=== PATIENT | male | born 1930 | race Caucasian/White ===

== ENCOUNTER 2016-12-04 09:26 | Outpatient (CLI) | payer MEDICARE, MEDICAID | END 2016-12-04 09:27 | disposition home or self-care (01) | DX: R11.10 Vomiting, unspecified (principal); R10.13 Epigastric pain; E11.9 Type 2 diabetes mellitus without complications; Z79.899 Other long term (current) drug therapy ==

== ENCOUNTER 2016-12-06 | Outpatient (CLI) | payer MEDICARE, MEDICAID | END 2016-12-06 21:07 | disposition critical access hospital (66) | CPT/HCPCS: A0425; A0427 ==

== ENCOUNTER 2016-12-06 21:12 | Inpatient (IN) | payer MEDICARE, MEDICAID ==
[2016-12-06] MEDS ORDERED: SODIUM CHLORIDE 0.9% 500 ML IV ONE (21:24)
[2016-12-07] MEDS ORDERED: IOPAMIDOL-300 100 ML VIAL IVP ONE (00:24)
[2016-12-07] MEDS ORDERED: HYDROcod/ACETAM 5/325 MG TABLET PO PRN (04:09)
[2016-12-07] MEDS ORDERED: HYDROcod/ACETAM 10 MG/325 MG TABLET PO PRN (04:09)
[2016-12-07] MEDS ORDERED: SODIUM CHLORIDE FLUSH 0.9% 10 ML SYRINGE IVP PRN (04:09)
[2016-12-07] MEDS ORDERED: ONDANSETRON 4 MG/2 ML VIAL IVP PRN (04:09)
[2016-12-07] MEDS ORDERED: ACETAMINOPHEN 325 MG TABLET PO PRN (04:09)
[2016-12-07] MEDS ORDERED: IPRATROPIUM/ALBUTEROL 3 ML NEB INH PRN (04:09)
[2016-12-07] MEDS: SODIUM CHLORIDE 0.9% 1,000 ML IV SCH ×3 (04:42→23:50)
[2016-12-07] MEDS: SODIUM CHLORIDE FLUSH 0.9% 10 ML SYRINGE IVP SCH ×3 (04:42→21:17)
[2016-12-07] MEDS: PANTOPRAZOLE 40 MG TABLET PO SCH (06:10)
[2016-12-07] MEDS: INSULIN ASPART 300 UNIT/3 ML PEN SUBQ SCH ×4 (07:56→21:16)
[2016-12-07] MEDS ORDERED: SERTRALINE 50 MG TABLET PO SCH (09:00)
[2016-12-07] MEDS: SACCHAROMYCES BOULARDII 250 MG CAPSULE PO SCH ×2 (09:18→17:00)
[2016-12-07] MEDS: ENOXAPARIN 40 MG/0.4 ML SYRINGE SUBQ SCH (09:19)
[2016-12-07] MEDS: LISINOPRIL 5 MG TABLET PO SCH (09:19)
[2016-12-07] MEDS: POLYETHYLENE GLYCOL 3350 17 GM PACKET PO SCH (09:19)
[2016-12-07] MEDS: NICOTINE 14 MG PATCH TOP SCH (09:20)
[2016-12-07] MEDS ORDERED: MIN OIL/DIMETHICON/COCONUT OIL 92 GM TUBE TOP PRN (20:06)
[2016-12-07] MEDS: ATORVASTATIN 40 MG TABLET PO SCH (21:17)
[2016-12-08] MEDS: SODIUM CHLORIDE FLUSH 0.9% 10 ML SYRINGE IVP SCH ×3 (04:26→21:30)
[2016-12-08] MEDS: PANTOPRAZOLE 40 MG TABLET PO SCH (06:05)
[2016-12-08] MEDS: NICOTINE 14 MG PATCH TOP SCH (08:13)
[2016-12-08] MEDS: SACCHAROMYCES BOULARDII 250 MG CAPSULE PO SCH ×2 (08:15→17:59)
[2016-12-08] MEDS: POLYETHYLENE GLYCOL 3350 17 GM PACKET PO SCH (08:15)
[2016-12-08] MEDS: LISINOPRIL 5 MG TABLET PO SCH (08:15)
[2016-12-08] MEDS: SERTRALINE 50 MG TABLET PO SCH (08:15)
[2016-12-08] MEDS: ENOXAPARIN 40 MG/0.4 ML SYRINGE SUBQ SCH (08:16)
[2016-12-08] MEDS: INSULIN ASPART 300 UNIT/3 ML PEN SUBQ SCH ×4 (08:16→21:27)
[2016-12-08] MEDS: SODIUM CHLORIDE 0.9% 1,000 ML IV SCH ×2 (11:32→21:34)
[2016-12-08] MEDS: ATORVASTATIN 40 MG TABLET PO SCH (21:27)
[2016-12-09] MEDS: SODIUM CHLORIDE FLUSH 0.9% 10 ML SYRINGE IVP SCH ×2 (06:34→07:48)
[2016-12-09] MEDS: PANTOPRAZOLE 40 MG TABLET PO SCH (06:56)
[2016-12-09] MEDS: LISINOPRIL 5 MG TABLET PO SCH (07:46)
[2016-12-09] MEDS: SACCHAROMYCES BOULARDII 250 MG CAPSULE PO SCH (07:46)
[2016-12-09] MEDS: SERTRALINE 50 MG TABLET PO SCH (07:47)
[2016-12-09] MEDS: NICOTINE 14 MG PATCH TOP SCH (07:47)
[2016-12-09] MEDS: ENOXAPARIN 40 MG/0.4 ML SYRINGE SUBQ SCH (07:47)
[2016-12-09] MEDS: POLYETHYLENE GLYCOL 3350 17 GM PACKET PO SCH (07:47)
[2016-12-09] MEDS: SODIUM CHLORIDE 0.9% 1,000 ML IV SCH (07:47)
[2016-12-09] MEDS: INSULIN ASPART 300 UNIT/3 ML PEN SUBQ SCH (07:56)
== END 2016-12-09 11:45 | disposition home or self-care (01) | DRG 190 ==
DX: J44.0 Chronic obstructive pulmonary disease with (acute) lower respiratory infection (principal); J18.9 Pneumonia, unspecified organism; J44.1 Chronic obstructive pulmonary disease with (acute) exacerbation; E11.9 Type 2 diabetes mellitus without complications; I10 Essential (primary) hypertension; F17.200 Nicotine dependence, unspecified, uncomplicated; E78.5 Hyperlipidemia, unspecified; G47.33 Obstructive sleep apnea (adult) (pediatric); I71.4 Abdominal aortic aneurysm, without rupture; N28.9 Disorder of kidney and ureter, unspecified; R09.02 Hypoxemia; I72.3 Aneurysm of iliac artery; I25.10 Atherosclerotic heart disease of native coronary artery without angina pectoris; F03.90 Unspecified dementia, unspecified severity, without behavioral disturbance, psychotic disturbance, mood disturbance, and anxiety; F17.210 Nicotine dependence, cigarettes, uncomplicated; F32.9 Major depressive disorder, single episode, unspecified; Z66 Do not resuscitate; Z95.5 Presence of coronary angioplasty implant and graft; Z85.048 Personal history of other malignant neoplasm of rectum, rectosigmoid junction, and anus; Z79.84 Long term (current) use of oral hypoglycemic drugs; R10.9 Unspecified abdominal pain; R11.2 Nausea with vomiting, unspecified

== ENCOUNTER 2016-12-30 10:49 | Emergency (ER) | payer MEDICARE, MEDICAID ==
[2016-12-30] MEDS ORDERED: SODIUM CHLORIDE 0.9% 1,000 ML IV ONE ×2 (12:02→16:08)
[2016-12-30] MEDS ORDERED: HYDROmorphone 1 MG/ML SYRINGE IVP STA (12:02)
[2016-12-30] MEDS ORDERED: ONDANSETRON 4 MG/2 ML VIAL IVP STA (12:02)
[2016-12-30] MEDS ORDERED: HYDROmorphone 1 MG/ML SYRINGE ONE (12:06)
[2016-12-30] MEDS ORDERED: ONDANSETRON 4 MG/2 ML VIAL ONE (12:07)
[2016-12-30] MEDS ORDERED: IOPAMIDOL-300 100 ML VIAL IVP ONE ×2 (14:12)
[2016-12-30] MEDS ORDERED: MAGNESIUM CITRATE 296 ML BOTTLE PO STA (14:15)
[2016-12-30] MEDS ORDERED: MAGNESIUM CITRATE 296 ML BOTTLE ONE (14:48)
[2016-12-30] MEDS ORDERED: BISACODYL 5 MG TABLET PO STA (16:08)
[2016-12-30] MEDS ORDERED: BISACODYL 5 MG TABLET PO ONE (16:15)
== END 2016-12-30 17:50 | disposition home or self-care (01) ==
DX: K56.41 Fecal impaction (principal); R10.84 Generalized abdominal pain; D41.02 Neoplasm of uncertain behavior of left kidney; I71.4 Abdominal aortic aneurysm, without rupture; I72.3 Aneurysm of iliac artery; J43.2 Centrilobular emphysema; F17.200 Nicotine dependence, unspecified, uncomplicated; I49.1 Atrial premature depolarization; I25.10 Atherosclerotic heart disease of native coronary artery without angina pectoris; Z95.5 Presence of coronary angioplasty implant and graft; E11.9 Type 2 diabetes mellitus without complications; Z79.84 Long term (current) use of oral hypoglycemic drugs; F03.90 Unspecified dementia, unspecified severity, without behavioral disturbance, psychotic disturbance, mood disturbance, and anxiety; Z85.038 Personal history of other malignant neoplasm of large intestine
CPT/HCPCS: 36415; 74177; 80053; 83605; 83690; 84484; 85025; 93005; 93010; 96361; 96374; 96375; 99284; 99285; A9270; J1170; Q9967

== ENCOUNTER 2017-01-10 09:00 | Outpatient (CLI) | payer MEDICARE, MEDICAID ==
[2017-01-10] MEDS ORDERED: BARIUM SULFATE 135 ML BOTTLE PO ONE (09:53)
[2017-01-10] MEDS ORDERED: BARIUM SULFATE 176 GM BOTTLE PO ONE (09:53)
== END 2017-01-10 09:01 | disposition home or self-care (01) ==
DX: K44.9 Diaphragmatic hernia without obstruction or gangrene (principal); K21.9 Gastro-esophageal reflux disease without esophagitis
CPT/HCPCS: 74246; A9270

== ENCOUNTER 2017-07-03 12:31 | Outpatient (CLI) | payer MEDICARE, MEDICAID ==
[2017-07-03 18:16] LABS: ALBUMIN/GLOBULIN RATIO 0.9 (1.0-2.2); BASOPHILS # (AUTO) 0.1 10^3/uL (0.0-0.1); BASOPHILS % (AUTO) 1.3 %; BILIRUBIN,TOTAL 0.2 mg/dL (0.2-1.0); BUN - BLOOD UREA NITROGEN 48 mg/dL (6-20); CALCIUM 9.1 mg/dL (8.5-10.3); CARBON DIOXIDE - CO2 24 mmol/L (21-32); CHLORIDE 102 mmol/L (101-111); CHOL/HDL RATIO 3.9 (<5.0); CHOLESTEROL 178 mg/dL; CREATININE 1.7 mg/dL (0.6-1.2); EOSINOPHILS # (AUTO) 0.1 10^3/uL (0.0-0.7); EOSINOPHILS % (AUTO) 1.2 %; GFR - MDRD 38 (>89); GLUCOSE 97 mg/dL (70-100); HCT - HEMATOCRIT 35.2 % (42.0-52.0); HDL CHOLESTEROL 46 mg/dL; HGB - HEMOGLOBIN 11.7 g/dL (14.0-18.0); LDL/HDL RATIO 2.2 (<3.6); LYMPHOCYTES # (AUTO) 1.5 10^3/uL (1.5-3.5); LYMPHOCYTES % (AUTO) 17.3 %; MEAN CORPUSCULAR HEMOGLOBIN 27.8 pg (27.0-31.0); MEAN CORPUSCULAR HGB CONC 33.2 g/dL (32.0-36.0); MEAN CORPUSCULAR VOLUME 83.7 fL (80.0-94.0); MONOCYTES # (AUTO) 0.7 10^3/uL (0.0-1.0); MONOCYTES % (AUTO) 7.9 %; NEUTROPHILS # (AUTO) 6.4 10^3/uL (1.5-6.6); NEUTROPHILS % (AUTO) 72.3 %; POTASSIUM 4.9 mmol/L (3.5-5.0); RED BLOOD COUNT 4.21 10^6/uL (4.70-6.10); RED CELL DISTRIBUTION WIDTH 15.7 % (12.0-15.0); SODIUM 136 mmol/L (135-145); TOTAL PROTEIN 7.7 g/dL (6.7-8.2); TRIGLYCERIDES 163 mg/dL; UNCORRECTED WHITE BLOOD COUNT 8.8 x10^3/uL; VLDL CHOLESTEROL 33 mg/dL; WHITE BLOOD COUNT 8.8 x10^3/uL (4.8-10.8)
[2017-07-03 19:17] LABS: HEMOGLOBIN A1C 0.55 g/dL
== END 2017-07-03 12:32 | disposition home or self-care (01) ==
LOC: LAB.R 12:31
PROVIDERS: ATTEND Internal Medicine
DX: J44.9 Chronic obstructive pulmonary disease, unspecified (principal); E78.2 Mixed hyperlipidemia; K21.9 Gastro-esophageal reflux disease without esophagitis; E11.9 Type 2 diabetes mellitus without complications; I10 Essential (primary) hypertension
CPT/HCPCS: 80053; 80061; 83036; 85025

== ENCOUNTER 2017-07-19 11:37 | Outpatient (CLI) | payer MEDICARE, MEDICAID ==
[2017-07-19 12:12] LABS: BASOPHILS # (AUTO) 0.1 10^3/uL (0.0-0.1); BASOPHILS % (AUTO) 0.8 %; EOSINOPHILS # (AUTO) 0.1 10^3/uL (0.0-0.7); EOSINOPHILS % (AUTO) 1.4 %; HCT - HEMATOCRIT 34.2 % (42.0-52.0); HGB - HEMOGLOBIN 11.3 g/dL (14.0-18.0); LYMPHOCYTES # (AUTO) 1.3 10^3/uL (1.5-3.5); LYMPHOCYTES % (AUTO) 15.3 %; MEAN CORPUSCULAR HEMOGLOBIN 27.8 pg (27.0-31.0); MEAN CORPUSCULAR HGB CONC 33.1 g/dL (32.0-36.0); MEAN CORPUSCULAR VOLUME 83.9 fL (80.0-94.0); MEAN PLATELET VOLUME 7.8 fL (7.4-11.4); MONOCYTES # (AUTO) 0.6 10^3/uL (0.0-1.0); MONOCYTES % (AUTO) 7.4 %; NEUTROPHILS # (AUTO) 6.4 10^3/uL (1.5-6.6); NEUTROPHILS % (AUTO) 75.1 %; NUCLEATED RED BLOOD CELLS AUTO 0.1 /100WBC; RED BLOOD COUNT 4.07 10^6/uL (4.70-6.10); RED CELL DISTRIBUTION WIDTH 16.8 % (12.0-15.0); UNCORRECTED WHITE BLOOD COUNT 8.5 x10^3/uL; WHITE BLOOD COUNT 8.5 x10^3/uL (4.8-10.8)
[2017-07-19 12:24] LABS: ALBUMIN/GLOBULIN RATIO 0.9 (1.0-2.2); BILIRUBIN,TOTAL 0.4 mg/dL (0.2-1.0); CALCIUM 8.5 mg/dL (8.5-10.3); CREATININE 1.3 mg/dL (0.6-1.2); POTASSIUM 4.4 mmol/L (3.5-5.0)
== END 2017-07-19 11:38 | disposition home or self-care (01) ==
LOC: LAB.R 11:37
PROVIDERS: ATTEND Physician Assistant Medical
DX: M79.604 Pain in right leg (principal); E11.9 Type 2 diabetes mellitus without complications; Z79.899 Other long term (current) drug therapy
CPT/HCPCS: 80053; 85025; 85379

== ENCOUNTER 2017-07-19 13:33 | Outpatient (CLI) | payer MEDICARE, MEDICAID ==
--- NOTE | 2017-07-19 17:22 | XRAY Report ---
TWO VIEW RIGHT LOWER LE07/19/2017 CLINICAL INDICATION: Pain. Frontal and lateral views of the right lower leg demonstrate no evidence of acute fracture. Degenera tive changes are present, with plantar and posterior calcaneal spurring. No foreign body is seen in the soft tissues. IMPRESSION: NO EVIDENCE OF FRACTURE. JOB #: [id number] EXT JOB #:[id number]
--- NOTE | 2017-07-19 17:26 | Ultrasound Report ---
ULTRASOUND RIGHT LEG VENOUS DUPLEX: 07/19/2017 CLINICAL INDICATION: Leg pain, elevated D-dimer. TECHNIQUE: Real-time sonographic vascular imaging was performed by the building stonecutter through the right lower extremity utilizing both color flow and Doppler spectral analysis. Multiple outside medical sales representative s tatic images were saved for review. FINDINGS: A right lower extremity venous sonogram is performed revealing the common femoral, superfi cial femoral, profunda femoris, and popliteal veins to be adequately visualized without intraluminal defects. There is normal venous compression, augmentation, phasicity, and spontaneity of venous flow . In the calf, the visualized more cephalad portions of posterior tibial and peroneal veins are layla sly compressible, without filling defects. IMPRESSION: NO EVIDENCE OF DEEP VENOUS THROMBOSIS. JOB #: [id number] EXT JOB #:[id number]
== END 2017-07-19 13:34 | disposition home or self-care (01) ==
LOC: DI 13:33
PROVIDERS: ATTEND Physician Assistant Medical
DX: M79.661 Pain in right lower leg (principal); R79.89 Other specified abnormal findings of blood chemistry; E11.9 Type 2 diabetes mellitus without complications; Z79.899 Other long term (current) drug therapy
CPT/HCPCS: 80053; 85025; 85379

== ENCOUNTER 2017-09-25 18:13 | Emergency (ER) | payer MEDICARE, MEDICAID ==
[2017-09-25 18:35] LABS: BASOPHILS % (AUTO) 0.3 %; EOSINOPHILS # (AUTO) 0.1 10^3/uL (0.0-0.7); EOSINOPHILS % (AUTO) 0.5 %; HCT - HEMATOCRIT 35.9 % (42.0-52.0); HGB - HEMOGLOBIN 11.6 g/dL (14.0-18.0); LYMPHOCYTES # (AUTO) 1.1 10^3/uL (1.5-3.5); MEAN CORPUSCULAR HEMOGLOBIN 27.1 pg (27.0-31.0); MEAN CORPUSCULAR HGB CONC 32.3 g/dL (32.0-36.0); MEAN PLATELET VOLUME 7.2 fL (7.4-11.4); MONOCYTES % (AUTO) 6.5 %; NEUTROPHILS # (AUTO) 13.1 10^3/uL (1.5-6.6); NEUTROPHILS % (AUTO) 85.7 %; RED BLOOD COUNT 4.28 10^6/uL (4.70-6.10); RED CELL DISTRIBUTION WIDTH 14.4 % (12.0-15.0); UNCORRECTED WHITE BLOOD COUNT 15.2 x10^3/uL; WHITE BLOOD COUNT 15.2 x10^3/uL (4.8-10.8)
[2017-09-25] MEDS ORDERED: SODIUM CHLORIDE 0.9% 1,000 ML IV ONE ×2 (18:38)
--- NOTE | 2017-09-25 18:41 | ED Physician Documentation ---
History of Present Illness - Stated complaint Stated Complaint: WEAKNESS/CONFUSION - Chief complaint Chief Complaint: Neuro - History obtained from History obtained from: Patient, Family - History of Present Illness Timing: Yesterday Pain level max: 0 Pain level now: 0 Improved by: rest Worsened by: movement - Additonal information Additional information: Patient is an 87-year-old gentleman who presents to the emergency department with generalized weakness since yesterday. Increasing today. Family states this is similar to the last time he had a urinary tract infection. No fevers at home. Has had a cough, this is been ongoing for several weeks. Recently stopped his lisinopril. Has been placed on Zyrtec recently. Review of Systems Ten Systems: 10 systems reviewed and negative Constitutional: denies: Fever, Chills Nose: denies: Rhinorrhea / runny nose, Congestion Respiratory: reports: Cough (dry) Skin: denies: Rash Musculoskeletal: denies: Neck pain, Back pain Neurologic: reports: Generalized weakness. denies: Focal weakness, Numbness, Altered mental status, Headache PD PAST MEDICAL HISTORY - Past Medical History Cardiovascular: Coronary artery disease Respiratory: COPD Neuro: Dementia Endocrine/Autoimmune: Type 2 diabetes HEENT: None - Past Surgical History Past Surgical History: Yes General: Bowel surgery Ortho: Other Cardiovascular: Coronary stent - Present Medications Home Medications: Ambulatory Orders Medication Instructions Recorded Confirmed Potassium Chloride [K-Tab ER] 10 meq PO DAILY 08/15/13 09/25/17 Atorvastatin [Lipitor] 40 mg DAILY 05/13/15 09/25/17 Furosemide 20 mg DAILY 05/13/15 09/25/17 Sertraline [Zoloft] 50 mg PO DAILY 12/07/16 09/25/17 Cephalexin [Keflex] 500 mg PO Q6H #28 capsule 09/25/17 Cetirizine [ZyrTEC] 10 mg PO DAILY 09/25/17 09/25/17 - Allergies Allergies/Adverse Reactions: Allergies Allergy/AdvReac Type Severity Reaction Status Date / Time No Known Drug Allergies Allergy Verified 08/15/13 13:42 - Social History Does the pt smoke?: Yes Smoking Status: Current every day smoker Does the pt drink ETOH?: No Does the pt have substance abuse?: No - Immunizations Immunizations are current?: No Immunizations: TDAP >10years/unknown - POLST Patient has POLST: No PD ED PE NORMAL - Vitals Vital signs reviewed: Yes - General General: No acute distress, Well developed/nourished, Other (alert, oriented to person and place) - HEENT HEENT: PERRL, Ears normal, Pharynx benign, Other (dry lips) - Neck Neck: Supple, no meningeal sign, No adenopathy - Cardiac Cardiac: RRR - Respiratory Respiratory: No respiratory distress, Other (mild rhonchi B) - Abdomen Abdomen: Soft, Non tender, Non distended - Back Back: No CVA TTP, No spinal TTP - Derm Derm: Warm and dry, No rash - Neuro Neuro: Other (alert) - Psych Psych: Normal mood, Normal affect Results - Vitals Vitals: Vital Signs - 24 hr 09/25/17 09/25/17 09/25/17 18:21 18:51 19:34 Temperature 36.3 C L Heart Rate 88 77 Respiratory 20 18 Rate Blood Pressure 150/63 H 150/63 H O2 Saturation 95 88 L 95 09/25/17 09/25/17 20:00 21:07 Temperature 36.7 C Heart Rate 79 67 Respiratory 24 24 Rate Blood Pressure 130/67 130/78 O2 Saturation 93 93 Oxygen O2 Source Room air - EKG (time done) 1823 Rate: Rate (enter#) (88) Rhythm: NSR, Other (PVC) [place]: Normal Intervals: Prolonged [place] QRS: Normal Ischemia: Normal ST segments - Labs Labs: Laboratory Tests 09/25/17 09/25/17 09/25/17 18:30 18:30 18:30 WBC 15.2 H RBC 4.28 L Hgb 11.6 L Hct 35.9 L MCV 84.0 MCH 27.1 MCHC 32.3 RDW 14.4 Plt Count 296 MPV 7.2 L Neut # 13.1 H Lymph # 1.1 L [place] # 1.0 Eos # 0.1 Baso # 0.0 Absolute Nucleated RBC 0.01 Nucleated RBC % 0.0 Sodium 134 L Potassium 4.2 Chloride 99 L Carbon Dioxide 24 Anion Gap 11.0 BUN 46 H Creatinine 1.2 Estimated GFR (MDRD) 57 L Glucose 250 H POC Whole Bld Glucose 290 H Calcium 8.7 Total Bilirubin 0.6 AST 15 ALT 14 Alkaline Phosphatase 120 Total Protein 7.6 Albumin 3.6 Globulin 4.0 Albumin/Globulin Ratio 0.9 L Lipase 53 H Urine Color Urine Clarity Urine pH Ur Specific [place] Urine Protein Urine Glucose (UA) Urine Ketones Urine Occult Blood Urine Nitrite Urine Bilirubin Urine Urobilinogen Ur Leukocyte Esterase Urine RBC Urine WBC Urine WBC Clumps Ur Squamous Epith Cells Urine Bacteria Urine Mucus Ur Microscopic Review Urine Culture Comments 09/25/17 09/25/17 19:20 20:06 WBC RBC Hgb Hct MCV MCH MCHC RDW Plt Count MPV Neut # Lymph # [place] # Eos # Baso # Absolute Nucleated RBC Nucleated RBC % Sodium Potassium Chloride Carbon Dioxide Anion Gap BUN Creatinine Estimated GFR (MDRD) Glucose POC Whole Bld Glucose 188 H Calcium Total Bilirubin AST ALT Alkaline Phosphatase Total Protein Albumin Globulin Albumin/Globulin Ratio Lipase Urine Color YELLOW Urine Clarity HAZY Urine pH 6.0 Ur Specific [place] 1.015 Urine Protein NEGATIVE Urine Glucose (UA) NEGATIVE Urine Ketones NEGATIVE Urine Occult Blood LARGE H Urine Nitrite NEGATIVE Urine Bilirubin NEGATIVE Urine Urobilinogen 0.2 (NORMAL) Ur Leukocyte Esterase MODERATE H Urine RBC TNTC H Urine WBC >25 H Urine WBC Clumps PRESENT Ur Squamous Epith Cells RARE Squamous Urine Bacteria Moderate H Urine Mucus Few Strands Ur Microscopic Review INDICATED Urine Culture Comments INDICATED - Rads (name of study) cxr Radiology: Prelim report reviewed, EMP read contemporaneously, See rad report ( Mild cardiomegaly with thoracic aortic tortuosity. 2. There are dense bilateral pleural calcifications. 3. No acute intrathoracic plain film abnormality. ) PD MEDICAL DECISION MAKING - ED course Complexity details: reviewed results, re-evaluated patient, considered differential, d/w patient, d/w family ED course: Patient is an 87-year-old male who presents to the emergency department with generalized weakness for the past several days. Found to have a UTI. Given Rocephin. Also given IV fluids. No evidence of pneumonia. No sepsis. Family would like to take him home at this time. He is ambulating in the emergency department with a walker without any apparent difficulty. Patient and family counseled regarding signs and symptoms for which I believe and urgent re- evaluation would be necessary. Patient with good understanding of and agreement to plan and is comfortable going home at this time This document was made in part using voice recognition software. While efforts are made to proofread this document, sound alike and grammatical errors may occur. Departure - Departure Disposition: 01 Home, Self Care Clinical Impression: Dehydration UTI (urinary tract infection) Qualifiers: Urinary tract infection type: acute cystitis Hematuria presence: without hematuria Qualified Code(s): N30.00 - Acute cystitis without hematuria Condition: Good Instructions: ED Dehydration, ED UTI Cystitis Male Follow-Up: Magdy Hester MD [Primary Care Provider] - Within 1 week Prescriptions: Cephalexin [Keflex] 500 mg PO Q6H #28 capsule Comments: Return if you worsen. Take all antibiotics until gone. Discharge Date/Time: 09/25/17 20:55
[2017-09-25 18:47] LABS: ALBUMIN/GLOBULIN RATIO 0.9 (1.0-2.2); BILIRUBIN,TOTAL 0.6 mg/dL (0.2-1.0); CALCIUM 8.7 mg/dL (8.5-10.3); CREATININE 1.2 mg/dL (0.6-1.2); POTASSIUM 4.2 mmol/L (3.5-5.0); TOTAL PROTEIN 7.6 g/dL (6.7-8.2)
--- NOTE | 2017-09-25 19:26 | XRAY Preliminary Report ---
Exam: XR CHEST 1 VIEW IMPRESSION: 1. Mild cardiomegaly with thoracic aortic tortuosity. 2. There are dense bilateral pleural calcifications. 3. No acute intrathoracic plain film abnormality. [facility] SITE ID: [id number]
--- NOTE | 2017-09-25 19:28 | XRAY Report ---
EXAM: CHEST RADIOGRAPHY EXAM DATE: 09/25/2017 06:58 PM. CLINICAL HISTORY: Cough. COMPARISON: 12/06/2016. TECHNIQUE: 1 view. FINDINGS: Lungs/Pleura: There are dense bilateral pleural calcifications. Lungs are well expanded. No clear rocael dence of acute infiltrate. No large effusion. No pneumothorax. Mediastinum: There is mild cardiomegaly. There is thoracic aortic tortuosity and calcification. Other: None. IMPRESSION: 1. Mild cardiomegaly with thoracic aortic tortuosity. 2. There are dense bilateral pleural calcifications. 3. No acute intrathoracic plain film abnormality. [facility] Referring Provider Line: [phone] SITE ID: [id number]
[2017-09-25 19:43] LABS: BILIRUBIN,URINE NEGATIVE (NEGATIVE)
[2017-09-25 19:46] LABS: UA w/ MICROSCOPIC CHARGE YES
[2017-09-25] MEDS ORDERED: cefTRIAXone 1 GM VIAL IVP STA (19:50)
[2017-09-25 19:54] LABS: UR CULTURE IF IND INDICATED; WBC,URINE >25 /HPF (0-3)
[2017-09-25] MEDS ORDERED: cefTRIAXone 1 GM VIAL ONE (19:58)
[2017-09-25] MEDS ORDERED: WATER FOR INJECTION,STERILE 10 ML ONE (19:58)
[2017-09-25] MEDS ORDERED: INSULIN REGULAR HUMAN 100 UNIT/1 ML 10 ML MDV IVP STA (20:01)
[2017-09-25 21:12] VITALS: BP 130/78
== END 2017-09-25 20:55 | disposition home or self-care (01) ==
LOC: ED 18:13
DX: N30.00 Acute cystitis without hematuria (principal); E86.0 Dehydration; F03.90 Unspecified dementia, unspecified severity, without behavioral disturbance, psychotic disturbance, mood disturbance, and anxiety; E11.9 Type 2 diabetes mellitus without complications; I25.10 Atherosclerotic heart disease of native coronary artery without angina pectoris; F17.200 Nicotine dependence, unspecified, uncomplicated
CPT/HCPCS: 36415; 51701; 71010; 80053; 81001; 81003; 83690; 85025; 87086; 93005; 96361; 96374; 99283; 99284

== ENCOUNTER 2017-12-18 09:55 | Outpatient (CLI) | payer MEDICARE, MEDICAID ==
[2017-12-18 13:18] LABS: BASOPHILS # (AUTO) 0.1 10^3/uL (0.0-0.1); BASOPHILS % (AUTO) 0.9 %; EOSINOPHILS # (AUTO) 0.2 10^3/uL (0.0-0.7); EOSINOPHILS % (AUTO) 2.6 %; LYMPHOCYTES # (AUTO) 1.7 10^3/uL (1.5-3.5); LYMPHOCYTES % (AUTO) 24.3 %; MEAN CORPUSCULAR HEMOGLOBIN 25.3 pg (27.0-31.0); MEAN CORPUSCULAR HGB CONC 32.8 g/dL (32.0-36.0); MEAN CORPUSCULAR VOLUME 77.2 fL (80.0-94.0); MONOCYTES # (AUTO) 0.8 10^3/uL (0.0-1.0); MONOCYTES % (AUTO) 10.7 %; NEUTROPHILS # (AUTO) 4.4 10^3/uL (1.5-6.6); NEUTROPHILS % (AUTO) 61.5 %; PLT - PLATELET COUNT 253 10^3/uL (130-450); RED BLOOD COUNT 4.33 10^6/uL (4.70-6.10); RED CELL DISTRIBUTION WIDTH 15.4 % (12.0-15.0); WHITE BLOOD COUNT 7.2 x10^3/uL (4.8-10.8)
[2017-12-18 13:26] LABS: ALBUMIN 3.5 g/dL (3.2-5.5); ALBUMIN/GLOBULIN RATIO 1.1 (1.0-2.2); BILIRUBIN,TOTAL 0.5 mg/dL (0.2-1.0); CALCIUM 8.6 mg/dL (8.5-10.3); CREATININE 1.2 mg/dL (0.6-1.2); TOTAL PROTEIN 6.8 g/dL (6.7-8.2)
[2017-12-18 13:47] LABS: HB2 TOTAL 11.5 g/dL; HEMOGLOBIN A1C 0.67 g/dL; HEMOGLOBIN A1C % 7.5 % (4.6-6.2)
== END 2017-12-18 09:56 | disposition home or self-care (01) ==
LOC: LAB.R 09:55
PROVIDERS: ATTEND Physician Assistant Medical
DX: D64.9 Anemia, unspecified (principal); E11.9 Type 2 diabetes mellitus without complications; I10 Essential (primary) hypertension; Z79.899 Other long term (current) drug therapy
CPT/HCPCS: 80053; 82728; 83036; 85025

== ENCOUNTER 2018-01-10 14:42 | Outpatient (CLI) | payer MEDICARE, MEDICAID ==
--- NOTE | 2018-01-10 17:39 | XRAY Report ---
TWO VIEW CHEST: 01/10/2018 CLINICAL INDICATION: Wheezing, COPD. COMPARISON: 09/25/2017, 12/06/2016. FINDINGS: Frontal and lateral views of the chest demonstrate a normal cardiac silhouette. The lungs are hyperinflated, with emphysematous changes. Calcified plaquing is stable. No new infiltrate, effusion, or pneumothorax is present. IMPRESSION: STABLE BILATERAL CALCIFIED PLEURAL PLAQUING AND EMPHYSEMA. NO EVIDENCE OF ACUTE CARDIOPULMONARY DISEASE. TD: 01/10/2018 17:38
== END 2018-01-10 14:43 | disposition home or self-care (01) ==
LOC: DI 14:42
PROVIDERS: ATTEND Physician Assistant Medical
DX: J92.9 Pleural plaque without asbestos (principal); J43.9 Emphysema, unspecified
CPT/HCPCS: 71046

== ENCOUNTER 2018-03-01 09:35 | Outpatient (CLI) | payer MEDICARE, MEDICAID ==
[2018-03-01 13:33] LABS: BASOPHILS # (AUTO) 0.1 10^3/uL (0.0-0.1); EOSINOPHILS # (AUTO) 0.2 10^3/uL (0.0-0.7); EOSINOPHILS % (AUTO) 3.2 %; HGB - HEMOGLOBIN 11.8 g/dL (14.0-18.0); LYMPHOCYTES # (AUTO) 1.8 10^3/uL (1.5-3.5); LYMPHOCYTES % (AUTO) 25.6 %; MEAN CORPUSCULAR HEMOGLOBIN 27.3 pg (27.0-31.0); MEAN CORPUSCULAR HGB CONC 33.2 g/dL (32.0-36.0); MEAN CORPUSCULAR VOLUME 82.2 fL (80.0-94.0); MEAN RETIC VALUE 104.2; MONOCYTES # (AUTO) 0.7 10^3/uL (0.0-1.0); MONOCYTES % (AUTO) 9.2 %; NEUTROPHILS # (AUTO) 4.4 10^3/uL (1.5-6.6); PLT - PLATELET COUNT 229 10^3/uL (130-450); RED BLOOD COUNT 4.33 10^6/uL (4.70-6.10); RED CELL DISTRIBUTION WIDTH 19.5 % (12.0-15.0); WHITE BLOOD COUNT 7.2 x10^3/uL (4.8-10.8)
[2018-03-01 13:38] LABS: % IRON SATURATION 21 % (20-50); IRON 69 ug/dL (45-182); TOTAL IRON BINDING CAPACITY 335 ug/dL (250-450); TRANSFERRIN 239 mg/dL (180-329)
== END 2018-03-01 09:36 | disposition home or self-care (01) ==
LOC: LAB.R 09:35
PROVIDERS: ATTEND Physician Assistant Medical
DX: D64.9 Anemia, unspecified (principal)
CPT/HCPCS: 82728; 83540; 84466; 85025; 85044

== ENCOUNTER 2018-03-11 20:05 | Outpatient (CLI) | payer MEDICARE, MEDICAID ==
--- NOTE | 2018-03-12 07:42 | Ultrasound Report ---
EXAM: RIGHT LOWER EXTREMITY VENOUS ULTRASOUND EXAM DATE: 03/11/2018 09:23 PM. CLINICAL HISTORY: RT LEG PAIN, EDEMA. COMPARISON: 07/19/2017. TECHNIQUE: Real-time sonographic vascular imaging was performed by the anaesthesiologist through the lower extremity utilizing both color-flow and Doppler spectral analysis. Multiple marketing sales representative static nicole ges were saved for review. FINDINGS: Common Femoral Vein (CFV): Unable to tolerate compression, otherwise appeared unremarkable. CFV-GSV Junction: Normal. Profunda Femoral Vein (PFV): Normal. Femoral Vein (FV) Prox: Normal. Femoral Vein (FV) Mid: Normal. Femoral Vein (FV) Dist: Limited assessment, although appears to be unremarkable. Popliteal Vein: Limited assessment, although appears to be unremarkable. Posterior Tibial Veins: Limited assessment, although appears to be unremarkable. Peroneal Veins: Not well visualized. Other: Subcutaneous soft tissue edema noted, particularly near the ankle. IMPRESSION: Limitation in assessment, as some veins not well visualized. Additionally, patient unable to tolerate compression particularly in the region of the groin. Otherwise, no sonographic evidence of DVT in the right lower extremity. [facility] Referring Provider Line: [phone] SITE ID: [id number]
--- NOTE | 2018-03-12 07:51 | Ultrasound Preliminary Report ---
Exam: US DUPLEX LWR EXT ARTERIAL RT IMPRESSION: 1. Anterior tibial artery and peroneal artery are not definitively visualized. 2. Atherosclerotic plaque with some calcification noted throughout the right leg, with arterial wavef orm and velocities as described above. If there is persistent clinical concern, consider further evaluation and anatomic delineation with co ntrast-enhanced CTA or MRA with runoffs through the lower extremities. [facility] SITE ID: [id number]
--- NOTE | 2018-03-12 08:06 | Ultrasound Report ---
EXAM: RIGHT LOWER EXTREMITY ARTERIAL DOPPLER ULTRASOUND EXAM DATE: 03/11/2018 08:52 PM. CLINICAL HISTORY: Leg pain, right, leg edema, right. COMPARISON: None. TECHNIQUE: Real-time sonographic vascular imaging was performed by the general assignment reporter, utilizing color-f low, Doppler flow, and spectral analysis. Multiple procurement representative static images were saved for review . FINDINGS: Atherosclerotic plaque with some calcification noted throughout the right leg. Anterior tib ial artery not visualized. Peroneal artery is not visualized. Subcutaneous soft tissue edema is noted , most notably at the distal calf/ankle. Left Leg: REEL CART OPERATOR: PSV 103 cm/sec. Biphasic Waveform. PSFA: PSV 44 cm/sec. Biphasic Waveform. MSFA: PSV 94 cm/sec. Biphasic Waveform. DSFA: PSV 105 cm/sec. Biphasic Waveform. PFA: PSV 92 cm/sec. Biphasic Waveform. POP: PSV 31 cm/sec. Biphasic Waveform. CHANCE: Not visualized. ELECTRICAL SIGN WIRER HELPER: PSV 19 cm/sec. Monophasic Waveform. PER: Not well visualized. DPA: PSV 18 cm/sec. Monophasic Waveform. IMPRESSION: 1. Anterior tibial artery and peroneal artery are not definitively visualized. 2. Atherosclerotic plaque with some calcification noted throughout the right leg, with arterial wavef orm and velocities as described above. If there is persistent clinical concern, consider further evaluation and anatomic delineation with co ntrast-enhanced CTA or MRA with runoffs through the lower extremities. [facility] Referring Provider Line: [phone] SITE ID: [id number]
== END 2018-03-11 20:06 | disposition home or self-care (01) ==
LOC: DI 20:05
PROVIDERS: ATTEND Physician Assistant Medical
DX: M79.604 Pain in right leg (principal); R60.0 Localized edema; I70.201 Unspecified atherosclerosis of native arteries of extremities, right leg

== ENCOUNTER 2018-03-24 14:21 | Emergency (ER) | payer MEDICARE, MEDICAID ==
[2018-03-24 14:36] VITALS: BP 184/82
[2018-03-24] MEDS ORDERED: IPRATROPIUM/ALBUTEROL 3 ML NEB INH STA (14:42)
--- NOTE | 2018-03-24 14:45 | ED Physician Documentation ---
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 No fever. No respiratory distress. No hypoxia. Has been using his nebulizers at home. Review of Systems Constitutional: denies: Fever, Chills Nose: reports: Rhinorrhea / runny nose, Congestion Throat: denies: Sore throat Cardiac: denies: Chest pain / pressure Respiratory: reports: Cough. denies: Dyspnea, Wheezing GI: denies: Abdominal Pain, Nausea, Vomiting, Diarrhea Skin: denies: Rash Musculoskeletal: denies: Neck pain, Back pain Neurologic: denies: Focal weakness, Numbness, Headache PD PAST MEDICAL HISTORY - Past Medical History Past Medical History: Yes Cardiovascular: Coronary artery disease Respiratory: COPD Neuro: Dementia Endocrine/Autoimmune: Type 2 diabetes HEENT: None - Past Surgical History Past Surgical History: Yes General: Bowel surgery Ortho: Other Cardiovascular: Coronary stent - Present Medications Home Medications: Ambulatory Orders Medication Instructions Recorded Confirmed Potassium Chloride [K-Tab ER] 10 meq PO DAILY 08/15/13 09/25/17 Atorvastatin [Lipitor] 40 mg DAILY 05/13/15 09/25/17 Furosemide 20 mg DAILY 05/13/15 09/25/17 Sertraline [Zoloft] 50 mg PO DAILY 12/07/16 09/25/17 Cephalexin [Keflex] 500 mg PO Q6H #28 capsule 09/25/17 Cetirizine [ZyrTEC] 10 mg PO DAILY 09/25/17 09/25/17 Doxycycline Monohydrate 100 mg PO BID #20 tablet 03/24/18 - Allergies Allergies/Adverse Reactions: Allergies Allergy/AdvReac Type Severity Reaction Status Date / Time No Known Drug Allergies Allergy Verified 08/15/13 13:42 - Social History Does the pt smoke?: Yes Smoking Status: Current every day smoker Does the pt drink ETOH?: No Does the pt have substance abuse?: No - Immunizations Immunizations are current?: No Immunizations: TDAP >10years/unknown - POLST Patient has POLST: No PD ED PE NORMAL - Vitals Vital signs reviewed: Yes - General General: Alert and oriented X 3, No acute distress - HEENT HEENT: Moist mucous membranes - Neck Neck: Supple, no meningeal sign - Cardiac Cardiac: RRR, Strong equal pulses - Respiratory Respiratory: No respiratory distress, Other (rhonchi, wheezing B) - Abdomen Abdomen: Soft, Non tender, Non distended - Derm Derm: Warm and dry - Extremities Extremities: No edema, No calf tenderness / cord - Neuro Neuro: Alert and oriented X 3 - Psych Psych: Normal mood, Normal affect Results - Vitals Vitals: Vital Signs - 24 hr 03/24/18 03/24/18 14:29 15:30 Temperature 35.9 C L Heart Rate 67 65 Respiratory 20 20 Rate Blood Pressure 184/82 H O2 Saturation 94 Oxygen O2 Source Room air - EKG (time done) 1430 Rate: Rate (enter#) (69) Rhythm: NSR [place]: Normal Intervals: Prolonged [place], RBBB Ischemia: Q waves (II, III, aVF) - Labs Labs: Laboratory Tests 03/24/18 03/24/18 03/24/18 14:50 14:50 14:50 WBC 12.9 H RBC 4.17 L Hgb 11.3 L Hct 34.8 L MCV 83.5 MCH 27.1 MCHC 32.5 RDW 17.6 H Plt Count 272 MPV 7.1 L Neut # 9.5 H Lymph # 2.0 Door # 1.1 H Eos # 0.2 Baso # 0.0 Absolute Nucleated RBC 0.00 Nucleated RBC % 0.0 Manual Slide Review Indicated WBC Morphology NORMAL APPEARANCE Platelet Estimate NORMAL (130-450,000) Platelet Morphology 1+ GIANT PLATELETS RBC Morph Micro Appear 1+ MICROCYTOSIS Sodium 137 Potassium 3.8 Chloride 103 Carbon Dioxide 23 Anion Gap 11.0 BUN 59 H Creatinine 2.0 H Estimated GFR (MDRD) 32 L Glucose 116 H Calcium 8.7 Total Bilirubin 0.3 AST 16 ALT 12 Alkaline Phosphatase 93 Troponin I < 0.04 Total Protein 7.7 Albumin 3.9 Globulin 3.8 Albumin/Globulin Ratio 1.0 Lipase 36 Urine Color Urine Clarity Urine pH Ur Specific [place] Urine Protein Urine Glucose (UA) Urine Ketones Urine Occult Blood Urine Nitrite Urine Bilirubin Urine Urobilinogen Ur Leukocyte Esterase Ur Microscopic Review Urine Culture Comments 03/24/18 17:30 WBC RBC Hgb Hct MCV MCH MCHC RDW Plt Count MPV Neut # Lymph # Door # Eos # Baso # Absolute Nucleated RBC Nucleated RBC % Manual Slide Review WBC Morphology Platelet Estimate Platelet Morphology RBC Morph Micro Appear Sodium Potassium Chloride Carbon Dioxide Anion Gap BUN Creatinine Estimated GFR (MDRD) Glucose Calcium Total Bilirubin AST ALT Alkaline Phosphatase Troponin I Total Protein Albumin Globulin Albumin/Globulin Ratio Lipase Urine Color YELLOW Urine Clarity CLEAR Urine pH 5.5 Ur Specific [place] 1.010 Urine Protein NEGATIVE Urine Glucose (UA) NEGATIVE Urine Ketones NEGATIVE Urine Occult Blood NEGATIVE Urine Nitrite NEGATIVE Urine Bilirubin NEGATIVE Urine Urobilinogen 0.2 (NORMAL) Ur Leukocyte Esterase NEGATIVE Ur Microscopic Review NOT INDICATED Urine Culture Comments NOT INDICATED - Rads (name of study) cxr Radiology: Prelim report reviewed, EMP read contemporaneously, See rad report ( Similar appearance of bilateral calcified pleural plaques and hyperinflation. No definite new focal pulmonary opacity or other acute change. ) PD MEDICAL DECISION MAKING - ED course Complexity details: reviewed results, re-evaluated patient, considered differential, d/w patient, d/w family ED course: Patient is an 87-year-old male who presents to the emergency department what appears to be a COPD flare. Feels better after nebulizer treatment. Will place on antibiotics as he does have an elevated white blood cell count as well. Difficult to determine if he has pneumonia given the poor baseline chest x -ray. No evidence of sepsis. No hypoxia or respiratory distress. Patient counseled regarding signs and symptoms for which I believe and urgent re- evaluation would be necessary. Patient with good understanding of and agreement to plan and is comfortable going home at this time This document was made in part using voice recognition software. While efforts are made to proofread this document, sound alike and grammatical errors may occur. Departure - Departure Disposition: 01 Home, Self Care Clinical Impression: Bronchitis Condition: Good Instructions: ED Upper Resp Infec Abx Tx Follow-Up: Magdy Hester MD [Primary Care Provider] - Within 1 week Prescriptions: Doxycycline Monohydrate 100 mg PO BID #20 tablet Comments: Take all antibiotics until gone. Return if he worsens. Discharge Date/Time: 03/24/18 18:21
[2018-03-24 15:01] LABS: BASOPHILS % (AUTO) 0.4 %; EOSINOPHILS # (AUTO) 0.2 10^3/uL (0.0-0.7); EOSINOPHILS % (AUTO) 1.4 %; HGB - HEMOGLOBIN 11.3 g/dL (14.0-18.0); LYMPHOCYTES % (AUTO) 15.7 %; MEAN CORPUSCULAR HEMOGLOBIN 27.1 pg (27.0-31.0); MEAN CORPUSCULAR HGB CONC 32.5 g/dL (32.0-36.0); MEAN CORPUSCULAR VOLUME 83.5 fL (80.0-94.0); MEAN PLATELET VOLUME 7.1 fL (7.4-11.4); MONOCYTES # (AUTO) 1.1 10^3/uL (0.0-1.0); MONOCYTES % (AUTO) 8.7 %; NEUTROPHILS # (AUTO) 9.5 10^3/uL (1.5-6.6); NEUTROPHILS % (AUTO) 73.8 %; PLT - PLATELET COUNT 272 10^3/uL (130-450); RED BLOOD COUNT 4.17 10^6/uL (4.70-6.10); RED CELL DISTRIBUTION WIDTH 17.6 % (12.0-15.0); WHITE BLOOD COUNT 12.9 x10^3/uL (4.8-10.8)
[2018-03-24 15:12] LABS: ALBUMIN 3.9 g/dL (3.2-5.5); BILIRUBIN,TOTAL 0.3 mg/dL (0.2-1.0); CALCIUM 8.7 mg/dL (8.5-10.3); TOTAL PROTEIN 7.7 g/dL (6.7-8.2)
--- NOTE | 2018-03-24 15:16 | XRAY Preliminary Report ---
Exam: XR CHEST 1 VIEW X-RAY IMPRESSION: Similar appearance of bilateral calcified pleural plaques and hyperinflation. No definite new focal p ulmonary opacity or other acute change. [facility] SITE ID: [id number]
--- NOTE | 2018-03-24 15:16 | XRAY Report ---
EXAM: CHEST RADIOGRAPHY EXAM DATE: 03/24/2018 03:02 PM. CLINICAL HISTORY: Dyspnea. COMPARISON: 01/10/2018. TECHNIQUE: 1 view. FINDINGS: Lungs/Pleura: Lungs appear hyperinflated, similar to the prior exam. There are extensive bilateral ca lcified pleural plaques. No definite new focal pulmonary consolidation. No pleural effusion or pneumo thorax. Mediastinum: The patient is mildly rotated. Cardiac silhouette size appears within normal limits. The re is mild atherosclerotic calcification of the tortuous thoracic aorta. Other: No acute osseous abnormality. IMPRESSION: Similar appearance of bilateral calcified pleural plaques and hyperinflation. No definite new focal p ulmonary opacity or other acute change. [facility] Referring Provider Line: [phone] SITE ID: [id number]
[2018-03-24 16:55] LABS: PLATELET ESTIMATE, MANUAL NORMAL (130-450,000) (NORMAL); PLATELET MORPHOLOGY 1+ GIANT PLATELETS (NORMAL)
[2018-03-24 17:38] LABS: BILIRUBIN,URINE NEGATIVE (NEGATIVE); GLUCOSE, URINE (UA) NEGATIVE (NEGATIVE); KETONES,URINE (UA) NEGATIVE (NEGATIVE); LEUKOCYTE ESTERASE, URINE NEGATIVE (NEGATIVE); NITRITE,URINE NEGATIVE (NEGATIVE); OCCULT BLOOD,URINE NEGATIVE (NEGATIVE); PH,URINE 5.5 PH (5.0-7.5); PROTEIN,URINE NEGATIVE (NEGATIVE); UROBILINOGEN,URINE 0.2 (NORMAL) E.U./dL (NORMAL)
[2018-03-24 17:39] LABS: CLARITY,URINE CLEAR (CLEAR)
== END 2018-03-24 18:21 | disposition home or self-care (01) ==
LOC: ED 14:21
DX: J44.9 Chronic obstructive pulmonary disease, unspecified (principal); J60 Coalworker's pneumoconiosis; F03.90 Unspecified dementia, unspecified severity, without behavioral disturbance, psychotic disturbance, mood disturbance, and anxiety; I25.10 Atherosclerotic heart disease of native coronary artery without angina pectoris; E11.9 Type 2 diabetes mellitus without complications; I45.10 Unspecified right bundle-branch block; F17.200 Nicotine dependence, unspecified, uncomplicated; Z95.5 Presence of coronary angioplasty implant and graft
CPT/HCPCS: 36415; 71045; 80053; 81001; 81003; 83690; 84484; 85025; 87086; 93005; 94640; 99283; 99284

== ENCOUNTER 2018-04-09 14:01 | Inpatient (IN) | payer MEDICARE, MEDICAID ==
[2018-04-09] MEDS ORDERED: SODIUM CHLORIDE 0.9% 1,000 ML IV ONE ×2 (16:03→21:20)
[2018-04-09] MEDS ORDERED: ACETAMINOPHEN 1,000 MG/100 ML 100 ML IV STA (16:03)
--- NOTE | 2018-04-09 16:08 | ED Physician Documentation ---
History of Present Illness - Stated complaint Stated Complaint: ABD PX - Chief complaint Chief Complaint: Abd Pain - Additonal information Additional information: hx from pt and family known aortic aneurysm and a renal tumor (his family has not told him apparently) to ER with anna kidney pain and LLQ pain onset this AM no fever + NV pinkish liquid dec urine no dysuria no pain Review of Systems Constitutional: denies: Fever, Chills Cardiac: denies: Chest pain / pressure Respiratory: denies: Dyspnea GI: reports: Abdominal Pain (LLQ), Vomiting. denies: Diarrhea : reports: Other (decreased). denies: Dysuria, Testicular pain Musculoskeletal: reports: Back pain (flanks) Neurologic: denies: Focal weakness, Numbness (none new - feet always numb) Immunocompromised: denies: Immunocompromised PD PAST MEDICAL HISTORY - Past Medical History Past Medical History: Yes Cardiovascular: Coronary artery disease Respiratory: COPD Endocrine/Autoimmune: Type 2 diabetes HEENT: None - Past Surgical History Past Surgical History: Yes General: Bowel surgery Ortho: Other Cardiovascular: Coronary stent - Present Medications Home Medications: Ambulatory Orders Medication Instructions Recorded Confirmed Potassium Chloride [K-Tab ER] 10 meq PO DAILY 08/15/13 09/25/17 Atorvastatin [Lipitor] 40 mg DAILY 05/13/15 09/25/17 Furosemide 20 mg DAILY 05/13/15 09/25/17 Sertraline [Zoloft] 50 mg PO DAILY 12/07/16 09/25/17 Levofloxacin [Levaquin] 500 mg PO DAILY #9 tablet 04/09/18 metFORMIN [Glucophage] 500 mg PO BIDWM 04/09/18 04/09/18 - Allergies Allergies/Adverse Reactions: Allergies Allergy/AdvReac Type Severity Reaction Status Date / Time No Known Drug Allergies Allergy Verified 04/09/18 14:13 - Social History Does the pt smoke?: Yes Smoking Status: Current every day smoker Does the pt drink ETOH?: No Does the pt have substance abuse?: No - Immunizations Immunizations are current?: No Immunizations: TDAP >10years/unknown - POLST Patient has POLST: No PD ED PE NORMAL - Vitals Vital signs reviewed: Yes - Cardiac Cardiac: RRR - Respiratory Respiratory: No respiratory distress - Abdomen Abdomen: Soft, Other (mod TTP lower abd s focal peritoneal signs) - Back Back: Other (anna CVA TTP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 Results - Vitals Vitals: Vital Signs - 24 hr 04/09/18 04/09/18 04/09/18 14:11 18:17 19:20 Temperature 36.7 C 37.2 C 37.2 C Heart Rate 80 74 73 Respiratory 20 19 17 Rate Blood Pressure 127/64 164/81 H 131/116 H O2 Saturation 98 97 97 04/09/18 20:02 Temperature Heart Rate 70 Respiratory 18 Rate Blood Pressure 111/69 O2 Saturation 98 Oxygen O2 Source Room air - Labs Labs: Laboratory Tests 04/09/18 04/09/18 04/09/18 16:18 16:35 19:40 WBC 18.6 H RBC 4.24 L Hgb 11.6 L Hct 35.9 L MCV 84.7 MCH 27.4 MCHC 32.3 RDW 15.7 H Plt Count 298 MPV 7.9 Neut # Not Reportable Lymph # Not Reportable [place] # Not Reportable Eos # Not Reportable Baso # Not Reportable Absolute Nucleated RBC Not Reportable Total Counted 100 Band Neuts % (Manual) 4 Abnorm Lymph % (Manual) 0 Nucleated RBC % Not Reportable Neutrophils # (Manual) 16.0 H Lymphocytes # (Manual) 1.5 Monocytes # (Manual) 1.1 H Eosinophils # (Manual) 0.0 Basophils # (Manual) 0.0 Differential Comment MANUAL DIFFERENTIAL Manual Slide Review Indicated WBC Morphology NORMAL APPEARANCE Platelet Estimate NORMAL (130-450,000) Platelet Morphology RARE GIANT PLATELETS RBC Morph Micro Appear NORMAL APPEARANCE Sodium 133 L Potassium 3.9 Chloride 98 L Carbon Dioxide 21 Anion Gap 14.0 H BUN 67 H Creatinine 2.1 H Estimated GFR (MDRD) 30 L Glucose 184 H Calcium 8.6 Total Bilirubin 0.8 AST 24 ALT 13 Alkaline Phosphatase 94 Total Protein 7.5 Albumin 3.5 Globulin 4.0 Albumin/Globulin Ratio 0.9 L Lipase 24 Urine Color YELLOW Urine Clarity CLOUDY Urine pH 5.5 Ur Specific [place] 1.015 Urine Protein 100 H Urine Glucose (UA) NEGATIVE Urine Ketones NEGATIVE Urine Occult Blood LARGE H Urine Nitrite POSITIVE H Urine Bilirubin NEGATIVE Urine Urobilinogen 0.2 (NORMAL) Ur Leukocyte Esterase LARGE H Urine RBC 0-5 Urine WBC >25 H Urine WBC Clumps PRESENT Ur Squamous Epith Cells NONE SEEN Urine Bacteria Moderate H Ur Microscopic Review INDICATED Urine Culture Comments INDICATED - Rads (name of study) CT chestabd pelvis non con 2/2 GFR and access Radiology: See rad report (1 cm RLLL nodule rec CT PET and or biopsy, no pneumo , no pna, no effusion, cardiomegaly, CAD, no thoracic aneurysm or mediastinal hemorrhage, infra renal AAA stable without retroperitoneal hematona, R iliac artery aneurysm unchanged, gallstones s acute belkys, new anna hydro with thickened bladder wall, enlarged prostate) PD MEDICAL DECISION MAKING - ED course ED course: CT shows no aneurysm rupture or dissection within limits of being non con 2.2 renal fxn and inadequate angio compatible access does show anna sig hydro and bladder wall thickening pt incontinent of urine but still with 300-400 ml residual so placed stephens txed with levaquin to cover prostate considered admit but not tachy or hypotensive, renal insuff has been present for several weeks at least, has very good outpt fup with PMD Dr Hester, and family fears he will get upset and disoriented if out of his home environment so will dc with stephens levaquin and close PMD fup Departure - Departure Disposition: 01 Home, Self Care Clinical Impression: Pyelonephritis, Urinary retention, Renal insufficiency Condition: Good Instructions: ED UTI Pyelonephritis Male, ED Catheter Care Stephens, ED Retention Urinary Male Follow-Up: Magdy Hester MD [Primary Care Provider] - Prescriptions: Levofloxacin [Levaquin] 500 mg PO DAILY #9 tablet Comments: Your prostate is enlarged which makes it hard for your bladder to empty completely Perhaps because the bladder cannot empty completely, you have developed a urine infection And due to either the infection and/or the retention your kidneys are swollen which is likely the cause of your back pain And that has caused your kidney function to decline. So we have placed a catheter into your bladder to help drain the urine and decompress the kidneys And started you on antibiotics which are strong enough to treat the prostate as well - this class of antibiotics is very strong but can rarely have serious side effects such as nerve or tendon damage so if you develop any extremity or joint pains please stop the medication and call your PMD You will not need another dose of antibiotic until tomorrow night May take tylenol for pain but not NSAIDs such as motrin Drink plenty of fluids now that your kidneys can drain again Please follow up with Dr Hester tomorrow for a recheck Dr Hester will let you know when the catheter can be removed - probably about a week Return to the ER if worse in any way We also discussed the other abnormalities seen on the CT (the aneurysms which you already knew about, nodules in your lung and thyroid, thickened bladder wall , gallstones) - please talk to Dr Hester about these findings as well
[2018-04-09] MEDS ORDERED: IOPAMIDOL-300 100 ML VIAL ONE (16:27)
[2018-04-09 16:39] LABS: ALBUMIN 3.5 g/dL (3.2-5.5); ALBUMIN/GLOBULIN RATIO 0.9 (1.0-2.2); BILIRUBIN,TOTAL 0.8 mg/dL (0.2-1.0); CALCIUM 8.6 mg/dL (8.5-10.3); CREATININE 2.1 mg/dL (0.6-1.2); TOTAL PROTEIN 7.5 g/dL (6.7-8.2)
[2018-04-09 16:42] LABS: BASOPHILS % (AUTO) 0.5 %; EOSINOPHILS % (AUTO) 0.2 %; HGB - HEMOGLOBIN 11.6 g/dL (14.0-18.0); LYMPHOCYTES % (AUTO) 4.2 %; MEAN CORPUSCULAR HEMOGLOBIN 27.4 pg (27.0-31.0); MEAN CORPUSCULAR HGB CONC 32.3 g/dL (32.0-36.0); MEAN CORPUSCULAR VOLUME 84.7 fL (80.0-94.0); MEAN PLATELET VOLUME 7.9 fL (7.4-11.4); MONOCYTES % (AUTO) 10.2 %; NEUTROPHILS % (AUTO) 84.9 %; PLT - PLATELET COUNT 298 10^3/uL (130-450); RED BLOOD COUNT 4.24 10^6/uL (4.70-6.10); RED CELL DISTRIBUTION WIDTH 15.7 % (12.0-15.0); WHITE BLOOD COUNT 18.6 x10^3/uL (4.8-10.8)
[2018-04-09 16:45] LABS: ABNORMAL LYMPHS % (MANUAL) 0 %
[2018-04-09 16:57] LABS: BAND NEUTROPHILS % (MANUAL) 4 %; DIFFERENTIAL COMMENT MANUAL DIFFERENTIAL; LYMPHOCYTES # (MANUAL) 1.5 10^3/uL (1.5-3.5); LYMPHOCYTES % (MANUAL) 8 %; MONOCYTES # (MANUAL) 1.1 10^3/uL (0.0-1.0); NEUTROPHILS % (MANUAL) 82 %; PLATELET ESTIMATE, MANUAL NORMAL (130-450,000) (NORMAL); PLATELET MORPHOLOGY RARE GIANT PLATELETS (NORMAL); RBC MORPHOLOGY (MULTIPLE) NORMAL APPEARANCE (NORMAL)
--- NOTE | 2018-04-09 18:17 | CT Preliminary Report ---
Exam: CT CHEST W/O IMPRESSION: 1. 1.0 cm subpleural right lower lobe nodule. This remains indeterminate. Consider CT, PET/CT, or ti ssue sampling at 3 months. Given age, recommend CT follow-up. 2. No pneumothorax or effusion. Extensive pleural calcifications throughout both hemithoraces. 3. Mild cardiac enlargement. Extensive coronary artery calcifications. 4. Coronary artery disease. No thoracic aortic aneurysm or mediastinal hematoma. 5. See separate CT abdomen and pelvis report. [facility] SITE ID: [id number]
--- NOTE | 2018-04-09 18:25 | CT Preliminary Report ---
Exam: CT ABDOMEN/PELVIS W/O IMPRESSION: 1. Fusiform infrarenal abdominal aortic aneurysm with stable size. No new retroperitoneal hematoma. 2. 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 3. No inflammation or acute abdominal or pelvic abnormality. 4. Gallstones. No inflammation. 5. New mild bilateral hydroureteronephrosis to the level of the bladder. New circumferential bladder wall thickening. Correlate for history of cystitis. No mass or stones. 6. Enlarged prostate gland. 7. Extensive pleural calcifications and plaques. See chest CT. [facility] SITE ID: [id number]
--- NOTE | 2018-04-09 18:29 | CT Report ---
EXAM: CT CHEST EXAM DATE: 04/09/2018 05:49 PM. CLINICAL HISTORY: Abdominal and back pain. Unable to obtain access. Patient has a known aneurysm. COMPARISONS: None. TECHNIQUE: Routine helical CT imaging was performed through the chest. IV contrast: None. Reconstruct ions: Coronal and sagittal. In accordance with CT protocol optimization, one or more of the following dose reduction techniques w ere utilized for this exam: automated exposure control, adjustment of mA and/or KV based on patient s ize, or use of iterative reconstructive technique. FINDINGS: Lungs/Pleura: Mild central bronchial wall thickening is noted. Extensive calcified pleural plaques ar e present in both hemithoraces. These findings are associated with pleural thickening. No pneumothora x or effusion. Paraseptal and centrilobular emphysema is noted in both lungs. 1 cm subpleural right l ower lobe nodule, image 35. Mediastinum: Mild cardiac enlargement with extensive coronary artery calcifications. No bulky adenopa thy is present. No pericardial effusion. No mediastinal hematoma. The thoracic aorta demonstrates moderate calcified disease. No aneurysm. Bones: No osteoblastic or osteolytic lesions are noted. Visualized Abdomen: See CT abdomen and pelvis report. Other: 2.2 cm right thyroid nodule, image 9. No supraclavicular or axillary adenopathy. IMPRESSION: 1. 1.0 cm subpleural right lower lobe nodule. This remains indeterminate. Consider CT, PET CT, or ti ssue sampling at 3 months. Given age, recommend CT follow-up. 2. No pneumothorax or effusion. Extensive pleural calcifications throughout both hemithoraces. 3. Mild cardiac enlargement. Extensive coronary artery calcifications. 4. Coronary artery disease. No thoracic aortic aneurysm or mediastinal hematoma. 5. See separate CT abdomen and pelvis report. [facility] Referring Provider Line: [phone] SITE ID: [id number]
--- NOTE | 2018-04-09 18:31 | CT Report ---
EXAM: CT ABDOMEN AND PELVIS EXAM DATE: 04/09/2018 05:49 PM. CLINICAL HISTORY: Abdomen and back pain. COMPARISONS: 12/30/2016. TECHNIQUE: Routine helical CT imaging was performed through the abdomen and pelvis. IV contrast: CE. Enteric contrast: None. Reconstructions: Coronal and sagittal. In accordance with CT protocol optimization, one or more of the following dose reduction techniques w ere utilized for this exam: automated exposure control, adjustment of mA and/or KV based on patient s ize, or use of iterative reconstructive technique. FINDINGS: Lung Bases: Extensive pleural-based plaques present at the bases. Mild cardiac enlargement with coron leny artery disease. No pleural or pericardial effusion. Centrilobular and paraseptal emphysema noted at the bases. Liver: Normal. No masses. Gallbladder/Bile Ducts: Gallstones. No gallbladder fossa inflammation or common bile duct dilation. Spleen: Normal. Pancreas: Normal. Adrenal Glands: Normal. Kidneys: New bilateral mild to moderate hydroureter and hydronephrosis without obstructing stone. The dilation extends to the bladder. No mass or stones. 1.3 cm stable hyperdense left upper renal cyst. Peritoneal Cavity/Bowel: Normal. No free fluid, free air or adenopathy. No masses or acute inflammato ry process. Appendix not seen. No right lower quadrant inflammation. Moderate amount of stool is pre sent in the redundant ectatic colon. Postoperative changes are present in the distal transverse colon . No active inflammation. Normal small bowel and stomach. Pelvic Organs: Moderate prostate enlargement with coarse calcifications. Mild seminal vesicle enlarge ment. There is circumferential bladder wall thickening with mild adjacent stranding. 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 No bladder stones or masses noted on this noncontrast study. Vasculature: Extensive atheromatous calcified plaques are present throughout the abdominal aorta. The re is a fusiform infrarenal abdominal aortic aneurysm measuring at least 4.7 x 4.5 cm on image 3, 40. No new retroperitoneal hematoma. Previously measuring approximately 4.8 x 4.4 cm. Normal IVC on t his noncontrast study. 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 Dilated left commo n iliac artery measuring 1.7 cm. Bones: Osteopenic patient. No osteoblastic or osteolytic lesions are noted. Postoperative changes are noted in the left femoral neck. Moderate bilateral hip arthritis. 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 Multiple pins are present in the left fem oral neck. Other: None. IMPRESSION: 1. Fusiform infrarenal abdominal aortic aneurysm with stable size. No new retroperitoneal hematoma. 2. 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 3. No inflammation or acute abdominal or pelvic abnormality. 4. Gallstones. No inflammation. 5. New mild bilateral hydroureteronephrosis to the level of the bladder. New circumferential bladder wall thickening. Correlate for history of cystitis. No mass or ureteral stones. 6. Enlarged prostate gland. 7. Extensive pleural calcifications and plaques. See chest CT. [facility] Referring Provider Line: [phone] SITE ID: [id number]
[2018-04-09 19:48] LABS: BILIRUBIN,URINE NEGATIVE (NEGATIVE); GLUCOSE, URINE (UA) NEGATIVE (NEGATIVE); KETONES,URINE (UA) NEGATIVE (NEGATIVE); LEUKOCYTE ESTERASE, URINE LARGE (NEGATIVE); NITRITE,URINE POSITIVE (NEGATIVE); OCCULT BLOOD,URINE LARGE (NEGATIVE); PH,URINE 5.5 PH (5.0-7.5); PROTEIN,URINE 100 mg/dL (NEGATIVE); UROBILINOGEN,URINE 0.2 (NORMAL) E.U./dL (NORMAL)
[2018-04-09 19:52] LABS: CLARITY,URINE CLOUDY (CLEAR)
[2018-04-09 20:06] LABS: BACTERIA,URINE Moderate /HPF (None Seen); RBC,URINE 0-5 /HPF (0-5); SQUAMOUS EPITHELIAL CELL,UR NONE SEEN (<= Few); WBC CLUMPS,URINE PRESENT
[2018-04-09] MEDS: LIDOCAINE 2% URO-JET 5 ML SYRINGE UR STA ×2 (20:06→20:35)
[2018-04-09] MEDS ORDERED: cefTRIAXone 1 GM in SODIUM CHLORIDE 0.9% MINIBAG 100 ML IV STA (20:14)
[2018-04-09] MEDS ORDERED: levoFLOXacin 250 MG TABLET PO STA (20:22)
[2018-04-09] MEDS ORDERED: PROMETHAZINE INJ 25 MG in SODIUM CHLORIDE 0.9% 50 ML IV STA (21:20)
[2018-04-09] MEDS ORDERED: ONDANSETRON 4 MG/2 ML VIAL IVP PRN (21:31)
[2018-04-09] MEDS ORDERED: SODIUM CHLORIDE FLUSH 0.9% 10 ML SYRINGE IVP PRN (21:31)
[2018-04-09] MEDS ORDERED: MORPHINE 2 MG/ML SYRINGE IVP PRN (21:31)
[2018-04-09] MEDS ORDERED: ACETAMINOPHEN 325 MG TABLET PO PRN (21:31)
[2018-04-09] MEDS ORDERED: PROCHLORPERAZINE 10 MG/2 ML VIAL IVP PRN (21:31)
[2018-04-09] MEDS ORDERED: oxyCODONE 5 MG TABLET PO PRN ×2 (21:31)
[2018-04-09] MEDS ORDERED: PROMETHAZINE 25 MG/1 ML VIAL IM PRN (21:31)
[2018-04-09] MEDS ORDERED: levoFLOXacin 500 MG/100 ML 500 MG/100 ML BAG IV SCH (22:00)
--- NOTE | 2018-04-09 22:39 | HISTORY & PHYSICAL EXAMINATION ---
Chief Complaint - Chief Complaint Chief Complaint: Abdominal pain History of Present Illness - Admitted From Admitted From:: Emergency department - History Obtained From Records Reviewed: Yes History obtained from: Patient and patient's 2 daughters Exam Limitations: Patient has poor memory secondary to dementia - History of Present Illness HPI Comment/Other: Patient is an 87-year-old gentleman with a past medical history significant for coronary artery disease status post stent, history of rectal cancer status post resection, obstructive sleep apnea on CPAP, hypertension, diabetes, hyperlipidemia, depression, history of abdominal aortic aneurysm and tobacco abuse with COPD who presented to the emergency department with a chief complaint of abdominal pain. According to the patient and his daughters the pain started this morning. The patient's daughter states that the patient does not usually complain so they did become concerned when he started having this complaint of abdominal pain. The patient described the abdominal pain as being in the lower mid abdomen suprapubic area. He also expressed that he was having bilateral flank pain. This continued to worsen throughout the day and patient became nauseated early this afternoon so his daughters brought him into the emergency department. At home the patient did not have any fevers or chills. The patient did not have any diarrhea. Once the patient arrived in the waiting room of the emergency department he did have 3 episodes of emesis. Later while he was in the emergency department he had another episode of emesis and also had chills and rigors. The patient has not had any recent sick contacts or eaten any unusual foods. According to the patient's daughter as the patient has had a good appetite and has not had any bloody or loose stools. The patient denied any urinary urgency, urinary frequency or any dysuria. The patient's daughters do state that they have noticed that the patient has had increasing fatigue recently and has had generalized weakness. They state that today he was so weak that he was falling back in bed when they were trying to get him up to bring him to the hospital. Patient denies any headaches, blurred vision, runny nose difficulty swallowing, neck pain, chest pain, shortness of air, orthopnea, PND, wheezing, increased lower extremity swelling, palpitations, joint pain, joint swelling, muscle aches , back pain, neck stiffness, recent unintentional weight loss, changes in his appetite, skin rashes or any focal neurologic deficits. On presentation to the emergency department the patient was afebrile and vital signs were all within normal limits. The emergency room physician was concerned about possible ruptured aortic aneurysm given his history of aortic aneurysm and ordered a CT of the patient's abdomen/pelvis and chest. The CT of his abdomen showed a stable abdominal aortic aneurysm but did show new mild bilateral hydroureteronephrosis to the level of the bladder with new circumferential bladder wall thickening. The patient's CT chest did show a 1 cm subpleural right lower lobe nodule but was otherwise negative. The patient' s lab work revealed a leukocytosis of 18.6, hyponatremia 133 and elevated creatinine of 2.1 with a BUN of 67. The patient's baseline creatinine is around 1.2 from just 2 months ago. The patient's lactic acid was normal. While in the emergency department the patient began having rigors and had a temperature of 37.9. The patient's urine revealed large occult blood, nitrate positive, leukocyte esterase positive with greater than 25 WBCs and bacteria. The patient did have bilateral flank tenderness on examination and was admitted to the medical [facility]ague for bilateral pyelonephritis with acute kidney injury and dehydration. History - Past Medical History Cardiovascular: reports: Hypertension, High cholesterol, Coronary artery disease Respiratory: reports: COPD, Sleep apnea, CPAP use Neuro: reports: Alzhiemer's, Dementia Endocrine/Autoimmune: reports: Type 2 diabetes GI: reports: Hiatal hernia : reports: Benign prostate hypertrophy HEENT: reports: None Psych: reports: Depression Musculoskeletal: reports: None Derm: reports: None MRSA Hx?: No - Past Surgical History General: reports: Bowel surgery Ortho: reports: Other Cardiovascular: reports: Coronary stent - Family & Social History Family History: Mother: , Father: , Sister: , Brother: Family History Comment/Other: No family history of diabetes, cancer, heart disease. He stated that all his family members are healthy and of natural causes. Living arrangement: At home Living Situation: With family Social History Notes: The patient is originally from [place] but has been living in the [place] for most of his life. The patient was to his for over 60 years she just a couple of months ago. He lives with 1 of his daughters in [place], [place]. He is other daughter lives just 10 minutes away. He uses a walker to get around at home. He has 3 children in total 1 of whom is a physician. He was formerly in the [employer]. The patient has been smoking since his mid to late 20s and smoked half a pack to a pack a day for most of his life. He recently cut back to just 5-6 cigarettes a day. He denies any alcohol use or any illicit drug use. - POLST Patient has POLST: No POLST Status: DNR Meds/Allgy - Home Medications Home Medications: Ambulatory Orders Medication Instructions Recorded Confirmed Potassium Chloride [K-Tab ER] 10 meq PO DAILY 08/15/13 09/25/17 Atorvastatin [Lipitor] 40 mg DAILY 05/13/15 09/25/17 Furosemide 20 mg DAILY 05/13/15 09/25/17 Sertraline [Zoloft] 50 mg PO DAILY 12/07/16 09/25/17 Levofloxacin [Levaquin] 500 mg PO DAILY #9 tablet 04/09/18 metFORMIN [Glucophage] 500 mg PO BIDWM 04/09/18 04/09/18 - Allergies Allergies/Adverse Reactions: Allergies Allergy/AdvReac Type Severity Reaction Status Date / Time No Known Drug Allergies Allergy Verified 04/09/18 14:13 Review of Systems - Other Findings Other Findings: A comprehensive review of systems was performed the pertinent positives and negatives are stated above in the HPI and the remainder of the review of systems is negative. Exam - Vital Signs Reviewed Vital Signs: Yes Vital Signs: Vital Signs x48h Temp Pulse Resp BP Pulse Ox 04/09/18 22:14 37.9 C H 85 18 146/61 H 99 - Physical Exam General Appearance: positive: Alert, Mild distress (Patient shaky and having rigors. He appears to be weak when moving in bed), Other (Looks younger than his stated age) Eyes Bilateral: positive: Normal inspection, PERRL, EOMI, No lid inflammation, Conjunctivae nml, No scleral icterus ENT: positive: ENT inspection nml, Pharynx nml, Dry mucous membranes. negative : Purulent nasal drainage, Pharyngeal erythema, Oral lesions Neck: positive: Nml inspection, Thyroid nml, No JVD, Trachea midline. negative : Thyromegaly, Lymphadenopathy (R), Lymphadenopathy (L), Stiff neck, Carotid bruit, Tracheal deviation Respiratory: positive: Chest non-tender, No respiratory distress, Breath sounds nml. negative: Wheezes, Rales, Rhonchi Cardiovascular: positive: Regular rate & rhythm, No murmur, No gallop Peripheral Pulses: positive: 2+ Abdomen: positive: Tenderness (Mostly in the suprapubic area, no guarding no rebound no peritoneal signs.). negative: Guarding, Rebound, Hepatomegaly, Splenomegaly Back: positive: CVA tenderness (R), CVA tenderness (L) Skin: positive: Color nml, No rash, Dry. negative: Cyanosis, Diaphoresis, Pallor, Skin rash, Decubitus Extremities: positive: Non-tender, Full ROM, Nml appearance, No pedal edema Neurologic/Psychiatric: positive: CN's nml (2-12), Motor nml, Sensation nml, Mood/affect nml, Disoriented to time Conclusion/Plan - Problem List (1) Pyelonephritis Conclusion/Plan: Patient presents with bilateral flank pain, suprapubic pain and vomiting. Patient was found to have a leukocytosis of 18,000 with low-grade fever in the emergency department. The patient appeared to be dehydrated and CT of the abdomen revealed hydroureteronephrosis along with thickened bladder. Patient's urine analysis was grossly positive for urinary tract infection. Once patient had Joshua catheter placed there was puslike material in the catheter. Patient also had generalized weakness and fatigue. Patient was unable to keep down oral antibiotic in the emergency department due to vomiting. Plan: IV Levaquin IV fluids Joshua catheter Urine and blood cultures De-escalate antibiotics once cultures return The patient has a complicated urinary tract infection and should be treated for at least 2 weeks (2) LESLEE (acute kidney injury) Conclusion/Plan: Patient has acute kidney injury with a creatinine of 2.1 which is elevated from his baseline of 1.3 from just 2 months ago. The patient's acute kidney injury appears likely secondary to obstructive nephropathy as the patient has hydroureteronephrosis but there is no obvious obstruction on the CT scan. The patient also has a pyelonephritis with dehydration. It is possible that the patient may also have prerenal azotemia especially in the setting of an elevated BUN. Plan: Patient had a Joshua catheter placed in the emergency department Patient will get IV fluids We will monitor patient's creatinine We will avoid nephrotoxic agents If patient's creatinine is not improving we will get a renal ultrasound We will consider nephrology consult if the patient is not improving. (3) Hydroureteronephrosis Conclusion/Plan: The patient appears to have hydroureteronephrosis in the setting of pyelonephritis without an obvious obstruction. The patient's hydronephrosis may be secondary to some mild obstruction from his BPH or patient could have had a renal stone which has now resolved. Plan: Patient will be managed with a Joshua catheter and treatment of his urinary tract infection Patient will be given IV fluids We will monitor the patient's renal function if renal function does not improve we will get a renal ultrasound and consider talking to nephrology from an outside facility (4) Diabetes Conclusion/Plan: Patient has history of diabetes and presents with hyperglycemia with glucose of 184. Likely patient has hyperglycemia secondary to having a urinary tract infection ongoing. Patient is not on any insulin Plan: Patient will be placed on sliding scale insulin Patient will be placed on diabetic diet We will monitor patient's blood glucose before meals at bedtime We will check the patient's hemoglobin A1c We will hold metformin Qualifiers: Diabetes mellitus type: type 2 Diabetes mellitus terminal clerk insulin use: without long-term use Diabetes mellitus complication status: with hyperglycemia Qualified Code(s): E11.65 - Type 2 diabetes mellitus with hyperglycemia (5) Hyponatremia Conclusion/Plan: Patient has a sodium of 133 on presentation. Patient appears to be hypovolemic and has hypovolemic hyponatremia. Patient will be given IV fluids and will continue to monitor his sodium. (6) Lung nodule Conclusion/Plan: The patient was found to have a 1 cm subpleural right lower lobe nodule on CT of his chest. This remains indeterminate. The recommendation from radiology is to consider a PET/CT or tissue sampling in 3 months. A follow-up CT scan is recommended. Patient will need to follow-up with his primary care physician for further workup. Given the patient's advanced age and unlikelihood that the patient would receive treatment at this time depending on what patient and his family want to do a CT repeat may not be necessary. (7) Tobacco abuse Conclusion/Plan: The patient continues to smoke 5-6 cigarettes a day. He was advised to quit smoking especially given that he has COPD. Patient will be given a nicotine patch while he is hospitalized (8) Hyperlipidemia Conclusion/Plan: Patient has history of hyperlipidemia and is on a statin at home. Patient will be continued on his home dose of statin Stable Qualifiers: Hyperlipidemia type: unspecified Qualified Code(s): E78.5 - Hyperlipidemia , unspecified (9) COPD (chronic obstructive pulmonary disease) Conclusion/Plan: Patient has history of COPD and uses an albuterol inhaler at home as needed. Patient appears to be stable as far as his COPD goes and is not on any oxygen Patient will be placed on albuterol nebulizer as needed while he is hospitalized. Qualifiers: COPD type: COPD with acute exacerbation Qualified Code(s): J44.1 - Chronic obstructive pulmonary disease with (acute) exacerbation - Lab Results Lab results reviewed: Yes Fish Bones: 04/09/18 16:35 04/09/18 16:18 Other Lab Results: Laboratory Results WBC 18.6 x10^3/uL (4.8-10.8) H 04/09/18 16:35 RBC 4.24 10^6/uL (4.70-6.10) L 04/09/18 16:35 Hgb 11.6 g/dL (14.0-18.0) L 04/09/18 16:35 Hct 35.9 % (42.0-52.0) L 04/09/18 16:35 MCV 84.7 fL (80.0-94.0) 04/09/18 16:35 MCH 27.4 pg (27.0-31.0) 04/09/18 16:35 MCHC 32.3 g/dL (32.0-36.0) 04/09/18 16:35 RDW 15.7 % (12.0-15.0) H 04/09/18 16:35 Plt Count 298 10^3/uL (130-450) 04/09/18 16:35 MPV 7.9 fL (7.4-11.4) 04/09/18 16:35 Neut # Not Reportable 04/09/18 16:35 Lymph # Not Reportable 04/09/18 16:35 [place] # Not Reportable 04/09/18 16:35 Eos # Not Reportable 04/09/18 16:35 Baso # Not Reportable 04/09/18 16:35 Absolute Nucleated RBC Not Reportable 04/09/18 16:35 Total Counted 100 04/09/18 16:35 Band Neuts % (Manual) 4 % (0-10) 04/09/18 16:35 Abnorm Lymph % (Manual) 0 % 04/09/18 16:35 Nucleated RBC % Not Reportable 04/09/18 16:35 Neutrophils # (Manual) 16.0 10^3/uL (1.5-6.6) H 04/09/18 16:35 Lymphocytes # (Manual) 1.5 10^3/uL (1.5-3.5) 04/09/18 16:35 Monocytes # (Manual) 1.1 10^3/uL (0.0-1.0) H 04/09/18 16:35 Eosinophils # (Manual) 0.0 10^3/uL (0-0.7) 04/09/18 16:35 Basophils # (Manual) 0.0 10^3/uL (0-0.1) 04/09/18 16:35 Differential Comment MANUAL DIFFERENTIAL 04/09/18 16:35 Manual Slide Review Indicated 04/09/18 16:35 WBC Morphology NORMAL APPEARANCE (NORMAL) 04/09/18 16:35 Platelet Estimate NORMAL (130-450,000) (NORMAL) 04/09/18 16:35 Platelet Morphology RARE GIANT PLATELETS (NORMAL) 04/09/18 16:35 RBC Morph Micro Appear NORMAL APPEARANCE (NORMAL) 04/09/18 16:35 Sodium 133 mmol/L (135-145) L 04/09/18 16:18 Potassium 3.9 mmol/L (3.5-5.0) 04/09/18 16:18 Chloride 98 mmol/L (101-111) L 04/09/18 16:18 Carbon Dioxide 21 mmol/L (21-32) 04/09/18 16:18 Anion Gap 14.0 (6-13) H 04/09/18 16:18 BUN 67 mg/dL (6-20) H 04/09/18 16:18 Creatinine 2.1 mg/dL (0.6-1.2) H 04/09/18 16:18 Estimated GFR (MDRD) 30 (>89) L 04/09/18 16:18 Glucose 184 mg/dL (70-100) H 04/09/18 16:18 Lactic Acid 1.3 mmol/L (0.5-2.2) 04/09/18 21:49 Calcium 8.6 mg/dL (8.5-10.3) 04/09/18 16:18 Total Bilirubin 0.8 mg/dL (0.2-1.0) 04/09/18 16:18 AST 24 IU/L (10-42) 04/09/18 16:18 ALT 13 IU/L (10-60) 04/09/18 16:18 Alkaline Phosphatase 94 IU/L (42-121) 04/09/18 16:18 Total Protein 7.5 g/dL (6.7-8.2) 04/09/18 16:18 Albumin 3.5 g/dL (3.2-5.5) 04/09/18 16:18 Globulin 4.0 g/dL (2.1-4.2) 04/09/18 16:18 Albumin/Globulin Ratio 0.9 (1.0-2.2) L 04/09/18 16:18 Lipase 24 U/L (22-51) 04/09/18 16:18 Urine Color YELLOW 04/09/18 19:40 Urine Clarity CLOUDY (CLEAR) 04/09/18 19:40 Urine pH 5.5 PH (5.0-7.5) 04/09/18 19:40 Ur Specific [place] 1.015 (1.002-1.030) 04/09/18 19:40 Urine Protein 100 mg/dL (NEGATIVE) H 04/09/18 19:40 Urine Glucose (UA) NEGATIVE mg/dL (NEGATIVE) 04/09/18 19:40 Urine Ketones NEGATIVE mg/dL (NEGATIVE) 04/09/18 19:40 Urine Occult Blood LARGE (NEGATIVE) H 04/09/18 19:40 Urine Nitrite POSITIVE (NEGATIVE) H 04/09/18 19:40 Urine Bilirubin NEGATIVE (NEGATIVE) 04/09/18 19:40 Urine Urobilinogen 0.2 (NORMAL) E.U./dL (NORMAL) 04/09/18 19:40 Ur Leukocyte Esterase LARGE (NEGATIVE) H 04/09/18 19:40 Urine RBC 0-5 /HPF (0-5) 04/09/18 19:40 Urine WBC >25 /HPF (0-3) H 04/09/18 19:40 Urine WBC Clumps PRESENT 04/09/18 19:40 Ur Squamous Epith Cells NONE SEEN (<= Few) 04/09/18 19:40 Urine Bacteria Moderate /HPF (None Seen) H 04/09/18 19:40 Ur Microscopic Review INDICATED 05/15/18 19:40 Urine Culture Comments INDICATED 04/09/18 19:40 - Diagnostic Imaging Results Diagnostic Imaging Results: positive: Final report reviewed Diagnostic Imaging Results Comments: EXAM: [id number] CT/ABPEWO ([id number]) EXAM: CT ABDOMEN AND PELVIS EXAM DATE: 04/09/2018 05:49 PM. CLINICAL HISTORY: Abdomen and back pain. COMPARISONS: 12/30/2016. TECHNIQUE: Routine helical CT imaging was performed through the abdomen and pelvis. IV contrast: CE. Enteric contrast: None. Reconstructions: Coronal and sagittal. In accordance with CT protocol optimization, one or more of the following dose reduction techniques were utilized for this exam: automated exposure control, adjustment of mA and/or KV based on patient size, or use of iterative reconstructive technique. FINDINGS: Lung Bases: Extensive pleural-based plaques present at the bases. Mild cardiac enlargement with coronary artery disease. No pleural or pericardial effusion. Centrilobular and paraseptal emphysema noted at the bases. Liver: Normal. No masses. Gallbladder/Bile Ducts: Gallstones. No gallbladder fossa inflammation or common bile duct dilation. Spleen: Normal. Pancreas: Normal. Adrenal Glands: Normal. Kidneys: New bilateral mild to moderate hydroureter and hydronephrosis without obstructing stone. The dilation extends to the bladder. No mass or stones. 1.3 cm stable hyperdense left upper renal cyst. Peritoneal Cavity/Bowel: Normal. No free fluid, free air or adenopathy. No masses or acute inflammatory process. Appendix not seen. No right lower quadrant inflammation. Moderate amount of stool is present in the redundant ectatic colon. Postoperative changes are present in the distal transverse colon. No active inflammation. Normal small bowel and stomach. Pelvic Organs: Moderate prostate enlargement with coarse calcifications. Mild seminal vesicle enlargement. There is circumferential bladder wall thickening with mild adjacent stranding. 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 No bladder stones or masses noted on this noncontrast study. Vasculature: Extensive atheromatous calcified plaques are present throughout the abdominal aorta. There is a fusiform infrarenal abdominal aortic aneurysm measuring at least 4.7 x 4.5 cm on image 3 , 40. No new retroperitoneal hematoma. Previously measuring approximately 4.8 x 4.4 cm. Normal IVC on this noncontrast study. 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 Dilated left common iliac artery measuring 1.7 cm. Bones: Osteopenic patient. No osteoblastic or osteolytic lesions are noted. Postoperative changes are noted in the left femoral neck. Moderate bilateral hip arthritis. Rotatory dextroscoliosis of the lumbar spine with multilevel degenerative disk disease noted. Multiple pins are present in the left femoral neck. Other: None. IMPRESSION: 1. Fusiform infrarenal abdominal aortic aneurysm with stable size. No new retroperitoneal hematoma. 2. 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 3. No inflammation or acute abdominal or pelvic abnormality. 4. Gallstones. No inflammation. 5. New mild bilateral hydroureteronephrosis to the level of the bladder. New circumferential bladder wall thickening. Correlate for history of cystitis. No mass or ureteral stones. 6. Enlarged prostate gland. 7. Extensive pleural calcifications and plaques. See chest CT. EXAM: [id number] CT/TO ([id number]) EXAM: CT CHEST EXAM DATE: 04/09/2018 05:49 PM. CLINICAL HISTORY: Abdominal and back pain. Unable to obtain access. Patient has a known aneurysm. COMPARISONS: None. TECHNIQUE: Routine helical CT imaging was performed through the chest. IV contrast: None. Reconstructions: Coronal and sagittal. In accordance with CT protocol optimization, one or more of the following dose reduction techniques were utilized for this exam: automated exposure control, adjustment of mA and/or KV based on patient size, or use of iterative reconstructive technique. FINDINGS: Lungs/Pleura: Mild central bronchial wall thickening is noted. Extensive calcified pleural plaques are present in both hemithoraces. These findings are associated with pleural thickening. No pneumothorax or effusion. Paraseptal and centrilobular emphysema is noted in both lungs. 1 cm subpleural right lower lobe nodule, image 35. Mediastinum: Mild cardiac enlargement with extensive coronary artery calcifications. No bulky adenopathy is present. No pericardial effusion. No mediastinal hematoma. The thoracic aorta demonstrates moderate calcified disease. No aneurysm. Bones: No osteoblastic or osteolytic lesions are noted. Visualized Abdomen: See CT abdomen and pelvis report. Other: 2.2 cm right thyroid nodule, image 9. No supraclavicular or axillary adenopathy. IMPRESSION: 1. 1.0 cm subpleural right lower lobe nodule. This remains indeterminate. Consider CT, PET CT, or tissue sampling at 3 months. Given age, recommend CT follow-up. 2. No pneumothorax or effusion. Extensive pleural calcifications throughout both hemithoraces. 3. Mild cardiac enlargement. Extensive coronary artery calcifications. 4. Coronary artery disease. No thoracic aortic aneurysm or mediastinal hematoma. 5. See separate CT abdomen and pelvis report. Core Measures - Anticipated LOS I expect patient to be DC'd or transferred within 96 hours.: Yes - DVT/VTE - Prophylaxis VTE/DVT Prophylaxis med ordered at admit?: Yes
[2018-04-09] MEDS ORDERED: ALBUTEROL NEB 2.5 MG/3 ML INH PRN (22:40)
[2018-04-09] MEDS ORDERED: SODIUM CHLORIDE FLUSH 0.9% 10 ML SYRINGE ONE (22:59)
[2018-04-09] MEDS: SODIUM CHLORIDE 0.9% 1,000 ML IV SCH (23:02)
[2018-04-10] MEDS: ATORVASTATIN 40 MG TABLET PO SCH ×2 (00:26→20:25)
[2018-04-10] MEDS: NICOTINE 14 MG PATCH TOP SCH ×2 (00:26→10:44)
[2018-04-10] MEDS: PHENAZOPYRIDINE 100 MG TABLET PO SCH ×4 (00:27→21:31)
[2018-04-10] MEDS: ZOLPIDEM 5 MG TABLET PO PRN (00:27)
[2018-04-10] MEDS: SODIUM CHLORIDE FLUSH 0.9% 10 ML SYRINGE IVP SCH ×3 (01:55→17:03)
[2018-04-10 05:51] LABS: BASOPHILS % (AUTO) 0.3 %; EOSINOPHILS % (AUTO) 0.4 %; HGB - HEMOGLOBIN 10.5 g/dL (14.0-18.0); LYMPHOCYTES # (AUTO) 1.4 10^3/uL (1.5-3.5); LYMPHOCYTES % (AUTO) 10.7 %; MEAN CORPUSCULAR HEMOGLOBIN 27.5 pg (27.0-31.0); MEAN CORPUSCULAR HGB CONC 32.6 g/dL (32.0-36.0); MEAN CORPUSCULAR VOLUME 84.5 fL (80.0-94.0); MEAN PLATELET VOLUME 7.6 fL (7.4-11.4); MONOCYTES # (AUTO) 1.6 10^3/uL (0.0-1.0); MONOCYTES % (AUTO) 12.5 %; NEUTROPHILS % (AUTO) 76.1 %; PLT - PLATELET COUNT 250 10^3/uL (130-450); RED BLOOD COUNT 3.82 10^6/uL (4.70-6.10); RED CELL DISTRIBUTION WIDTH 14.9 % (12.0-15.0); WHITE BLOOD COUNT 13.1 x10^3/uL (4.8-10.8)
[2018-04-10 06:05] LABS: ALBUMIN 2.6 g/dL (3.2-5.5); ALBUMIN/GLOBULIN RATIO 0.8 (1.0-2.2); CALCIUM 8.1 mg/dL (8.5-10.3); CREATININE 2.1 mg/dL (0.6-1.2); TOTAL PROTEIN 5.8 g/dL (6.7-8.2)
[2018-04-10 06:20] LABS: HB2 TOTAL 11.5 g/dL; HEMOGLOBIN A1C 0.56 g/dL; HEMOGLOBIN A1C % 6.6 % (4.6-6.2)
[2018-04-10] MEDS: INSULIN ASPART 300 UNIT/3 ML PEN SUBQ SCH ×4 (08:41→20:32)
[2018-04-10] MEDS ORDERED: NON FORMULARY MED (Atorvastatin [Lipitor] 40 MG) PO SCH (09:00)
[2018-04-10] MEDS: SODIUM CHLORIDE 0.9% 1,000 ML IV SCH ×2 (10:22→20:24)
[2018-04-10] MEDS: SACCHAROMYCES BOULARDII 250 MG CAPSULE PO SCH ×2 (10:43→18:32)
[2018-04-10] MEDS: ENOXAPARIN 30 MG/0.3 ML SYRINGE SUBQ SCH (10:43)
[2018-04-10] MEDS: POLYETHYLENE GLYCOL 3350 17 GM PACKET PO SCH (10:43)
[2018-04-10] MEDS: SERTRALINE 50 MG TABLET PO SCH (10:45)
[2018-04-10] MEDS: FAMOTIDINE 20 MG TABLET PO SCH (10:45)
--- NOTE | 2018-04-10 11:06 | PROVIDER PROGRESS NOTE ---
Subjective - Prog Note Date Prog Note Date: 04/10/18 Prog Note Time: 11:01 - Subjective Pt reports feeling: Improved Subjective: He feels like a "million dollars" and both his daughters remark that he is a different man today. Apparently the encephalopathy from his infection was making him very confused and noncompliant. Off balance and risk of more falls. This am he is alert. Orientation much better. Ate his breakfast even though he feels he could do "better" at home. The suprapubic pain and flank pain have resolved. He wants a shave. Daughter reports increasing urgency and frequency for a few weeks. He has a history of "prostate cancer". Current Medications - Current Medications Current Medications: Active Medications Acetaminophen (Tylenol) 650 mg PO Q4HR PRN PRN Reason: Pain 1 to 4 Albuterol () 2.5 mg INH RTQ4H PRN PRN Reason: Wheezing Atorvastatin Calcium (Lipitor) 40 mg PO QPM [facility] Last Admin: 04/10/18 00:26 Dose: 40 mg Enoxaparin Sodium (Lovenox) 30 mg SUBQ DAILY [facility] Last Admin: 04/10/18 10:43 Dose: 30 mg Famotidine (Pepcid) 20 mg PO DAILY [facility] Last Admin: 04/10/18 10:45 Dose: 20 mg Sodium Chloride (Normal Saline 0.9%) 1,000 mls @ 100 mls/hr IV .Q10H [facility] Last Admin: 04/10/18 10:22 Dose: 100 mls/hr Levofloxacin (Levaquin 250 Mg/50 Ml) 250 mg in 50 mls @ 50 mls/hr IV DAILY@ 2100 [facility] Insulin Aspart (Novolog) 1 - 5 unit SUBQ 0800,1200,1700,2100 [facility] PRN Reason: Protocol Last Admin: 04/10/18 08:41 Dose: Not Given Morphine Sulfate (Morphine) 2 mg IVP Q2H PRN PRN Reason: Pain 8 to 10 Nicotine (Nicoderm) 1 patch TOP DAILY [facility] Last Admin: 04/10/18 10:44 Dose: 1 patch Ondansetron HCl (Zofran Inj) 4 mg IVP Q6HR PRN PRN Reason: Nausea / Vomiting Oxycodone HCl (Roxicodone) 5 mg PO Q4HR PRN PRN Reason: Pain 5 to 7 Oxycodone HCl (Roxicodone) 10 mg PO Q4HR PRN PRN Reason: Pain 8 to 10 Phenazopyridine HCl (Pyridium) 200 mg PO TID [facility] Stop: 04/11/18 14:01 Last Admin: 04/10/18 06:45 Dose: 200 mg Polyethylene Glycol (Miralax) 17 gm PO DAILY [facility] Last Admin: 04/10/18 10:43 Dose: 17 gm Prochlorperazine Edisylate (Compazine Inj) 10 mg IVP Q6HR PRN PRN Reason: Nausea / Vomiting Promethazine HCl (Phenergan Inj) 25 mg IM Q6HR PRN PRN Reason: Nausea / Vomiting Saccharomyces Boulardii (Florastor) 250 mg PO BIDWM [facility] Last Admin: 04/10/18 10:43 Dose: 250 mg Sertraline HCl (Zoloft) 50 mg PO DAILY [facility] Last Admin: 04/10/18 10:45 Dose: 50 mg Sodium Chloride (Normal Saline Flush 0.9%) 10 ml IVP PRN PRN PRN Reason: NEEDED PER PROVIDER ORDERS Sodium Chloride (Normal Saline Flush 0.9%) 10 ml IVP 0100,0900,1700 [facility] Last Admin: 04/10/18 08:42 Dose: Not Given Zolpidem Tartrate (Ambien) 5 mg PO QPM PRN PRN Reason: Insomnia Last Admin: 04/10/18 00:27 Dose: 5 mg Potassium Chloride [K-Tab ER] 10 meq PO DAILY 08/15/13 Atorvastatin [Lipitor] 40 mg DAILY 05/13/15 Furosemide 20 mg DAILY 05/13/15 Sertraline [Zoloft] 50 mg PO DAILY 12/07/16 metFORMIN [Glucophage] 500 mg PO BIDWM 04/09/18 Objective - Vital Signs/Intake & Output Reviewed Vital Signs: Yes Vital Signs: Vital Signs x48h Temp Pulse Resp BP Pulse Ox 04/10/18 08:00 36.8 C 49 L 16 163/64 H 99 04/10/18 06:45 37.0 C Intake & Output: Intake & Output 04/07/18 04/08/18 04/09/18 04/10/18 23:59 23:59 23:59 23:59 Intake Total 2340 Output Total 275 650 Balance -275 1690 - Objective General Appearance: positive: No acute distress, Alert, Other (sitting up in bed , smiling, winks at me several times when he jokes around. Very very very pleasant elderly gentleman.) Eyes Bilateral: positive: PERRL ENT: positive: Other (mild dryness of oral mucosa. unshaven) Neck: positive: No JVD. negative: Stiff neck, Carotid bruit Respiratory: positive: Chest non-tender. negative: Wheezes, Rales, Rhonchi Cardiovascular: positive: Regular rate & rhythm, Systolic murmur. negative: Gallop/S4, Friction rub Abdomen: positive: Non-tender, No organomegaly, Nml bowel sounds, No distention Skin: positive: Warm, Dry Extremities: positive: Non-tender, Full ROM, No pedal edema Neurologic/Psychiatric: positive: Oriented x3 (except for exact date. Knows it' s March 2018,), CN's nml (2-12) (except mildly deaf), Disoriented to time - Lab Results Fish Bones: 04/10/18 05:40 04/10/18 05:40 Other Labs: Lab Results x24hrs 04/10/18 04/10/18 04/10/18 Range/Units 07:57 05:40 05:40 WBC (4.8-10.8) x10^3/uL RBC (4.70-6.10) 10^6/uL Hgb (14.0-18.0) g/dL Hct (42.0-52.0) % MCV (80.0-94.0) fL MCH (27.0-31.0) pg MCHC (32.0-36.0) g/dL RDW (12.0-15.0) % Plt Count (130-450) 10^3/uL MPV (7.4-11.4) fL Neut # (1.5-6.6) 10^3/uL Lymph # (1.5-3.5) 10^3/uL Crawford # (0.0-1.0) 10^3/uL Eos # (0.0-0.7) 10^3/uL Baso # (0.0-0.1) 10^3/uL Absolute Nucleated RBC x10^3/uL Nucleated RBC % /100WBC Sodium (135-145) mmol/L Potassium (3.5-5.0) mmol/L Chloride (101-111) mmol/L Carbon Dioxide (21-32) mmol/L Anion Gap (6-13) BUN (6-20) mg/dL Creatinine (0.6-1.2) mg/dL Estimated GFR (MDRD) (>89) Glucose (70-100) mg/dL POC Whole Bld Glucose 121 H (70 - 100) mg/dL Glycated Hemoglobin 6.6 H (4.6-6.2) % Estim Average Glucose 143 H (70-100) Lactic Acid 0.7 (0.5-2.2) mmol/L Calcium (8.5-10.3) mg/dL Total Bilirubin (0.2-1.0) mg/dL AST (10-42) IU/L ALT (10-60) IU/L Alkaline Phosphatase (42-121) IU/L Total Protein (6.7-8.2) g/dL Albumin (3.2-5.5) g/dL Globulin (2.1-4.2) g/dL Albumin/Globulin Ratio (1.0-2.2) 04/10/18 04/10/18 04/09/18 Range/Units 05:40 05:40 21:49 WBC 13.1 H (4.8-10.8) x10^3/uL RBC 3.82 L (4.70-6.10) 10^6/uL Hgb 10.5 L (14.0-18.0) g/dL Hct 32.3 L (42.0-52.0) % MCV 84.5 (80.0-94.0) fL MCH 27.5 (27.0-31.0) pg MCHC 32.6 (32.0-36.0) g/dL RDW 14.9 (12.0-15.0) % Plt Count 250 (130-450) 10^3/uL MPV 7.6 (7.4-11.4) fL Neut # 10.0 H (1.5-6.6) 10^3/uL Lymph # 1.4 L (1.5-3.5) 10^3/uL Crawford # 1.6 H (0.0-1.0) 10^3/uL Eos # 0.0 (0.0-0.7) 10^3/uL Baso # 0.0 (0.0-0.1) 10^3/uL Absolute Nucleated RBC 0.00 x10^3/uL Nucleated RBC % 0.0 /100WBC Sodium 134 L (135-145) mmol/L Potassium 3.4 L (3.5-5.0) mmol/L Chloride 103 (101-111) mmol/L Carbon Dioxide 21 (21-32) mmol/L Anion Gap 10.0 (6-13) BUN 66 H (6-20) mg/dL Creatinine 2.1 H (0.6-1.2) mg/dL Estimated GFR (MDRD) 30 L (>89) Glucose 138 H (70-100) mg/dL POC Whole Bld Glucose (70 - 100) mg/dL Glycated Hemoglobin (4.6-6.2) % Estim Average Glucose (70-100) Lactic Acid 1.3 (0.5-2.2) mmol/L Calcium 8.1 L (8.5-10.3) mg/dL Total Bilirubin 1.0 (0.2-1.0) mg/dL AST 17 (10-42) IU/L ALT 12 (10-60) IU/L Alkaline Phosphatase 72 (42-121) IU/L Total Protein 5.8 L (6.7-8.2) g/dL Albumin 2.6 L (3.2-5.5) g/dL Globulin 3.2 (2.1-4.2) g/dL Albumin/Globulin Ratio 0.8 L (1.0-2.2) ABX Reporting Has patient been on IV antibiotics over the past 48 hours?: Yes Assessment/Plan - Problem List (1) Pyelonephritis Impression: Patient presents with bilateral flank pain, suprapubic pain and vomiting. Patient was found to have a leukocytosis of 18,000 with low-grade fever in the emergency department. The patient appeared to be dehydrated and CT of the abdomen revealed hydroureteronephrosis along with thickened bladder. Patient's urine analysis was grossly positive for urinary tract infection. Once patient had Joshua catheter placed there was puslike material in the catheter. Patient also had generalized weakness and fatigue. Patient was unable to keep down oral antibiotic in the emergency department due to vomiting. Because of his history of BPH or prostate cancer, he also may have prostatitis. I will check PSA in am. I have called Dr. Hester to give me a call back to discuss the history of prostate cancer Plan: IV Levaquin, today is Day #2. Plan for up to 21-30 days if he does have prostatitis. IV fluids until later today then IV lock since he is eating and drinking. Joshua catheter planned for 2 weeks. Urology consult if needed in the next month. Urine and blood cultures done and waiting for results. So far only growing a gram negative brandon with ID pending. De-escalate antibiotics once cultures return The patient has a complicated urinary tract infection and should be treated for at least 3 weeks if not more. Add flomax. (2) LESLEE (acute kidney injury) Conclusion/Plan: Patient has acute kidney injury with a creatinine of 2.1 which is elevated from his baseline of 1.3 from just 2 months ago. The patient's acute kidney injury appears likely secondary to obstructive nephropathy as the patient has hydroureteronephrosis but there is no obvious obstruction on the CT scan. Again it may be from BPH. He is being treated as pyelonephritis with dehydration. It is possible that the patient may also have prerenal azotemia especially in the setting of an elevated BUN. Plan: Patient had a Joshua catheter placed in the emergency department Patient will get IV fluids until later today or tomorrow am. We will monitor patient's creatinine We will avoid nephrotoxic agents If patient's creatinine is not improving we will get a renal ultrasound. Today he remains at 2.1, will wait until tomorrow. We will consider nephrology consult if the patient is not improving. (3) Hydroureteronephrosis Conclusion/Plan: The patient appears to have hydroureteronephrosis in the setting of pyelonephritis or BPH. The patient's hydronephrosis may be secondary to some mild obstruction from his BPH or patient could have had a renal stone which has now resolved. Plan: Patient will be managed with a Joshua catheter and treatment of his urinary tract infection Patient will be given IV fluids We will monitor the patient's renal function if renal function does not improve we will get a renal ultrasound and consider talking to nephrology from an outside facility (4) Diabetes, Type 2, controlled, without complications, not on nursing home insulin. Conclusion/Plan: Patient has history of diabetes and presents with hyperglycemia with glucose of 184. Likely patient has hyperglycemia secondary to having a urinary tract infection ongoing. Patient is not on any insulin. This am he is 121. Plan: Patient will be placed on sliding scale insulin Patient will be placed on diabetic diet We will monitor patient's blood glucose before meals at bedtime Hemoglobin A1c is 6.6% and considered controlled for a man his age. We will hold metformin while in the hospital to avoid lactic acidosis. 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 Patient appears to be hypovolemic and has hypovolemic hyponatremia. Patient will be given IV fluids and will continue to monitor his sodium. Today he is 134. will supplement K with PO K. (6) Lung nodule Conclusion/Plan: The patient was found to have a 1 cm subpleural right lower lobe nodule on CT of his chest. This remains indeterminate. The recommendation from radiology is to consider a PET/CT or tissue sampling in 3 months. A follow-up CT scan is recommended. Patient will need to follow-up with his primary care physician for further workup. Given the patient's advanced age and unlikelihood that the patient would receive treatment at this time depending on what patient and his family want to do a CT repeat may not be necessary. (7) Tobacco abuse Conclusion/Plan: The patient continues to smoke 5-6 cigarettes a day. He was advised to quit smoking especially given that he has COPD. Patient will be given a nicotine patch while he is hospitalized and so far this am he is satisfied. Doesn't feel like he is craving anything. (8) Hyperlipidemia Conclusion/Plan: Patient has history of hyperlipidemia and is on a statin at home. Patient will be continued on his home dose of statin Stable Qualifiers: Hyperlipidemia type: unspecified Qualified Code(s): E78.5 - Hyperlipidemia , unspecified (9) COPD (chronic obstructive pulmonary disease) Conclusion/Plan: Patient has history of COPD and uses an albuterol inhaler at home as needed. Patient appears to be stable as far as his COPD goes and is not on any oxygen Patient will be placed on albuterol nebulizer as needed while he is hospitalized. Qualifiers: COPD type: COPD with acute exacerbation Qualified Code(s): J44.1 - Chronic obstructive pulmonary disease with (acute) exacerbation
[2018-04-10] MEDS: TAMSULOSIN 0.4 MG CAPSULE PO SCH (14:34)
[2018-04-10] MEDS ORDERED: A & D OINTMENT 5 GM PACKET TOP PRN (21:39)
[2018-04-11] MEDS: SODIUM CHLORIDE FLUSH 0.9% 10 ML SYRINGE IVP SCH ×3 (03:05→17:21)
[2018-04-11 05:56] LABS: BASOPHILS % (AUTO) 0.4 %; EOSINOPHILS # (AUTO) 0.2 10^3/uL (0.0-0.7); EOSINOPHILS % (AUTO) 1.8 %; HGB - HEMOGLOBIN 9.3 g/dL (14.0-18.0); LYMPHOCYTES # (AUTO) 1.2 10^3/uL (1.5-3.5); LYMPHOCYTES % (AUTO) 11.8 %; MEAN CORPUSCULAR HEMOGLOBIN 28.2 pg (27.0-31.0); MEAN CORPUSCULAR VOLUME 85.3 fL (80.0-94.0); MONOCYTES # (AUTO) 1.3 10^3/uL (0.0-1.0); MONOCYTES % (AUTO) 13.1 %; NEUTROPHILS # (AUTO) 7.5 10^3/uL (1.5-6.6); NEUTROPHILS % (AUTO) 72.9 %; PLT - PLATELET COUNT 214 10^3/uL (130-450); RED BLOOD COUNT 3.29 10^6/uL (4.70-6.10); RED CELL DISTRIBUTION WIDTH 15.1 % (12.0-15.0); WHITE BLOOD COUNT 10.3 x10^3/uL (4.8-10.8)
[2018-04-11 06:11] LABS: ALBUMIN 2.5 g/dL (3.2-5.5); ALBUMIN/GLOBULIN RATIO 0.9 (1.0-2.2); BILIRUBIN,TOTAL 0.6 mg/dL (0.2-1.0); CALCIUM 7.9 mg/dL (8.5-10.3); CREATININE 2.1 mg/dL (0.6-1.2); TOTAL PROTEIN 5.2 g/dL (6.7-8.2)
[2018-04-11] MEDS: PHENAZOPYRIDINE 100 MG TABLET PO SCH ×2 (06:16→14:10)
[2018-04-11] MEDS: INSULIN ASPART 300 UNIT/3 ML PEN SUBQ SCH ×4 (07:25→21:22)
--- NOTE | 2018-04-11 08:18 | PROVIDER PROGRESS NOTE ---
Subjective - Prog Note Date Prog Note Date: 04/11/18 Prog Note Time: 11:13 - Subjective Subjective: constipation a problem. starting to be inappropriate at times with female staff but easily prompted no fevers, eating well. Current Medications - Current Medications Current Medications: Active Medications Acetaminophen (Tylenol) 650 mg PO Q4HR PRN PRN Reason: Pain 1 to 4 Albuterol () 2.5 mg INH RTQ4H PRN PRN Reason: Wheezing Ascorbic Acid (Vitamin C) 500 mg PO DAILY [facility] Last Admin: 04/11/18 10:18 Dose: 500 mg Atorvastatin Calcium (Lipitor) 40 mg PO QPM [facility] Last Admin: 04/10/18 20:25 Dose: 40 mg Docusate Sodium (Colace 250mg Capsule) 250 - 500 mg PO DAILY [facility] Last Admin: 04/11/18 10:18 Dose: 250 mg Enoxaparin Sodium (Lovenox) 30 mg SUBQ DAILY [facility] Last Admin: 04/11/18 10:15 Dose: 30 mg Famotidine (Pepcid) 20 mg PO DAILY [facility] Last Admin: 04/11/18 10:18 Dose: 20 mg Ferrous Gluconate (Fergon) 324 mg PO DAILYWM [facility] Last Admin: 04/11/18 10:18 Dose: 324 mg Levofloxacin (Levaquin 250 Mg/50 Ml) 250 mg in 50 mls @ 50 mls/hr IV DAILY@ 2100 [facility] Last Infusion: 04/10/18 21:35 Dose: Infused Insulin Aspart (Novolog) 1 - 5 unit SUBQ 0800,1200,1700,2100 [facility] PRN Reason: Protocol Last Admin: 04/11/18 12:07 Dose: 5 unit Morphine Sulfate (Morphine) 2 mg IVP Q2H PRN PRN Reason: Pain 8 to 10 Nicotine (Nicoderm) 1 patch TOP DAILY [facility] Last Admin: 04/11/18 10:17 Dose: 1 patch Ondansetron HCl (Zofran Inj) 4 mg IVP Q6HR PRN PRN Reason: Nausea / Vomiting Last Admin: 04/10/18 18:31 Dose: 4 mg Oxycodone HCl (Roxicodone) 5 mg PO Q4HR PRN PRN Reason: Pain 5 to 7 Oxycodone HCl (Roxicodone) 10 mg PO Q4HR PRN PRN Reason: Pain 8 to 10 Polyethylene Glycol (Miralax) 17 gm PO DAILY [facility] Last Admin: 04/11/18 10:19 Dose: 17 gm Prochlorperazine Edisylate (Compazine Inj) 10 mg IVP Q6HR PRN PRN Reason: Nausea / Vomiting Promethazine HCl (Phenergan Inj) 25 mg IM Q6HR PRN PRN Reason: Nausea / Vomiting Saccharomyces Boulardii (Florastor) 250 mg PO BIDWM [facility] Last Admin: 04/11/18 10:16 Dose: 250 mg Senna (Senokot) 8.6 - 17.2 mg PO DAILY [facility] Last Admin: 04/11/18 10:16 Dose: 17.2 mg Sertraline HCl (Zoloft) 50 mg PO DAILY [facility] Last Admin: 04/11/18 10:16 Dose: 50 mg Sodium Chloride (Normal Saline Flush 0.9%) 10 ml IVP PRN PRN PRN Reason: NEEDED PER PROVIDER ORDERS Sodium Chloride (Normal Saline Flush 0.9%) 10 ml IVP 0100,0900,1700 [facility] Last Admin: 04/11/18 08:19 Dose: Not Given Tamsulosin HCl (Flomax) 0.4 mg PO DAILY [facility] Last Admin: 04/11/18 10:18 Dose: 0.4 mg Vitamin A/Vitamin D (Vitamin A & D Ointment) 1 applic TOP PRN PRN PRN Reason: Skin Care Zolpidem Tartrate (Ambien) 5 mg PO QPM PRN PRN Reason: Insomnia Last Admin: 04/10/18 00:27 Dose: 5 mg Potassium Chloride [K-Tab ER] 10 meq PO DAILY 08/15/13 Atorvastatin [Lipitor] 40 mg PO QPM 05/13/15 Furosemide 20 mg DAILY 05/13/15 Sertraline [Zoloft] 50 mg PO DAILY 12/07/16 metFORMIN [Glucophage] 500 mg PO DAILYWM 04/09/18 Albuterol Sulfate [Proair Hfa Inhaler] 1 - 2 puffs INH Q4H PRN 04/10/18 Ascorbic Acid 500 mg PO DAILY 04/10/18 Ferrous Gluconate 324 mg PO DAILY 04/10/18 Objective - Vital Signs/Intake & Output Reviewed Vital Signs: Yes Vital Signs: Vital Signs x48h Temp Pulse Resp BP Pulse Ox 04/11/18 07:22 36.7 C 67 20 126/52 L 93 Intake & Output: Intake & Output 04/08/18 04/09/18 04/10/18 04/11/18 23:59 23:59 23:59 23:59 Intake Total 3980 1000 Output Total 275 2750 850 Balance -275 1230 150 - Objective General Appearance: positive: No acute distress, Alert Eyes Bilateral: positive: PERRL ENT: positive: Pharynx nml Neck: positive: No JVD. negative: Stiff neck, Carotid bruit Respiratory: positive: Chest non-tender. negative: Wheezes, Rales, Rhonchi Cardiovascular: positive: Regular rate & rhythm. negative: Gallop/S4, Friction rub Abdomen: positive: Non-tender, No organomegaly, Nml bowel sounds Skin: positive: Warm, Dry Extremities: positive: Full ROM, No pedal edema Neurologic/Psychiatric: positive: CN's nml (2-12) (except deaf), Motor nml, Disoriented to place, Disoriented to time - Lab Results Fish Bones: 04/11/18 05:25 04/11/18 05:25 Other Labs: Lab Results x24hrs 04/11/18 04/11/18 04/11/18 Range/Units 07:20 05:25 05:25 WBC 10.3 (4.8-10.8) x10^3/uL RBC 3.29 L (4.70-6.10) 10^6/uL Hgb 9.3 L (14.0-18.0) g/dL Hct 28.1 L (42.0-52.0) % MCV 85.3 (80.0-94.0) fL MCH 28.2 (27.0-31.0) pg MCHC 33.0 (32.0-36.0) g/dL RDW 15.1 H (12.0-15.0) % Plt Count 214 (130-450) 10^3/uL MPV 8.0 (7.4-11.4) fL Neut # 7.5 H (1.5-6.6) 10^3/uL Lymph # 1.2 L (1.5-3.5) 10^3/uL [place] # 1.3 H (0.0-1.0) 10^3/uL Eos # 0.2 (0.0-0.7) 10^3/uL Baso # 0.0 (0.0-0.1) 10^3/uL Absolute Nucleated RBC 0.00 x10^3/uL Nucleated RBC % 0.0 /100WBC Sodium 137 (135-145) mmol/L Potassium 3.4 L (3.5-5.0) mmol/L Chloride 106 (101-111) mmol/L Carbon Dioxide 23 (21-32) mmol/L Anion Gap 8.0 (6-13) BUN 56 H (6-20) mg/dL Creatinine 2.1 H (0.6-1.2) mg/dL Estimated GFR (MDRD) 30 L (>89) Glucose 105 H (70-100) mg/dL POC Whole Bld Glucose 122 H (70 - 100) mg/dL Calcium 7.9 L (8.5-10.3) mg/dL Total Bilirubin 0.6 (0.2-1.0) mg/dL AST 23 (10-42) IU/L ALT 15 (10-60) IU/L Alkaline Phosphatase 65 (42-121) IU/L Total Protein 5.2 L (6.7-8.2) g/dL Albumin 2.5 L (3.2-5.5) g/dL Globulin 2.7 (2.1-4.2) g/dL Albumin/Globulin Ratio 0.9 L (1.0-2.2) 04/10/18 04/10/18 04/10/18 Range/Units 20:30 16:49 11:16 WBC (4.8-10.8) x10^3/uL RBC (4.70-6.10) 10^6/uL Hgb (14.0-18.0) g/dL Hct (42.0-52.0) % MCV (80.0-94.0) fL MCH (27.0-31.0) pg MCHC (32.0-36.0) g/dL RDW (12.0-15.0) % Plt Count (130-450) 10^3/uL MPV (7.4-11.4) fL Neut # (1.5-6.6) 10^3/uL Lymph # (1.5-3.5) 10^3/uL [place] # (0.0-1.0) 10^3/uL Eos # (0.0-0.7) 10^3/uL Baso # (0.0-0.1) 10^3/uL Absolute Nucleated RBC x10^3/uL Nucleated RBC % /100WBC Sodium (135-145) mmol/L Potassium (3.5-5.0) mmol/L Chloride (101-111) mmol/L Carbon Dioxide (21-32) mmol/L Anion Gap (6-13) BUN (6-20) mg/dL Creatinine (0.6-1.2) mg/dL Estimated GFR (MDRD) (>89) Glucose (70-100) mg/dL POC Whole Bld Glucose 245 H 126 H 238 H (70 - 100) mg/dL Calcium (8.5-10.3) mg/dL Total Bilirubin (0.2-1.0) mg/dL AST (10-42) IU/L ALT (10-60) IU/L Alkaline Phosphatase (42-121) IU/L Total Protein (6.7-8.2) g/dL Albumin (3.2-5.5) g/dL Globulin (2.1-4.2) g/dL Albumin/Globulin Ratio (1.0-2.2) ABX Reporting Has patient been on IV antibiotics over the past 48 hours?: Yes Assessment/Plan - Problem List (1) Prostatitis Impression: Acute. Patient presents with bilateral flank pain, suprapubic pain and vomiting. Patient was found to have a leukocytosis of 18,000 with low-grade fever in the emergency department. The patient appeared to be dehydrated and CT of the abdomen revealed hydroureteronephrosis along with thickened bladder. Patient's urine analysis was grossly positive for urinary tract infection. Once patient had Joshua catheter placed there was puslike material in the catheter. Patient also had generalized weakness and fatigue. Patient was unable to keep down oral antibiotic in the emergency department due to vomiting. He was initially felt to have pyelonephritis and we treated as such. Because of his history of BPH but not prostate cancer, I feel he has prostatitis. PSA ordered for this am. Dr. Hester returned my call yesterday and there is no history of prostate cancer. Plan: IV Levaquin, today is Day #3. Plan for up to 21-30 days if he does have prostatitis. IV fluids were given and now that eating and drinking, IV lock . Joshua catheter planned for 2 weeks. Urology consult if needed in the next month. Urine and blood cultures done and urine is growing Klebsiella, sensitive to quinolone. Blood cultures negative at one day. WBC was trending down yesterday and is normal today. De-escalate antibiotics and change to po tomorrow am. Flomax added yesterday. The patient has a complicated urinary tract infection and should be treated for at least 3 weeks if not more. (2) LESLEE (acute kidney injury) Conclusion/Plan: Patient has acute kidney injury with a creatinine of 2.1 which is elevated from his baseline of 1.3 from just 2 months ago. The patient's acute kidney injury appears likely secondary to obstructive nephropathy as the patient has hydroureteronephrosis but there is no obvious obstruction on the CT scan. Again it may be from BPH. He was being treated as pyelonephritis with dehydration but I think it's prostatitis and that the hydro has caused some chronic problems. Creat is still 2.1 today after 2-3 days of treatment. It is possible that the patient may also have prerenal azotemia especially in the setting of an elevated BUN. Plan: Patient had a Joshua catheter placed in the emergency department IVF will stop today. We will continue to monitor patient's creatinine We will avoid nephrotoxic agents If patient's creatinine is not improving we will get a renal ultrasound. Today he remains at 2.1, so US ordered. Nephrology consult will be phoned in once I have the US. (3) Hydroureteronephrosis Conclusion/Plan: The patient appears to have hydroureteronephrosis in the setting of pyelonephritis or BPH. The patient's hydronephrosis may be secondary to some mild obstruction from his BPH or patient could have had a renal stone which has now resolved. Plan: Patient will be managed with a Joshua catheter and treatment of his urinary tract infection Patient has been given IVF. We will monitor the patient's renal function if renal function does not improve we will get a renal ultrasound and consider talking to nephrology from an outside facility (4) Diabetes, Type 2, controlled, without complications, not on jail insulin. Conclusion/Plan: Patient has history of diabetes and presents with hyperglycemia with glucose of 184. Likely patient has hyperglycemia secondary to having a urinary tract infection ongoing. Patient is not on any insulin. Yesterday he was 121, 238, 126, 245 and this am 122. Plan: Continue sliding scale insulin Patient will be placed on diabetic diet Continue to monitor patient's blood glucose before meals at bedtime Hemoglobin A1c is 6.6% and considered controlled for a man his age. We will hold metformin while in the hospital to avoid lactic acidosis. Qualifiers: Diabetes mellitus type: type 2 Diabetes mellitus roasterman insulin use: without roasterman use Diabetes mellitus complication status: with hyperglycemia Qualified Code(s): E11.65 - Type 2 diabetes mellitus with hyperglycemia (5) Hyponatremia and hypokalemia Conclusion/Plan: Patient has a sodium of 133 on presentation. Patient appears to be hypovolemic and has hypovolemic hyponatremia. Patient will be given IV fluids and will continue to monitor his sodium. Today he is 137 and still low K at 3.4. will supplement K again with PO K. (6) Lung nodule Conclusion/Plan: Chronic/stable. The patient was found to have a 1 cm subpleural right lower lobe nodule on CT of his chest. This remains indeterminate. The recommendation from radiology is to consider a PET/CT or tissue sampling in 3 months. A follow-up CT scan is recommended. Patient will need to follow-up with his primary care physician for further workup. Given the patient's advanced age and unlikelihood that the patient would receive treatment at this time depending on what patient and his family want to do a CT repeat may not be necessary. (7) Tobacco abuse Conclusion/Plan: Chronic/stable. The patient continues to smoke 5-6 cigarettes a day. He was advised to quit smoking especially given that he has COPD. Patient will be given a nicotine patch while he is hospitalized and so far this am he is satisfied. Doesn't feel like he is craving anything. (8) Hyperlipidemia Conclusion/Plan: Chronic/stable. Patient has history of hyperlipidemia and is on a statin at home. Patient will be continued on his home dose of statin Stable Qualifiers: Hyperlipidemia type: unspecified Qualified Code(s): E78.5 - Hyperlipidemia , unspecified (9) COPD (chronic obstructive pulmonary disease) Conclusion/Plan: Stable. Patient has history of COPD and uses an albuterol inhaler at home as needed. Patient appears to be stable as far as his COPD goes and is not on any oxygen Patient will be placed on albuterol nebulizer as needed while he is hospitalized. Qualifiers: COPD type: COPD with acute exacerbation Qualified Code(s): J44.1 - Chronic obstructive pulmonary disease with (acute) exacerbation
[2018-04-11] MEDS ORDERED: POTASSIUM CHLORIDE 20 MEQ TABLET PO ONE (08:25)
[2018-04-11] MEDS: ENOXAPARIN 30 MG/0.3 ML SYRINGE SUBQ SCH (10:15)
[2018-04-11] MEDS: SENNA 8.6 MG TABLET PO SCH (10:16)
[2018-04-11] MEDS: SACCHAROMYCES BOULARDII 250 MG CAPSULE PO SCH ×2 (10:16→17:21)
[2018-04-11] MEDS: SERTRALINE 50 MG TABLET PO SCH (10:16)
[2018-04-11] MEDS: NICOTINE 14 MG PATCH TOP SCH (10:17)
[2018-04-11] MEDS: FAMOTIDINE 20 MG TABLET PO SCH (10:18)
[2018-04-11] MEDS: TAMSULOSIN 0.4 MG CAPSULE PO SCH (10:18)
[2018-04-11] MEDS: ASCORBIC ACID CHEW 500 MG TABLET PO SCH (10:18)
[2018-04-11] MEDS: DOCUSATE SODIUM 250 MG CAPSULE PO SCH (10:18)
[2018-04-11] MEDS: FERROUS GLUCONATE 324 MG TABLET PO SCH (10:18)
[2018-04-11] MEDS: POLYETHYLENE GLYCOL 3350 17 GM PACKET PO SCH (10:19)
[2018-04-11 10:47] LABS: PSA FREE 0.06 ng/mL (0.16-2.81)
[2018-04-11 10:48] LABS: PSA TOTAL 0.25 ng/mL (0.000-2.000)
--- NOTE | 2018-04-11 16:45 | Ultrasound Report ---
EXAM: RENAL ULTRASOUND EXAM DATE: 04/11/2018 01:57 PM. CLINICAL HISTORY: Elevated creatinine. COMPARISON: CT 04/09/2018. TECHNIQUE: Real-time scanning was performed with static images obtained. FINDINGS: Right Kidney: 11.5 x 5.0 x 4.7 cm. Normal echotexture with no stones or contour-deforming masses. Hyd ronephrosis and hydroureter, with the upper ureter 1.2 cm in diameter. Left Kidney: 12.0 x 4.7 x 4.3 cm. Normal echotexture with no stones or contour-deforming masses. Mild hydronephrosis. Superior cyst 1.2 x 1.1 x 1.3 cm. Bladder: Bilateral jets seen. The prevoid bladder volume was [address] catheter in [address]. Thick-w alled bladder.. Other: None. IMPRESSION: 1. Bilateral hydronephrosis, right greater than left. 2. Bilateral ureteral jets seen. 3. Abnormal bladder wall thickening. [facility] Referring Provider Line: [phone] SITE ID: [id number]
[2018-04-11] MEDS: NICOTINE 21 MG PATCH TOP SCH (21:24)
[2018-04-11] MEDS: ATORVASTATIN 40 MG TABLET PO SCH (21:28)
[2018-04-12] MEDS: ZOLPIDEM 5 MG TABLET PO PRN (00:07)
[2018-04-12] MEDS: SODIUM CHLORIDE FLUSH 0.9% 10 ML SYRINGE IVP SCH ×2 (00:08→08:58)
[2018-04-12 05:52] LABS: BASOPHILS % (AUTO) 0.5 %; EOSINOPHILS # (AUTO) 0.3 10^3/uL (0.0-0.7); EOSINOPHILS % (AUTO) 3.1 %; LYMPHOCYTES % (AUTO) 12.3 %; MEAN CORPUSCULAR HGB CONC 32.6 g/dL (32.0-36.0); MEAN CORPUSCULAR VOLUME 85.9 fL (80.0-94.0); MEAN PLATELET VOLUME 7.9 fL (7.4-11.4); MONOCYTES # (AUTO) 1.1 10^3/uL (0.0-1.0); MONOCYTES % (AUTO) 13.7 %; NEUTROPHILS # (AUTO) 5.7 10^3/uL (1.5-6.6); NEUTROPHILS % (AUTO) 70.4 %; PLT - PLATELET COUNT 218 10^3/uL (130-450); RED BLOOD COUNT 3.21 10^6/uL (4.70-6.10); RED CELL DISTRIBUTION WIDTH 15.7 % (12.0-15.0); WHITE BLOOD COUNT 8.1 x10^3/uL (4.8-10.8)
[2018-04-12] MEDS ORDERED: levoFLOXacin 250 MG TABLET PO SCH (06:00)
[2018-04-12 06:02] LABS: ALBUMIN 2.5 g/dL (3.2-5.5); ALBUMIN/GLOBULIN RATIO 0.8 (1.0-2.2); BILIRUBIN,TOTAL 0.5 mg/dL (0.2-1.0); CALCIUM 7.9 mg/dL (8.5-10.3); CREATININE 2.1 mg/dL (0.6-1.2); TOTAL PROTEIN 5.5 g/dL (6.7-8.2)
[2018-04-12 07:26] VITALS: BP 113/51
--- NOTE | 2018-04-12 08:19 | Discharge Plan ---
Discharge Plan Disposition: 06 Home Health Service Condition: Good Prescriptions: levoFLOXacin [Levaquin] 500 mg PO DAILY #21 tablet Tamsulosin [Flomax] 0.4 mg PO DAILY #30 capsule Diet: Regular Activity Restrictions: Activity as Tolerated Shower Restrictions: No Driving Restrictions: Yes (no driving) Assistance Devices: Wheelchair, Walker Instruction Topics: Tamsulosin capsules, Catheter Indwelling Urinary Dc, ED Catheter Care Stephens, ED Retention Urinary Male, ED UTI Pyelonephritis Male Additional Instructions or Follow Up instructions: Your prostate is enlarged which makes it hard for your bladder to empty completely Perhaps because the bladder cannot empty completely, you have developed a urine infection And due to either the infection and/or the retention your kidneys are swollen which is likely the cause of your back pain And that has caused your kidney function to decline. So we have placed a catheter into your bladder to help drain the urine and decompress the kidneys. We have temporarily put in a catheter and that can be removed by a Home Health Nurse in 2 weeks. A Home Health nurse and a Physical Therapist have been requested to go to your house to help you take care of the catheter and to increase your strength. And started you on antibiotics which are strong enough to treat the prostate as well - this class of antibiotics is very strong but can rarely have serious side effects such as nerve or tendon damage so if you develop any extremity or joint pains please stop the medication and call your PMD. You will be on this antibiotic for 3 weeks. May take tylenol for pain but not NSAIDs such as motrin Drink plenty of fluids now that your kidneys can drain again We have stopped your metformin since it can cause too many side effects now that your kidney function was affected. Please follow up with Dr Hester in his offce for a recheck of your glucose for your diabetes and your kidney function. He will most likely do a CBC, BMP and review your glucoses from your checks at home. Dr Hester will let you know when the catheter can be removed - probably about 2 weeks. We also discussed the other abnormalities seen on the CT (the aneurysms which you already knew about, nodules in your lung and thyroid, thickened bladder wall , gallstones) - please talk to Dr Hester about these findings as well Follow-Up Care: Home Health - RN (for stephens care and instructions. Needs to removed in 2 weeks.), Home Health - PT (weak, gait off) No Smoking: If you smoke, Please STOP! Call for help. Follow-up with: Magdy Hester MD [Primary Care Provider] -
[2018-04-12] MEDS: SENNA 8.6 MG TABLET PO SCH (08:53)
[2018-04-12] MEDS: ASCORBIC ACID CHEW 500 MG TABLET PO SCH (08:53)
[2018-04-12] MEDS: TAMSULOSIN 0.4 MG CAPSULE PO SCH (08:54)
[2018-04-12] MEDS: SERTRALINE 50 MG TABLET PO SCH (08:54)
[2018-04-12] MEDS: FAMOTIDINE 20 MG TABLET PO SCH (08:55)
[2018-04-12] MEDS: FERROUS GLUCONATE 324 MG TABLET PO SCH (08:55)
[2018-04-12] MEDS: DOCUSATE SODIUM 250 MG CAPSULE PO SCH (08:56)
[2018-04-12] MEDS: POLYETHYLENE GLYCOL 3350 17 GM PACKET PO SCH (08:56)
[2018-04-12] MEDS: SACCHAROMYCES BOULARDII 250 MG CAPSULE PO SCH (08:57)
[2018-04-12] MEDS: ENOXAPARIN 30 MG/0.3 ML SYRINGE SUBQ SCH (08:58)
[2018-04-12] MEDS: NICOTINE 21 MG PATCH TOP SCH (08:58)
[2018-04-12] MEDS: INSULIN ASPART 300 UNIT/3 ML PEN SUBQ SCH (08:58)
--- NOTE | 2018-04-12 14:05 | DISCHARGE SUMMARY ---
Physician: Ada Lundberg MD DATE OF ADMISSION: 04/09/2018 DATE OF DISCHARGE: 04/12/2018 DISCHARGE DIAGNOSES 1. Prostatitis. 2. Klebsiella urinary tract infection. 3. Benign prostatic hypertrophy with lower urinary tract symptoms of obstruction. 4. Acute kidney injury. 5. Hydroureteronephrosis. 6. Type 2 diabetes mellitus, without complication, not on long-term insulin. 7. Hyponatremia and hypokalemia. 8. Lung nodule. 9. Tobacco abuse. 10. Hyperlipidemia. 11. Chronic obstructive pulmonary disease. DISCHARGE MEDICATIONS 1. Levaquin 500 mg p.o. daily, #21, new prescription. 2. Flomax 0.4 mg p.o. daily, #30, new prescription. 3. ProAir inhaler 1 puff every 6 hours as needed. 4. Vitamin C 500 mg p.o. daily. 5. Ferrous gluconate 324 mg p.o. daily. 6. Atorvastatin 40 mg p.o. daily. 7. Lasix 20 mg p.o. daily. 8. Potassium 10 mEq p.o. daily. 9. Zoloft 50 mg p.o. daily. PRINCIPAL PROCEDURES 1. Urine culture growing Klebsiella pneumoniae. 2. Blood cultures showing no growth at 2 days. 3. Abdomen and pelvis CT with lung CT showing extensive pleural based plaques present at the bases. Mild cardiac enlargement with coronary artery disease. Centrilobular and paraseptal emphysema noted at the bases. There is a lung nodule that may need followup. New bilateral [id number] hydroureter and hydronephrosis without obstructing stone. Dilation extends to the bladder. Moderate prostatic enlargement with coarse calcifications. Mild seminal vesicle enlargement. There is circumferential bladder wall thickening with mild adjacent stranding. 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 No bladder stones or masses noted. He has diffuse severe atheromatous plaques throughout the abdominal aorta. Gallstones are present without inflammation. He has a fusiform infrarenal abdominal aortic aneurysm that is stable. No new retroperitoneal hematoma. 4. Retroperitoneal ultrasound with bilateral hydronephrosis, right greater than left, bilateral ureteral jets seen. Abnormal bladder wall thickening. HOSPITAL COURSE: The patient is very pleasant, forgetful man. He lives at home with one of his daughters, Elsi. He has multiple medical problems and he started having shooting abdominal pain in the lower abdomen, radiating to his back. He did not tell the admitting physician at night, but he also describes urgency, frequency increasing over the last 2 weeks with increasing urinary incontinence. He does have constipation, so the family wondered if that was a problem. The discomfort continued to worsen throughout the day and the patient became very nauseated in the early afternoon, so they brought him to the Emergency Department. In the emergency room, he had 3 episodes of emesis, then chills and rigors. Up until now he had a really good appetite with no diarrhea. In the emergency room, he was evaluated and found to have what we felt was pyelonephritis with hydroureter, infected urine, elevated white cell count, and a creatinine of 2.1. His usual creatinine is usually much better at 1.2-1.4. While he was initially treated as pyelonephritis, reassessing the patient the next day with the history of benign prostatic hypertrophy in the past, I feel the patient has more prostatitis with benign prostatic hypertrophy. This has led to obstruction and infection. He has had acute kidney injury because of this with a rise in his creatinine. Joshua catheter was placed, urine grew out Klebsiella. He was initially on Levaquin IV and was transitioned to Levaquin p.o. His white blood count was initially 18.6 thousand and the day of discharge was 8.1. Also of note is a mild anemia where hemoglobin was 11.6 on admission and 9.0 on discharge after hydration. Unfortunately, his acute kidney injury did not resolve. Creatinine stayed stable at 2.1 throughout his entire stay. BUN was initially 67 and was 50 at discharge. With the Joshua placement, he has had good urine output. The urine is still dark, slightly concentrated. We did check a PSA and he was 0.25 PSA with a free PSA of 0.060 and percent free PSA calculation of 24. As such, I do not think he has cancer, but just an enlarged prostate. His hydroureter was evaluated with a CT of the abdomen. The CT of the abdomen and chest showed the above findings. He will need to have the lung nodule followed up on, but at 87 years of age, I do not know what the point would be. His type 2 diabetes mellitus was controlled during his stay. A1c was 6.6%. I did stop his metformin, because of the rising creatinine and the fear of lactic acidosis. As such, he is being discharged on no diabetic medication at this time, because I think that sulfonylureas would be contraindicated in his age and creatinine on the [facility] list. Hyponatremia and hypokalemia were present. His hyponatremia resolved and was 137. Potassium was supplemented orally. He did receive a nicotine patch, because he does smoke at home. COPD is present on the CT of the chest, with oropeza lobular emphysema, but he had no exacerbation. There is a lung nodule that radiology recommends followup on. He did not need any change in medications, increase in oxygen, or steroids. He did not even need his albuterol nebulizer while here. He was transitioned to oral Levaquin. He has had no fevers. He should probably be on Levaquin for up to 4 weeks, but possibly be reevaluated at 3 weeks. I would like him to keep his Joshua for the next 2 weeks until swelling has gone down, and he has also been started on Flomax. I have spoken about his case to Dr. Hester, verified that the patient did not have prostate cancer since Blanca, one of his daughters, mentioned that he may have had that in the past. He will see the patient in followup in the next 1-2 weeks. I have also asked home health to see the patient for the Joshua care, and followup of his renal failure. Because he is weak, and home bound, I have asked home health physical therapy to also see the patient. He was evaluated by physical therapy while he was here. At discharge, BUN is 50, creatinine 2.1. White cell count is 8.1, hemoglobin is 9. Again, urine grew out Klebsiella sensitive to Levaquin. DISCHARGE EXAM: Shows him to have a temperature of 36.7, pulse 69, blood pressure 113/51, respirations 20 and 92% on room air. He is a tall, alert, elderly gentleman, mildly deaf. No facial asymmetry with a slight nasal tone of voice. Memory loss. Occasionally , he likes to use his hands to grab females inappropriately, but he is usually easily prompted from that and behavior is controlled with only the verbal prompt. Neck is supple. The lungs are clear without any crackles, rhonchi or wheezing. No increased respiratory effort. Considering how severe his emphysema is on CT of the chest, he is quite comfortable. No right ventricular lift. PMI is normally placed with a regular rate and rhythm. The abdomen is soft, nontender, normal bowel sounds. No masses. His feet have trace edema. He needs a lot of prompting to get out of bed and walk. Just having him sit up in bed, stand and use a front-wheeled walker, causes him to start complaining. He walks about 15 feet before he just says "I want to go to bed" and insists on doing so. He is going to need quite a bit of prompting in the home setting. He is returning home to his daughter. Greater than 30 minutes was spent in coordinating discharge. TD: 04/12/2018 12:04 AMBREEN
== END 2018-04-12 11:20 | disposition home health service (06) | DRG 727 ==
LOC: ED 14:01 → MS2 21:31
PROVIDERS: ADMIT Internal Medicine; ATTEND Specialist
DX: N41.0 Acute prostatitis (principal); N12 Tubulo-interstitial nephritis, not specified as acute or chronic; N28.9 Disorder of kidney and ureter, unspecified; N13.30 Unspecified hydronephrosis; R33.8 Other retention of urine; I72.3 Aneurysm of iliac artery; G93.49 Other encephalopathy; J44.9 Chronic obstructive pulmonary disease, unspecified; N13.8 Other obstructive and reflux uropathy; E11.9 Type 2 diabetes mellitus without complications; F17.200 Nicotine dependence, unspecified, uncomplicated; N17.9 Acute kidney failure, unspecified; N13.6 Pyonephrosis; E87.1 Hypo-osmolality and hyponatremia; N40.1 Benign prostatic hyperplasia with lower urinary tract symptoms; I25.10 Atherosclerotic heart disease of native coronary artery without angina pectoris; B96.1 Klebsiella pneumoniae [K. pneumoniae] as the cause of diseases classified elsewhere; N32.89 Other specified disorders of bladder; E87.6 Hypokalemia; E86.0 Dehydration; E86.1 Hypovolemia; J43.1 Panlobular emphysema; I10 Essential (primary) hypertension; E11.65 Type 2 diabetes mellitus with hyperglycemia; E78.5 Hyperlipidemia, unspecified; G30.9 Alzheimer's disease, unspecified; F02.80 Dementia in other diseases classified elsewhere, unspecified severity, without behavioral disturbance, psychotic disturbance, mood disturbance, and anxiety; I71.4 Abdominal aortic aneurysm, without rupture; G47.33 Obstructive sleep apnea (adult) (pediatric); F32.9 Major depressive disorder, single episode, unspecified; Z79.84 Long term (current) use of oral hypoglycemic drugs; K59.00 Constipation, unspecified; Z66 Do not resuscitate; Z95.5 Presence of coronary angioplasty implant and graft; Z85.048 Personal history of other malignant neoplasm of rectum, rectosigmoid junction, and anus; Z72.0 Tobacco use; Z79.899 Other long term (current) drug therapy; Z91.81 History of falling; Z91.19 Patient's noncompliance with other medical treatment and regimen
CPT/HCPCS: 36415; 51702; 71250; 74176; 76770; 80053; 81001; 81003; 83036; 83605; 83690; 84154; 85025; 87040; 87077; 87086; 87181; 94640; 96365; 99284

== ENCOUNTER 2018-04-21 12:10 | Inpatient (IN) | payer MEDICARE, MEDICAID ==
[2018-04-21 12:30] LABS: BASOPHILS # (AUTO) 0.2 10^3/uL (0.0-0.1); BASOPHILS % (AUTO) 0.8 %; EOSINOPHILS % (AUTO) 0.1 %; HGB - HEMOGLOBIN 11.8 g/dL (14.0-18.0); LYMPHOCYTES # (AUTO) 1.1 10^3/uL (1.5-3.5); LYMPHOCYTES % (AUTO) 6.1 %; MEAN CORPUSCULAR HEMOGLOBIN 27.8 pg (27.0-31.0); MEAN CORPUSCULAR HGB CONC 33.1 g/dL (32.0-36.0); MEAN CORPUSCULAR VOLUME 84.2 fL (80.0-94.0); MEAN PLATELET VOLUME 7.1 fL (7.4-11.4); MONOCYTES # (AUTO) 0.9 10^3/uL (0.0-1.0); MONOCYTES % (AUTO) 4.7 %; NEUTROPHILS # (AUTO) 16.5 10^3/uL (1.5-6.6); NEUTROPHILS % (AUTO) 88.3 %; PLT - PLATELET COUNT 423 10^3/uL (130-450); RED BLOOD COUNT 4.22 10^6/uL (4.70-6.10); RED CELL DISTRIBUTION WIDTH 14.9 % (12.0-15.0); WHITE BLOOD COUNT 18.7 x10^3/uL (4.8-10.8)
--- NOTE | 2018-04-21 12:30 | ED Physician Documentation ---
History of Present Illness - Stated complaint Stated Complaint: THROW UP/FATIGUE/WEAKNESS - Chief complaint Chief Complaint: Abd Pain - History obtained from History obtained from: Patient, Family - History of Present Illness Timing: Today Pain level max: 3 Pain level now: 3 Improved by: nothing Worsened by: nothing - Additonal information Additional information: Patient is an 87 year old male with vomiting today. Daughter noticed it was reddish brown and she gave him pepto bismol. Had a second episode of emesis and brought him in for evaluation. He states that he has been tired for 2-3 days. Being treated for prostatitis vs pyelonephritis. Is currently on levaquin and has his stephens catheter still in place. Review of Systems Ten Systems: 10 systems reviewed and negative Constitutional: reports: Chills. denies: Fever Ears: denies: Ear pain Nose: denies: Rhinorrhea / runny nose, Congestion Throat: denies: Sore throat Cardiac: denies: Chest pain / pressure Respiratory: denies: Cough GI: reports: Nausea, Vomiting Skin: denies: Rash Musculoskeletal: denies: Neck pain, Back pain Neurologic: reports: Generalized weakness. denies: Headache PD PAST MEDICAL HISTORY - Past Medical History Cardiovascular: Hypertension, High cholesterol, Coronary artery disease Respiratory: COPD, Sleep apnea, CPAP use Neuro: Alzhiemer's, Dementia Endocrine/Autoimmune: Type 2 diabetes GI: Hiatal hernia : Benign prostate hypertrophy HEENT: None Psych: Depression Musculoskeletal: None Derm: None - Past Surgical History Past Surgical History: Yes General: Bowel surgery Ortho: Other Cardiovascular: Coronary stent - Present Medications Home Medications: Ambulatory Orders Medication Instructions Recorded Confirmed Potassium Chloride [K-Tab ER] 10 meq PO DAILY 08/15/13 04/21/18 Atorvastatin [Lipitor] 40 mg PO QPM 05/13/15 04/21/18 Furosemide 20 mg DAILY 05/13/15 04/21/18 Sertraline [Zoloft] 50 mg PO DAILY 12/07/16 04/21/18 Albuterol Sulfate [Proair Hfa 1 - 2 puffs INH Q4H PRN 04/10/18 04/21/18 Inhaler] Ascorbic Acid 500 mg PO DAILY 04/10/18 04/21/18 Ferrous Gluconate 50 mg PO DAILY 04/10/18 04/21/18 Tamsulosin [Flomax] 0.4 mg PO DAILY #30 capsule 04/12/18 04/21/18 levoFLOXacin [Levaquin] 500 mg PO DAILY #21 tablet 04/12/18 04/21/18 Metformin HCl 500 mg DAILY 04/21/18 04/21/18 - Allergies Allergies/Adverse Reactions: Allergies Allergy/AdvReac Type Severity Reaction Status Date / Time No Known Drug Allergies Allergy Verified 04/21/18 12:13 - Social History Does the pt smoke?: Yes Smoking Status: Current every day smoker Does the pt drink ETOH?: No Does the pt have substance abuse?: No - Immunizations Immunizations are current?: No Immunizations: TDAP >10years/unknown - POLST Patient has POLST: No POLST Status: DNR PD ED PE NORMAL - Vitals Vital signs reviewed: Yes - General General: Alert and oriented X 3, No acute distress - HEENT HEENT: Moist mucous membranes - Neck Neck: Supple, no meningeal sign - Cardiac Cardiac: RRR, Strong equal pulses - Respiratory Respiratory: No respiratory distress, Clear bilaterally - Abdomen Abdomen: Soft, Non tender, Non distended - Back Back: No CVA TTP, No spinal TTP - Derm Derm: Warm and dry, No rash - Extremities Extremities: No edema, No calf tenderness / cord - Neuro Neuro: Alert and oriented X 3 - Psych Psych: Normal mood, Normal affect Results - Vitals Vitals: Vital Signs - 24 hr 04/21/18 12:11 Temperature 36.4 C L Heart Rate 50 L Respiratory 16 Rate Blood Pressure 112/48 L O2 Saturation 96 Oxygen O2 Source Room air - Labs Labs: Laboratory Tests 04/21/18 04/21/18 04/21/18 12:24 12:24 12:24 WBC 18.7 H RBC 4.22 L Hgb 11.8 L Hct 35.5 L MCV 84.2 MCH 27.8 MCHC 33.1 RDW 14.9 Plt Count 423 MPV 7.1 L Neut # 16.5 H Lymph # 1.1 L [place] # 0.9 Eos # 0.0 Baso # 0.2 H Absolute Nucleated RBC 0.00 Nucleated RBC % 0.0 PT 12.5 INR 1.1 APTT 29.0 Sodium 134 L Potassium 3.9 Chloride 95 L Carbon Dioxide 28 Anion Gap 11.0 BUN 44 H Creatinine 1.8 H Estimated GFR (MDRD) 36 L Glucose 218 H Lactic Acid Calcium 8.7 Total Bilirubin 0.8 AST 26 ALT 20 Alkaline Phosphatase 104 Total Protein 7.3 Albumin 3.2 Globulin 4.1 Albumin/Globulin Ratio 0.8 L Lipase 29 Urine Color Urine Clarity Urine pH Ur Specific [place] Urine Protein Urine Glucose (UA) Urine Ketones Urine Occult Blood Urine Nitrite Urine Bilirubin Urine Urobilinogen Ur Leukocyte Esterase Urine RBC Urine WBC Ur Squamous Epith Cells Urine Bacteria Ur Microscopic Review Urine Culture Comments Blood Type Blood Type Recheck Antibody Screen 04/21/18 04/21/18 04/21/18 12:24 13:04 13:20 WBC RBC Hgb Hct MCV MCH MCHC RDW Plt Count MPV Neut # Lymph # [place] # Eos # Baso # Absolute Nucleated RBC Nucleated RBC % PT INR APTT Sodium Potassium Chloride Carbon Dioxide Anion Gap BUN Creatinine Estimated GFR (MDRD) Glucose Lactic Acid 1.2 Calcium Total Bilirubin AST ALT Alkaline Phosphatase Total Protein Albumin Globulin Albumin/Globulin Ratio Lipase Urine Color YELLOW Urine Clarity CLEAR Urine pH 6.0 Ur Specific [place] 1.010 Urine Protein TRACE Urine Glucose (UA) NEGATIVE Urine Ketones NEGATIVE Urine Occult Blood SMALL H Urine Nitrite NEGATIVE Urine Bilirubin NEGATIVE Urine Urobilinogen 0.2 (NORMAL) Ur Leukocyte Esterase TRACE H Urine RBC 11-25 H Urine WBC 0-3 Ur Squamous Epith Cells NONE SEEN Urine Bacteria Few Ur Microscopic Review INDICATED Urine Culture Comments INDICATED Blood Type Blood Type Recheck O POSITIVE Antibody Screen 04/21/18 16:24 WBC RBC Hgb Hct MCV MCH MCHC RDW Plt Count MPV Neut # Lymph # [place] # Eos # Baso # Absolute Nucleated RBC Nucleated RBC % PT INR APTT Sodium Potassium Chloride Carbon Dioxide Anion Gap BUN Creatinine Estimated GFR (MDRD) Glucose Lactic Acid Calcium Total Bilirubin AST ALT Alkaline Phosphatase Total Protein Albumin Globulin Albumin/Globulin Ratio Lipase Urine Color Urine Clarity Urine pH Ur Specific [place] Urine Protein Urine Glucose (UA) Urine Ketones Urine Occult Blood Urine Nitrite Urine Bilirubin Urine Urobilinogen Ur Leukocyte Esterase Urine RBC Urine WBC Ur Squamous Epith Cells Urine Bacteria Ur Microscopic Review Urine Culture Comments Blood Type O POSITIVE Blood Type Recheck Antibody Screen NEGATIVE - Rads (name of study) CT abd/pelvis Radiology: Prelim report reviewed, EMP read contemporaneously, See rad report ( Decompressed urinary bladder with indwelling Stephens catheter bulb. Apparent mild perivesical stranding could reflect cystitis. 2. Cholelithiasis with somewhat indistinct gallbladder wall. Ultrasound could be performed for further evaluation at clinician discretion. 3. Above average volume of stool in the colon. 4. Aortoiliac aneurysms, similar to prior. 5. Calcified pleural plaquing , indicating asbestos related pleural disease. 6. Other findings as noted above. ) RUQ US Radiology: Prelim report reviewed, EMP read contemporaneously, See rad report ( Thick-walled gallbladder with immobile stones in the gallbladder neck and positive sonographic Lozano's sign, compatible with acute cholecystitis. 2. Subcentimeter echogenic focus in the right hepatic lobe, possibly a hemangioma. 3. Mildly increased right renal parenchymal echogenicity, suggesting chronic renal disease) PD MEDICAL DECISION MAKING - ED course Complexity details: reviewed old records, reviewed results, re-evaluated patient , considered differential, d/w patient, d/w family, d/w qa consultant ED course: Patient is an 87-year-old male who presents to the emergency pain today. Also has blood in the emesis. Given Protonix IV. Type and screen performed. Hemoglobin is actually higher than it was previously. Has an elevated white blood cell count of unclear etiology. CT scan was performed which shows possible indistinctness to the gallbladder wall, therefore right upper quadrant ultrasound was performed. Possible cholecystitis? Stones are lodged in the gallbladder neck. Discussed the case with Dr. Justin who will consult on the patient. The ultrasound was a technically difficult study because of bowel gas per the condemnation engineer. Also discussed the case with the hospitalist, Dr. Infante who accepts. Patient was already given Levaquin today. This document was made in part using voice recognition software. While efforts are made to proofread this document, sound alike and grammatical errors may occur. Departure - Departure Disposition: [facility] DC/Xfer Clinical Impression: Dehydration, Gallstones, Acute cholecystitis Leukocytosis Qualifiers: Leukocytosis type: unspecified Qualified Code(s): D72.829 - Elevated white blood cell count, unspecified GI bleed Qualifiers: GI bleed type/associated pathology: unspecified gastrointestinal hemorrhage type Qualified Code(s): K92.2 - Gastrointestinal hemorrhage, unspecified Condition: Stable Discharge Date/Time: 04/21/18 17:46
[2018-04-21 12:43] LABS: ALBUMIN 3.2 g/dL (3.2-5.5); ALBUMIN/GLOBULIN RATIO 0.8 (1.0-2.2); BILIRUBIN,TOTAL 0.8 mg/dL (0.2-1.0); CALCIUM 8.7 mg/dL (8.5-10.3); CREATININE 1.8 mg/dL (0.6-1.2); TOTAL PROTEIN 7.3 g/dL (6.7-8.2)
[2018-04-21] MEDS ORDERED: SODIUM CHLORIDE 0.9% 1,000 ML IV ONE (12:58)
--- NOTE | 2018-04-21 14:01 | CT Report ---
EXAM: CT ABDOMEN AND PELVIS EXAM DATE: 04/21/2018 01:39 PM. CLINICAL HISTORY: RLQ pain. COMPARISONS: CT abdomen/pelvis 04/09/2018. TECHNIQUE: Routine helical CT imaging was performed through the abdomen and pelvis. IV contrast: None . Enteric contrast: No. Reconstructions: Coronal and sagittal. In accordance with CT protocol optimization, one or more of the following dose reduction techniques w ere utilized for this exam: automated exposure control, adjustment of mA and/or KV based on patient s ize, or use of iterative reconstructive technique. FINDINGS: Lung Bases: Bilateral calcified pleural plaquing consistent with asbestos related pleural disease. Pa raseptal emphysematous changes. Apparent mild distal esophageal wall thickening may relate to GERD. T here appears to be some distal esophageal fluid which may relate to dysmotility and/or reflux. Liver: Normal. No masses. Gallbladder/Bile Ducts: Cholelithiasis. Gallbladder wall is somewhat indistinct. Consider correlation with ultrasound. Spleen: Normal. Pancreas: Normal. Adrenal Glands: Normal. Kidneys: No hydronephrosis. Stable mildly hyperdense exophytic 15 mm left upper pole renal cortical s tructure, indeterminate by noncontrast CT but possibly hyperdense cyst. Peritoneal Cavity/Bowel: No free air or free fluid. Above average volume of stool in the colon. Small bowel caliber is normal. Stomach is unremarkable. Partially visualized appendix appears normal calib er to the extent visualized. Pelvic Organs: Prostate appears enlarged with few metallic seed implants. Joshua catheter bulb is in t he decompressed urinary bladder. There is suggestion of mild perivesical stranding which could refle ct cystitis. Vasculature: Fusiform infrarenal abdominal aortic aneurysm measuring up to approximate 48 mm, similar to prior. 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 There is diffuse atherosclerotic lorena rial calcification. Bones: Patient is status post left hip ORIF. There is mild bilateral hip joint DJD. Bones appear diff usely osteopenic. There is moderate-severe L5-S1 disk degeneration with otherwise mild multilevel lum bar degeneration. There is mild inferior endplate depression at L1 which is stable. No acute fracture or suspicious bony lesion. Other: None. IMPRESSION: 1. Decompressed urinary bladder with indwelling Joshua catheter bulb. Apparent mild perivesical strand ing could reflect cystitis. 2. Cholelithiasis with somewhat indistinct gallbladder wall. Ultrasound could be performed for furthe r evaluation at clinician discretion. 3. Above average volume of stool in the colon. 4. Aortoiliac aneurysms, similar to prior. 5. Calcified pleural plaquing, indicating asbestos related pleural disease. 6. Other findings as noted above. [facility] Referring Provider Line: [phone] SITE ID: [id number]
[2018-04-21 14:51] LABS: BILIRUBIN,URINE NEGATIVE (NEGATIVE); CLARITY,URINE CLEAR (CLEAR); GLUCOSE, URINE (UA) NEGATIVE (NEGATIVE); KETONES,URINE (UA) NEGATIVE (NEGATIVE); LEUKOCYTE ESTERASE, URINE TRACE (NEGATIVE); NITRITE,URINE NEGATIVE (NEGATIVE); OCCULT BLOOD,URINE SMALL (NEGATIVE); PROTEIN,URINE TRACE mg/dL (NEGATIVE); UROBILINOGEN,URINE 0.2 (NORMAL) E.U./dL (NORMAL)
[2018-04-21 14:59] LABS: BACTERIA,URINE Few /HPF (None Seen); SQUAMOUS EPITHELIAL CELL,UR NONE SEEN (<= Few)
[2018-04-21] MEDS ORDERED: ONDANSETRON 4 MG/2 ML VIAL IVP STA (15:10)
[2018-04-21] MEDS ORDERED: PANTOPRAZOLE 40 MG VIAL IVP STA (15:51)
[2018-04-21 16:16] LABS: INR 1.1 (0.8-1.2); PT - PROTHROMBIN TIME 12.5 secs (9.9-12.6)
--- NOTE | 2018-04-21 16:50 | Ultrasound Report ---
EXAM: ABDOMEN ULTRASOUND LIMITED, RUQ EXAM DATE: 04/21/2018 04:23 PM. CLINICAL HISTORY: Gallstones and indistinct gallbladder wall on CT. COMPARISON: Noncontrast CT abdomen/pelvis, same day.. TECHNIQUE: Real-time scanning was performed with static images obtained. Per no experience notes, exam suspended briefly due to patient vomiting mid exam. FINDINGS: Liver: Normal parenchymal echotexture. 0.8 cm avascular echogenic focus in the right hepatic lobe. Po rtal vein flow: Hepatopetal. Gallbladder: Contains multiple stones, including immobile stones in the gallbladder neck. Thickened w all measuring 3-4 mm. Positive sonographic Lozano's sign. Biliary System: Limited visualization. The CBD measures 6 mm, upper limits of normal. No intrahepatic or extrahepatic ductal dilatation seen. Right Kidney: 10.9 cm in length. Mildly increased parenchymal echogenicity. Now visualized shadowing stones or hydronephrosis. IMPRESSION: 1. Thick-walled gallbladder with immobile stones in the gallbladder neck and positive sonographic Mur phy's sign, compatible with acute cholecystitis. 2. Subcentimeter echogenic focus in the right hepatic lobe, possibly a hemangioma. 3. Mildly increased right renal parenchymal echogenicity, suggesting chronic renal disease. [facility] Referring Provider Line: [phone] SITE ID: [id number]
[2018-04-21] MEDS: SODIUM CHLORIDE 0.9% 1,000 ML IV ONE ×2 (17:23→18:29)
[2018-04-21] MEDS ORDERED: ACETAMINOPHEN 325 MG TABLET PO PRN (18:24)
[2018-04-21] MEDS ORDERED: ALBUTEROL NEB 2.5 MG/3 ML INH PRN (18:29)
[2018-04-21] MEDS ORDERED: METOCLOPRAMIDE 10 MG/2 ML VIAL IVP PRN (18:31)
--- NOTE | 2018-04-21 19:40 | XRAY Preliminary Report ---
Exam: XR CHEST 1 VIEW X-RAY IMPRESSION: 1. Stable appearance of chronic lung disease, with extensive calcified bilateral pleural plaques. 2. No acute cardiopulmonary abnormality. [facility] SITE ID: [id number]
--- NOTE | 2018-04-21 19:40 | XRAY Report ---
EXAM: CHEST RADIOGRAPHY EXAM DATE: 04/21/2018 07:02 PM. CLINICAL HISTORY: Vomiting. Elevated white blood cell count. Possible aspiration. COMPARISON: CT chest 04/09/2018. Chest radiograph 03/24/2018. TECHNIQUE: 1 view. FINDINGS: Lungs/Pleura: Hyperexpansion, as before. Unchanged extensive calcified bilateral pleural plaques, wit h adjacent parenchymal scarring in the right midlung. No new focal opacity. No pleural effusion or pn eumothorax. Mediastinum: Heart size is normal. The aorta is mildly tortuous and contains atherosclerotic calcific ations, as before. Other: The bones are unremarkable. IMPRESSION: 1. Stable appearance of chronic lung disease, with extensive calcified bilateral pleural plaques. 2. No acute cardiopulmonary abnormality. [facility] Referring Provider Line: [phone] SITE ID: [id number]
--- NOTE | 2018-04-21 19:52 | CONSULTATION NOTE ---
Referring Provider Name of Referring Provider:: Dr. López Consult Date: 04/21/18 Chief Complaint - Chief Complaint Chief Complaint: Nausea and vomiting History of Present Illness - Admitted From Admitted From:: ER - History Obtained From Records Reviewed: yes History obtained from: pt Exam Limitations: possible memory loss in pt - History of Present Illness HPI Comment/Other: 87 yo male recently discharged from [facility] for treatment of UTI associated with obstructive uropathy and renal insufficiency. He was treated with stephens catheter urinary drainage and antibiotics. He did well following discharge until yesterday when he developed N & x 3, twice yesterday and once today. He denies hematemesis but his daughter reported that his emesis today was reddish in color. He denies abdominal pain, fever, chills, change in bowel habits, melena, hematochezia, wt loss, prior similar episodes, food intolerance, hepatitis or jaundice. He reports a favorable colonoscopy approximately 10 years ago. He came to the ER today for evaluation and was admitted. He has had no further N/V or bm's since admission. He continues to deny abdominal pain. History - Past Medical History Cardiovascular: reports: Hypertension, High cholesterol, Coronary artery disease Respiratory: reports: COPD, Sleep apnea, CPAP use Neuro: reports: Alzhiemer's, Dementia Endocrine/Autoimmune: reports: Type 2 diabetes GI: reports: Hiatal hernia : reports: Benign prostate hypertrophy, Retention, Renal insuffiency, Indwelling catheter HEENT: reports: None Psych: reports: Depression Musculoskeletal: reports: None Derm: reports: None MRSA Hx?: No - Past Surgical History General: reports: Bowel surgery (partial colectomy for cancer approx 25 yrs ago per daughter), Colonoscopy Ortho: reports: Other Cardiovascular: reports: Coronary stent - Family & Social History Family History: Mother: , Father: , Sister: , Brother: Family History Comment/Other: No family history of diabetes, cancer, heart disease. He stated that all his family members are healthy and of natural causes. Living arrangement: At home Living Situation: With family Social History Notes: The patient is originally from [place] but has been living in the [place] for most of his life. The patient was to his for over 60 years she just a couple of months ago. He lives with 1 of his daughters in [place], [place]. He is other daughter lives just 10 minutes away. He uses a walker to get around at home. He has 3 children in total 1 of whom is a physician. He was formerly in the [employer]. The patient has been smoking since his mid to late 20s and smoked half a pack to a pack a day for most of his life. He recently cut back to just 5-6 cigarettes a day. He denies any alcohol use or any illicit drug use. - Substance History Use: Uses substance without health or social issues: Tobacco Abuse: Recurrent use of substance despite neg consequences: NONE Dependence: Experiences withdrawal or developed tolerances: Tobacco Tobacco Details: Cigarettes (11/27 ppd) - POLST Patient has POLST: No POLST Status: DNR Meds/Allgy - Home Medications Home Medications: Ambulatory Orders Medication Instructions Recorded Confirmed Potassium Chloride [K-Tab ER] 10 meq PO DAILY 08/15/13 04/21/18 Atorvastatin [Lipitor] 40 mg PO QPM 05/13/15 04/21/18 Furosemide 20 mg DAILY 05/13/15 04/21/18 Sertraline [Zoloft] 50 mg PO DAILY 12/07/16 04/21/18 Albuterol Sulfate [Proair Hfa 1 - 2 puffs INH Q4H PRN 04/10/18 04/21/18 Inhaler] Ascorbic Acid 500 mg PO DAILY 04/10/18 04/21/18 Ferrous Gluconate 50 mg PO DAILY 04/10/18 04/21/18 Tamsulosin [Flomax] 0.4 mg PO DAILY #30 capsule 04/12/18 04/21/18 levoFLOXacin [Levaquin] 500 mg PO DAILY #21 tablet 04/12/18 04/21/18 Metformin HCl 500 mg DAILY 04/21/18 04/21/18 - Allergies Allergies/Adverse Reactions: Allergies Allergy/AdvReac Type Severity Reaction Status Date / Time No Known Drug Allergies Allergy Verified 04/21/18 12:13 Review of Systems - Constitutional Constitutional: denies: Fever, Chills - Gastrointestinal Gastrointestinal: reports: Nausea, Vomiting. denies: Abdominal pain, Abdominal distention, Constipation, Diarrhea, Change in bowel habits, Rectal bleeding, Black stools, Bloody stools, Bile emesis, Adrien blood emesis, Coffee grounds emesis, Reflux/heartburn, Bloating Exam - Vital Signs Reviewed Vital Signs: Yes Vital Signs: Vital Signs x48h Temp Pulse Resp BP Pulse Ox 04/21/18 18:02 36.2 C L 82 18 113/44 L 95 - Physical Exam General Appearance: positive: No acute distress, Alert Eyes Bilateral: positive: Normal inspection, PERRL, EOMI, Conjunctivae nml, No scleral icterus ENT: positive: ENT inspection nml, Pharynx nml, No signs of dehydration. negative: Pharyngeal erythema Neck: positive: Nml inspection, No JVD. negative: Lymphadenopathy (R), Lymphadenopathy (L) Respiratory: positive: Chest non-tender, No respiratory distress, Wheezes ( faint expiratory). negative: Rales, Rhonchi Cardiovascular: positive: Regular rate & rhythm, No murmur, No gallop Abdomen: positive: Non-tender, No organomegaly, Nml bowel sounds, No distention. negative: Guarding, Rebound, Hepatomegaly, Splenomegaly, Mass Skin: positive: Color nml, No rash, Warm, Dry Extremities: positive: Nml appearance, No pedal edema. negative: Calf tenderness Conclusion/Plan - Diagnosis Diagnosis: 1. N/V without abd pain; ddx includes viral syndrome, gastroenteritis , medication side effect; doubt sx gb disease. 2. cholelithiasis with mildly thickened gb wall, clinically asymptomatic at present, unclear if cause of pt's sx. 3. possible hematemesis in pt with multiple episodes of N/V; possibly due to a MW tear, gastritis, etc; clinically stable with no signs of gi bleeding at present. 4. Anemia, chronic, without recent drop in H/H; w/u neg in past; likely due to chronic disease; no evidence of iron deficiency or active gi bleeding at present. - Plan Plan: Rec: observation. PPI therapy. If pt develops RUQ pain, then lap belkys would be indicated. If evidence of GI bleeding develops, then endoscopy would be indicated. Will follow. - Lab Results Fish Bones: 04/21/18 12:24 04/21/18 12:24 Other Lab Results: Iron studies nl last month; lft's and lipase nl. - Diagnostic Imaging Results Diagnostic Imaging Results: positive: Final report reviewed, Read independently Diagnostic Imaging Results Comments: CT abd/pelvis shows indistinct margins of gallbladder and multiple stones, US rec for further evaluation US: 3 mm thick gallbladder wall; multiple stones in gb; + sono Lozano's sign; no pericholecystic fluid; borderline enlargement of CBD at 6.1 mm CXR: chronic changes of ? asbestosis in both lungs. (my interpretation) - EKG Results EKG Interpreted Independently: No
[2018-04-21] MEDS ORDERED: ONDANSETRON 4 MG/2 ML VIAL IVP PRN (20:00)
[2018-04-21] MEDS: NICOTINE 21 MG PATCH TOP SCH (20:51)
[2018-04-21] MEDS: DEXTROSE 5%-0.9% NACL 1,000 ML IV SCH (20:52)
[2018-04-21] MEDS: INSULIN REGULAR HUMAN 100 UNIT/1 ML 10 ML MDV SUBQ SCH (20:53)
[2018-04-22] MEDS: SODIUM CHLORIDE FLUSH 0.9% 10 ML SYRINGE IVP SCH ×4 (00:09→22:15)
[2018-04-22] MEDS: INSULIN REGULAR HUMAN 100 UNIT/1 ML 10 ML MDV SUBQ SCH ×3 (00:19→11:34)
[2018-04-22] MEDS ORDERED: MIN OIL/DIMETHICON/COCONUT OIL 92 GM TUBE TOP PRN (02:59)
[2018-04-22] MEDS: PANTOPRAZOLE 40 MG VIAL IVP SCH ×2 (06:18→17:50)
[2018-04-22] MEDS: SODIUM CHLORIDE FLUSH 0.9% 10 ML SYRINGE IVP PRN ×2 (06:18→06:21)
[2018-04-22 06:34] LABS: BASOPHILS # (AUTO) 0.1 10^3/uL (0.0-0.1); BASOPHILS % (AUTO) 0.3 %; EOSINOPHILS # (AUTO) 0.2 10^3/uL (0.0-0.7); EOSINOPHILS % (AUTO) 0.9 %; HGB - HEMOGLOBIN 9.2 g/dL (14.0-18.0); LYMPHOCYTES # (AUTO) 1.8 10^3/uL (1.5-3.5); LYMPHOCYTES % (AUTO) 8.9 %; MEAN CORPUSCULAR HEMOGLOBIN 27.7 pg (27.0-31.0); MEAN CORPUSCULAR HGB CONC 32.4 g/dL (32.0-36.0); MEAN CORPUSCULAR VOLUME 85.5 fL (80.0-94.0); MEAN PLATELET VOLUME 7.6 fL (7.4-11.4); MONOCYTES # (AUTO) 1.5 10^3/uL (0.0-1.0); MONOCYTES % (AUTO) 7.3 %; NEUTROPHILS % (AUTO) 82.6 %; PLT - PLATELET COUNT 347 10^3/uL (130-450); RED BLOOD COUNT 3.33 10^6/uL (4.70-6.10); RED CELL DISTRIBUTION WIDTH 14.9 % (12.0-15.0); WHITE BLOOD COUNT 20.6 x10^3/uL (4.8-10.8)
[2018-04-22 06:38] LABS: CALCIUM 8.1 mg/dL (8.5-10.3); CREATININE 1.6 mg/dL (0.6-1.2)
--- NOTE | 2018-04-22 08:30 | PROVIDER PROGRESS NOTE ---
Assessment/Plan - Problem List (1) Acute cholecystitis Assessment/Plan: Pt continues to exhibit no signs/sx of acute cholecystitis, denying abd pain, N/ V, fever,chills and with benign abdominal exam, completely nontender. Rec: trial low fat diet and continue observation; if signs/sx develop c/w sx gallbladder disease, then lap belkys will be indicated. (2) GI bleed Qualifiers: GI bleed type/associated pathology: unspecified gastrointestinal hemorrhage type Qualified Code(s): K92.2 - Gastrointestinal hemorrhage, unspecified Assessment/Plan: No clinical evidence for gi bleeding at present; Rec: continue observation, and evaluate further prn. (3) Leukocytosis Qualifiers: Leukocytosis type: unspecified Qualified Code(s): D72.829 - Elevated white blood cell count, unspecified Assessment/Plan: Etiology unclear; doubt cholecystitis in absence of signs/sx in an awake, alert pt; rec: continue to evaluate and monitor as per hospitalists. - Current Meds Current Meds: Current Medications Generic Name Dose Route Start Last Admin Trade Name Freq PRN Reason Stop Dose Admin Dextrose/Sodium Chloride 1,000 mls @ 60 mls/hr 04/21/18 19:00 04/21/18 20:52 D5ns IV 60 mls/hr .[id number] KRISTIN Administration Insulin Human Regular 1 - 9 unit 04/21/18 19:53 04/22/18 06:17 Novolin R SUBQ 1 unit Q6HR KRISTIN Administration Protocol Nicotine 1 patch 04/21/18 20:00 04/21/18 20:51 Nicoderm TOP 1 patch DAILY KRISTIN Administration Pantoprazole Sodium 40 mg 04/22/18 07:00 04/22/18 06:18 Protonix IVP 40 mg BIDAC KRISTIN Administration Sodium Chloride 10 ml 04/21/18 18:24 04/22/18 06:21 Normal Saline Flush 0.9% IVP 10 ml PRN PRN Administration NEEDED PER PROVIDER ORDERS Sodium Chloride 10 ml 04/22/18 01:00 04/22/18 00:09 Normal Saline Flush 0.9% IVP Not Given 0100,0900,1700 KRISTIN - Lab Result Lab results reviewed: Yes Fish Bone Diagrams: 04/22/18 05:46 04/22/18 05:46 - Additional Planning Condition/Complexity: Improved Time Spent: 15-30 minutes Subjective - Subjective Patient Reports: Resting Comfortably, No Complaints Nursing Reports: No Complaints Objective Vital Signs: Vital Signs - 24 hr 04/21/18 04/21/18 04/22/18 18:02 19:55 00:15 Temperature 36.2 C L 36.6 C Heart Rate 52 L Heart Rate [ 82 54 L Brachial] Respiratory 18 18 18 Rate Blood Pressure 113/44 L 113/92 H [Right Brachial artery] O2 Saturation 95 94 Oxygen O2 Source Room air I&O (Last 24 Hrs): Intake and Output Totals x24h 04/20/18 04/21/18 04/22/18 23:59 23:59 23:59 Intake Total 1365 100 Output Total 400 250 Balance 965 -150 General: Alert, Cooperative, No acute distress HEENT: Mucous membr. moist/pink Neck: Supple, No JVD Neuro: Alert Cardiovascular: Regular rate, Normal S1, Normal S2, No murmurs Respiratory: Chest non-tender, No respiratory distress, Breath sounds nml Abdomen: Normal bowel sounds, Soft, No tenderness, No hepatospenomegaly, No masses Extremities: No edema, No tenderness/swelling - Results Results: Laboratory Results WBC 20.6 x10^3/uL (4.8-10.8) H 04/22/18 05:46 RBC 3.33 10^6/uL (4.70-6.10) L 04/22/18 05:46 Hgb 9.2 g/dL (14.0-18.0) L 04/22/18 05:46 Hct 28.5 % (42.0-52.0) L 04/22/18 05:46 MCV 85.5 fL (80.0-94.0) 04/22/18 05:46 MCH 27.7 pg (27.0-31.0) 04/22/18 05:46 MCHC 32.4 g/dL (32.0-36.0) 04/22/18 05:46 RDW 14.9 % (12.0-15.0) 04/22/18 05:46 Plt Count 347 10^3/uL (130-450) 04/22/18 05:46 MPV 7.6 fL (7.4-11.4) 04/22/18 05:46 Neut # 17.0 10^3/uL (1.5-6.6) H 04/22/18 05:46 Lymph # 1.8 10^3/uL (1.5-3.5) 04/22/18 05:46 [place] # 1.5 10^3/uL (0.0-1.0) H 04/22/18 05:46 Eos # 0.2 10^3/uL (0.0-0.7) 04/22/18 05:46 Baso # 0.1 10^3/uL (0.0-0.1) 04/22/18 05:46 Absolute Nucleated RBC 0.01 x10^3/uL 04/22/18 05:46 Nucleated RBC % 0.0 /100WBC 04/22/18 05:46 PT 12.5 secs (9.9-12.6) 04/21/18 12:24 INR 1.1 (0.8-1.2) 04/21/18 12:24 APTT 29.0 secs (24.9-33.3) 04/21/18 12:24 Sodium 139 mmol/L (135-145) 04/22/18 05:46 Potassium 3.6 mmol/L (3.5-5.0) 04/22/18 05:46 Chloride 104 mmol/L (101-111) 04/22/18 05:46 Carbon Dioxide 27 mmol/L (21-32) 04/22/18 05:46 Anion Gap 8.0 (6-13) 04/22/18 05:46 BUN 39 mg/dL (6-20) H 04/22/18 05:46 Creatinine 1.6 mg/dL (0.6-1.2) H 04/22/18 05:46 Estimated GFR (MDRD) 41 (>89) L 04/22/18 05:46 Glucose 160 mg/dL (70-100) H 04/22/18 05:46 POC Whole Bld Glucose 158 mg/dL (70 - 100) H 04/22/18 07:25 Lactic Acid 1.2 mmol/L (0.5-2.2) 04/21/18 13:04 Calcium 8.1 mg/dL (8.5-10.3) L 04/22/18 05:46 Total Bilirubin 0.8 mg/dL (0.2-1.0) 04/21/18 12:24 AST 26 IU/L (10-42) 04/21/18 12:24 ALT 20 IU/L (10-60) 04/21/18 12:24 Alkaline Phosphatase 104 IU/L (42-121) 04/21/18 12:24 Total Protein 7.3 g/dL (6.7-8.2) 04/21/18 12:24 Albumin 3.2 g/dL (3.2-5.5) 04/21/18 12:24 Globulin 4.1 g/dL (2.1-4.2) 04/21/18 12:24 Albumin/Globulin Ratio 0.8 (1.0-2.2) L 04/21/18 12:24 Lipase 29 U/L (22-51) 04/21/18 12:24 Urine Color YELLOW 04/21/18 13:20 Urine Clarity CLEAR (CLEAR) 04/21/18 13:20 Urine pH 6.0 PH (5.0-7.5) 04/21/18 13:20 Ur Specific [place] 1.010 (1.002-1.030) 04/21/18 13:20 Urine Protein TRACE mg/dL (NEGATIVE) 04/21/18 13:20 Urine Glucose (UA) NEGATIVE mg/dL (NEGATIVE) 04/21/18 13:20 Urine Ketones NEGATIVE mg/dL (NEGATIVE) 04/21/18 13:20 Urine Occult Blood SMALL (NEGATIVE) H 04/21/18 13:20 Urine Nitrite NEGATIVE (NEGATIVE) 04/21/18 13:20 Urine Bilirubin NEGATIVE (NEGATIVE) 04/21/18 13:20 Urine Urobilinogen 0.2 (NORMAL) E.U./dL (NORMAL) 04/21/18 13:20 Ur Leukocyte Esterase TRACE (NEGATIVE) H 04/21/18 13:20 Urine RBC 11-25 /HPF (0-5) H 04/21/18 13:20 Urine WBC 0-3 /HPF (0-3) 04/21/18 13:20 Ur Squamous Epith Cells NONE SEEN (<= Few) 04/21/18 13:20 Urine Bacteria Few /HPF (None Seen) 04/21/18 13:20 Ur Microscopic Review INDICATED 04/21/18 13:20 Urine Culture Comments INDICATED 04/21/18 13:20 Blood Type O POSITIVE 04/21/18 16:24 Blood Type Recheck O POSITIVE 04/21/18 12:24 Antibody Screen NEGATIVE 04/21/18 16:24 ABX Reporting Has patient been on IV antibiotics over the past 48 hours?: Yes
[2018-04-22] MEDS ORDERED: levoFLOXacin 500 MG/100 ML 500 MG/100 ML BAG IV SCH (09:00)
[2018-04-22] MEDS: SERTRALINE 50 MG TABLET PO SCH (09:54)
[2018-04-22] MEDS: TAMSULOSIN 0.4 MG CAPSULE PO SCH (09:54)
[2018-04-22] MEDS: NICOTINE 21 MG PATCH TOP SCH (09:55)
[2018-04-22] MEDS: POLYETHYLENE GLYCOL 3350 17 GM PACKET PO SCH (10:46)
[2018-04-22] MEDS: DEXTROSE 5%-0.9% NACL 1,000 ML IV SCH (13:38)
[2018-04-22] MEDS ORDERED: BISACODYL 10 MG SUPP PR ONE (16:04)
--- NOTE | 2018-04-22 17:02 | ADVANCE CARE PLANNING NOTE ---
Advance Care Planning - Date/Time Date: 04/21/18 Time: 18:30 - Purpose of encounter Text: To determine his Code wishes - Parties in attendance Parties in attendance: The patient and I spoke in his room - Decisional capacity Decisional capacity of: The patient has decisional capacity - Subjective/Patient's story Subjective/Patient's story: The patient was recently discharged from here with Dx of prostatitis with a new Joshua catheter and a 3 week course of Levaquin planned. He started to have N/V yesterday, worse today. After vomiting in the ER, his N/V has resolved completely. The patient wants medical care but no intubation, CPR or defibrillation. - Objective/Medical story Objective/Medical Story: Recently male, lives below his daughter. who is his caregiver. he uses a walker to ambulate, mostly watches TV and "goes out for a smoke". He is being treated for prostatitis has a new Joshua, is to be followed by a Urologist. He was admitted with 3 episodes o N/V, after the third one, his N/V stopped and he is hungry. Imaging showed Galls tones but probably no cholelitiasis. His WBC is elevated, but he has no fever. He is getting iv hydration, was seen by surgery consult, diet has been advanced to low-fat, solids. He wishes to be a DNR. A POLST was signed by him in my presence. - Goals of Care Goals of care determinations: To return to his current level of function. - Plan Plan: DNR ordered. - Code Status Code Status: Do Not Attempt Resuscitation - Time Spent on Advance Care Planning Time spent on advance care plannin
--- NOTE | 2018-04-22 17:13 | PROVIDER PROGRESS NOTE ---
Assessment/Plan - Problem List (1) Leukocytosis Qualifiers: Leukocytosis type: unspecified Qualified Code(s): D72.829 - Elevated white blood cell count, unspecified Assessment/Plan: Source of elevated WBC is unclear. He has no obvious acute infection, but is still undergoing treatment of prostatitis, is on antibiotics. Will change po Levaquin to iv while hospitalized, for better prostate penetration. Continue to monitor CBC daily. (2) Gallstones Assessment/Plan: There is no abdominal pain, N/V or fever. We are watching the WBC. Surgery folowing. (3) Nausea and vomiting Qualifiers: Vomiting type: hematemesis Qualified Code(s): K92.0 - Hematemesis Assessment/Plan: Per the daughter, Elsi, who lives above him, the patient had bilious vomiting on Sat, them hematemesis on Sun morning at home, of about 2 cups, then 1 cup of hematemesis when in the ER yesterday. No further N/V, since patient got to his room last evening. he has an appetite. Will monitor H/H. Continue gentle rehydration with iv fluids. Po antibiotic changed to iv form, in case that was causing GI upset. Surgery following, for poss EGD. (4) Diabetes Qualifiers: Diabetes mellitus type: type 2 Diabetes mellitus chcf insulin use: without chcf use Diabetes mellitus complication status: with hyperglycemia Qualified Code(s): E11.65 - Type 2 diabetes mellitus with hyperglycemia Assessment/Plan: Continue carb-controlled diet, as diet is advanced, and Insulin coverage and monitor POC glu. (5) CKD (chronic kidney disease) stage 3, GFR 30-59 ml/min Assessment/Plan: Continue gentle hydration with saine iv. Continue Joshua due to obstruction. Monitor K and BUN/creat. 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 A 3 week course of treatment and Urology management is planned. (7) COPD (chronic obstructive pulmonary disease) Qualifiers: COPD type: COPD with acute exacerbation Qualified Code(s): J44.1 - Chronic obstructive pulmonary disease with (acute) exacerbation Assessment/Plan: Pt not SOB. His inhaler is ordered prn. - Current Meds Current Meds: Current Medications Generic Name Dose Route Start Last Admin Trade Name Freq PRN Reason Stop Dose Admin Dextrose/Sodium Chloride 1,000 mls @ 60 mls/hr 04/21/18 19:00 04/22/18 13:38 D5ns IV 60 mls/hr .[id number] KRISTIN Administration Levofloxacin 250 mg in 50 mls @ 50 mls/hr 04/22/18 09:00 04/22/18 11:04 Levaquin 250 Mg/50 Ml IV Infused DAILY KRISTIN Infusion Nicotine 1 patch 04/21/18 20:00 04/22/18 09:55 Nicoderm TOP 1 patch DAILY KRISTIN Administration Pantoprazole Sodium 40 mg 04/22/18 07:00 04/22/18 06:18 Protonix IVP 40 mg BIDAC KRISTIN Administration Polyethylene Glycol 17 gm 04/22/18 09:00 04/22/18 10:46 Miralax PO 17 gm DAILY KRISTIN Administration Sertraline HCl 50 mg 04/22/18 09:00 04/22/18 09:54 Zoloft PO 50 mg DAILY KRISTIN Administration Sodium Chloride 10 ml 04/21/18 18:24 04/22/18 06:21 Normal Saline Flush 0.9% IVP 10 ml PRN PRN Administration NEEDED PER PROVIDER ORDERS Sodium Chloride 10 ml 04/22/18 01:00 04/22/18 09:55 Normal Saline Flush 0.9% IVP 10 ml 0100,0900,1700 KRISTIN Administration Tamsulosin HCl 0.4 mg 04/22/18 09:00 04/22/18 09:54 Flomax PO 0.4 mg DAILY KRISTIN Administration - Lab Result Fish Bone Diagrams: 04/22/18 05:46 04/22/18 05:46 - Additional Planning My Orders: My Active Orders 04/21/18 18:24 Activity Orders [RC] Routine IO [RC] IOSHIFT Initiate Bowel Care Protocol [RC] .protocol Initiate Flu Vaccine Screening [RC] ONCE Initiate Line Care Protocol [RC] .protocol Initiate Personal Care Protoco [RC] .protocol Initiate Pneumonia Vaccine Scr [RC] ONCE Oxygen Therapy [RC] Routine Vital Signs [RC] 0800,1600,0000 Acetaminophen [Tylenol] 650 mg PO Q4HR PRN Sodium Chloride Flush 0.9% [Normal Saline Flush 0.9%] 10 ml IVP PRN PRN Code Status [OTHERS] Routine Condition of Patient [OTHERS] Routine DVT Prophylaxis [OTHERS] Routine 04/21/18 18:25 IV Insert [RC] .ONCE 04/21/18 18:26 SCDs [RC] QSHIFT 04/21/18 18:28 General Surgery Consult [CONS] Routine 04/21/18 18:29 Albuterol 2.5 mg INH RTQ4H PRN 04/21/18 18:30 Nebulizer/MDI Tx. [RC] .Q4prn Resp Teach Nebulizer/MDI [RC] .ONCE 04/21/18 18:31 Metoclopramide Inj [Reglan Inj] 5 mg IVP Q6HR PRN 04/21/18 18:32 Blood Glucose POC [RC] 0800,1200,1700,2100 Initiate Hypoglycemia Protocol [RC] .protocol 04/21/18 19:00 Dextrose 5%-0.9% NaCl [D5ns] 1,000 ml IV 60 mls/hr 04/21/18 19:53 CULTURE, BLOOD #1 [RM] Routine 04/21/18 20:00 Nicotine 21 mg Patch [Nicoderm] 1 patch TOP DAILY 04/21/18 21:25 CULTURE, BLOOD #2 [RM] Routine 04/22/18 Clinical Swallow Evaluation [ST] Routine 04/22/18 01:00 Sodium Chloride Flush 0.9% [Normal Saline Flush 0.9%] 10 ml IVP 0100,0900, 1700 04/22/18 02:59 Min Oil/Dimeth/Coconut Oil Crm [Cavilon] 1 applic TOP PRN PRN 04/22/18 07:00 Pantoprazole [Protonix] 40 mg IVP BIDAC 04/22/18 09:00 Polyethylene Glycol 3350 [Miralax] 17 gm PO DAILY Sertraline [Zoloft] 50 mg PO DAILY Tamsulosin [Flomax] 0.4 mg PO DAILY levoFLOXacin 250 MG/50 ML [Levaquin 250 mg/50 ml] 250 mg in 50 ml IV DAILY 04/22/18 17:00 Docusate Sodium 250Mg Capsule [Colace 250Mg Capsule] 250 - 500 mg PO DAILY Insulin Aspart [NovoLOG] 1 - 9 unit SUBQ 0800,1200,1700,2100 Senna [Senokot] 8.6 - 17.2 mg PO DAILY 04/23/18 05:00 BMP - BASIC METABOLIC PANEL [CHEM] DAILYLAB CBC - COMP BLD CT W/AUTO DIFF [HEME] DAILYLAB 04/24/18 05:00 BMP - BASIC METABOLIC PANEL [CHEM] DAILYLAB CBC - COMP BLD CT W/AUTO DIFF [HEME] DAILYLAB Subjective - Subjective Patient Reports: Feeling Better, Resting Comfortably Nursing Reports: No Complaints Objective Vital Signs: Vital Signs - 24 hr 04/21/18 04/21/18 04/22/18 18:02 19:55 00:15 Temperature 36.2 C L 36.6 C Heart Rate 52 L Heart Rate [ 82 54 L Brachial] Respiratory 18 18 18 Rate Blood Pressure 113/44 L 113/92 H [Right Brachial artery] O2 Saturation 95 94 04/22/18 04/22/18 09:00 15:29 Temperature 37.1 C 37.0 C Heart Rate Heart Rate [ 61 62 Brachial] Respiratory 16 18 Rate Blood Pressure 115/51 L 114/51 L [Right Brachial artery] O2 Saturation 95 95 Oxygen O2 Source Room air I&O (Last 24 Hrs): Intake and Output Totals x24h 04/20/18 04/21/18 04/22/18 23:59 23:59 23:59 Intake Total 1365 2370 Output Total 400 700 Balance 965 1670 General: Alert, Oriented x3 HEENT: Mucous membr. moist/pink, Other (Pale) Neck: Supple, No JVD Neuro: Non Focal Cardiovascular: Regular rate, No murmurs Respiratory: No respiratory distress, Breath sounds nml Abdomen: Soft, No tenderness, No masses Genitourinary: Other (Has an indwelling Joshua.) Extremities: No edema - Results Results: Laboratory Results WBC 20.6 x10^3/uL (4.8-10.8) H 04/22/18 05:46 RBC 3.33 10^6/uL (4.70-6.10) L 04/22/18 05:46 Hgb 9.2 g/dL (14.0-18.0) L 04/22/18 05:46 Hct 28.5 % (42.0-52.0) L 04/22/18 05:46 MCV 85.5 fL (80.0-94.0) 04/22/18 05:46 MCH 27.7 pg (27.0-31.0) 04/22/18 05:46 MCHC 32.4 g/dL (32.0-36.0) 04/22/18 05:46 RDW 14.9 % (12.0-15.0) 04/22/18 05:46 Plt Count 347 10^3/uL (130-450) 04/22/18 05:46 MPV 7.6 fL (7.4-11.4) 04/22/18 05:46 Neut # 17.0 10^3/uL (1.5-6.6) H 04/22/18 05:46 Lymph # 1.8 10^3/uL (1.5-3.5) 04/22/18 05:46 [place] # 1.5 10^3/uL (0.0-1.0) H 04/22/18 05:46 Eos # 0.2 10^3/uL (0.0-0.7) 04/22/18 05:46 Baso # 0.1 10^3/uL (0.0-0.1) 04/22/18 05:46 Absolute Nucleated RBC 0.01 x10^3/uL 04/22/18 05:46 Nucleated RBC % 0.0 /100WBC 04/22/18 05:46 PT 12.5 secs (9.9-12.6) 04/21/18 12:24 INR 1.1 (0.8-1.2) 04/21/18 12:24 APTT 29.0 secs (24.9-33.3) 04/21/18 12:24 Sodium 139 mmol/L (135-145) 04/22/18 05:46 Potassium 3.6 mmol/L (3.5-5.0) 04/22/18 05:46 Chloride 104 mmol/L (101-111) 04/22/18 05:46 Carbon Dioxide 27 mmol/L (21-32) 04/22/18 05:46 Anion Gap 8.0 (6-13) 04/22/18 05:46 BUN 39 mg/dL (6-20) H 04/22/18 05:46 Creatinine 1.6 mg/dL (0.6-1.2) H 04/22/18 05:46 Estimated GFR (MDRD) 41 (>89) L 04/22/18 05:46 Glucose 160 mg/dL (70-100) H 04/22/18 05:46 POC Whole Bld Glucose 207 mg/dL (70 - 100) H 04/22/18 16:36 Lactic Acid 1.2 mmol/L (0.5-2.2) 04/21/18 13:04 Calcium 8.1 mg/dL (8.5-10.3) L 04/22/18 05:46 Total Bilirubin 0.8 mg/dL (0.2-1.0) 04/21/18 12:24 AST 26 IU/L (10-42) 04/21/18 12:24 ALT 20 IU/L (10-60) 04/21/18 12:24 Alkaline Phosphatase 104 IU/L (42-121) 04/21/18 12:24 Total Protein 7.3 g/dL (6.7-8.2) 04/21/18 12:24 Albumin 3.2 g/dL (3.2-5.5) 04/21/18 12:24 Globulin 4.1 g/dL (2.1-4.2) 04/21/18 12:24 Albumin/Globulin Ratio 0.8 (1.0-2.2) L 04/21/18 12:24 Lipase 29 U/L (22-51) 04/21/18 12:24 Urine Color YELLOW 04/21/18 13:20 Urine Clarity CLEAR (CLEAR) 04/21/18 13:20 Urine pH 6.0 PH (5.0-7.5) 04/21/18 13:20 Ur Specific [place] 1.010 (1.002-1.030) 04/21/18 13:20 Urine Protein TRACE mg/dL (NEGATIVE) 04/21/18 13:20 Urine Glucose (UA) NEGATIVE mg/dL (NEGATIVE) 04/21/18 13:20 Urine Ketones NEGATIVE mg/dL (NEGATIVE) 04/21/18 13:20 Urine Occult Blood SMALL (NEGATIVE) H 04/21/18 13:20 Urine Nitrite NEGATIVE (NEGATIVE) 04/21/18 13:20 Urine Bilirubin NEGATIVE (NEGATIVE) 04/21/18 13:20 Urine Urobilinogen 0.2 (NORMAL) E.U./dL (NORMAL) 04/21/18 13:20 Ur Leukocyte Esterase TRACE (NEGATIVE) H 04/21/18 13:20 Urine RBC 11-25 /HPF (0-5) H 04/21/18 13:20 Urine WBC 0-3 /HPF (0-3) 04/21/18 13:20 Ur Squamous Epith Cells NONE SEEN (<= Few) 04/21/18 13:20 Urine Bacteria Few /HPF (None Seen) 04/21/18 13:20 Ur Microscopic Review INDICATED 04/21/18 13:20 Urine Culture Comments INDICATED 04/21/18 13:20 Blood Type O POSITIVE 04/21/18 16:24 Blood Type Recheck O POSITIVE 04/21/18 12:24 Antibody Screen NEGATIVE 04/21/18 16:24 ABX Reporting Has patient been on IV antibiotics over the past 48 hours?: Yes
[2018-04-22] MEDS: SENNA 8.6 MG TABLET PO SCH (17:50)
[2018-04-22] MEDS: DOCUSATE SODIUM 250 MG CAPSULE PO SCH (17:50)
[2018-04-22] MEDS: INSULIN ASPART 300 UNIT/3 ML PEN SUBQ SCH ×2 (18:04→20:40)
[2018-04-22] MEDS ORDERED: INSULIN REGULAR HUMAN 100 UNIT/1 ML 10 ML MDV SUBQ SCH (18:33)
--- NOTE | 2018-04-22 19:39 | HISTORY & PHYSICAL EXAMINATION ---
DATE OF SERVICE: 04/21/2018 Physician: Leydi López MD HISTORY OF PRESENT ILLNESS: This is an 87-year-old white male with a history of hypertension, coronary artery disease, hyperlipidemia, sleep apnea with CPAP use, COPD, mild dementia, diabetes on metformin only, BPH. The patient was recently admitted here for urinary tract infection, which actually was determined to be prostatitis, and he required discharge home with a Joshua catheter and a prolonged course of treatment with antibiotics. The patient states he has seen his PCP and possibly his urologist once since the discharge, has been compliant with using the Joshua and taking his medications. The patient presented with an episode of emesis that occurred 2 days before admission which the daughter, who lives above him, witnessed and states that it was bilious. He then felt somewhat tired and had another episode of emesis after eating avocados and shrimp, and the daughter thinks that there was significant blood in this emesis. Because of this, she brought him to the emergency room, and he had another bloody emesis in the emergency room, approximately a cup. He was found to have elevated white blood count and mild dehydration and admitted for management of these. PAST MEDICAL HISTORY 1. Hypertension. 2. Hyperlipidemia. 3. CAD. 4. COPD. 5. Sleep apnea, on CPAP. 6. Mild dementia. 7. Type 2 diabetes, on metformin only. 8. Hiatal hernia. 9. Depression. 10. Prostatitis requiring recent admission and new antibiotics and new Joshua. SOCIAL HISTORY: The patient smokes 1/2 pack a day, drinks no alcohol or uses any illicit drugs. 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 He moved to [facility] approximately 2 years ago to be close to his daughter. His approximately 10 months ago. The patient lives on the ground floor of a two-family house. 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 REVIEW OF SYSTEMS: The patient is independent, uses a walker, no longer drives. He does have slight memory loss. He denies any cardiopulmonary complaints. There has been no fever. There has been no travel, change of medications. Comprehensive review of systems was performed, and the pertinent positives are above; the rest are negative. FAMILY HISTORY: No inherited diseases. ALLERGIES: NONE. MEDICATIONS 1. Potassium 10 mEq daily. 2. Lipitor 40 mg every evening. 3. Lasix 20 mg daily. 4. Zoloft 50 mg daily. 5. ProAir inhaler q.4 h. p.r.n. 6. Vitamin C daily. 7. Iron daily. 8. Flomax 0.4 mg daily. 9. Levaquin 500 mg p.o. daily for a 3-week total course. 10. Metformin 500 mg daily. PHYSICAL EXAMINATION GENERAL: Elderly white male. He appears in no distress, supine in bed. He denies any abdominal pain, no further nausea. VITAL SIGNS: Blood pressure 112/48, pulse of 50-60 in sinus rhythm, afebrile, room air saturation 96%. HEENT: Unremarkable. He has mild pallor. His mucosa is dry. NECK: No JVD or carotid bruits. LUNGS: Clear. HEART: Sounds normal. ABDOMEN: Soft, nontender. No guarding or rebound. Normal bowel sounds. No organomegaly. EXTREMITIES: No clubbing, cyanosis or edema. NEUROLOGIC: Grossly intact. LABORATORY DATA: Sodium 134, potassium 3.9, BUN 44, creatinine 1.8. His baseline creatinine appears to be about 1.3. Normal liver tests and lipase. Glucose 218. INR 1.1. White blood count 18.7, hemoglobin 11.8, MCV 84, platelet count normal at 423. Urinalysis had significant improvement in the findings compared to the last admission. There are no longer nitrites or many white cells and has few bacteria. A CT of the abdomen was done showing decompressed urinary bladder because of the Joshua, and the bulb is in place, and mild perivesical stranding, which could reflect cystitis. Cholelithiasis with somewhat indistinct gallbladder wall. Large amount of stool in the colon. Aortoiliac aneurysms, which were present on prior imaging 2 weeks ago. Calcific pleural plaquing consistent with asbestosis and pleural disease. A chest x-ray showed stable chronic lung disease with calcified bilateral pleural plaques and no acute changes. No EKG was done. IMPRESSION 1. Nausea and vomiting. 2. Hematemesis with mild anemia. 3. Recent prostatitis with ongoing treatment and Joshua for decompression of prostatic enlargement. 4. Diabetes, on diet plus low dose of Glucophage. 5. Hypertension history. 6. Coronary artery disease history. 7. Mild dementia. PLAN 1. Admit the patient to med/surg inpatient bed. 2. Begin bowel rest, with ice chips and try clear liquids. Begin IV fluid hydration. 3. Obtain surgical consult for possible EGD or MRCP recommendations. 4. Follow his electrolytes, BUN and creatinine, CBC daily. 5. Continue with management of his prostatitis. Change to IV antibiotics, as his p.o. antibiotic could have been the cause of the nausea and vomiting. Continue with the Joshua for decompression of the bladder because of the hypertrophy of his prostate. 6. Deep venous thrombosis prophylaxis: Sequential compression devices. CODE STATUS: DNR. ATTESTATION: The patient is expected to be discharged or transferred to another facility within 96 hours: Yes. TD: 04/22/2018 17:08 AMBREEN
[2018-04-22] MEDS ORDERED: LACTULOSE 10 GM /15 ML UDC PO ONE (20:20)
[2018-04-22] MEDS ORDERED: GLYCERIN ADULT SUPP PR ONE (20:20)
[2018-04-23] MEDS: DEXTROSE 5%-0.9% NACL 1,000 ML IV SCH (05:32)
[2018-04-23 06:18] LABS: BASOPHILS # (AUTO) 0.1 10^3/uL (0.0-0.1); BASOPHILS % (AUTO) 1.2 %; EOSINOPHILS # (AUTO) 0.3 10^3/uL (0.0-0.7); EOSINOPHILS % (AUTO) 2.3 %; HGB - HEMOGLOBIN 9.5 g/dL (14.0-18.0); LYMPHOCYTES # (AUTO) 1.7 10^3/uL (1.5-3.5); LYMPHOCYTES % (AUTO) 14.9 %; MEAN CORPUSCULAR HEMOGLOBIN 27.5 pg (27.0-31.0); MEAN CORPUSCULAR VOLUME 86.1 fL (80.0-94.0); MEAN PLATELET VOLUME 7.3 fL (7.4-11.4); MONOCYTES # (AUTO) 1.1 10^3/uL (0.0-1.0); MONOCYTES % (AUTO) 10.1 %; NEUTROPHILS # (AUTO) 8.1 10^3/uL (1.5-6.6); NEUTROPHILS % (AUTO) 71.5 %; PLT - PLATELET COUNT 285 10^3/uL (130-450); RED BLOOD COUNT 3.46 10^6/uL (4.70-6.10); RED CELL DISTRIBUTION WIDTH 15.1 % (12.0-15.0); WHITE BLOOD COUNT 11.4 x10^3/uL (4.8-10.8)
[2018-04-23] MEDS: SODIUM CHLORIDE FLUSH 0.9% 10 ML SYRINGE IVP PRN ×2 (06:18→17:23)
[2018-04-23] MEDS: PANTOPRAZOLE 40 MG VIAL IVP SCH ×2 (06:18→15:40)
[2018-04-23 06:25] LABS: CREATININE 1.5 mg/dL (0.6-1.2)
[2018-04-23] MEDS: TAMSULOSIN 0.4 MG CAPSULE PO SCH (08:08)
[2018-04-23] MEDS: DOCUSATE SODIUM 250 MG CAPSULE PO SCH (08:08)
[2018-04-23] MEDS: SERTRALINE 50 MG TABLET PO SCH (08:09)
[2018-04-23] MEDS: NICOTINE 21 MG PATCH TOP SCH (08:09)
[2018-04-23] MEDS: INSULIN ASPART 300 UNIT/3 ML PEN SUBQ SCH ×4 (08:10→20:32)
[2018-04-23] MEDS: SENNA 8.6 MG TABLET PO SCH (08:10)
[2018-04-23] MEDS: POLYETHYLENE GLYCOL 3350 17 GM PACKET PO SCH (08:10)
[2018-04-23] MEDS: SODIUM CHLORIDE FLUSH 0.9% 10 ML SYRINGE IVP SCH ×2 (08:11→15:40)
--- NOTE | 2018-04-23 08:32 | PROVIDER PROGRESS NOTE ---
Assessment/Plan - Problem List (1) Acute cholecystitis Assessment/Plan: No clinical evidence of acute cholecystitis at this time; tolerating low fat diet without difficulty; rec observation and surgery if sx develop c/w gallbladder disease. (2) GI bleed Qualifiers: GI bleed type/associated pathology: unspecified gastrointestinal hemorrhage type Qualified Code(s): K92.2 - Gastrointestinal hemorrhage, unspecified Assessment/Plan: No evidence of gi bleeding at this time. No further evaluation indicated unless sx develop suggestive of same. (3) Leukocytosis Qualifiers: Leukocytosis type: unspecified Qualified Code(s): D72.829 - Elevated white blood cell count, unspecified Assessment/Plan: resolving. - Current Meds Current Meds: Current Medications Generic Name Dose Route Start Last Admin Trade Name Freq PRN Reason Stop Dose Admin Docusate Sodium 250 - 500 mg 04/22/18 17:00 04/23/18 08:08 Colace 250mg Capsule PO 500 mg DAILY KRISTIN Administration Dextrose/Sodium Chloride 1,000 mls @ 60 mls/hr 04/21/18 19:00 04/23/18 05:32 D5ns IV 60 mls/hr .[id number] KRISTIN Administration Levofloxacin 250 mg in 50 mls @ 50 mls/hr 04/22/18 09:00 04/23/18 08:09 Levaquin 250 Mg/50 Ml IV 50 mls/hr DAILY KRISTIN Administration Insulin Aspart 1 - 9 unit 04/22/18 17:00 04/23/18 08:10 Novolog SUBQ 1 unit 0800,1200,1700,2100 KRISTIN Administration Protocol Nicotine 1 patch 04/21/18 20:00 04/23/18 08:09 Nicoderm TOP 1 patch DAILY KRISTIN Administration Pantoprazole Sodium 40 mg 04/22/18 07:00 04/23/18 06:18 Protonix IVP 40 mg BIDAC KRISTIN Administration Polyethylene Glycol 17 gm 04/22/18 09:00 04/23/18 08:10 Miralax PO Not Given DAILY KRISTIN Senna 8.6 - 17.2 mg 04/22/18 17:00 04/23/18 08:10 Senokot PO Not Given DAILY KRISTIN Sertraline HCl 50 mg 04/22/18 09:00 04/23/18 08:09 Zoloft PO 50 mg DAILY KRISTIN Administration Sodium Chloride 10 ml 04/21/18 18:24 04/23/18 06:18 Normal Saline Flush 0.9% IVP 10 ml PRN PRN Administration NEEDED PER PROVIDER ORDERS Sodium Chloride 10 ml 04/22/18 01:00 04/23/18 08:11 Normal Saline Flush 0.9% IVP 10 ml 0100,0900,1700 KRISTIN Administration Tamsulosin HCl 0.4 mg 04/22/18 09:00 04/23/18 08:08 Flomax PO 0.4 mg DAILY KRISTIN Administration - Lab Result Lab results reviewed: Yes Fish Bone Diagrams: 04/23/18 06:02 04/23/18 06:02 - Additional Planning Condition/Complexity: Improved My Orders: My Active Orders 04/22/18 Lunch Low Fat Diet [DIET] Plan Discussed with:: Patient Time Spent: 15-30 minutes Subjective - Subjective Patient Reports: No Complaints Nursing Reports: No Complaints (Pt reports no abdominal pain, N/V or bm since admission; tolerating low fat diet without discomfort.) Objective Vital Signs: Vital Signs - 24 hr 04/22/18 04/22/18 04/23/18 09:00 15:29 00:00 Temperature 37.1 C 37.0 C 37.3 C Heart Rate [ 61 62 59 L Brachial] Respiratory 16 18 18 Rate Blood Pressure 115/51 L 114/51 L 109/47 L [Right Brachial artery] O2 Saturation 95 95 93 04/23/18 07:41 Temperature 37.0 C Heart Rate [ 59 L Brachial] Respiratory 18 Rate Blood Pressure 140/57 H [Right Brachial artery] O2 Saturation 93 Oxygen O2 Source Room air I&O (Last 24 Hrs): Intake and Output Totals x24h 04/21/18 04/22/18 04/23/18 23:59 23:59 23:59 Intake Total 1365 2960 954 Output Total 400 1200 950 Balance 965 1760 4 General: Alert, Cooperative, No acute distress Abdomen: Soft, No tenderness, No hepatospenomegaly, No masses - Results Results: Laboratory Results WBC 11.4 x10^3/uL (4.8-10.8) H 04/23/18 06:02 RBC 3.46 10^6/uL (4.70-6.10) L 04/23/18 06:02 Hgb 9.5 g/dL (14.0-18.0) L 04/23/18 06:02 Hct 29.8 % (42.0-52.0) L 04/23/18 06:02 MCV 86.1 fL (80.0-94.0) 04/23/18 06:02 MCH 27.5 pg (27.0-31.0) 04/23/18 06:02 MCHC 32.0 g/dL (32.0-36.0) 04/23/18 06:02 RDW 15.1 % (12.0-15.0) H 04/23/18 06:02 Plt Count 285 10^3/uL (130-450) 04/23/18 06:02 MPV 7.3 fL (7.4-11.4) L 04/23/18 06:02 Neut # 8.1 10^3/uL (1.5-6.6) H 04/23/18 06:02 Lymph # 1.7 10^3/uL (1.5-3.5) 04/23/18 06:02 [place] # 1.1 10^3/uL (0.0-1.0) H 04/23/18 06:02 Eos # 0.3 10^3/uL (0.0-0.7) 04/23/18 06:02 Baso # 0.1 10^3/uL (0.0-0.1) 04/23/18 06:02 Absolute Nucleated RBC 0.00 x10^3/uL 04/23/18 06:02 Nucleated RBC % 0.0 /100WBC 04/23/18 06:02 PT 12.5 secs (9.9-12.6) 04/21/18 12:24 INR 1.1 (0.8-1.2) 04/21/18 12:24 APTT 29.0 secs (24.9-33.3) 04/21/18 12:24 Sodium 137 mmol/L (135-145) 04/23/18 06:02 Potassium 3.8 mmol/L (3.5-5.0) 04/23/18 06:02 Chloride 104 mmol/L (101-111) 04/23/18 06:02 Carbon Dioxide 27 mmol/L (21-32) 04/23/18 06:02 Anion Gap 6.0 (6-13) 04/23/18 06:02 BUN 30 mg/dL (6-20) H 04/23/18 06:02 Creatinine 1.5 mg/dL (0.6-1.2) H 04/23/18 06:02 Estimated GFR (MDRD) 44 (>89) L 04/23/18 06:02 Glucose 155 mg/dL (70-100) H 04/23/18 06:02 POC Whole Bld Glucose 151 mg/dL (70 - 100) H 04/23/18 07:38 Lactic Acid 1.2 mmol/L (0.5-2.2) 04/21/18 13:04 Calcium 8.0 mg/dL (8.5-10.3) L 04/23/18 06:02 Total Bilirubin 0.8 mg/dL (0.2-1.0) 04/21/18 12:24 AST 26 IU/L (10-42) 04/21/18 12:24 ALT 20 IU/L (10-60) 04/21/18 12:24 Alkaline Phosphatase 104 IU/L (42-121) 04/21/18 12:24 Total Protein 7.3 g/dL (6.7-8.2) 04/21/18 12:24 Albumin 3.2 g/dL (3.2-5.5) 04/21/18 12:24 Globulin 4.1 g/dL (2.1-4.2) 04/21/18 12:24 Albumin/Globulin Ratio 0.8 (1.0-2.2) L 04/21/18 12:24 Lipase 29 U/L (22-51) 04/21/18 12:24 Urine Color YELLOW 04/21/18 13:20 Urine Clarity CLEAR (CLEAR) 04/21/18 13:20 Urine pH 6.0 PH (5.0-7.5) 04/21/18 13:20 Ur Specific [place] 1.010 (1.002-1.030) 04/21/18 13:20 Urine Protein TRACE mg/dL (NEGATIVE) 04/21/18 13:20 Urine Glucose (UA) NEGATIVE mg/dL (NEGATIVE) 04/21/18 13:20 Urine Ketones NEGATIVE mg/dL (NEGATIVE) 04/21/18 13:20 Urine Occult Blood SMALL (NEGATIVE) H 04/21/18 13:20 Urine Nitrite NEGATIVE (NEGATIVE) 04/21/18 13:20 Urine Bilirubin NEGATIVE (NEGATIVE) 04/21/18 13:20 Urine Urobilinogen 0.2 (NORMAL) E.U./dL (NORMAL) 04/21/18 13:20 Ur Leukocyte Esterase TRACE (NEGATIVE) H 04/21/18 13:20 Urine RBC 11-25 /HPF (0-5) H 04/21/18 13:20 Urine WBC 0-3 /HPF (0-3) 04/21/18 13:20 Ur Squamous Epith Cells NONE SEEN (<= Few) 04/21/18 13:20 Urine Bacteria Few /HPF (None Seen) 04/21/18 13:20 Ur Microscopic Review INDICATED 04/21/18 13:20 Urine Culture Comments INDICATED 04/21/18 13:20 Blood Type O POSITIVE 04/21/18 16:24 Blood Type Recheck O POSITIVE 04/21/18 12:24 Antibody Screen NEGATIVE 04/21/18 16:24 ABX Reporting Has patient been on IV antibiotics over the past 48 hours?: Yes
--- NOTE | 2018-04-23 17:12 | PROVIDER PROGRESS NOTE ---
Subjective - Prog Note Date Prog Note Date: 04/23/18 Prog Note Time: 17:10 - Subjective Pt reports feeling: Improved Subjective: he doesn't remember anything. feels just fine. denies cp, sob. denies abd pain. is constipated so no BM since 04/19. Current Medications - Current Medications Current Medications: Active Medications Acetaminophen (Tylenol) 650 mg PO Q4HR PRN PRN Reason: Pain or Fever > 38C (100.4F) Albuterol () 2.5 mg INH RTQ4H PRN PRN Reason: Wheezing Docusate Sodium (Colace 250mg Capsule) 250 - 500 mg PO DAILY [facility] Last Admin: 04/23/18 08:08 Dose: 500 mg Dextrose/Sodium Chloride (D5ns) 1,000 mls @ 60 mls/hr IV .[id number] [facility] Last Admin: 04/23/18 05:32 Dose: 60 mls/hr Levofloxacin (Levaquin 250 Mg/50 Ml) 250 mg in 50 mls @ 50 mls/hr IV DAILY [facility] Last Infusion: 04/23/18 09:10 Dose: Infused Insulin Aspart (Novolog) 1 - 9 unit SUBQ 0800,1200,1700,2100 KRISTIN PRN Reason: Protocol Last Admin: 04/23/18 11:53 Dose: 5 unit Metoclopramide HCl (Reglan Inj) 5 mg IVP Q6HR PRN PRN Reason: Nausea / Vomiting Mineral Oil (Cavilon) 1 applic TOP PRN PRN PRN Reason: Skin Care Nicotine (Nicoderm) 1 patch TOP DAILY [facility] Last Admin: 04/23/18 08:09 Dose: 1 patch Pantoprazole Sodium (Protonix) 40 mg IVP BIDAC [facility] Last Admin: 04/23/18 15:40 Dose: 40 mg Polyethylene Glycol (Miralax) 17 gm PO DAILY [facility] Last Admin: 04/23/18 08:10 Dose: Not Given Senna (Senokot) 8.6 - 17.2 mg PO DAILY [facility] Last Admin: 04/23/18 08:10 Dose: Not Given Sertraline HCl (Zoloft) 50 mg PO DAILY [facility] Last Admin: 04/23/18 08:09 Dose: 50 mg Sodium Chloride (Normal Saline Flush 0.9%) 10 ml IVP PRN PRN PRN Reason: NEEDED PER PROVIDER ORDERS Last Admin: 04/23/18 06:18 Dose: 10 ml Sodium Chloride (Normal Saline Flush 0.9%) 10 ml IVP 0100,0900,1700 [facility] Last Admin: 04/23/18 15:40 Dose: 10 ml Tamsulosin HCl (Flomax) 0.4 mg PO DAILY [facility] Last Admin: 04/23/18 08:08 Dose: 0.4 mg Potassium Chloride [K-Tab ER] 10 meq PO DAILY 08/15/13 Atorvastatin [Lipitor] 40 mg PO QPM 05/13/15 Furosemide 20 mg DAILY 05/13/15 Sertraline [Zoloft] 50 mg PO DAILY 12/07/16 Albuterol Sulfate [Proair Hfa Inhaler] 1 - 2 puffs INH Q4H PRN 04/10/18 Ascorbic Acid 500 mg PO DAILY 04/10/18 Ferrous Gluconate 50 mg PO DAILY 04/10/18 Metformin HCl 500 mg DAILY 04/21/18 Objective - Vital Signs/Intake & Output Reviewed Vital Signs: Yes Vital Signs: Vital Signs x48h Temp Pulse Resp BP Pulse Ox 04/23/18 15:22 37.0 C 66 18 115/62 97 Intake & Output: Intake & Output 04/20/18 04/21/18 04/22/18 04/23/18 23:59 23:59 23:59 23:59 Intake Total 1365 2960 1544 Output Total 400 1200 1950 Balance 965 1760 -406 - Objective General Appearance: positive: No acute distress, Alert Eyes Bilateral: positive: PERRL, EOMI ENT: positive: Pharynx nml Neck: positive: No JVD. negative: Lymphadenopathy (R), Lymphadenopathy (L), Carotid bruit Respiratory: positive: Chest non-tender. negative: Wheezes, Rales, Rhonchi Cardiovascular: positive: Regular rate & rhythm. negative: Gallop/S4, Friction rub Abdomen: positive: Non-tender, No organomegaly, Nml bowel sounds, No distention Skin: positive: Warm, Dry Extremities: positive: No pedal edema Neurologic/Psychiatric: positive: CN's nml (2-12), Motor nml, Disoriented to place, Disoriented to time - Lab Results Fish Bones: 04/23/18 06:02 04/23/18 06:02 Other Labs: Lab Results x24hrs 04/23/18 04/23/18 04/23/18 Range/Units 16:27 11:21 07:38 WBC (4.8-10.8) x10^3/uL RBC (4.70-6.10) 10^6/uL Hgb (14.0-18.0) g/dL Hct (42.0-52.0) % MCV (80.0-94.0) fL MCH (27.0-31.0) pg MCHC (32.0-36.0) g/dL RDW (12.0-15.0) % Plt Count (130-450) 10^3/uL MPV (7.4-11.4) fL Neut # (1.5-6.6) 10^3/uL Lymph # (1.5-3.5) 10^3/uL [place] # (0.0-1.0) 10^3/uL Eos # (0.0-0.7) 10^3/uL Baso # (0.0-0.1) 10^3/uL Absolute Nucleated RBC x10^3/uL Nucleated RBC % /100WBC Sodium (135-145) mmol/L Potassium (3.5-5.0) mmol/L Chloride (101-111) mmol/L Carbon Dioxide (21-32) mmol/L Anion Gap (6-13) BUN (6-20) mg/dL Creatinine (0.6-1.2) mg/dL Estimated GFR (MDRD) (>89) Glucose (70-100) mg/dL POC Whole Bld Glucose 151 H 269 H 151 H (70 - 100) mg/dL Calcium (8.5-10.3) mg/dL 04/23/18 04/23/18 04/22/18 Range/Units 06:02 06:02 20:39 WBC 11.4 H (4.8-10.8) x10^3/uL RBC 3.46 L (4.70-6.10) 10^6/uL Hgb 9.5 L (14.0-18.0) g/dL Hct 29.8 L (42.0-52.0) % MCV 86.1 (80.0-94.0) fL MCH 27.5 (27.0-31.0) pg MCHC 32.0 (32.0-36.0) g/dL RDW 15.1 H (12.0-15.0) % Plt Count 285 (130-450) 10^3/uL MPV 7.3 L (7.4-11.4) fL Neut # 8.1 H (1.5-6.6) 10^3/uL Lymph # 1.7 (1.5-3.5) 10^3/uL [place] # 1.1 H (0.0-1.0) 10^3/uL Eos # 0.3 (0.0-0.7) 10^3/uL Baso # 0.1 (0.0-0.1) 10^3/uL Absolute Nucleated RBC 0.00 x10^3/uL Nucleated RBC % 0.0 /100WBC Sodium 137 (135-145) mmol/L Potassium 3.8 (3.5-5.0) mmol/L Chloride 104 (101-111) mmol/L Carbon Dioxide 27 (21-32) mmol/L Anion Gap 6.0 (6-13) BUN 30 H (6-20) mg/dL Creatinine 1.5 H (0.6-1.2) mg/dL Estimated GFR (MDRD) 44 L (>89) Glucose 155 H (70-100) mg/dL POC Whole Bld Glucose 119 H (70 - 100) mg/dL Calcium 8.0 L (8.5-10.3) mg/dL ABX Reporting Has patient been on IV antibiotics over the past 48 hours?: No Assessment/Plan - Problem List (1) Leukocytosis Impression: Source of elevated WBC is unclear. He has no obvious acute infection, but is still undergoing treatment of prostatitis, is on antibiotics. Change of po Levaquin to iv while hospitalized and his WBC came down to 11K from 20 K today. Continue to monitor CBC daily. (2) Gallstones Assessment/Plan: There is no abdominal pain, N/V or fever. We are watching the WBC. Surgery has seen him and not planning on surgery. (3) Nausea and vomiting Qualifiers: Vomiting type: hematemesis Qualified Code(s): K92.0 - Hematemesis Assessment/Plan: Per the daughter, Elsi, who lives above him, the patient had bilious vomiting on Sat, them hematemesis on Sun morning at home, of about 2 cups, then 1 cup of hematemesis when in the ER yesterday. But no one who is medical has seen this emesis. No further N/V, since patient got to his room and he has an appetite. Will monitor H/H. Laboratory Tests 04/21/18 04/22/18 04/23/18 12:24 05:46 06:02 Hgb 11.8 L 9.2 L 9.5 L Gentle rehydration with iv fluids was given. Will stop that today and IV lock. Po antibiotic changed to iv form, in case that was causing GI upset. Surgery following and does not plan an EGD during this admission unless there is emesis. Swallow eval done and he has unremarkable assessment other than he has no dentures in place so do dysphagia advanced diet, thin liquids, meds with water and meal sitting up in bed. (4) Diabetes Qualifiers: Diabetes mellitus type: type 2 Diabetes mellitus usp insulin use: without usp use Diabetes mellitus complication status: with hyperglycemia Qualified Code(s): E11.65 - Type 2 diabetes mellitus with hyperglycemia Assessment/Plan: Continue carb-controlled diet, as diet is advanced, and Insulin coverage and monitor POC glu. so far today he has been 151. (5) CKD (chronic kidney disease) stage 3, GFR 30-59 ml/min Assessment/Plan: Continue gentle hydration with saline iv. Continue Joshua due to obstruction. Monitor K and BUN/creat. 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 A 3 week course of treatment and Urology management is planned. (7) COPD (chronic obstructive pulmonary disease) Qualifiers: COPD type: COPD with acute exacerbation Qualified Code(s): J44.1 - Chronic obstructive pulmonary disease with (acute) exacerbation Assessment/Plan: Pt not SOB. His inhaler is ordered prn. Qualifiers: Qualified Code(s): D72.829 - Elevated white blood cell count, unspecified
[2018-04-24] MEDS: SODIUM CHLORIDE FLUSH 0.9% 10 ML SYRINGE IVP SCH ×2 (00:47→07:49)
[2018-04-24 05:12] LABS: BASOPHILS # (AUTO) 0.1 10^3/uL (0.0-0.1); BASOPHILS % (AUTO) 0.6 %; CALCIUM 8.3 mg/dL (8.5-10.3); CREATININE 1.4 mg/dL (0.6-1.2); EOSINOPHILS # (AUTO) 0.4 10^3/uL (0.0-0.7); EOSINOPHILS % (AUTO) 4.2 %; HGB - HEMOGLOBIN 9.3 g/dL (14.0-18.0); LYMPHOCYTES # (AUTO) 1.4 10^3/uL (1.5-3.5); LYMPHOCYTES % (AUTO) 16.6 %; MEAN CORPUSCULAR HEMOGLOBIN 27.8 pg (27.0-31.0); MEAN CORPUSCULAR HGB CONC 31.8 g/dL (32.0-36.0); MEAN CORPUSCULAR VOLUME 87.3 fL (80.0-94.0); MEAN PLATELET VOLUME 7.4 fL (7.4-11.4); MONOCYTES # (AUTO) 0.9 10^3/uL (0.0-1.0); MONOCYTES % (AUTO) 10.3 %; NEUTROPHILS # (AUTO) 5.9 10^3/uL (1.5-6.6); NEUTROPHILS % (AUTO) 68.3 %; PLT - PLATELET COUNT 278 10^3/uL (130-450); RED BLOOD COUNT 3.34 10^6/uL (4.70-6.10); RED CELL DISTRIBUTION WIDTH 15.1 % (12.0-15.0); WHITE BLOOD COUNT 8.7 x10^3/uL (4.8-10.8)
[2018-04-24] MEDS: SODIUM CHLORIDE FLUSH 0.9% 10 ML SYRINGE IVP PRN ×2 (06:26→06:29)
[2018-04-24] MEDS: PANTOPRAZOLE 40 MG VIAL IVP SCH (06:26)
[2018-04-24] MEDS: SENNA 8.6 MG TABLET PO SCH (07:49)
[2018-04-24] MEDS: INSULIN ASPART 300 UNIT/3 ML PEN SUBQ SCH ×2 (08:22→11:47)
[2018-04-24] MEDS: DOCUSATE SODIUM 250 MG CAPSULE PO SCH (08:54)
[2018-04-24] MEDS: TAMSULOSIN 0.4 MG CAPSULE PO SCH (08:55)
[2018-04-24] MEDS: POLYETHYLENE GLYCOL 3350 17 GM PACKET PO SCH (08:55)
[2018-04-24] MEDS: NICOTINE 21 MG PATCH TOP SCH (08:55)
[2018-04-24] MEDS: SERTRALINE 50 MG TABLET PO SCH (08:55)
--- NOTE | 2018-04-24 09:21 | Discharge Plan ---
Discharge Plan Disposition: Home Health Service Condition: Stable Prescriptions: Pantoprazole [Protonix] 40 mg PO DAILY #30 tablet Diet: Regular Activity Restrictions: Activity as Tolerated Shower Restrictions: No Driving Restrictions: Yes (no driving) Instruction Topics: Polyethylene Glycol powder, Senna tablets or capsules, Bleeding Gastrointestinal, Gallstones, Constipation, Gallstones Tx, Probs Prostate Related Urinary Sx, Urinary Tract Infecs Men Additional Instructions or Follow Up instructions: You were admitted to the hospital because of nausea and vomiting. Some of the emesis had brownish material that we wondered if you were having an upper GI bleed. Over the next few days your hemoglobin has remained stable. You did not have any further episodes of nausea and vomiting. You will be sent home on an acid reducing medicine to calm down your stomach. You only have to take the medicine, once a day, for the the next month and then it can be stopped. Do not smoke and do not take ibuprofen, aspirin, naprosyn. Those medicines can cause ulcers. Your white cell count was elevated and we think that was due to continued infection in the urinary tract. Most likely your prostate. That has gotten better as well. I have spoken to HANNAH Hess, your primary care provider, and we are continuing the Joshua until you see a urologist. Emanuel plans on referring you to a urologist at [facility] in the next 1-2 weeks. Continue your antibiotics , Joshua catheter, and Flomax until you see the urologist. Please make sure you see Marilyn in the next 1-2 weeks as well. You will be resuming your [facility] care when you get home. Follow-Up Care: Home Health - PT, Home Health - OT (To resume services with [facility] No Smoking: If you smoke, Please STOP! Call for help. Follow-up with: Magdy Hester MD [Primary Care Provider] -
[2018-04-24 09:35] VITALS: BP 144/59
--- NOTE | 2018-04-26 12:39 | DISCHARGE SUMMARY ---
Physician: Ada Lundberg MD DATE OF ADMISSION: 04/21/2018 DATE OF DISCHARGE: 04/24/2018 PRIMARY CARE PROVIDER: Marilyn Castellanos PA-C DISCHARGE DIAGNOSES 1. Hematemesis. 2. Leukocytosis. 3. Cholelithiasis. 4. Type 2 diabetes mellitus with hyperglycemia, with complications, without long-term use of insulin. 5. Chronic kidney disease, stage 3. 6. Prostatitis. 7. Benign prostatic hypertrophy with lower urinary tract symptoms of obstruction. 8. Chronic obstructive pulmonary disease without exacerbation. 9. Cholelithiasis. DISCHARGE MEDICATIONS 1. Albuterol HFA inhaler 1-2 puffs every 4 hours as needed. 2. Ascorbic acid 500 mg daily. 3. Lipitor 40 mg daily. 4. Ferrous gluconate 324 mg po daily. 5. Lasix 20 mg daily. 6. Levaquin 500 mg p.o. daily. 7. Metformin 500 mg p.o. daily. 8. Protonix 40 mg p.o. daily. 9. Potassium chloride 10 mEq daily. 10. Zoloft 50 mg p.o. daily. 11. Flomax 0.4 mg daily. PRINCIPAL PROCEDURES 1. Blood cultures without growth after 2 days. 2. Urine culture without any growth, final report. 3. Abdomen and pelvis CT with decompressed urinary bladder, with indwelling Joshua catheter. Cholelithiasis with somewhat indistinct gallbladder wall. Above-average volume of stool in the colon. 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 Calcified pleural plaquing, indicating asbestosis-related pleural disease. 4. Abdominal ultrasound with thick-walled gallbladder with immobile stones in the gallbladder neck and positive sonographic Lozano sign compatible with acute cholecystitis. He has a subcentimeter echogenic focus in the right hepatic lobe, possible hemangioma. Increased renal parenchymal echogenicity suggesting chronic renal disease. SURGICAL CONSULTATION: Dr. Benny Justin. HOSPITAL COURSE: The patient is an 87-year-old white male who lives in his own home, but his daughter lives on the floors above him. He is still independent with regard to transferring and able to eat, but she takes care of him for the most part. He was just in the hospital for lower urinary tract symptoms of obstruction with UTI and sepsis. He is being treated as prostatitis and has a Joshua. He is on Flomax and on Levaquin. Two days prior to admission, he had a sudden episode of bilious emesis. He drinks coffee and eats bread all day long, and most of the emesis was curdled food with brown in it. Today he had emesis after eating avocados and shrimp, and the daughter felt there was blood in it. She brought him to the emergency room. He was an elderly man in no acute distress. He denied any abdominal pain, was afebrile, and room air saturations were 96%. He had mild pallor. He had a soft, nondistended abdomen. His CMP showed normal liver enzymes and a normal total bilirubin. His labs showed him to have acute on chronic kidney disease stage 3. BUN was 44, creatinine 1.8. White cell count was elevated at 18.7 thousand. Urinalysis was clean. He was initially admitted as hematemesis with nausea and vomiting, but for the rest of his admission, he ate normally and had no further episodes of emesis, nor did he have any episodes of abdominal pain. We did consult General Surgery. Dr. Justin evaluated him and felt that the patient had symptoms of mild gallbladder disease but not an upper GI bleed. Because he was clinically stable and had no further signs of GI bleeding, an EGD was not done. The patient's hemoglobin seems to vary between 9 to 11 according to General Surgery. On the basis of that, they will be declining an EGD at this time. However, if the patient does drop his hemoglobin significantly or has witnessed hematemesis by a medical professional, then they will reconsider. During his stay, his hemoglobin drifted from 11.8 to 9.3 on the day of discharge. The patient had leukocytosis to 18,000, and it increased to 20,000. He was resumed on IV Levaquin, and his white cell count went back down to 8.7. Gallbladder ultrasound did show evidence of gallstones in the gallbladder neck. At this time, since he was quiescent with his disease, Dr. Justin also felt he was not a surgical candidate, at least at this time. Diabetes was controlled. Random glucose was 218, and during his stay he usually stayed around 130-160. This was on sliding scale insulin with metformin held during his stay and metformin resumed at discharge. His COPD was stable during his stay. There was no acute exacerbation. For his benign prostatic hypertrophy with lower urinary tract symptoms of obstruction, he will be kept on his Joshua and his Levaquin and Flomax. I have spoken to his primary care provider, Marilyn Castellanos PA-C, and she will be making arrangements for him to see Urology in the next week. His urologist can decide when to stop the Joshua and when to stop the Flomax. After a total of 3 days in the hospital, the patient was cheerful. Alert. Eating. No abdominal pain. He had a swallow evaluation because one of the nurses was concerned about aspiration. He did it twice in front of her with regard to swallowing liquids. He was edentulous. When he saw the therapist, he had normal oral motor assessment and no overt signs of aspiration, laryngeal penetration, or pharyngeal stasis. Initially, she recommended thickened liquids, dysphagia advanced because of his edentulous status, but he really hated that and wanted to go back to regular water. As such, he is discharged drinking regular water. PHYSICAL EXAMINATION VITAL SIGNS: On the day of discharge, temperature was 37, pulse 62, blood pressure 144/59, respirations 18, 95% on room air. GENERAL: He is a tall, loud-speaking elderly white male with a shock of white hair. Delightful, cheerful personality. NECK: Supple. LUNGS: Clear. He has no increased respiratory effort with walking, talking or laughing. HEART: PMI is normally placed, with a regular rate and rhythm. ABDOMEN: Obese, soft, nontender. EXTREMITIES: Warm, and there is trace edema around his ankles. He is very hard of hearing. Some of his arms have ecchymosis from the IVs and blood draws. Every once in awhile he will have a cough. Overall, he has generalized weakness and will need to continue his home health PT. As such, he will be resumed with the previous home health orders he had with [facility]. Greater than 30 minutes spent in coordinating discharge. cc: Marilyn Castellanos PA-C TD: 04/24/2018 15:55 MTDD
== END 2018-04-24 13:07 | disposition home health service (06) | DRG 378 ==
LOC: ED 12:10 → MS2 17:19
PROVIDERS: ADMIT Internal Medicine; ATTEND Specialist
DX: K92.0 Hematemesis (principal); K80.00 Calculus of gallbladder with acute cholecystitis without obstruction; N13.8 Other obstructive and reflux uropathy; K92.2 Gastrointestinal hemorrhage, unspecified; E78.00 Pure hypercholesterolemia, unspecified; N17.9 Acute kidney failure, unspecified; N40.1 Benign prostatic hyperplasia with lower urinary tract symptoms; F17.200 Nicotine dependence, unspecified, uncomplicated; D72.829 Elevated white blood cell count, unspecified; G30.9 Alzheimer's disease, unspecified; F02.80 Dementia in other diseases classified elsewhere, unspecified severity, without behavioral disturbance, psychotic disturbance, mood disturbance, and anxiety; E11.9 Type 2 diabetes mellitus without complications; K44.1 Diaphragmatic hernia with gangrene; N40.0 Benign prostatic hyperplasia without lower urinary tract symptoms; E11.65 Type 2 diabetes mellitus with hyperglycemia; E11.22 Type 2 diabetes mellitus with diabetic chronic kidney disease; I12.9 Hypertensive chronic kidney disease with stage 1 through stage 4 chronic kidney disease, or unspecified chronic kidney disease; N18.3 Chronic kidney disease, stage 3 (moderate); N41.1 Chronic prostatitis; J44.9 Chronic obstructive pulmonary disease, unspecified; F17.210 Nicotine dependence, cigarettes, uncomplicated; E86.0 Dehydration; J92.0 Pleural plaque with presence of asbestos; I72.3 Aneurysm of iliac artery; I71.4 Abdominal aortic aneurysm, without rupture; D64.9 Anemia, unspecified; I25.10 Atherosclerotic heart disease of native coronary artery without angina pectoris; E78.5 Hyperlipidemia, unspecified; G47.30 Sleep apnea, unspecified; F03.90 Unspecified dementia, unspecified severity, without behavioral disturbance, psychotic disturbance, mood disturbance, and anxiety; D18.03 Hemangioma of intra-abdominal structures; H91.90 Unspecified hearing loss, unspecified ear; R53.1 Weakness; K44.9 Diaphragmatic hernia without obstruction or gangrene; F32.9 Major depressive disorder, single episode, unspecified; Z66 Do not resuscitate; Z79.51 Long term (current) use of inhaled steroids; Z79.84 Long term (current) use of oral hypoglycemic drugs; Z79.899 Other long term (current) drug therapy; Z95.5 Presence of coronary angioplasty implant and graft
CPT/HCPCS: 36415; 71045; 74176; 76705; 80048; 80053; 81001; 81003; 83605; 83690; 85025; 85610; 85730; 86850; 86900; 86901; 87040; 87086; 96361; 96374; 96375; 99283; 99285

== ENCOUNTER 2018-05-02 16:14 | Outpatient (CLI) | payer MEDICARE, MEDICAID ==
[2018-05-02 16:28] LABS: BASOPHILS # (AUTO) 0.1 10^3/uL (0.0-0.1); BASOPHILS % (AUTO) 0.9 %; EOSINOPHILS # (AUTO) 0.2 10^3/uL (0.0-0.7); EOSINOPHILS % (AUTO) 2.4 %; HGB - HEMOGLOBIN 10.4 g/dL (14.0-18.0); LYMPHOCYTES # (AUTO) 1.7 10^3/uL (1.5-3.5); LYMPHOCYTES % (AUTO) 21.5 %; MEAN CORPUSCULAR HEMOGLOBIN 28.9 pg (27.0-31.0); MEAN CORPUSCULAR HGB CONC 32.6 g/dL (32.0-36.0); MEAN CORPUSCULAR VOLUME 88.7 fL (80.0-94.0); MONOCYTES # (AUTO) 0.8 10^3/uL (0.0-1.0); NEUTROPHILS # (AUTO) 5.2 10^3/uL (1.5-6.6); NEUTROPHILS % (AUTO) 65.2 %; PLT - PLATELET COUNT 282 10^3/uL (130-450); RED BLOOD COUNT 3.59 10^6/uL (4.70-6.10); RED CELL DISTRIBUTION WIDTH 15.1 % (12.0-15.0); WHITE BLOOD COUNT 7.9 x10^3/uL (4.8-10.8)
[2018-05-02 17:07] LABS: ALBUMIN/GLOBULIN RATIO 0.9 (1.0-2.2); ALKALINE PHOSPHATASE 88 IU/L (42-121); ALT ALANINE AMINOTRANSFERASE < 10 IU/L (10-60); AST ASPARTATE AMINOTRANSFERASE 17 IU/L (10-42); BILIRUBIN,TOTAL 0.4 mg/dL (0.2-1.0); BUN - BLOOD UREA NITROGEN 28 mg/dL (6-20); CALCIUM 8.4 mg/dL (8.5-10.3); CARBON DIOXIDE - CO2 25 mmol/L (21-32); CHLORIDE 100 mmol/L (101-111); CREATININE 1.4 mg/dL (0.6-1.2); GFR - MDRD 48 (>89); GLUCOSE 127 mg/dL (70-100); SODIUM 134 mmol/L (135-145); TOTAL PROTEIN 6.5 g/dL (6.7-8.2)
== END 2018-05-02 16:15 | disposition home or self-care (01) ==
LOC: LAB 16:14
PROVIDERS: ATTEND Physician Assistant Medical
DX: N18.9 Chronic kidney disease, unspecified (principal)
CPT/HCPCS: 36415; 80053; 85025

== ENCOUNTER 2018-05-06 09:34 | Outpatient (CLI) | payer MEDICARE, MEDICAID ==
[2018-05-06] MEDS ORDERED: BARIUM SULFATE 176 GM BOTTLE PO ONE (10:14)
[2018-05-06] MEDS ORDERED: SIMETHICONE/SOD BICARB/CIT AC 1 EACH PACKET PO ONE (10:14)
[2018-05-06] MEDS ORDERED: BARIUM SULFATE 135 ML BOTTLE PO ONE (10:14)
--- NOTE | 2018-05-06 11:25 | XRAY Report ---
UPPER GI WITH AIR: 05/06/2018 CLINICAL INDICATION: Emesis. COMPARISON: 01/10/2017. FINDINGS: Single and double contrast upper GI was performed. The esophagus is normal in caliber. No esophageal ulceration, mass lesion, or stricturing is identified. A small hiatal hernia is again seen, producing gastroesophageal reflux throughout the course of the study. The stomach demonstrates a normal fold pattern. The duodenal cap distends normally. The duodenal C loop is unremarkable. IMPRESSION: HIATAL HERNIA, PRODUCING REFLUX. NO SIGNIFICANT INTERVAL CHANGE FROM 01/10/2017. FLUOROSCOPY TIME: Three minutes 44 seconds; 31 spot images obtained. TD: 05/06/2018 10:36
== END 2018-05-06 09:35 | disposition home or self-care (01) ==
LOC: DI 09:34
PROVIDERS: ATTEND Physician Assistant Medical
DX: K44.9 Diaphragmatic hernia without obstruction or gangrene (principal); K21.9 Gastro-esophageal reflux disease without esophagitis
CPT/HCPCS: 74246; A9270

== ENCOUNTER 2018-06-07 19:21 | Emergency (ER) | payer MEDICARE, MEDICAID ==
[2018-06-07 19:31] VITALS: BP 184/69
--- NOTE | 2018-06-07 19:43 | ED Physician Documentation ---
PD HPI ABD PAIN - Stated complaint Stated Complaint: MALE - Chief complaint Chief Complaint: Abd Pain - History obtained from History obtained from: Family (daughter) - History of Present Illness Timing - onset: Today (He had a kidney infection recently which was felt due to prostatic hypertrophy and urinary retention. Since 2:00 he really has not had any urinary output in the being in the bag and now has severe suprapubic pain.) Review of Systems Unable to obtain: Dementia PD PAST MEDICAL HISTORY - Past Medical History Cardiovascular: High cholesterol, Coronary artery disease Respiratory: COPD, Sleep apnea, CPAP use Neuro: Alzhiemer's, Dementia Endocrine/Autoimmune: Type 2 diabetes GI: Hiatal hernia : Benign prostate hypertrophy HEENT: None Psych: Depression Musculoskeletal: None Derm: None - Past Surgical History Past Surgical History: Yes General: Bowel surgery Ortho: Other Cardiovascular: Coronary stent - Present Medications Home Medications: Ambulatory Orders Medication Instructions Recorded Confirmed Potassium Chloride [K-Tab ER] 10 meq PO DAILY 08/15/13 04/21/18 Atorvastatin [Lipitor] 40 mg PO QPM 05/13/15 04/21/18 Furosemide 20 mg DAILY 05/13/15 04/21/18 Sertraline [Zoloft] 50 mg PO DAILY 12/07/16 04/21/18 Albuterol Sulfate [Proair Hfa 1 - 2 puffs INH Q4H PRN 04/10/18 04/21/18 Inhaler] Ascorbic Acid 500 mg PO DAILY 04/10/18 04/21/18 Ferrous Gluconate 50 mg PO DAILY 04/10/18 04/21/18 Tamsulosin [Flomax] 0.4 mg PO DAILY #30 capsule 04/12/18 04/21/18 levoFLOXacin [Levaquin] 500 mg PO DAILY #21 tablet 04/12/18 04/21/18 Metformin HCl 500 mg DAILY 04/21/18 04/21/18 Pantoprazole [Protonix] 40 mg PO DAILY #30 tablet 04/24/18 - Allergies Allergies/Adverse Reactions: Allergies Allergy/AdvReac Type Severity Reaction Status Date / Time No Known Drug Allergies Allergy Verified 04/21/18 12:13 - Social History Does the pt smoke?: Yes Smoking Status: Current every day smoker Does the pt drink ETOH?: No Does the pt have substance abuse?: No - Immunizations Immunizations are current?: No Immunizations: TDAP >10years/unknown - POLST Patient has POLST: No POLST Status: DNR PD ED PE NORMAL - Vitals Vital signs reviewed: Yes - General General: No acute distress, Well developed/nourished - Abdomen Abdomen: Other (Suprapubic tenderness with distended bladder ultrasound) - Psych Psych: Normal mood, Normal affect Results - Vitals Vitals: Vital Signs - 24 hr 06/07/18 19:26 Temperature 35.9 C L Heart Rate 73 Respiratory 17 Rate Blood Pressure 184/69 H O2 Saturation 100 Oxygen O2 Source Room air PD MEDICAL DECISION MAKING - ED course ED course: I went into replaced the Joshua catheter assuming it was blocked based on the physical findings, however when I was preparing to unhook the Joshua from the bag that was attached to became clear that it was just kinked at the leg strap and once and kinked it was flowing freely. However the nurse reported to me that after that it blocked up again and it was replaced. - Sepsis Event Vital Signs: Vital Signs - 24 hr 06/07/18 19:26 Temperature 35.9 C L Heart Rate 73 Respiratory 17 Rate Blood Pressure 184/69 H O2 Saturation 100 Oxygen O2 Source Room air Departure - Departure Disposition: 01 Home, Self Care Clinical Impression: Complication, blocked Joshua catheter Qualifiers: Encounter type: initial encounter Qualified Code(s): T83.091A - Other mechanical complication of indwelling urethral catheter, initial encounter Condition: Good Record reviewed to determine appropriate education?: Yes Instructions: ED Catheter Care Joshua Comments: Your blood pressure was elevated today on check into the emergency department. This does not mean that you have hypertension, it is a common phenomenon to come to the emergency department and have elevated blood pressure. I recommend that you see your primary care physician within the week to have it rechecked when you are feeling better. Discharge Date/Time: 06/07/18 20:50
[2018-06-07] MEDS ORDERED: LIDOCAINE 2% URO-JET 5 ML SYRINGE UR STA (20:28)
== END 2018-06-07 20:50 | disposition home or self-care (01) ==
LOC: ED 19:21
DX: T83.091A Other mechanical complication of indwelling urethral catheter, initial encounter (principal); R03.0 Elevated blood-pressure reading, without diagnosis of hypertension; G30.9 Alzheimer's disease, unspecified; F02.80 Dementia in other diseases classified elsewhere, unspecified severity, without behavioral disturbance, psychotic disturbance, mood disturbance, and anxiety; E78.00 Pure hypercholesterolemia, unspecified; I25.10 Atherosclerotic heart disease of native coronary artery without angina pectoris; E11.9 Type 2 diabetes mellitus without complications; Z95.5 Presence of coronary angioplasty implant and graft
CPT/HCPCS: 51702; 99282; 99283

== ENCOUNTER 2018-06-27 08:00 | Outpatient (CLI) | payer MEDICARE, MEDICAID | END 2018-06-27 08:01 | disposition home or self-care (01) | LOC: LAB.R 08:00 | PROVIDERS: ATTEND Physician Assistant Medical | DX: N41.9 Inflammatory disease of prostate, unspecified (principal) | CPT/HCPCS: 87086 ==

== ENCOUNTER 2018-07-14 18:48 | Emergency (ER) | payer MEDICARE, MEDICAID ==
[2018-07-14] MEDS ORDERED: SODIUM CHLORIDE 0.9% 1,000 ML IV ONE (19:27)
[2018-07-14 19:46] LABS: BILIRUBIN,URINE NEGATIVE (NEGATIVE); GLUCOSE, URINE (UA) NEGATIVE (NEGATIVE); KETONES,URINE (UA) NEGATIVE (NEGATIVE); LEUKOCYTE ESTERASE, URINE NEGATIVE (NEGATIVE); NITRITE,URINE NEGATIVE (NEGATIVE); OCCULT BLOOD,URINE MODERATE (NEGATIVE); PROTEIN,URINE TRACE mg/dL (NEGATIVE); UROBILINOGEN,URINE 0.2 (NORMAL) E.U./dL (NORMAL)
[2018-07-14 19:51] LABS: BASOPHILS # (AUTO) 0.1 10^3/uL (0.0-0.1); BASOPHILS % (AUTO) 0.9 %; EOSINOPHILS # (AUTO) 0.2 10^3/uL (0.0-0.7); HGB - HEMOGLOBIN 11.5 g/dL (14.0-18.0); LYMPHOCYTES # (AUTO) 2.2 10^3/uL (1.5-3.5); LYMPHOCYTES % (AUTO) 27.2 %; MEAN CORPUSCULAR HEMOGLOBIN 28.3 pg (27.0-31.0); MEAN CORPUSCULAR HGB CONC 32.9 g/dL (32.0-36.0); MEAN PLATELET VOLUME 7.3 fL (7.4-11.4); MONOCYTES # (AUTO) 0.9 10^3/uL (0.0-1.0); MONOCYTES % (AUTO) 11.2 %; NEUTROPHILS # (AUTO) 4.7 10^3/uL (1.5-6.6); NEUTROPHILS % (AUTO) 57.7 %; PLT - PLATELET COUNT 309 10^3/uL (130-450); RED BLOOD COUNT 4.05 10^6/uL (4.70-6.10); WHITE BLOOD COUNT 8.1 x10^3/uL (4.8-10.8)
[2018-07-14 19:53] LABS: BACTERIA,URINE None Seen /HPF (None Seen); CLARITY,URINE CLEAR (CLEAR); SQUAMOUS EPITHELIAL CELL,UR NONE SEEN (<= Few)
[2018-07-14 20:04] LABS: ALBUMIN 3.3 g/dL (3.2-5.5); ALKALINE PHOSPHATASE 81 IU/L (42-121); ALT ALANINE AMINOTRANSFERASE < 10 IU/L (10-60); AST ASPARTATE AMINOTRANSFERASE 15 IU/L (10-42); BILIRUBIN,TOTAL 0.3 mg/dL (0.2-1.0); BUN - BLOOD UREA NITROGEN 42 mg/dL (6-20); CALCIUM 8.5 mg/dL (8.5-10.3); CARBON DIOXIDE - CO2 26 mmol/L (21-32); CHLORIDE 101 mmol/L (101-111); CREATININE 1.2 mg/dL (0.6-1.2); GFR - MDRD 57 (>89); GLUCOSE 152 mg/dL (70-100); LIPASE 27 U/L (22-51); SODIUM 136 mmol/L (135-145); TOTAL PROTEIN 6.5 g/dL (6.7-8.2)
--- NOTE | 2018-07-14 20:18 | ED Physician Documentation ---
History of Present Illness - Stated complaint Stated Complaint: MALE - Chief complaint Chief Complaint: UTI - History obtained from History obtained from: Patient, Family - History of Present Illness Timing: Today Pain level max: 0 Pain level now: 0 - Additonal information Additional information: Noted dark urine today draining from his Joshua catheter. Denies any pain. No fevers. No vomiting. Daughter states that he has been slightly more confused since taking Levaquin for his last UTI. Patient denies any symptoms at this time. Nothing makes it better or worse Review of Systems Ten Systems: 10 systems reviewed and negative Constitutional: denies: Fever, Chills Ears: denies: Ear pain Nose: denies: Rhinorrhea / runny nose, Congestion Throat: denies: Sore throat Cardiac: denies: Chest pain / pressure Respiratory: denies: Cough, Wheezing GI: denies: Abdominal Pain, Nausea, Vomiting, Diarrhea, Hematemesis, Bloody / black stool Skin: denies: Rash Musculoskeletal: denies: Neck pain, Back pain Neurologic: denies: Headache PD PAST MEDICAL HISTORY - Past Medical History Cardiovascular: High cholesterol, Coronary artery disease Respiratory: COPD, Sleep apnea, CPAP use Neuro: Alzhiemer's, Dementia Endocrine/Autoimmune: Type 2 diabetes GI: Hiatal hernia : Benign prostate hypertrophy HEENT: None Psych: Depression Musculoskeletal: None Derm: None - Past Surgical History Past Surgical History: Yes General: Bowel surgery Ortho: Other Cardiovascular: Coronary stent - Present Medications Home Medications: Ambulatory Orders Medication Instructions Recorded Confirmed Potassium Chloride [K-Tab ER] 10 meq PO DAILY 08/15/13 04/21/18 Atorvastatin [Lipitor] 40 mg PO QPM 05/13/15 04/21/18 Furosemide 20 mg DAILY 05/13/15 04/21/18 Sertraline [Zoloft] 50 mg PO DAILY 12/07/16 04/21/18 Albuterol Sulfate [Proair Hfa 1 - 2 puffs INH Q4H PRN 04/10/18 04/21/18 Inhaler] Ascorbic Acid 500 mg PO DAILY 04/10/18 04/21/18 Ferrous Gluconate 50 mg PO DAILY 04/10/18 04/21/18 Tamsulosin [Flomax] 0.4 mg PO DAILY #30 capsule 04/12/18 04/21/18 levoFLOXacin [Levaquin] 500 mg PO DAILY #21 tablet 04/12/18 04/21/18 Metformin HCl 500 mg DAILY 04/21/18 04/21/18 Pantoprazole [Protonix] 40 mg PO DAILY #30 tablet 04/24/18 - Allergies Allergies/Adverse Reactions: Allergies Allergy/AdvReac Type Severity Reaction Status Date / Time No Known Drug Allergies Allergy Verified 07/14/18 19:01 - Social History Does the pt smoke?: Yes Smoking Status: Current every day smoker Does the pt drink ETOH?: No Does the pt have substance abuse?: No - Immunizations Immunizations are current?: No Immunizations: TDAP >10years/unknown - POLST Patient has POLST: No POLST Status: DNR PD ED PE NORMAL - Vitals Vital signs reviewed: Yes - General General: Alert and oriented X 3, No acute distress, Well developed/nourished - HEENT HEENT: PERRL, Pharynx benign, Other (Dry lips) - Neck Neck: Supple, no meningeal sign - Cardiac Cardiac: RRR, Strong equal pulses - Respiratory Respiratory: No respiratory distress, Clear bilaterally - Abdomen Abdomen: Soft, Non tender, Non distended - Back Back: No CVA TTP, No spinal TTP - Derm Derm: Warm and dry - Extremities Extremities: No calf tenderness / cord - Neuro Neuro: Alert and oriented X 3 - Psych Psych: Normal mood, Normal affect Results - Vitals Vitals: Vital Signs - 24 hr 07/14/18 07/14/18 18:53 20:30 Temperature 37.1 C 37.1 C Heart Rate 63 56 L Respiratory 16 16 Rate Blood Pressure 109/59 L 134/68 H O2 Saturation 97 98 Oxygen O2 Source Room air - Labs Labs: Laboratory Tests 07/14/18 07/14/18 07/14/18 19:39 19:42 19:42 WBC 8.1 RBC 4.05 L Hgb 11.5 L Hct 34.9 L MCV 86.0 MCH 28.3 MCHC 32.9 RDW 14.0 Plt Count 309 MPV 7.3 L Neut # (Auto) 4.7 Lymph # (Auto) 2.2 [place] # (Auto) 0.9 Eos # (Auto) 0.2 Baso # (Auto) 0.1 Absolute Nucleated RBC 0.00 Nucleated RBC % 0.0 Sodium 136 Potassium 4.1 Chloride 101 Carbon Dioxide 26 Anion Gap 9.0 BUN 42 H Creatinine 1.2 Estimated GFR (MDRD) 57 L Glucose 152 H Calcium 8.5 Total Bilirubin 0.3 AST 15 ALT < 10 L Alkaline Phosphatase 81 Total Protein 6.5 L Albumin 3.3 Globulin 3.2 Albumin/Globulin Ratio 1.0 Lipase 27 Urine Color YELLOW Urine Clarity CLEAR Urine pH 6.0 Ur Specific [place] 1.015 Urine Protein TRACE Urine Glucose (UA) NEGATIVE Urine Ketones NEGATIVE Urine Occult Blood MODERATE H Urine Nitrite NEGATIVE Urine Bilirubin NEGATIVE Urine Urobilinogen 0.2 (NORMAL) Ur Leukocyte Esterase NEGATIVE Urine RBC 6-10 H Urine WBC 0-3 Ur Squamous Epith Cells NONE SEEN Urine Bacteria None Seen Ur Microscopic Review INDICATED Urine Culture Comments NOT INDICATED PD MEDICAL DECISION MAKING - ED course Complexity details: reviewed results, re-evaluated patient, considered differential, d/w patient, d/w family ED course: Patient is an 88-year-old male who presents to the emergency department with dehydration and hematuria. No evidence of infection. His urine lightened in color with IV fluids and he feels better. We will continue supportive care and follow-up closely with his doctor. Encourage increased water intake at home. Patient and family counseled regarding signs and symptoms for which I believe and urgent re-evaluation would be necessary. Patient with good understanding of and agreement to plan and is comfortable going home at this time This document was made in part using voice recognition software. While efforts are made to proofread this document, sound alike and grammatical errors may occur. - Sepsis Event Vital Signs: Vital Signs - 24 hr 07/14/18 07/14/18 18:53 20:30 Temperature 37.1 C 37.1 C Heart Rate 63 56 L Respiratory 16 16 Rate Blood Pressure 109/59 L 134/68 H O2 Saturation 97 98 Oxygen O2 Source Room air Departure - Departure Disposition: Home, Self Care Clinical Impression: Dehydration Hematuria Qualifiers: Hematuria type: gross Qualified Code(s): R31.0 - Gross hematuria Condition: Good Instructions: ED Dehydration Follow-Up: Magdy Hester MD [Primary Care Provider] - Within 1 week Comments: As we discussed, you need to increase your water intake. Return if you worsen. Discharge Date/Time: 07/14/18 20:45
[2018-07-14 20:32] VITALS: BP 134/68
== END 2018-07-14 20:45 | disposition home or self-care (01) ==
LOC: ED 18:48
DX: N39.0 Urinary tract infection, site not specified (principal); E86.0 Dehydration; R31.0 Gross hematuria; E78.00 Pure hypercholesterolemia, unspecified; I25.10 Atherosclerotic heart disease of native coronary artery without angina pectoris; E11.9 Type 2 diabetes mellitus without complications; Z95.5 Presence of coronary angioplasty implant and graft; F17.200 Nicotine dependence, unspecified, uncomplicated; Z96.0 Presence of urogenital implants
CPT/HCPCS: 36415; 80053; 81001; 81003; 83690; 85025; 87086; 99282; 99283

== ENCOUNTER 2018-08-14 15:18 | Emergency (ER) | payer MEDICARE, MEDICAID ==
[2018-08-14 15:35] VITALS: BP 126/57
--- NOTE | 2018-08-14 16:22 | ED Physician Documentation ---
PD HPI MALE - Stated complaint Stated Complaint: CATH TUBE IS TORN - Chief complaint Chief Complaint: General - History obtained from History obtained from: Patient, Family - History of Present Illness Timing - onset: Today Timing - duration: Hours Timing - details: Gradual onset, Still present Associated symptoms: Stephens problem PD HPI MALE CONTRIB FACTORS: Indwelling catheter Similar symptoms before: Diagnosis (stephens problem) Recently seen: Emergency Dept - Additional information Additional information: 88-year-old male with an indwelling Stephens catheter is recently been seen in the emergency department for dehydration about 1 month ago. He has had his catheter changed about 3 weeks ago and today's developed a leak in the bag and a leak at the insertion to the bag. He is otherwise not feeling ill and has clear urine. He has an appointment to see his urologist in about 10 days. Review of Systems Constitutional: denies: Fever, Chills, Myalgias Eyes: denies: Decreased vision Ears: denies: Ear pain Nose: denies: Congestion Throat: denies: Sore throat Cardiac: denies: Chest pain / pressure Respiratory: denies: Dyspnea, Cough GI: denies: Abdominal Pain, Nausea, Vomiting : reports: Stephens Problem. denies: Dysuria Skin: denies: Rash Musculoskeletal: denies: Neck pain, Back pain, Extremity pain PD PAST MEDICAL HISTORY - Past Medical History Cardiovascular: High cholesterol, Coronary artery disease Respiratory: COPD, Sleep apnea, CPAP use Neuro: Alzhiemer's, Dementia Endocrine/Autoimmune: Type 2 diabetes GI: Hiatal hernia : Benign prostate hypertrophy HEENT: None Psych: Depression Musculoskeletal: None Derm: None - Past Surgical History Past Surgical History: Yes General: Bowel surgery Ortho: Other Cardiovascular: Coronary stent - Present Medications Home Medications: Ambulatory Orders Medication Instructions Recorded Confirmed Potassium Chloride [K-Tab ER] 10 meq PO DAILY 08/15/13 04/21/18 Atorvastatin [Lipitor] 40 mg PO QPM 05/13/15 04/21/18 Furosemide 20 mg DAILY 05/13/15 04/21/18 Sertraline [Zoloft] 50 mg PO DAILY 12/07/16 04/21/18 Albuterol Sulfate [Proair Hfa 1 - 2 puffs INH Q4H PRN 04/10/18 04/21/18 Inhaler] Ascorbic Acid 500 mg PO DAILY 04/10/18 04/21/18 Ferrous Gluconate 50 mg PO DAILY 04/10/18 04/21/18 Tamsulosin [Flomax] 0.4 mg PO DAILY #30 capsule 04/12/18 04/21/18 levoFLOXacin [Levaquin] 500 mg PO DAILY #21 tablet 04/12/18 04/21/18 Metformin HCl 500 mg DAILY 04/21/18 04/21/18 Pantoprazole [Protonix] 40 mg PO DAILY #30 tablet 04/24/18 - Allergies Allergies/Adverse Reactions: Allergies Allergy/AdvReac Type Severity Reaction Status Date / Time No Known Drug Allergies Allergy Verified 08/14/18 15:35 - Social History Does the pt smoke?: Yes Smoking Status: Current every day smoker Does the pt drink ETOH?: No Does the pt have substance abuse?: No - Immunizations Immunizations are current?: No Immunizations: TDAP >10years/unknown - POLST Patient has POLST: No POLST Status: DNR PD ED PE NORMAL - Vitals Vital signs reviewed: Yes (normal ) - General General: Alert and oriented X 3, No acute distress, Well developed/nourished - HEENT HEENT: Atraumatic, PERRL - Respiratory Respiratory: No respiratory distress - Derm Derm: Normal color, Warm and dry, No rash - Extremities Extremities: No deformity, No edema - Neuro Neuro: Alert and oriented X 3, hat conditioner 2-12 intact, No motor deficit, No sensory deficit, Normal speech Eye Opening: Spontaneous Motor: Obeys Commands Verbal: Oriented GCS Score: 15 - Psych Psych: Normal mood, Normal affect Results - Vitals Vitals: Vital Signs - 24 hr 08/14/18 15:26 Temperature 36.4 C L Heart Rate 90 Respiratory 20 Rate Blood Pressure 126/57 L O2 Saturation 98 Oxygen O2 Source Room air PD MEDICAL DECISION MAKING - ED course Complexity details: considered differential, d/w patient, d/w family ED course: 80-year-old male with a leaky Stephens catheter bag has the bag replaced by the RN Creig and this appears to resolve the problem. - Sepsis Event Vital Signs: Vital Signs - 24 hr 08/14/18 15:26 Temperature 36.4 C L Heart Rate 90 Respiratory 20 Rate Blood Pressure 126/57 L O2 Saturation 98 Oxygen O2 Source Room air Departure - Departure Disposition: 01 Home, Self Care Clinical Impression: Stephens catheter problem Qualifiers: Encounter type: initial encounter Qualified Code(s): T83.9XXA - Unspecified complication of genitourinary prosthetic device, implant and graft, initial encounter Condition: Stable Instructions: ED Catheter Care Stephens Follow-Up: Magdy Hester MD [Primary Care Provider] -
== END 2018-08-14 16:15 | disposition home or self-care (01) ==
LOC: ED 15:18
DX: T83.038A Leakage of other urinary catheter, initial encounter (principal); G30.9 Alzheimer's disease, unspecified; F02.80 Dementia in other diseases classified elsewhere, unspecified severity, without behavioral disturbance, psychotic disturbance, mood disturbance, and anxiety; I25.10 Atherosclerotic heart disease of native coronary artery without angina pectoris; E78.00 Pure hypercholesterolemia, unspecified; E11.9 Type 2 diabetes mellitus without complications; N40.0 Benign prostatic hyperplasia without lower urinary tract symptoms; F17.200 Nicotine dependence, unspecified, uncomplicated; Z79.84 Long term (current) use of oral hypoglycemic drugs; Z95.5 Presence of coronary angioplasty implant and graft
CPT/HCPCS: 99282; 99283

== ENCOUNTER 2018-09-12 11:45 | Emergency (ER) | payer MEDICARE, MEDICAID ==
[2018-09-12 11:58] VITALS: BP 124/74
--- NOTE | 2018-09-12 12:39 | ED Physician Documentation ---
History of Present Illness - Stated complaint Stated Complaint: MALE - Chief complaint Chief Complaint: General - History obtained from History obtained from: Patient, Family - History of Present Illness Timing: Today Pain level max: 0 Pain level now: 0 Improved by: nothing Worsened by: nothing - Additonal information Additional information: patient has a chronic indwelling stephens catheter. Family noted that today there was a small amount of blood on the ground and blood around the urethral meatus with a small tear. Review of Systems Constitutional: denies: Fever GI: denies: Vomiting Skin: denies: Rash Musculoskeletal: denies: Neck pain, Back pain PD PAST MEDICAL HISTORY - Past Medical History Cardiovascular: High cholesterol, Coronary artery disease Respiratory: COPD, Sleep apnea, CPAP use Neuro: Alzhiemer's, Dementia Endocrine/Autoimmune: Type 2 diabetes GI: Hiatal hernia : Benign prostate hypertrophy HEENT: None Psych: Depression Musculoskeletal: None Derm: None - Past Surgical History Past Surgical History: Yes General: Bowel surgery Ortho: Other Cardiovascular: Coronary stent - Present Medications Home Medications: Ambulatory Orders Medication Instructions Recorded Confirmed Furosemide 20 mg DAILY 05/13/15 04/21/18 Sertraline [Zoloft] 50 mg PO DAILY 12/07/16 04/21/18 Albuterol Sulfate [Proair Hfa 1 - 2 puffs INH Q4H PRN 04/10/18 04/21/18 Inhaler] Ascorbic Acid 500 mg PO DAILY 04/10/18 04/21/18 Metformin HCl 500 mg DAILY 04/21/18 04/21/18 - Allergies Allergies/Adverse Reactions: Allergies Allergy/AdvReac Type Severity Reaction Status Date / Time No Known Drug Allergies Allergy Verified 09/12/18 11:57 - Social History Does the pt smoke?: Yes Smoking Status: Current every day smoker Does the pt drink ETOH?: No Does the pt have substance abuse?: No - Immunizations Immunizations are current?: No Immunizations: TDAP >10years/unknown - POLST Patient has POLST: No POLST Status: DNR PD ED PE NORMAL - Vitals Vital signs reviewed: Yes - General General: Alert and oriented X 3, No acute distress - HEENT HEENT: Moist mucous membranes - Neck Neck: Supple, no meningeal sign - Male Male : Other (stephens in place, small tear in the meatus. no bleeding.) - Derm Derm: Warm and dry - Neuro Neuro: Alert and oriented X 3 Results - Vitals Vitals: Vital Signs - 24 hr 09/12/18 11:55 Temperature 36.9 C Heart Rate 67 Respiratory 16 Rate Blood Pressure 124/74 O2 Saturation 98 Oxygen O2 Source Room air PD MEDICAL DECISION MAKING - ED course Complexity details: considered differential, d/w patient, d/w family ED course: Patient is an 88-year-old male with a chronic indwelling Stephens with a small urethral tear. Catheter is draining well and will be left in place. There is no repair needed. Patient and family counseled regarding signs and symptoms for which I believe and urgent re-evaluation would be necessary. Patient with good understanding of and agreement to plan and is comfortable going home at this time This document was made in part using voice recognition software. While efforts are made to proofread this document, sound alike and grammatical errors may occur. Clear urine is draining into the bag Departure - Departure Disposition: 01 Home, Self Care Clinical Impression: Stephens catheter problem Qualifiers: Encounter type: initial encounter Qualified Code(s): T83.9XXA - Unspecified complication of genitourinary prosthetic device, implant and graft, initial encounter Condition: Good Instructions: ED Catheter Care Stephens Follow-Up: Magdy Hester MD [Primary Care Provider] - Within 1 week Comments: Follow up with your doctor for further care.
== END 2018-09-12 12:55 | disposition home or self-care (01) ==
LOC: ED 11:45
DX: T83.091A Other mechanical complication of indwelling urethral catheter, initial encounter (principal); I25.10 Atherosclerotic heart disease of native coronary artery without angina pectoris; E78.00 Pure hypercholesterolemia, unspecified; E11.9 Type 2 diabetes mellitus without complications; G30.9 Alzheimer's disease, unspecified; F02.80 Dementia in other diseases classified elsewhere, unspecified severity, without behavioral disturbance, psychotic disturbance, mood disturbance, and anxiety; F17.200 Nicotine dependence, unspecified, uncomplicated; Z95.5 Presence of coronary angioplasty implant and graft; Z79.84 Long term (current) use of oral hypoglycemic drugs
CPT/HCPCS: 99282; 99283

== ENCOUNTER 2018-09-30 15:58 | Outpatient (CLI) | payer MEDICARE, MEDICAID | END 2018-09-30 15:59 | disposition critical access hospital (66) | LOC: EMS 15:58 | PROVIDERS: ATTEND Surgery | DX: R09.89 Other specified symptoms and signs involving the circulatory and respiratory systems (principal); R50.9 Fever, unspecified | CPT/HCPCS: A0425; A0429 ==

== ENCOUNTER 2018-09-30 16:05 | Emergency (ER) | payer MEDICARE, MEDICAID ==
[2018-09-30] MEDS ORDERED: SODIUM CHLORIDE 0.9% 1,000 ML IV ONE (16:40)
[2018-09-30] MEDS ORDERED: IPRATROPIUM/ALBUTEROL 3 ML NEB INH STA (16:40)
--- NOTE | 2018-09-30 16:43 | ED Physician Documentation ---
History of Present Illness - Stated complaint Stated Complaint: FEVER/CHILLS - Chief complaint Chief Complaint: Resp - History obtained from History obtained from: Patient, Family - History of Present Illness Timing: Today Pain level max: 0 Pain level now: 0 Improved by: nothing Worsened by: nothing - Additonal information Additional information: 88 year old male with COPD. States not feeling well today. Coughing more than usual. no fever. was altered and combative earlier today. Has a stephens in place. No medication changes. no head injuries. Review of Systems Ten Systems: 10 systems reviewed and negative Constitutional: denies: Fever Ears: denies: Ear pain Nose: denies: Rhinorrhea / runny nose, Congestion Throat: denies: Sore throat Cardiac: denies: Chest pain / pressure Respiratory: reports: Cough GI: denies: Abdominal Pain, Vomiting, Diarrhea Skin: denies: Rash Musculoskeletal: denies: Neck pain, Back pain Neurologic: denies: Focal weakness, Numbness, Headache PD PAST MEDICAL HISTORY - Past Medical History Cardiovascular: High cholesterol, Coronary artery disease Respiratory: COPD, Sleep apnea, CPAP use Neuro: Alzhiemer's, Dementia Endocrine/Autoimmune: Type 2 diabetes GI: Hiatal hernia : Benign prostate hypertrophy HEENT: None Psych: Depression Musculoskeletal: None Derm: None - Past Surgical History Past Surgical History: Yes General: Bowel surgery Ortho: Other Cardiovascular: Coronary stent - Present Medications Home Medications: Ambulatory Orders Medication Instructions Recorded Confirmed Furosemide 20 mg DAILY 05/13/15 04/21/18 Sertraline [Zoloft] 50 mg PO DAILY 12/07/16 04/21/18 Albuterol Sulfate [Proair Hfa 1 - 2 puffs INH Q4H PRN 04/10/18 04/21/18 Inhaler] Ascorbic Acid 500 mg PO DAILY 04/10/18 04/21/18 Metformin HCl 500 mg DAILY 04/21/18 04/21/18 Albuterol Sulf [Ventolin Hfa 1 - 2 puffs INH Q4HR PRN #1 inhaler 09/30/18 Inhaler] Cefdinir 300 mg PO BID #20 capsule 09/30/18 - Allergies Allergies/Adverse Reactions: Allergies Allergy/AdvReac Type Severity Reaction Status Date / Time No Known Drug Allergies Allergy Verified 09/30/18 16:15 - Social History Does the pt smoke?: Yes Smoking Status: Current every day smoker Does the pt drink ETOH?: No Does the pt have substance abuse?: No - Immunizations Immunizations are current?: No Immunizations: TDAP >10years/unknown - POLST Patient has POLST: No POLST Status: DNR PD ED PE NORMAL - Vitals Vital signs reviewed: Yes - General General: Alert and oriented X 3, No acute distress - HEENT HEENT: Moist mucous membranes - Neck Neck: Supple, no meningeal sign - Cardiac Cardiac: RRR, Strong equal pulses - Respiratory Respiratory: No respiratory distress, Other (crackles B) - Abdomen Abdomen: Soft, Non tender, Non distended - Back Back: No spinal TTP - Derm Derm: Warm and dry, No rash - Extremities Extremities: Other (1+ B LE edema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 Results - Vitals Vitals: Vital Signs - 24 hr 09/30/18 09/30/18 09/30/18 16:06 16:30 17:00 Temperature 37.2 C Heart Rate 83 76 73 Respiratory 18 18 Rate Blood Pressure 185/112 H 145/99 H 146/68 H O2 Saturation 94 95 94 09/30/18 09/30/18 09/30/18 17:05 18:00 18:30 Temperature Heart Rate 69 72 73 Respiratory 16 17 18 Rate Blood Pressure 111/59 L 120/55 L O2 Saturation 95 97 09/30/18 19:24 Temperature 37.8 C H Heart Rate 75 Respiratory 20 Rate Blood Pressure 104/73 O2 Saturation 94 Oxygen O2 Source Nasal cannula - EKG (time done) 1700 Rate: Rate (enter#) (1700) Rhythm: NSR [place]: LAD Intervals: Prolonged GA QRS: Normal Ischemia: Normal ST segments - Labs Labs: Laboratory Tests 09/30/18 09/30/18 09/30/18 16:48 16:48 17:25 WBC 14.8 H RBC 4.77 Hgb 13.1 L Hct 40.1 L MCV 84.0 MCH 27.4 MCHC 32.6 RDW 15.2 H Plt Count 339 MPV 7.7 Neut # (Auto) 12.7 H Lymph # (Auto) 0.9 L [place] # (Auto) 1.0 Eos # (Auto) 0.2 Baso # (Auto) 0.1 Absolute Nucleated RBC 0.00 Nucleated RBC % 0.0 Sodium Potassium Chloride Carbon Dioxide Anion Gap BUN Creatinine Estimated GFR (MDRD) Glucose Lactic Acid 1.3 Calcium Total Bilirubin AST ALT Alkaline Phosphatase Total Protein Albumin Globulin Albumin/Globulin Ratio Lipase Urine Color YELLOW Urine Clarity HAZY Urine pH 5.5 Ur Specific [place] 1.015 Urine Protein NEGATIVE Urine Glucose (UA) NEGATIVE Urine Ketones NEGATIVE Urine Occult Blood SMALL H Urine Nitrite POSITIVE H Urine Bilirubin NEGATIVE Urine Urobilinogen 0.2 (NORMAL) Ur Leukocyte Esterase LARGE H Urine RBC TNTC H Urine WBC >25 H Urine WBC Clumps PRESENT Ur Squamous Epith Cells NONE SEEN Amorphous Sediment Rare Urine Bacteria Many H Ur Microscopic Review INDICATED Urine Culture Comments INDICATED 09/30/18 17:45 WBC RBC Hgb Hct MCV MCH MCHC RDW Plt Count MPV Neut # (Auto) Lymph # (Auto) [place] # (Auto) Eos # (Auto) Baso # (Auto) Absolute Nucleated RBC Nucleated RBC % Sodium 137 Potassium 4.1 Chloride 98 L Carbon Dioxide 27 Anion Gap 12.0 BUN 33 H Creatinine 1.2 Estimated GFR (MDRD) 57 L Glucose 140 H Lactic Acid Calcium 8.6 Total Bilirubin 0.8 AST 16 ALT < 10 L Alkaline Phosphatase 133 H Total Protein 7.3 Albumin 3.7 Globulin 3.6 Albumin/Globulin Ratio 1.0 Lipase 24 Urine Color Urine Clarity Urine pH Ur Specific [place] Urine Protein Urine Glucose (UA) Urine Ketones Urine Occult Blood Urine Nitrite Urine Bilirubin Urine Urobilinogen Ur Leukocyte Esterase Urine RBC Urine WBC Urine WBC Clumps Ur Squamous Epith Cells Amorphous Sediment Urine Bacteria Ur Microscopic Review Urine Culture Comments - Rads (name of study) cxr Radiology: Prelim report reviewed, EMP read contemporaneously, See rad report (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 No pleural effusion or pneumothorax. No definite new or acute findings are seen. ) PD MEDICAL DECISION MAKING - ED course Complexity details: reviewed results, re-evaluated patient, considered differential, d/w patient, d/w family ED course: Patient is an 88-year-old male who presents to the emergency department with altered mental status earlier today that is now resolved. No focal neurological deficits. Does appear to have a UTI with an elevated white blood cell count. Will place on antibiotics for this. He does have a chronic indwelling Stephens. He feels better after nebulizer treatment and will prescribe an inhaler for home. He is at his normal mental baseline at this time, family is comfortable taking him home and he does not want to be hospitalized. No evidence of sepsis. Patient and family counseled regarding signs and symptoms for which I believe and urgent re-evaluation would be necessary. Patient with good understanding of and agreement to plan and is comfortable going home at this time This document was made in part using voice recognition software. While efforts are made to proofread this document, sound alike and grammatical errors may occur. Departure - Departure Disposition: Home, Self Care Clinical Impression: UTI (urinary tract infection) Qualifiers: Urinary tract infection type: catheter-associated UTI Indwelling urinary catheter type: indwelling urethral catheter Encounter type: initial encounter Qualified Code(s): T83.511A - Infection and inflammatory reaction due to indwelling urethral catheter, initial encounter COPD (chronic obstructive pulmonary disease) Qualifiers: COPD type: unspecified COPD Qualified Code(s): J44.9 - Chronic obstructive pulmonary disease, unspecified Condition: Good Instructions: ED COPD Flare, ED UTI Cystitis Male Follow-Up: Magdy Hester MD [Primary Care Provider] - Within 1 week Prescriptions: Albuterol Sulf [Ventolin Hfa Inhaler] 1 - 2 puffs INH Q4HR PRN #1 inhaler PRN Reason: Shortness Of Air/Wheezing Cefdinir 300 mg PO BID #20 capsule Comments: Return if you worsen. Use the medications as prescribed. Take all antibiotics until gone. Discharge Date/Time: 09/30/18 19:25
[2018-09-30 16:52] LABS: BASOPHILS # (AUTO) 0.1 10^3/uL (0.0-0.1); BASOPHILS % (AUTO) 0.9 %; EOSINOPHILS # (AUTO) 0.2 10^3/uL (0.0-0.7); HGB - HEMOGLOBIN 13.1 g/dL (14.0-18.0); LYMPHOCYTES # (AUTO) 0.9 10^3/uL (1.5-3.5); MEAN CORPUSCULAR HEMOGLOBIN 27.4 pg (27.0-31.0); MEAN CORPUSCULAR HGB CONC 32.6 g/dL (32.0-36.0); MEAN PLATELET VOLUME 7.7 fL (7.4-11.4); MONOCYTES % (AUTO) 6.4 %; NEUTROPHILS # (AUTO) 12.7 10^3/uL (1.5-6.6); NEUTROPHILS % (AUTO) 85.7 %; PLT - PLATELET COUNT 339 10^3/uL (130-450); RED BLOOD COUNT 4.77 10^6/uL (4.70-6.10); RED CELL DISTRIBUTION WIDTH 15.2 % (12.0-15.0); WHITE BLOOD COUNT 14.8 x10^3/uL (4.8-10.8)
[2018-09-30 17:34] LABS: BILIRUBIN,URINE NEGATIVE (NEGATIVE); GLUCOSE, URINE (UA) NEGATIVE (NEGATIVE); KETONES,URINE (UA) NEGATIVE (NEGATIVE); LEUKOCYTE ESTERASE, URINE LARGE (NEGATIVE); NITRITE,URINE POSITIVE (NEGATIVE); OCCULT BLOOD,URINE SMALL (NEGATIVE); PH,URINE 5.5 PH (5.0-7.5); PROTEIN,URINE NEGATIVE (NEGATIVE); UROBILINOGEN,URINE 0.2 (NORMAL) E.U./dL (NORMAL)
[2018-09-30 17:35] LABS: CLARITY,URINE HAZY (CLEAR)
--- NOTE | 2018-09-30 17:35 | XRAY Report ---
Reason: cough Procedure Date: 09/30/2018 Accession Number: [id number] / [id number] Procedure: XR - Chest 1 View X-Ray CPT Code: 83884 FULL RESULT: EXAM: CHEST RADIOGRAPHY EXAM DATE: 09/30/2018 04:52 PM. CLINICAL HISTORY: Cough. COMPARISON: CHEST 1 VIEW 04/21/2018 6:49 PM. TECHNIQUE: 1 view. FINDINGS: Large calcified pleural plaques again noted bilaterally. No pleural effusion or pneumothorax. No definite new or acute findings are seen. Normal heart size. 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 No pleural effusion or pneumothorax. No definite new or acute findings are seen. RADIA
[2018-09-30 17:43] LABS: AMORPHOUS SEDIMENT,UR Rare /LPF; BACTERIA,URINE Many /HPF (None Seen); RBC,URINE TNTC /HPF (0-5); SQUAMOUS EPITHELIAL CELL,UR NONE SEEN (<= Few); WBC CLUMPS,URINE PRESENT
[2018-09-30 18:03] LABS: ALBUMIN 3.7 g/dL (3.2-5.5); ALKALINE PHOSPHATASE 133 IU/L (42-121); ALT ALANINE AMINOTRANSFERASE < 10 IU/L (10-60); AST ASPARTATE AMINOTRANSFERASE 16 IU/L (10-42); BILIRUBIN,TOTAL 0.8 mg/dL (0.2-1.0); BUN - BLOOD UREA NITROGEN 33 mg/dL (6-20); CALCIUM 8.6 mg/dL (8.5-10.3); CARBON DIOXIDE - CO2 27 mmol/L (21-32); CHLORIDE 98 mmol/L (101-111); CREATININE 1.2 mg/dL (0.6-1.2); GFR - MDRD 57 (>89); GLUCOSE 140 mg/dL (70-100); LIPASE 24 U/L (22-51); SODIUM 137 mmol/L (135-145); TOTAL PROTEIN 7.3 g/dL (6.7-8.2)
[2018-09-30] MEDS ORDERED: cefTRIAXone 1 GM VIAL IVP STA (18:49)
[2018-09-30 19:25] VITALS: BP 104/73
== END 2018-09-30 19:25 | disposition home or self-care (01) ==
LOC: EDUNIT# → ED 16:05
DX: T83.511A Infection and inflammatory reaction due to indwelling urethral catheter, initial encounter (principal); J44.9 Chronic obstructive pulmonary disease, unspecified; D72.829 Elevated white blood cell count, unspecified; I25.10 Atherosclerotic heart disease of native coronary artery without angina pectoris; E78.00 Pure hypercholesterolemia, unspecified; E11.9 Type 2 diabetes mellitus without complications; Z79.84 Long term (current) use of oral hypoglycemic drugs; G30.9 Alzheimer's disease, unspecified; F02.80 Dementia in other diseases classified elsewhere, unspecified severity, without behavioral disturbance, psychotic disturbance, mood disturbance, and anxiety; Z95.5 Presence of coronary angioplasty implant and graft; F17.200 Nicotine dependence, unspecified, uncomplicated
CPT/HCPCS: 36415; 71045; 80053; 81001; 81003; 83605; 83690; 84484; 85025; 87086; 87181; 93005; 94640; 96361; 96374; 99283; 99284

== ENCOUNTER 2018-10-01 16:55 | Emergency (ER) | payer MEDICARE, MEDICAID ==
[2018-10-01] MEDS ORDERED: LIDOCAINE 2% URO-JET 5 ML SYRINGE UR STA (17:27)
--- NOTE | 2018-10-01 17:29 | ED Physician Documentation ---
History of Present Illness - Stated complaint Stated Complaint: MALE /CATHETER ISSUES - History obtained from History obtained from: Patient, Family - History of Present Illness Timing: Today Pain level max: 0 Pain level now: 0 Improved by: nothing Worsened by: nothing - Additonal information Additional information: chronic indwelling stephens catheter. States leaking urine today. No abd pain. no fevers. currently on abx for fever and UTI Review of Systems Constitutional: denies: Fever GI: denies: Vomiting PD PAST MEDICAL HISTORY - Past Medical History Cardiovascular: High cholesterol, Coronary artery disease Respiratory: COPD, Sleep apnea, CPAP use Neuro: Alzhiemer's, Dementia Endocrine/Autoimmune: Type 2 diabetes GI: Hiatal hernia : Benign prostate hypertrophy HEENT: None Psych: Depression Musculoskeletal: None Derm: None - Past Surgical History Past Surgical History: Yes General: Bowel surgery Ortho: Other Cardiovascular: Coronary stent - Present Medications Home Medications: Ambulatory Orders Medication Instructions Recorded Confirmed Furosemide 20 mg DAILY 05/13/15 04/21/18 Sertraline [Zoloft] 50 mg PO DAILY 12/07/16 04/21/18 Albuterol Sulfate [Proair Hfa 1 - 2 puffs INH Q4H PRN 04/10/18 04/21/18 Inhaler] Ascorbic Acid 500 mg PO DAILY 04/10/18 04/21/18 Metformin HCl 500 mg DAILY 04/21/18 04/21/18 Albuterol Sulf [Ventolin Hfa 1 - 2 puffs INH Q4HR PRN #1 inhaler 09/30/18 Inhaler] Cefdinir 300 mg PO BID #20 capsule 09/30/18 - Allergies Allergies/Adverse Reactions: Allergies Allergy/AdvReac Type Severity Reaction Status Date / Time No Known Drug Allergies Allergy Verified 10/01/18 17:33 - Social History Does the pt smoke?: Yes Smoking Status: Current every day smoker Does the pt drink ETOH?: No Does the pt have substance abuse?: No - Immunizations Immunizations are current?: No Immunizations: TDAP >10years/unknown - POLST Patient has POLST: No POLST Status: DNR PD ED PE NORMAL - Vitals Vital signs reviewed: Yes - General General: Alert and oriented X 3, No acute distress - HEENT HEENT: Moist mucous membranes - Abdomen Abdomen: Soft, Non tender, Non distended - Derm Derm: Warm and dry - Neuro Neuro: Alert and oriented X 3 - Psych Psych: Normal mood, Normal affect Results - Vitals Vitals: Vital Signs - 24 hr 10/01/18 17:06 Temperature 36.6 C Heart Rate 60 Respiratory 20 Rate Blood Pressure 111/69 O2 Saturation 96 Oxygen O2 Source Room air PD MEDICAL DECISION MAKING - ED course Complexity details: reviewed old records, considered differential, d/w patient, d/w family ED course: 88-year-old male with chronic indwelling Stephens. Catheter was leaking, this was replaced in the emergency department. Tolerated well. Will follow up with PCP. No other acute issues at this time. Patient and family counseled regarding signs and symptoms for which I believe and urgent re-evaluation would be necessary. Patient with good understanding of and agreement to plan and is comfortable going home at this time This document was made in part using voice recognition software. While efforts are made to proofread this document, sound alike and grammatical errors may occur. Departure - Departure Disposition: 01 Home, Self Care Clinical Impression: Stephens catheter problem Qualifiers: Encounter type: initial encounter Qualified Code(s): T83.9XXA - Unspecified complication of genitourinary prosthetic device, implant and graft, initial encounter Condition: Good Instructions: ED Catheter Care Stephens Follow-Up: Magdy Hester MD [Primary Care Provider] - As Needed Comments: Return if you worsen. Discharge Date/Time: 10/01/18 18:22
[2018-10-01 17:34] VITALS: BP 111/69
== END 2018-10-01 18:22 | disposition home or self-care (01) ==
LOC: ED 16:55
DX: T83.9XXA Unspecified complication of genitourinary prosthetic device, implant and graft, initial encounter (principal); G30.9 Alzheimer's disease, unspecified; F02.80 Dementia in other diseases classified elsewhere, unspecified severity, without behavioral disturbance, psychotic disturbance, mood disturbance, and anxiety; E11.9 Type 2 diabetes mellitus without complications; E78.00 Pure hypercholesterolemia, unspecified; I25.10 Atherosclerotic heart disease of native coronary artery without angina pectoris; F17.200 Nicotine dependence, unspecified, uncomplicated; Z95.5 Presence of coronary angioplasty implant and graft
CPT/HCPCS: 51702; 99282; 99283

== ENCOUNTER 2018-11-30 18:24 | Inpatient (IN) | payer MEDICARE, MEDICAID ==
[2018-11-30 19:33] LABS: BASOPHILS # (AUTO) 0.1 10^3/uL (0.0-0.1); BASOPHILS % (AUTO) 0.6 %; EOSINOPHILS # (AUTO) 0.1 10^3/uL (0.0-0.7); EOSINOPHILS % (AUTO) 0.6 %; HGB - HEMOGLOBIN 12.1 g/dL (14.0-18.0); LYMPHOCYTES % (AUTO) 5.7 %; MEAN CORPUSCULAR HEMOGLOBIN 27.7 pg (27.0-31.0); MEAN CORPUSCULAR VOLUME 83.9 fL (80.0-94.0); MEAN PLATELET VOLUME 7.7 fL (7.4-11.4); MONOCYTES % (AUTO) 5.4 %; NEUTROPHILS % (AUTO) 87.7 %; PLT - PLATELET COUNT 316 10^3/uL (130-450); RED BLOOD COUNT 4.37 10^6/uL (4.70-6.10); WHITE BLOOD COUNT 18.2 x10^3/uL (4.8-10.8)
--- NOTE | 2018-11-30 19:33 | ED Physician Documentation ---
PD HPI DYSPNEA - Stated complaint Stated Complaint: MALE - Chief complaint Chief Complaint: Resp - History obtained from History obtained from: Family (daughters) - History of Present Illness Timing - onset: Today (88-year-old gentleman with history of dementia and indwelling Joshua catheter due to prostatic hypertrophy presents with cloudy urine yesterday and today with productive cough and chills today and looking short of breath today. Most of the history is from the daughter because of his dementia.) Review of Systems Unable to obtain: Confused Constitutional: reports: [place] PD PAST MEDICAL HISTORY - Past Medical History Cardiovascular: High cholesterol, Coronary artery disease Respiratory: COPD, Sleep apnea, CPAP use Neuro: Alzhiemer's, Dementia Endocrine/Autoimmune: Type 2 diabetes GI: Hiatal hernia : Benign prostate hypertrophy HEENT: None Psych: Depression Musculoskeletal: None Derm: None - Past Surgical History Past Surgical History: Yes General: Bowel surgery Ortho: Other Cardiovascular: Coronary stent - Present Medications Home Medications: Ambulatory Orders Medication Instructions Recorded Confirmed Furosemide 20 mg DAILY 05/13/15 04/21/18 Sertraline [Zoloft] 50 mg PO DAILY 12/07/16 04/21/18 Albuterol Sulfate [Proair Hfa 1 - 2 puffs INH Q4H PRN 04/10/18 04/21/18 Inhaler] Ascorbic Acid 500 mg PO DAILY 04/10/18 04/21/18 Metformin HCl 500 mg DAILY 04/21/18 04/21/18 Albuterol Sulf [Ventolin Hfa 1 - 2 puffs INH Q4HR PRN #1 inhaler 09/30/18 Inhaler] Cefdinir 300 mg PO BID #20 capsule 09/30/18 - Allergies Allergies/Adverse Reactions: Allergies Allergy/AdvReac Type Severity Reaction Status Date / Time No Known Drug Allergies Allergy Verified 11/30/18 18:28 - Social History Does the pt smoke?: Yes Smoking Status: Current every day smoker Does the pt drink ETOH?: No Does the pt have substance abuse?: No - Immunizations Immunizations are current?: No Immunizations: TDAP >10years/unknown - POLST Patient has POLST: No POLST Status: DNR PD ED PE NORMAL - Vitals Vital signs reviewed: Yes - General General: Other (Alert and oriented to person and place but not time or events) - HEENT HEENT: PERRL, EOMI - Neck Neck: Supple, no meningeal sign, No bony TTP - Cardiac Cardiac: RRR, No murmur - Respiratory Respiratory: No respiratory distress, Other (Very rhonchorous at both bases) - Abdomen Abdomen: Soft, Non tender - Back Back: No CVA TTP, No spinal TTP - Derm Derm: Normal color, Warm and dry - Extremities Extremities: No edema, No calf tenderness / cord - Neuro Neuro: iv technician 2-12 intact Eye Opening: Spontaneous Motor: Obeys Commands Verbal: Confused GCS Score: 14 Results - Vitals Vitals: Vital Signs - 24 hr 11/30/18 18:26 Temperature 36.2 C L Heart Rate 91 Respiratory 20 Rate Blood Pressure 148/75 H O2 Saturation 89 L Oxygen O2 Source Room air Oxygen Flow Rate 2 - Labs Labs: Laboratory Tests 11/30/18 11/30/18 11/30/18 19:22 19:22 19:22 WBC 18.2 H RBC 4.37 L Hgb 12.1 L Hct 36.7 L MCV 83.9 MCH 27.7 MCHC 33.0 RDW 15.0 Plt Count 316 MPV 7.7 Neut # (Auto) 16.0 H Lymph # (Auto) 1.0 L [place] # (Auto) 1.0 Eos # (Auto) 0.1 Baso # (Auto) 0.1 Absolute Nucleated RBC 0.00 Nucleated RBC % 0.0 Sodium Potassium Chloride Carbon Dioxide Anion Gap BUN Creatinine Estimated GFR (MDRD) Glucose Lactic Acid 1.5 Calcium Total Bilirubin AST ALT Alkaline Phosphatase Total Protein Albumin Globulin Albumin/Globulin Ratio Lipase Urine Color YELLOW Urine Clarity CLOUDY Urine pH 5.0 Ur Specific [place] 1.020 Urine Protein NEGATIVE Urine Glucose (UA) NEGATIVE Urine Ketones NEGATIVE Urine Occult Blood LARGE H Urine Nitrite POSITIVE H Urine Bilirubin NEGATIVE Urine Urobilinogen 0.2 (NORMAL) Ur Leukocyte Esterase LARGE H Urine RBC 11-25 H Urine WBC >25 H Ur Squamous Epith Cells FEW Squamous Urine Bacteria Many H Ur Microscopic Review INDICATED Urine Culture Comments INDICATED 11/30/18 20:01 WBC RBC Hgb Hct MCV MCH MCHC RDW Plt Count MPV Neut # (Auto) Lymph # (Auto) [place] # (Auto) Eos # (Auto) Baso # (Auto) Absolute Nucleated RBC Nucleated RBC % Sodium 136 Potassium 4.0 Chloride 99 L Carbon Dioxide 27 Anion Gap 10.0 BUN 44 H Creatinine 1.2 Estimated GFR (MDRD) 57 L Glucose 148 H Lactic Acid Calcium 8.4 L Total Bilirubin 0.4 AST 14 ALT < 10 L Alkaline Phosphatase 109 Total Protein 7.3 Albumin 3.4 Globulin 3.9 Albumin/Globulin Ratio 0.9 L Lipase 27 Urine Color Urine Clarity Urine pH Ur Specific [place] Urine Protein Urine Glucose (UA) Urine Ketones Urine Occult Blood Urine Nitrite Urine Bilirubin Urine Urobilinogen Ur Leukocyte Esterase Urine RBC Urine WBC Ur Squamous Epith Cells Urine Bacteria Ur Microscopic Review Urine Culture Comments - Rads (name of study) 1v chest Radiology: EMP read contemporaneously (calcified pleural plaques without convincing evidence of acute pneumonia.) PD MEDICAL DECISION MAKING - ED course ED course: This is an 88-year-old gentleman with dementia presents with Rigors today associated with cloudy urine and a cough. He is modestly hypoxemic on arrival. He does not have a fever here but he does have a white count of 18,000 and a positive urinalysis. His chest x-ray is somewhat difficult to interpret in the setting of underlying significant lung disease that is chronic but the hypoxemia is a new finding. He was administered Rocephin as well as steroids and a breathing treatment. Spoke with Dr. Omalley for admission 8:44 PM. Departure - Departure Disposition: 66 [facility] DC/Xfer Clinical Impression: CKD (chronic kidney disease) stage 3, GFR 30-59 ml/min UTI (urinary tract infection) Qualifiers: Urinary tract infection type: catheter-associated UTI Indwelling urinary catheter type: indwelling urethral catheter Encounter type: initial encounter Qualified Code(s): T83.511A - Infection and inflammatory reaction due to indwelling urethral catheter, initial encounter Leukocytosis Qualifiers: Leukocytosis type: leukemoid reaction Qualified Code(s): D72.823 - Leukemoid reaction COPD (chronic obstructive pulmonary disease) Qualifiers: COPD type: COPD with acute exacerbation Qualified Code(s): J44.1 - Chronic obstructive pulmonary disease with (acute) exacerbation Condition: Stable
[2018-11-30 19:44] LABS: BILIRUBIN,URINE NEGATIVE (NEGATIVE); GLUCOSE, URINE (UA) NEGATIVE (NEGATIVE); KETONES,URINE (UA) NEGATIVE (NEGATIVE); LEUKOCYTE ESTERASE, URINE LARGE (NEGATIVE); NITRITE,URINE POSITIVE (NEGATIVE); OCCULT BLOOD,URINE LARGE (NEGATIVE); PROTEIN,URINE NEGATIVE (NEGATIVE); UROBILINOGEN,URINE 0.2 (NORMAL) E.U./dL (NORMAL)
[2018-11-30 19:45] LABS: CLARITY,URINE CLOUDY (CLEAR)
[2018-11-30 19:51] LABS: BACTERIA,URINE Many /HPF (None Seen); SQUAMOUS EPITHELIAL CELL,UR FEW Squamous (<= Few)
--- NOTE | 2018-11-30 20:13 | XRAY Report ---
Reason: cough chills Procedure Date: 11/30/2018 Accession Number: [id number] / [id number] Procedure: XR - Chest 1 View X-Ray CPT Code: 55469 FULL RESULT: EXAM: CHEST RADIOGRAPHY EXAM DATE: 11/30/2018 07:42 PM. CLINICAL HISTORY: Shortness of breath. Nonproductive cough. COMPARISON: CHEST 1 VIEW 09/30/2018 4:42 PM CHEST W/O 04/09/2018 5:38 PM CHEST 1 VIEW 04/21/2018 6:49 PM. TECHNIQUE: 1 view. FINDINGS: Lungs/Pleura: Similar appearance of bulky calcified bilateral pleural plaques and known right basilar bullae. No new focal opacity. No pleural effusion or pneumothorax. Mediastinum: Heart size is normal. The aorta is mildly tortuous and contains atherosclerotic calcifications, as before. Other: None. IMPRESSION: Extensive bulky calcified bilateral pleural plaques, as before. No convincing acute cardiopulmonary abnormality. RADIA
[2018-11-30] MEDS ORDERED: SODIUM CHLORIDE 0.9% 1,000 ML IV ONE (20:21)
[2018-11-30] MEDS ORDERED: cefTRIAXone 1 GM in SODIUM CHLORIDE 0.9% MINIBAG 100 ML IV STA (20:21)
[2018-11-30 20:29] LABS: ALBUMIN 3.4 g/dL (3.2-5.5); ALBUMIN/GLOBULIN RATIO 0.9 (1.0-2.2); ALKALINE PHOSPHATASE 109 IU/L (42-121); ALT ALANINE AMINOTRANSFERASE < 10 IU/L (10-60); AST ASPARTATE AMINOTRANSFERASE 14 IU/L (10-42); BILIRUBIN,TOTAL 0.4 mg/dL (0.2-1.0); BUN - BLOOD UREA NITROGEN 44 mg/dL (6-20); CALCIUM 8.4 mg/dL (8.5-10.3); CARBON DIOXIDE - CO2 27 mmol/L (21-32); CHLORIDE 99 mmol/L (101-111); CREATININE 1.2 mg/dL (0.6-1.2); GFR - MDRD 57 (>89); GLUCOSE 148 mg/dL (70-100); LIPASE 27 U/L (22-51); SODIUM 136 mmol/L (135-145); TOTAL PROTEIN 7.3 g/dL (6.7-8.2)
[2018-11-30] MEDS ORDERED: methylPREDNISolone SUCCINATE 125 MG/2 ML VIAL IVP STA (20:36)
[2018-11-30] MEDS ORDERED: IPRATROPIUM/ALBUTEROL 3 ML NEB INH STA (20:36)
[2018-11-30] MEDS ORDERED: ACETAMINOPHEN 325 MG TABLET PO PRN (20:57)
[2018-11-30] MEDS ORDERED: ONDANSETRON 4 MG/2 ML VIAL IVP PRN (20:57)
[2018-11-30] MEDS ORDERED: IOVERSOL 320 100 ML VIAL IVP ONE ×2 (22:03→22:43)
[2018-11-30] MEDS: HEPARIN 5,000 UNIT/ML VIAL SUBQ SCH (22:35)
[2018-11-30 22:36] LABS: HB2 TOTAL 11.8 g/dL; HEMOGLOBIN A1C 0.52 g/dL; HEMOGLOBIN A1C % 6.2 % (4.6-6.2)
--- NOTE | 2018-11-30 22:52 | HISTORY & PHYSICAL EXAMINATION ---
Chief Complaint - Chief Complaint Chief Complaint: SOB with cough, rigors, weakness History of Present Illness - Admitted From Admitted From:: ED - History Obtained From Records Reviewed: yes History obtained from: family Exam Limitations: yes due to dementia - History of Present Illness HPI Comment/Other: 88-year-old gentleman with history of dementia and indwelling Stephens catheter due to prostatic hypertrophy presents with cloudy urine yesterday and today with productive cough and chills today and looking short of breath today. Most of the history is from the daughter because of his dementia. 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 Ucx pending. IV abx and solumderol given ED. VSS with no fevers, BP 148/75. Patient is a chronic smoker who continues to smoke despite restrictive lung disease. CTA ordered to r/o PE. Family states recent swallowing issues with coughing post-prandial concerning for aspiration. History - Past Medical History Cardiovascular: reports: High cholesterol, Coronary artery disease Respiratory: reports: COPD, Sleep apnea, CPAP use Neuro: reports: Alzhiemer's, Dementia Endocrine/Autoimmune: reports: Type 2 diabetes GI: reports: Hiatal hernia : reports: Benign prostate hypertrophy HEENT: reports: None Psych: reports: Depression Musculoskeletal: reports: None Derm: reports: None MRSA Hx?: No - Past Surgical History General: reports: Bowel surgery Ortho: reports: Other Cardiovascular: reports: Coronary stent - Family & Social History Family History: Mother: , Father: , Sister: , Brother: Family History Comment/Other: No family history of diabetes, cancer, heart disease. He stated that all his family members are healthy and of natural causes. Social History Notes: The patient is originally from [place] but has been living in the [place] for most of his life. The patient was to his for over 60 years she just a couple of months ago. He lives with 1 of his daughters in [place], [place]. He is other daughter lives just 10 minutes away. He uses a walker to get around at home. He has 3 children in total 1 of whom is a physician. He was formerly in the [employer]. The patient has been smoking since his mid to late 20s and smoked half a pack to a pack a day for most of his life. He recently cut back to just 5-6 cigarettes a day. He denies any alcohol use or any illicit drug use. - Substance History Use: Uses substance without health or social issues: Tobacco - POLST Patient has POLST: No POLST Status: DNR Meds/Allgy - Home Medications Home Medications: Ambulatory Orders Medication Instructions Recorded Confirmed Furosemide 20 mg DAILY 05/13/15 04/21/18 Sertraline [Zoloft] 50 mg PO DAILY 12/07/16 04/21/18 Albuterol Sulfate [Proair Hfa 1 - 2 puffs INH Q4H PRN 04/10/18 04/21/18 Inhaler] Ascorbic Acid 500 mg PO DAILY 04/10/18 04/21/18 Metformin HCl 500 mg DAILY 04/21/18 04/21/18 Albuterol Sulf [Ventolin Hfa 1 - 2 puffs INH Q4HR PRN #1 inhaler 09/30/18 Inhaler] Cefdinir 300 mg PO BID #20 capsule 09/30/18 - Allergies Allergies/Adverse Reactions: Allergies Allergy/AdvReac Type Severity Reaction Status Date / Time No Known Drug Allergies Allergy Verified 11/30/18 18:28 Review of Systems - Constitutional Constitutional: reports: Fatigue, Fever, Chills, Malaise, Weakness - Ears, Nose & Throat Ears, Nose & Throat: denies: Tinnitus, Vertigo - Cardiovascular Cariovascular: denies: Irregular heart rate, Palpitations, Chest pain, Edema, Syncope - Respiratory Respiratory: reports: Cough, Sputum production, SOB at rest. denies: Wheezing, Hemoptysis, Pleuritic pain - Gastrointestinal Gastrointestinal: denies: Abdominal pain, Abdominal distention, Constipation, Bl oody stools, Nausea, Vomiting - Genitourinary Genitourinary: denies: Dysuria, Frequency, Hematuria - Musculoskeletal Musculoskeletal: denies: Muscle pain - Integumentary Integumentary: denies: Rash - Neurological Neurological: denies: General weakness, Numbness - Psychiatric Psychiatric: denies: Depression, Anxiety - Endocrine Endocrine: denies: Polyuria, Polydypsia - All Other Systems All Other Systems: reports: Reviewed and negative Prior Level of Functionality: Patient ambulatory with walker but has not walked due to weakness in past day or so Exam - Vital Signs Reviewed Vital Signs: Yes Vital Signs: Vital Signs x48h Temp Pulse Pulse Resp BP BP Pulse Ox 11/30/18 22:05 37.3 C 74 19 125/58 L 97 11/30/18 21:23 89 150/67 H 91 L 11/30/18 20:47 78 20 11/30/18 18:26 36.2 C L 91 20 148/75 H 89 L VSS. Afebrile on 2L NC, 148/75 - Physical Exam General Appearance: positive: Alert, Mild distress Eyes Bilateral: positive: PERRL, EOMI ENT: positive: Pharynx nml, No signs of dehydration Neck: positive: Nml inspection, Thyroid nml, No JVD, Trachea midline. negative: Thyromegaly, Carotid bruit Respiratory: positive: Chest non-tender, No respiratory distress, Breath sounds nml, Rhonchi Cardiovascular: positive: Regular rate & rhythm, No murmur, No gallop. negative : Irregularly irregular Abdomen: positive: Non-tender, No organomegaly, Nml bowel sounds, No distention. negative: Tenderness Skin: positive: Color nml, No rash, Warm Neurologic/Psychiatric: positive: Disoriented to person. negative: Facial droop, Slurred/abnml speech, Depressed mood/affect Sepsis Event Note (H) - Evaluation Current Stage of Sepsis: Sepsis Possible source of Sepsis: positive: Pulmonary Confirmed Source and Organism (if known) of Sepsis: Likely aspiration vs CAP. CTA to follow. UTI POA also Conclusion/Plan - Problem List (1) Sepsis Conclusion/Plan: Likely due to asp vs CAP, LA 1.5, WBC 18.2, unclear if labs were taken before or after IV solumedrol? Would continue with early goal directed tx with IV cl indamycin as patient may be aspiration, due to chronic indwelling stephens, may be contaminant was changed yesterday, and appears cloudy. Ucx, blood cultures to follow. Procalcitonin maybe of use. 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 Would continue with nebs, pulmicort, pulm toilet, may need flutter or acapella for mucus clearance. Added singuliar to regimen. Has high risk for post-obstructive PNA for which IV clindamycin was started. CTA shows LLL opacity with possible aspiration PNA likely explaining hypoxemia. Evidence of asbestosis-related pleural disease is seen with an improved subpleural 9 mm nodule. (3) Dementia Conclusion/Plan: Unclear type, no behavioral d/o noted, would monitor with aspiration precautions Qualifiers: Dementia type: unspecified type Dementia behavioral disturbance: without behavioral disturbance Qualified Code(s): F03.90 - Unspecified dementia without behavioral disturbance (4) UTI (urinary tract infection) Conclusion/Plan: Present on Admission. Hx chronic indwelling FC. Patient w/ recent change of FC on 11/29/17, pyuria on UA may be contaminant, UCx to follow. Qualifiers: Urinary tract infection type: catheter-associated UTI Indwelling urinary catheter type: indwelling urethral catheter Encounter type: initial encounter Qualified Code(s): T83.511A - Infection and inflammatory reaction due to indwelling urethral catheter, initial encounter; N39.0 - Urinary tract infection, site not specified (5) Pneumonia Conclusion/Plan: May be aspiration PNA although no PNA seen on CXR, CTA shows LLL opacity with possible aspiration PNA likely explaining hypoxemia. IV clindamycin to start, nebs, already given IV solumedrol, pulm toilet. Resp viral panel to follow with a Rapid Grp A strept neg. Qualifiers: Pneumonia type: aspiration pneumonia Aspiration pneumonia type: unspecified Laterality: left Lung location: lower lobe of lung Qualified Code(s): J69.0 - Pneumonitis due to inhalation of food and vomit (6) COPD (chronic obstructive pulmonary disease) Conclusion/Plan: Non-O2 dependent. However, currently on 2L NC due to aspiration type PNA seen CTA, no PE. Place on duonebs, restart spiriva, pulmicort nebs plus spirometry and pulm toileting, Acapella flutter valve to assist with clearance of mucus to avoid mucus plugging. Continue with current med mgmt. Qualifiers: COPD type: COPD with acute exacerbation Qualified Code(s): J44.1 - Chronic obstructive pulmonary disease with (acute) exacerbation - Lab Results Fish Bones: 12/01/18 05:04 12/01/18 05:04 - Diagnostic Imaging Results Diagnostic Imaging Results: positive: Final report reviewed Diagnostic Imaging Results Comments: CTA and CXR reviewed - EKG Results EKG Interpreted Independently: No EKG Comparison: Other (Telemetry shows SR with 1st AVB.) Core Measures - Anticipated LOS I expect patient to be DC'd or transferred within 96 hours.: Yes - DVT/VTE - Prophylaxis VTE/DVT Device ordered at admit?: No Not Ordered - Medical Reason: Not indicated VTE/DVT Prophylaxis med ordered at admit?: Yes - Stroke - Rehab Assessment Rehab services assessment to be ordered?: No - AMI - Statin at Admit Aspirin Prescribed on Admit: Yes
--- NOTE | 2018-11-30 23:09 | CT Report ---
Reason: Acute hypoxemia r/o PE vs aspirtation PNA Procedure Date: 11/30/2018 Accession Number: [id number] / [id number] Procedure: CT - Chest Angio (PE) CPT Code: FULL RESULT: EXAM: CT ANGIOGRAM CHEST EXAM DATE: 11/30/2018 10:41 PM. CLINICAL HISTORY: Acute hypoxemia. Rule out pulmonary embolism versus aspiration pneumonia. COMPARISON: CHEST W/O 04/09/2018 5:38 PM ABDOMEN/PELVIS W/ 12/15/2014 5:43 PM. TECHNIQUE: Routine helical imaging was performed through the chest in the pulmonary arterial phase. IV Contrast: 80 ML OPTIRAY 320. Reconstructions: Coronal 3-D MIP reconstructions.Sagittal and coronal. In accordance with CT protocol optimization, one or more of the following dose reduction techniques were utilized for this exam: automated exposure control, adjustment of mA and/or KV based on patient size, or use of iterative reconstructive technique. FINDINGS: Pulmonary Arteries: Diagnostic quality: Adequate through the segmental arteries. No evidence for acute or chronic pulmonary emboli. RV/LV is within normal limits. There is no interventricular septal bowing. There is no reflux of contrast material in the IVC. Lungs/Pleura: Extensive bilateral calcified pleural plaque again noted. There is a 9 mm right lower lobe subpleural nodule series 5, image 89 which has slightly decreased in size. Peribronchial opacities involving the basal segments of the left lower lobe suspicious for acute airspace disease. There is no pleural effusion or pneumothorax. Mediastinum: Normal heart size. No pericardial effusion. There are coronary artery calcifications. No lymphadenopathy. Small hiatal hernia. Thoracic Aorta: Atherosclerotic aorta without evidence of aneurysm or dissection. Upper Abdomen: There is a hyperdense 1.6 cm lesion at the upper pole of the left kidney which measured 1 cm on the comparison abdomen CT. Other: None. IMPRESSION: 1. No pulmonary embolism. 2. Left lower lobe opacities suspicious for acute air space disease possibly related to aspiration pneumonia. 3. Evidence of asbestos-related pleural disease. 4. Subpleural right lower lobe 9 mm nodule has slightly decreased in size. 5. Interval increase in size of 1.5 cm hyperdense lesion at the upper pole of the left kidney. This may represent a hemorrhagic cyst however further characterization with renal ultrasound and/or MRI recommended. [facility]
[2018-11-30] MEDS: IPRATROPIUM/ALBUTEROL 3 ML NEB INH SCH (23:24)
[2018-12-01] MEDS ORDERED: BENZONATATE 100 MG CAPSULE PO PRN (00:06)
[2018-12-01] MEDS: SODIUM CHLORIDE FLUSH 0.9% 10 ML SYRINGE IVP PRN ×2 (01:09→06:30)
[2018-12-01] MEDS: ACETYLCYSTEINE 500 MG PO SCH ×3 (02:48→21:59)
[2018-12-01 05:50] LABS: BASOPHILS % (AUTO) 0.1 %; HGB - HEMOGLOBIN 11.9 g/dL (14.0-18.0); LYMPHOCYTES # (AUTO) 0.6 10^3/uL (1.5-3.5); MEAN CORPUSCULAR HEMOGLOBIN 27.1 pg (27.0-31.0); MEAN CORPUSCULAR HGB CONC 31.6 g/dL (32.0-36.0); MEAN CORPUSCULAR VOLUME 85.9 fL (80.0-94.0); MEAN PLATELET VOLUME 7.8 fL (7.4-11.4); MONOCYTES # (AUTO) 0.2 10^3/uL (0.0-1.0); MONOCYTES % (AUTO) 1.5 %; NEUTROPHILS # (AUTO) 15.4 10^3/uL (1.5-6.6); NEUTROPHILS % (AUTO) 94.4 %; PLT - PLATELET COUNT 269 10^3/uL (130-450); RED BLOOD COUNT 4.37 10^6/uL (4.70-6.10); RED CELL DISTRIBUTION WIDTH 15.1 % (12.0-15.0); WHITE BLOOD COUNT 16.3 x10^3/uL (4.8-10.8)
[2018-12-01 05:58] LABS: ALBUMIN 3.2 g/dL (3.2-5.5); CALCIUM 8.3 mg/dL (8.5-10.3); CREATININE 1.2 mg/dL (0.6-1.2); PHOSPHORUS 4.2 mg/dL (2.5-4.6)
[2018-12-01] MEDS: CLINDAMYCIN 600 MG/50 ML 50 ML IV SCH ×5 (06:30→23:56)
[2018-12-01] MEDS: HEPARIN 5,000 UNIT/ML VIAL SUBQ SCH ×3 (06:35→22:00)
[2018-12-01] MEDS: PANTOPRAZOLE 40 MG TABLET PO SCH (06:38)
[2018-12-01] MEDS: IPRATROPIUM/ALBUTEROL 3 ML NEB INH SCH ×4 (07:30→19:09)
[2018-12-01] MEDS: BUDESONIDE 0.5 MG/2 ML NEB INH SCH ×2 (07:30→19:09)
[2018-12-01] MEDS: INSULIN ASPART 300 UNIT/3 ML PEN SUBQ SCH ×4 (08:14→20:38)
[2018-12-01] MEDS: ASCORBIC ACID CHEW 500 MG TABLET PO SCH (08:15)
[2018-12-01] MEDS: SERTRALINE 50 MG TABLET PO SCH (08:15)
[2018-12-01] MEDS: POLYETHYLENE GLYCOL 3350 17 GM PACKET PO SCH (08:15)
[2018-12-01] MEDS: guaiFENesin 600 MG TABLET PO SCH ×2 (08:15→22:00)
[2018-12-01] MEDS: ASPIRIN CHEW 81 MG TABLET PO SCH (08:15)
[2018-12-01] MEDS: NICOTINE 14 MG PATCH TOP SCH (08:16)
[2018-12-01] MEDS: SODIUM CHLORIDE FLUSH 0.9% 10 ML SYRINGE IVP SCH ×4 (08:17→23:56)
--- NOTE | 2018-12-01 10:54 | PROVIDER PROGRESS NOTE ---
Subjective - Prog Note Date Prog Note Date: 12/01/18 Prog Note Time: 10:00 - Subjective Pt reports feeling: Improved Subjective: Simba Jones) denies any new symptoms and is easily tearful while his daughter is present. He denies chest pain, headaches, rashes, dizziness, nausea, vomiting, a worsening cough or shortness of breath. Current Medications - Current Medications Current Medications: Active Medications: Acetaminophen (Tylenol) 650 mg PO Q4HR PRN Acetylcysteine (Cetylev) 500 mg PO BID [facility] Albuterol/Ipratropium (Duoneb) 3 ml INH RTQ4H [facility] Ascorbic Acid (Vitamin C) 500 mg PO DAILY [facility] Aspirin ([place] Aspirin) 81 mg PO DAILY [facility]ST[facility] Benzonatate (Tessalon) 100 mg PO TID PRN Budesonide (Pulmicort) 0.5 mg INH RTBID K[facility]STIN Guaifenesin (Mucinex) 600 mg PO BID [facility] Heparin Sodium (Porcine) () 5,000 unit SUBQ Q8HR [facility]ST[facility] Clindamycin Phosphate (Cleocin 600 Mg/50 Ml) 50 mls @ 100 mls/hr IV Q6HR [facility] Insulin Aspart (Novolog) 1 - 9 unit SUBQ 0800,1200,1700,2100 KRISTIN; Protocol Montelukast Sodium (Singulair) 10 mg PO QPM [facility] Nicotine (Nicoderm) 1 patch TOP DAILY [facility] Ondansetron HCl (Zofran Inj) 4 mg IVP Q6HR PRN Pantoprazole Sodium (Protonix) 40 mg PO QDAC [facility] Polyethylene Glycol (Miralax) 17 gm PO DAILY [facility] Sertraline HCl (Zoloft) 50 mg PO DAILY [facility] HOME meds: Furosemide 20 mg PO DAILY 05/13/15 Sertraline [Zoloft] 50 mg PO DAILY 12/07/16 Albuterol Sulfate [Proair Hfa Inhaler] 1 - 2 puffs INH Q4H PRN 04/10/18 Ascorbic Acid 500 mg PO DAILY 04/10/18 Metformin HCl 500 mg PO QDBREAKFAST 04/21/18 Objective - Vital Signs/Intake & Output Reviewed Vital Signs: Yes Vital Signs: Vital Signs x48h Temp Pulse Pulse Pulse Resp BP Pulse Ox 12/01/18 07:48 36.4 C L 60 15 109/46 L 97 12/01/18 07:31 65 18 12/01/18 05:03 36.4 C L 66 18 122/61 98 Intake & Output: Intake & Output 11/28/18 11/29/18 11/30/18 12/01/18 23:59 23:59 23:59 23:59 Intake Total 1100 350 Output Total 300 375 Balance 800 -25 - Objective General Appearance: positive: No acute distress, Alert Eyes Bilateral: positive: PERRL Eyes: OU Conjunctivae pale ENT: positive: Pharynx nml, No signs of dehydration Neck: positive: Thyroid nml, No JVD, Trachea midline Respiratory: positive: Chest non-tender, No respiratory distress, Rhonchi Cardiovascular: positive: Regular rate & rhythm, No gallop, Systolic murmur Peripheral Pulses: 1+ Radial (R), 1+ Radial (L) Abdomen: positive: Non-tender, Nml bowel sounds, Other (rounded, soft) Back: positive: Nml inspection Skin: positive: No rash, Warm, Dry, Pallor Extremities: positive: Non-tender, Full ROM, Pedal edema Neurologic/Psychiatric: positive: Oriented x3, CN's nml (2-12), Motor nml, Se nsation nml, Weakness, Depressed mood/affect (tearful), Other (baseline dementia) Reflexes: Bicep (R): 3+, Bicep (L): 3+ - Lab Results Fish Bones: 12/01/18 05:04 12/01/18 05:04 Other Labs: Lab Results x24hrs 12/01/18 12/01/18 12/01/18 Range/Units 07:44 05:04 05:04 WBC 16.3 H (4.8-10.8) x10^3/uL RBC 4.37 L (4.70-6.10) 10^6/uL Hgb 11.9 L (14.0-18.0) g/dL Hct 37.6 L (42.0-52.0) % MCV 85.9 (80.0-94.0) fL MCH 27.1 (27.0-31.0) pg MCHC 31.6 L (32.0-36.0) g/dL RDW 15.1 H (12.0-15.0) % Plt Count 269 (130-450) 10^3/uL MPV 7.8 (7.4-11.4) fL Neut # (Auto) 15.4 H (1.5-6.6) 10^3/uL Lymph # (Auto) 0.6 L (1.5-3.5) 10^3/uL Ogle # (Auto) 0.2 (0.0-1.0) 10^3/uL Eos # (Auto) 0.0 (0.0-0.7) 10^3/uL Baso # (Auto) 0.0 (0.0-0.1) 10^3/uL Absolute Nucleated RBC 0.00 x10^3/uL Nucleated RBC % 0.0 /100WBC Sodium 137 (135-145) mmol/L Potassium 3.7 (3.5-5.0) mmol/L Chloride 104 (101-111) mmol/L Carbon Dioxide 24 (21-32) mmol/L Anion Gap 9.0 (6-13) BUN 42 H (6-20) mg/dL Creatinine 1.2 (0.6-1.2) mg/dL Estimated GFR (MDRD) 57 L (>89) Glucose 259 H (70-100) mg/dL POC Whole Bld Glucose 283 H (70 - 100) mg/dL Glycated Hemoglobin (4.6-6.2) % Estim Average Glucose (70-100) Lactic Acid (0.5-2.2) mmol/L Calcium 8.3 L (8.5-10.3) mg/dL Phosphorus 4.2 (2.5-4.6) mg/dL Total Bilirubin (0.2-1.0) mg/dL AST (10-42) IU/L ALT (10-60) IU/L Alkaline Phosphatase (42-121) IU/L B-Natriuretic Peptide (5-100) pg/mL Total Protein (6.7-8.2) g/dL Albumin 3.2 (3.2-5.5) g/dL Globulin (2.1-4.2) g/dL Albumin/Globulin Ratio (1.0-2.2) Lipase (22-51) U/L Urine Color Urine Clarity (CLEAR) Urine pH (5.0-7.5) PH Ur Specific [place] (1.002-1.030) Urine Protein (NEGATIVE) mg/dL Urine Glucose (UA) (NEGATIVE) mg/dL Urine Ketones (NEGATIVE) mg/dL Urine Occult Blood (NEGATIVE) Urine Nitrite (NEGATIVE) Urine Bilirubin (NEGATIVE) Urine Urobilinogen (NORMAL) E.U./dL Ur Leukocyte Esterase (NEGATIVE) Urine RBC (0-5) /HPF Urine WBC (0-3) /HPF Ur Squamous Epith Cells (<= Few) Urine Bacteria (None Seen) /HPF Ur Microscopic Review Urine Culture Comments Group A Strep Rapid (Negative) 11/30/18 11/30/18 11/30/18 Range/Units 22:10 22:10 20:01 WBC (4.8-10.8) x10^3/uL RBC (4.70-6.10) 10^6/uL Hgb (14.0-18.0) g/dL Hct (42.0-52.0) % MCV (80.0-94.0) fL MCH (27.0-31.0) pg MCHC (32.0-36.0) g/dL RDW (12.0-15.0) % Plt Count (130-450) 10^3/uL MPV (7.4-11.4) fL Neut # (Auto) (1.5-6.6) 10^3/uL Lymph # (Auto) (1.5-3.5) 10^3/uL Ogle # (Auto) (0.0-1.0) 10^3/uL Eos # (Auto) (0.0-0.7) 10^3/uL Baso # (Auto) (0.0-0.1) 10^3/uL Absolute Nucleated RBC x10^3/uL Nucleated RBC % /100WBC Sodium 136 (135-145) mmol/L Potassium 4.0 (3.5-5.0) mmol/L Chloride 99 L (101-111) mmol/L Carbon Dioxide 27 (21-32) mmol/L Anion Gap 10.0 (6-13) BUN 44 H (6-20) mg/dL Creatinine 1.2 (0.6-1.2) mg/dL Estimated GFR (MDRD) 57 L (>89) Glucose 148 H (70-100) mg/dL POC Whole Bld Glucose (70 - 100) mg/dL Glycated Hemoglobin 6.2 (4.6-6.2) % Estim Average Glucose 131 H (70-100) Lactic Acid (0.5-2.2) mmol/L Calcium 8.4 L (8.5-10.3) mg/dL Phosphorus (2.5-4.6) mg/dL Total Bilirubin 0.4 (0.2-1.0) mg/dL AST 14 (10-42) IU/L ALT < 10 L (10-60) IU/L Alkaline Phosphatase 109 (42-121) IU/L B-Natriuretic Peptide (5-100) pg/mL Total Protein 7.3 (6.7-8.2) g/dL Albumin 3.4 (3.2-5.5) g/dL Globulin 3.9 (2.1-4.2) g/dL Albumin/Globulin Ratio 0.9 L (1.0-2.2) Lipase 27 (22-51) U/L Urine Color Urine Clarity (CLEAR) Urine pH (5.0-7.5) PH Ur Specific [place] (1.002-1.030) Urine Protein (NEGATIVE) mg/dL Urine Glucose (UA) (NEGATIVE) mg/dL Urine Ketones (NEGATIVE) mg/dL Urine Occult Blood (NEGATIVE) Urine Nitrite (NEGATIVE) Urine Bilirubin (NEGATIVE) Urine Urobilinogen (NORMAL) E.U./dL Ur Leukocyte Esterase (NEGATIVE) Urine RBC (0-5) /HPF Urine WBC (0-3) /HPF Ur Squamous Epith Cells (<= Few) Urine Bacteria (None Seen) /HPF Ur Microscopic Review Urine Culture Comments Group A Strep Rapid Negative (Negative) 11/30/18 11/30/18 11/30/18 Range/Units 19:22 19:22 19:22 WBC (4.8-10.8) x10^3/uL RBC (4.70-6.10) 10^6/uL Hgb (14.0-18.0) g/dL Hct (42.0-52.0) % MCV (80.0-94.0) fL MCH (27.0-31.0) pg MCHC (32.0-36.0) g/dL RDW (12.0-15.0) % Plt Count (130-450) 10^3/uL MPV (7.4-11.4) fL Neut # (Auto) (1.5-6.6) 10^3/uL Lymph # (Auto) (1.5-3.5) 10^3/uL Ogle # (Auto) (0.0-1.0) 10^3/uL Eos # (Auto) (0.0-0.7) 10^3/uL Baso # (Auto) (0.0-0.1) 10^3/uL Absolute Nucleated RBC x10^3/uL Nucleated RBC % /100WBC Sodium (135-145) mmol/L Potassium (3.5-5.0) mmol/L Chloride (101-111) mmol/L Carbon Dioxide (21-32) mmol/L Anion Gap (6-13) BUN (6-20) mg/dL Creatinine (0.6-1.2) mg/dL Estimated GFR (MDRD) (>89) Glucose (70-100) mg/dL POC Whole Bld Glucose (70 - 100) mg/dL Glycated Hemoglobin (4.6-6.2) % Estim Average Glucose (70-100) Lactic Acid 1.5 (0.5-2.2) mmol/L Calcium (8.5-10.3) mg/dL Phosphorus (2.5-4.6) mg/dL Total Bilirubin (0.2-1.0) mg/dL AST (10-42) IU/L ALT (10-60) IU/L Alkaline Phosphatase (42-121) IU/L B-Natriuretic Peptide 139 H (5-100) pg/mL Total Protein (6.7-8.2) g/dL Albumin (3.2-5.5) g/dL Globulin (2.1-4.2) g/dL Albumin/Globulin Ratio (1.0-2.2) Lipase (22-51) U/L Urine Color YELLOW Urine Clarity CLOUDY (CLEAR) Urine pH 5.0 (5.0-7.5) PH Ur Specific [place] 1.020 (1.002-1.030) Urine Protein NEGATIVE (NEGATIVE) mg/dL Urine Glucose (UA) NEGATIVE (NEGATIVE) mg/dL Urine Ketones NEGATIVE (NEGATIVE) mg/dL Urine Occult Blood LARGE H (NEGATIVE) Urine Nitrite POSITIVE H (NEGATIVE) Urine Bilirubin NEGATIVE (NEGATIVE) Urine Urobilinogen 0.2 (NORMAL) (NORMAL) E.U./dL Ur Leukocyte Esterase LARGE H (NEGATIVE) Urine RBC 11-25 H (0-5) /HPF Urine WBC >25 H (0-3) /HPF Ur Squamous Epith Cells FEW Squamous (<= Few) Urine Bacteria Many H (None Seen) /HPF Ur Microscopic Review INDICATED Urine Culture Comments INDICATED Group A Strep Rapid (Negative) 11/30/18 Range/Units 19:22 WBC 18.2 H (4.8-10.8) x10^3/uL RBC 4.37 L (4.70-6.10) 10^6/uL Hgb 12.1 L (14.0-18.0) g/dL Hct 36.7 L (42.0-52.0) % MCV 83.9 (80.0-94.0) fL MCH 27.7 (27.0-31.0) pg MCHC 33.0 (32.0-36.0) g/dL RDW 15.0 (12.0-15.0) % Plt Count 316 (130-450) 10^3/uL MPV 7.7 (7.4-11.4) fL Neut # (Auto) 16.0 H (1.5-6.6) 10^3/uL Lymph # (Auto) 1.0 L (1.5-3.5) 10^3/uL Ogle # (Auto) 1.0 (0.0-1.0) 10^3/uL Eos # (Auto) 0.1 (0.0-0.7) 10^3/uL Baso # (Auto) 0.1 (0.0-0.1) 10^3/uL Absolute Nucleated RBC 0.00 x10^3/uL Nucleated RBC % 0.0 /100WBC Sodium (135-145) mmol/L Potassium (3.5-5.0) mmol/L Chloride (101-111) mmol/L Carbon Dioxide (21-32) mmol/L Anion Gap (6-13) BUN (6-20) mg/dL Creatinine (0.6-1.2) mg/dL Estimated GFR (MDRD) (>89) Glucose (70-100) mg/dL POC Whole Bld Glucose (70 - 100) mg/dL Glycated Hemoglobin (4.6-6.2) % Estim Average Glucose (70-100) Lactic Acid (0.5-2.2) mmol/L Calcium (8.5-10.3) mg/dL Phosphorus (2.5-4.6) mg/dL Total Bilirubin (0.2-1.0) mg/dL AST (10-42) IU/L ALT (10-60) IU/L Alkaline Phosphatase (42-121) IU/L B-Natriuretic Peptide (5-100) pg/mL Total Protein (6.7-8.2) g/dL Albumin (3.2-5.5) g/dL Globulin (2.1-4.2) g/dL Albumin/Globulin Ratio (1.0-2.2) Lipase (22-51) U/L Urine Color Urine Clarity (CLEAR) Urine pH (5.0-7.5) PH Ur Specific [place] (1.002-1.030) Urine Protein (NEGATIVE) mg/dL Urine Glucose (UA) (NEGATIVE) mg/dL Urine Ketones (NEGATIVE) mg/dL Urine Occult Blood (NEGATIVE) Urine Nitrite (NEGATIVE) Urine Bilirubin (NEGATIVE) Urine Urobilinogen (NORMAL) E.U./dL Ur Leukocyte Esterase (NEGATIVE) Urine RBC (0-5) /HPF Urine WBC (0-3) /HPF Ur Squamous Epith Cells (<= Few) Urine Bacteria (None Seen) /HPF Ur Microscopic Review Urine Culture Comments Group A Strep Rapid (Negative) ABX Reporting Has patient been on IV antibiotics over the past 48 hours?: Yes Sepsis Event Note (H) - Evaluation Current Stage of Sepsis: Sepsis Possible source of Sepsis: positive: Pulmonary, Genitourinary - Sepsis Criteria Sepsis Criteria: Recorded Heart Rate greater than 90 bpm, Respiratory: Increasing oxygen requirements, WBC count greater than 12,000 or less than 4000, SUPERINTENDENT METERS: altered consciousness (unrelated to primary neuro pathology) Assessment/Plan - Problem List (1) Left lower lobe pneumonia Impression: The patient is at a high risk for post-obstructive pneumonia, and CTA revealed left low lobe opacity with possible aspiration, likely explaining hypoxemia. 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 The patient has progressive dementia and according to his daughter, has been coughing during and after meals. Plan: Continue with nebs, pulmicort, pulm toilet, flutter or acapella for mucus clearance, IV antibiotics, and Singuliar was added to regimen. Qualifiers: Pneumonia type: aspiration pneumonia (2) Complicated UTI (urinary tract infection) Impression: A urine culture is pending after a clean catch was obtained indicating acute infection. The patient has a WBC count of 16.3 today, slight hypotension and has had dysuria. He admits to chronic nocturia. Plan: Continue to await culture results, continue IV clindamycin. 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 Has high risk for post-obstructive PNA for which IV clindamycin was started. CTA shows LLL opacity with possible aspiration PNA likely explaining hypoxemia. Evidence of asbestosis-related pleural disease is seen with an improved subpleural 9 mm nodule. Plan: Continue with nebs, pulmicort, pulm toilet, flutter or acapella for mucus clearance, IV antibiotics, and Singuliar was added to regimen. (4) Dysphagia Impression: The patient has evidence of this as per his daughter who he lives with and admits to the patient coughing after meals. This could be a result of his dementia and may be the source of his left lung infiltrate. Plan: Continue diet, await speech evaluation. Consider Palliative consult on discharge. (5) CKD (chronic kidney disease) stage 3, GFR 30-59 ml/min Impression: The patient is found to have a reduced GFR of 57 on admission that has stayed the same for today. Given his illness, he is likely intra-vascular depleted. The admitting MD prescribed Cetylev to alleviate effects of hepato-renal syndrome. Plan: Continue daily labs. (6) Dementia Impression: The patient has dementia with having a progressively poor memory, more difficulty with ambulation, more difficulty with swallowing and a gradual decline in overall health. He now has evidence of aspiration and is awaiting a swallow study. The idea of Palliative care was brought up, but declined as the patient's daughter had a bad experience with her mother in 2017 with the transition to Palliative care/Hospice and would like some time to speak with her sister first. Plan: Continue to treat illness, consider Palliative care prior to discharge, information has been given. Qualifiers: Dementia type: unspecified type Dementia behavioral disturbance: without behavioral disturbance Qualified Code(s): F03.90 - Unspecified dementia witho ut behavioral disturbance (7) Tobacco dependence Impression: The patient's daughter states that her father has been a life long smoker and he continues to smoke up to 10 cigarettes per day. He lives in her home and he goes into the garage to do this. As a consequence, he has COPD. He has been prescribed a nicotine patch at 14. On exam today he has no plans for quitting, and his daughter attests to him "being too stubborn" to quit, despite him likely requiring supplemental oxygen for this hospital stay. Plan: continue patch, encourage cessation. (8) Diabetes mellitus type 2, controlled Impression: The patient has a hemoglobin A1C of 6%, and is on Metformin at home. Since admission he has been having elevated BSs at 250-400 and this is likely a consequence of his acute illnesses. Plan: Continue SSI, blood sugar checks and consider adding Lantus if early AM sugars remain high.
[2018-12-01] MEDS ORDERED: INSULIN ASPART 300 UNIT/3 ML PEN SUBQ ONE (11:58)
[2018-12-01] MEDS ORDERED: INSULIN ASPART 300 UNIT/3 ML PEN SUBQ SCH (12:31)
[2018-12-01] MEDS: MONTELUKAST 10 MG TABLET PO SCH (22:00)
[2018-12-02 05:37] LABS: BASOPHILS # (AUTO) 0.1 10^3/uL (0.0-0.1); BASOPHILS % (AUTO) 0.6 %; EOSINOPHILS # (AUTO) 0.1 10^3/uL (0.0-0.7); EOSINOPHILS % (AUTO) 0.8 %; HGB - HEMOGLOBIN 10.4 g/dL (14.0-18.0); LYMPHOCYTES # (AUTO) 1.6 10^3/uL (1.5-3.5); LYMPHOCYTES % (AUTO) 14.6 %; MEAN CORPUSCULAR HEMOGLOBIN 28.1 pg (27.0-31.0); MEAN CORPUSCULAR HGB CONC 33.2 g/dL (32.0-36.0); MEAN CORPUSCULAR VOLUME 84.7 fL (80.0-94.0); MEAN PLATELET VOLUME 7.6 fL (7.4-11.4); MONOCYTES % (AUTO) 8.6 %; NEUTROPHILS # (AUTO) 8.4 10^3/uL (1.5-6.6); NEUTROPHILS % (AUTO) 75.4 %; PLT - PLATELET COUNT 246 10^3/uL (130-450); RED BLOOD COUNT 3.71 10^6/uL (4.70-6.10); RED CELL DISTRIBUTION WIDTH 15.1 % (12.0-15.0); WHITE BLOOD COUNT 11.1 x10^3/uL (4.8-10.8)
[2018-12-02] MEDS: SODIUM CHLORIDE FLUSH 0.9% 10 ML SYRINGE IVP PRN (05:40)
[2018-12-02] MEDS: CLINDAMYCIN 600 MG/50 ML 50 ML IV SCH ×4 (05:40→23:36)
[2018-12-02 05:49] LABS: ALBUMIN 2.9 g/dL (3.2-5.5); ALBUMIN/GLOBULIN RATIO 0.9 (1.0-2.2); ALKALINE PHOSPHATASE 78 IU/L (42-121); ALT ALANINE AMINOTRANSFERASE < 10 IU/L (10-60); AST ASPARTATE AMINOTRANSFERASE 12 IU/L (10-42); BILIRUBIN,TOTAL 0.5 mg/dL (0.2-1.0); BUN - BLOOD UREA NITROGEN 50 mg/dL (6-20); CALCIUM 8.2 mg/dL (8.5-10.3); CARBON DIOXIDE - CO2 24 mmol/L (21-32); CHLORIDE 102 mmol/L (101-111); CREATININE 1.5 mg/dL (0.6-1.2); GFR - MDRD 44 (>89); GLUCOSE 122 mg/dL (70-100); MAGNESIUM 2.2 mg/dL (1.7-2.8); SODIUM 135 mmol/L (135-145); TOTAL PROTEIN 6.1 g/dL (6.7-8.2)
[2018-12-02] MEDS: HEPARIN 5,000 UNIT/ML VIAL SUBQ SCH ×2 (06:41→19:26)
[2018-12-02] MEDS: PANTOPRAZOLE 40 MG TABLET PO SCH (06:45)
[2018-12-02] MEDS: IPRATROPIUM/ALBUTEROL 3 ML NEB INH SCH ×4 (07:31→22:02)
[2018-12-02] MEDS: BUDESONIDE 0.5 MG/2 ML NEB INH SCH ×2 (07:31→22:03)
[2018-12-02] MEDS: INSULIN ASPART 300 UNIT/3 ML PEN SUBQ SCH ×4 (07:53→21:49)
[2018-12-02] MEDS: ASCORBIC ACID CHEW 500 MG TABLET PO SCH (08:30)
[2018-12-02] MEDS: POLYETHYLENE GLYCOL 3350 17 GM PACKET PO SCH (08:30)
[2018-12-02] MEDS: SERTRALINE 50 MG TABLET PO SCH (08:30)
[2018-12-02] MEDS: guaiFENesin 600 MG TABLET PO SCH ×2 (08:30→21:49)
[2018-12-02] MEDS: SODIUM CHLORIDE FLUSH 0.9% 10 ML SYRINGE IVP SCH ×3 (08:30→23:40)
[2018-12-02] MEDS: ACETYLCYSTEINE 500 MG PO SCH ×2 (08:30→21:49)
[2018-12-02] MEDS: NICOTINE 14 MG PATCH TOP SCH (08:30)
[2018-12-02] MEDS: ASPIRIN CHEW 81 MG TABLET PO SCH (08:31)
[2018-12-02] MEDS: SODIUM CHLORIDE 0.9% 1,000 ML IV SCH ×2 (08:31→16:01)
[2018-12-02] MEDS ORDERED: SODIUM CHLORIDE 0.9% 500 ML IV ONE (08:39)
--- NOTE | 2018-12-02 13:37 | PROVIDER PROGRESS NOTE ---
Subjective - Prog Note Date Prog Note Date: 12/02/18 - Subjective Pt reports feeling: Improved Subjective: pt report he feel better today, he denies chest pain, fever, chill, SOB. Pt report he did not have problem for his swallow. Current Medications - Current Medications Current Medications: Active Medications Acetaminophen (Tylenol) 650 mg PO Q4HR PRN PRN Reason: Pain 1 to 4 Acetylcysteine (Cetylev) 500 mg PO BID [facility] Stop: 12/02/18 22:59 Last Admin: 12/02/18 08:30 Dose: 500 mg Albuterol/Ipratropium (Duoneb) 3 ml INH RTQ4H [facility] Last Admin: 12/02/18 12:56 Dose: 3 ml Ascorbic Acid (Vitamin C) 500 mg PO DAILY [facility] Last Admin: 12/02/18 08:30 Dose: 500 mg Aspirin ([place] Aspirin) 81 mg PO DAILY [facility] Last Admin: 12/02/18 08:31 Dose: 81 mg Benzonatate (Tessalon) 100 mg PO TID PRN PRN Reason: Cough Budesonide (Pulmicort) 0.5 mg INH RTBID [facility] Last Admin: 12/02/18 07:31 Dose: 0.5 mg Guaifenesin (Mucinex) 600 mg PO BID [facility] Last Admin: 12/02/18 08:30 Dose: 600 mg Heparin Sodium (Porcine) () 5,000 unit SUBQ Q8HR [facility] Last Admin: 12/02/18 06:41 Dose: 5,000 unit Clindamycin Phosphate (Cleocin 600 Mg/50 Ml) 50 mls @ 100 mls/hr IV Q6HR [facility] Last Infusion: 12/02/18 12:00 Dose: Infused Sodium Chloride (Normal Saline 0.9%) 1,000 mls @ 100 mls/hr IV .Q10H [facility] Stop: 12/03/18 03:59 Last Infusion: 12/02/18 12:13 Dose: 0 mls/hr Insulin Aspart (Novolog) 1 - 9 unit SUBQ 0800,1200,1700,2100 [facility]; Protocol Last Admin: 12/02/18 12:10 Dose: 1 unit Montelukast Sodium (Singulair) 10 mg PO QPM [facility] Last Admin: 12/01/18 22:00 Dose: 10 mg Nicotine (Nicoderm) 1 patch TOP DAILY [facility] Last Admin: 12/02/18 08:30 Dose: 1 patch Ondansetron HCl (Zofran Inj) 4 mg IVP Q6HR PRN PRN Reason: Nausea / Vomiting Pantoprazole Sodium (Protonix) 40 mg PO QDAC [facility] Last Admin: 12/02/18 06:45 Dose: 40 mg Polyethylene Glycol (Miralax) 17 gm PO DAILY [facility] Last Admin: 12/02/18 08:30 Dose: Not Given Sertraline HCl (Zoloft) 50 mg PO DAILY [facility] Last Admin: 12/02/18 08:30 Dose: 50 mg Sodium Chloride (Normal Saline Flush 0.9%) 10 ml IVP PRN PRN PRN Reason: NEEDED PER PROVIDER ORDERS Last Admin: 12/02/18 05:40 Dose: 10 ml Sodium Chloride (Normal Saline Flush 0.9%) 10 ml IVP 0100,0900,1700 [facility] Last Admin: 12/02/18 08:30 Dose: 10 ml Furosemide 20 mg PO DAILY 05/13/15 Sertraline [Zoloft] 50 mg PO DAILY 12/07/16 Albuterol Sulfate [Proair Hfa Inhaler] 1 - 2 puffs INH Q4H PRN 04/10/18 Ascorbic Acid 500 mg PO DAILY 04/10/18 Metformin HCl 500 mg PO QDBREAKFAST 04/21/18 Objective - Vital Signs/Intake & Output Reviewed Vital Signs: Yes Vital Signs: Vital Signs x48h Temp Pulse Pulse Pulse Pulse Resp Resp 12/02/18 12:56 58 L 22 12/02/18 11:12 62 57 L 15 12/02/18 08:00 36.6 C 64 18 12/02/18 07:31 56 L 20 12/02/18 06:46 63 17 BP BP BP Pulse Ox Pulse Ox 12/02/18 12:56 12/02/18 11:12 93/42 L 98/44 L 97 12/02/18 08:00 91/39 L 96 12/02/18 07:31 12/02/18 06:46 118/59 L 95 Intake & Output: Intake & Output 11/29/18 11/30/18 12/01/18 12/02/18 23:59 23:59 23:59 23:59 Intake Total 1100 1170 1233.334 Output Total 300 1125 550 Balance 800 45 683.334 - Objective General Appearance: positive: No acute distress, Alert. negative: Lethargic Eyes Bilateral: positive: Normal inspection, PERRL, No lid inflammation, Conjunctivae nml ENT: positive: ENT inspection nml, Pharynx nml, Dry mucous membranes. negative: No signs of dehydration, Purulent nasal drainage, Pharyngeal erythema, Oral lesions Neck: positive: Nml inspection, Thyroid nml, No JVD, Trachea midline. negative: Thyromegaly, Lymphadenopathy (R), Lymphadenopathy (L), Stiff neck, Swelling/bruising, Tracheal deviation Respiratory: positive: Chest non-tender, No respiratory distress, Breath sounds nml. negative: Wheezes, Rales, Rhonchi Cardiovascular: positive: Regular rate & rhythm, No murmur, No gallop, Irregularly irregular. negative: Extrasystoles, Tachycardia, Bradycardia, JVD present, Systolic murmur, Diastolic murmur Peripheral Pulses: 2+ Radial (R), 2+ Radial (L), 2+ Dorsalis pedis (R), 2+ Dorsalis pedis (L) Abdomen: positive: Non-tender, No organomegaly, Nml bowel sounds, No distention. negative: Tenderness, Guarding, Rebound Back: positive: Nml inspection. negative: CVA tenderness (R), CVA tenderness (L) Skin: positive: Color nml, No rash, Warm, Dry. negative: Cyanosis, Diaphoresis, Pallor Extremities: positive: Non-tender, Full ROM, Nml appearance. negative: Calf tenderness, Joint swelling, Marina's sign/cords Neurologic/Psychiatric: positive: Oriented x3, Motor nml, Sensation nml, Mood/affect nml. negative: Weakness, Sensory loss, Facial droop, Slurred/abnml speech, Depressed mood/affect - Lab Results Fish Bones: 12/02/18 05:30 12/02/18 05:30 Other Labs: Lab Results x24hrs 12/02/18 12/02/18 12/02/18 Range/Units 11:56 07:48 05:30 WBC (4.8-10.8) x10^3/uL RBC (4.70-6.10) 10^6/uL Hgb (14.0-18.0) g/dL Hct (42.0-52.0) % MCV (80.0-94.0) fL MCH (27.0-31.0) pg MCHC (32.0-36.0) g/dL RDW (12.0-15.0) % Plt Count (130-450) 10^3/uL MPV (7.4-11.4) fL Neut # (Auto) (1.5-6.6) 10^3/uL Lymph # (Auto) (1.5-3.5) 10^3/uL Mcleod # (Auto) (0.0-1.0) 10^3/uL Eos # (Auto) (0.0-0.7) 10^3/uL Baso # (Auto) (0.0-0.1) 10^3/uL Absolute Nucleated RBC x10^3/uL Nucleated RBC % /100WBC Sodium (135-145) mmol/L Potassium (3.5-5.0) mmol/L Chloride (101-111) mmol/L Carbon Dioxide (21-32) mmol/L Anion Gap (6-13) BUN (6-20) mg/dL Creatinine (0.6-1.2) mg/dL Estimated GFR (MDRD) (>89) Glucose (70-100) mg/dL POC Whole Bld Glucose 177 H 117 H (70 - 100) mg/dL Lactic Acid 0.9 (0.5-2.2) mmol/L Calcium (8.5-10.3) mg/dL Magnesium (1.7-2.8) mg/dL Total Bilirubin (0.2-1.0) mg/dL AST (10-42) IU/L ALT (10-60) IU/L Alkaline Phosphatase (42-121) IU/L Total Protein (6.7-8.2) g/dL Albumin (3.2-5.5) g/dL Globulin (2.1-4.2) g/dL Albumin/Globulin Ratio (1.0-2.2) 12/02/18 12/02/18 12/01/18 Range/Units 05:30 05:30 20:34 WBC 11.1 H (4.8-10.8) x10^3/uL RBC 3.71 L (4.70-6.10) 10^6/uL Hgb 10.4 L (14.0-18.0) g/dL Hct 31.4 L (42.0-52.0) % MCV 84.7 (80.0-94.0) fL MCH 28.1 (27.0-31.0) pg MCHC 33.2 (32.0-36.0) g/dL RDW 15.1 H (12.0-15.0) % Plt Count 246 (130-450) 10^3/uL MPV 7.6 (7.4-11.4) fL Neut # (Auto) 8.4 H (1.5-6.6) 10^3/uL Lymph # (Auto) 1.6 (1.5-3.5) 10^3/uL Mcleod # (Auto) 1.0 (0.0-1.0) 10^3/uL Eos # (Auto) 0.1 (0.0-0.7) 10^3/uL Baso # (Auto) 0.1 (0.0-0.1) 10^3/uL Absolute Nucleated RBC 0.00 x10^3/uL Nucleated RBC % 0.0 /100WBC Sodium 135 (135-145) mmol/L Potassium 3.8 (3.5-5.0) mmol/L Chloride 102 (101-111) mmol/L Carbon Dioxide 24 (21-32) mmol/L Anion Gap 9.0 (6-13) BUN 50 H (6-20) mg/dL Creatinine 1.5 H (0.6-1.2) mg/dL Estimated GFR (MDRD) 44 L (>89) Glucose 122 H (70-100) mg/dL POC Whole Bld Glucose 111 H (70 - 100) mg/dL Lactic Acid (0.5-2.2) mmol/L Calcium 8.2 L (8.5-10.3) mg/dL Magnesium 2.2 (1.7-2.8) mg/dL Total Bilirubin 0.5 (0.2-1.0) mg/dL AST 12 (10-42) IU/L ALT < 10 L (10-60) IU/L Alkaline Phosphatase 78 (42-121) IU/L Total Protein 6.1 L (6.7-8.2) g/dL Albumin 2.9 L (3.2-5.5) g/dL Globulin 3.2 (2.1-4.2) g/dL Albumin/Globulin Ratio 0.9 L (1.0-2.2) 12/01/18 Range/Units 16:41 WBC (4.8-10.8) x10^3/uL RBC (4.70-6.10) 10^6/uL Hgb (14.0-18.0) g/dL Hct (42.0-52.0) % MCV (80.0-94.0) fL MCH (27.0-31.0) pg MCHC (32.0-36.0) g/dL RDW (12.0-15.0) % Plt Count (130-450) 10^3/uL MPV (7.4-11.4) fL Neut # (Auto) (1.5-6.6) 10^3/uL Lymph # (Auto) (1.5-3.5) 10^3/uL Mcleod # (Auto) (0.0-1.0) 10^3/uL Eos # (Auto) (0.0-0.7) 10^3/uL Baso # (Auto) (0.0-0.1) 10^3/uL Absolute Nucleated RBC x10^3/uL Nucleated RBC % /100WBC Sodium (135-145) mmol/L Potassium (3.5-5.0) mmol/L Chloride (101-111) mmol/L Carbon Dioxide (21-32) mmol/L Anion Gap (6-13) BUN (6-20) mg/dL Creatinine (0.6-1.2) mg/dL Estimated GFR (MDRD) (>89) Glucose (70-100) mg/dL POC Whole Bld Glucose 275 H (70 - 100) mg/dL Lactic Acid (0.5-2.2) mmol/L Calcium (8.5-10.3) mg/dL Magnesium (1.7-2.8) mg/dL Total Bilirubin (0.2-1.0) mg/dL AST (10-42) IU/L ALT (10-60) IU/L Alkaline Phosphatase (42-121) IU/L Total Protein (6.7-8.2) g/dL Albumin (3.2-5.5) g/dL Globulin (2.1-4.2) g/dL Albumin/Globulin Ratio (1.0-2.2) ABX Reporting Has patient been on IV antibiotics over the past 48 hours?: Yes Sepsis Event Note (H) - Evaluation Current Stage of Sepsis: Sepsis Possible source of Sepsis: positive: Pulmonary, Genitourinary - Sepsis Criteria Sepsis Criteria: Recorded Heart Rate greater than 90 bpm, Respiratory: Increasing oxygen requirements, WBC count greater than 12,000 or less than 4000, [employer]: altered consciousness (unrelated to primary neuro pathology) Assessment/Plan - Problem List (1) Pneumonia Impression: improved, 97% sats on room air, no fever, chill, cough continue antibiotics discuss with pt about aspiration pneumonia and prevention of aspiration pneum onia (2) Complicated UTI (urinary tract infection) UA culture results is pending, continue IV antibiotics (3) Acute respiratory failure with hypoxia resolved. 97% sats on room air (4) Dysphagia pt report he did not have problem of dysphagia, nurse will educate pt for prevention of aspiration (5) CKD (chronic kidney disease) stage 3, GFR 30-59 ml/min worsening, may from pt's current dehydration IVF of NS continue lab monitor (6) Dementia as pt's mild dementia as his baseline, continue support (7) Tobacco dependence continue patch, encourage cessation. (8) Diabetes mellitus type 2, controlled stable, slide scale, ACHS, blood sugar checks (9)dehydration pt present dry mouth, dry skin, and increase creatinine from 1.2 to 1.5 hydration pt with IVF of NS, precaution of fluid overload daily lab monitor (10)hypotension pt had SBP at 91 but pt denies dizziness, pt is asymptomatic order 500ml of NS bolus IVF of NS vital monitor Qualifiers: Pneumonia type: aspiration pneumonia Aspiration pneumonia type: unspecified Laterality: left Lung location: lower lobe of lung Qualified Code(s): J69.0 - Pneumonitis due to inhalation of food and vomit
[2018-12-02] MEDS: MONTELUKAST 10 MG TABLET PO SCH (21:49)
[2018-12-03 05:32] LABS: BASOPHILS % (AUTO) 0.7 %; EOSINOPHILS # (AUTO) 0.2 10^3/uL (0.0-0.7); EOSINOPHILS % (AUTO) 2.6 %; HGB - HEMOGLOBIN 9.9 g/dL (14.0-18.0); LYMPHOCYTES # (AUTO) 1.3 10^3/uL (1.5-3.5); LYMPHOCYTES % (AUTO) 18.8 %; MEAN CORPUSCULAR HGB CONC 32.9 g/dL (32.0-36.0); MEAN CORPUSCULAR VOLUME 85.2 fL (80.0-94.0); MONOCYTES # (AUTO) 0.7 10^3/uL (0.0-1.0); MONOCYTES % (AUTO) 10.3 %; NEUTROPHILS # (AUTO) 4.8 10^3/uL (1.5-6.6); NEUTROPHILS % (AUTO) 67.6 %; PLT - PLATELET COUNT 234 10^3/uL (130-450); RED BLOOD COUNT 3.54 10^6/uL (4.70-6.10)
[2018-12-03 06:04] LABS: ALBUMIN 2.8 g/dL (3.2-5.5); ALBUMIN/GLOBULIN RATIO 0.9 (1.0-2.2); ALKALINE PHOSPHATASE 73 IU/L (42-121); ALT ALANINE AMINOTRANSFERASE < 10 IU/L (10-60); AST ASPARTATE AMINOTRANSFERASE 11 IU/L (10-42); BILIRUBIN,TOTAL 0.5 mg/dL (0.2-1.0); BUN - BLOOD UREA NITROGEN 38 mg/dL (6-20); CALCIUM 7.9 mg/dL (8.5-10.3); CARBON DIOXIDE - CO2 24 mmol/L (21-32); CHLORIDE 102 mmol/L (101-111); CREATININE 1.3 mg/dL (0.6-1.2); GFR - MDRD 52 (>89); GLUCOSE 114 mg/dL (70-100); SODIUM 134 mmol/L (135-145); TOTAL PROTEIN 5.8 g/dL (6.7-8.2)
[2018-12-03] MEDS: HEPARIN 5,000 UNIT/ML VIAL SUBQ SCH (06:06)
[2018-12-03] MEDS: CLINDAMYCIN 600 MG/50 ML 50 ML IV SCH ×2 (06:09→12:02)
[2018-12-03] MEDS: PANTOPRAZOLE 40 MG TABLET PO SCH (06:14)
[2018-12-03] MEDS: SODIUM CHLORIDE FLUSH 0.9% 10 ML SYRINGE IVP PRN (06:51)
[2018-12-03] MEDS: BUDESONIDE 0.5 MG/2 ML NEB INH SCH (07:24)
[2018-12-03] MEDS: IPRATROPIUM/ALBUTEROL 3 ML NEB INH SCH ×2 (07:24→11:18)
[2018-12-03] MEDS: INSULIN ASPART 300 UNIT/3 ML PEN SUBQ SCH ×2 (08:10→11:56)
[2018-12-03] MEDS: SERTRALINE 50 MG TABLET PO SCH (08:11)
[2018-12-03] MEDS: POLYETHYLENE GLYCOL 3350 17 GM PACKET PO SCH (08:12)
[2018-12-03] MEDS: NICOTINE 14 MG PATCH TOP SCH (08:12)
[2018-12-03] MEDS: ASPIRIN CHEW 81 MG TABLET PO SCH (08:12)
[2018-12-03] MEDS: guaiFENesin 600 MG TABLET PO SCH (08:12)
[2018-12-03] MEDS: ASCORBIC ACID CHEW 500 MG TABLET PO SCH (08:12)
[2018-12-03] MEDS: SODIUM CHLORIDE FLUSH 0.9% 10 ML SYRINGE IVP SCH (08:22)
[2018-12-03] MEDS: ACETYLCYSTEINE 500 MG PO SCH (08:22)
--- NOTE | 2018-12-03 11:27 | Discharge Plan ---
Discharge Plan Disposition: Home, Self Care Condition: Poor Prescriptions: Ciprofloxacin HCl [Cipro] 500 mg PO BID #10 tablet Diet: Diabetic Activity Restrictions: Activity as Tolerated Shower Restrictions: No (fall precaution, caregiver closely monitor) Instruction Topics: Ciprofloxacin tablets, Pneumonia, UTI, Aspiration Dysphagia Additional Instructions or Follow Up instructions: You may followup your PCP in one week. You were found to have UTI and pneumonia. You were treated with antibiotics. Cipro is prescribed to you to finish the antibiotics course. Should your symptoms return or worsen, you may present ER or call 911 or your PCP for help. No Smoking: If you smoke, Please STOP! Call for help. Follow-up with: Magdy Hester MD [Primary Care Provider] -
--- NOTE | 2018-12-03 11:49 | DISCHARGE SUMMARY ---
Discharge Summary Discharge Date: 12/03/18 Discharging Provider: TORIBIO Primary Care Provider: Dr. Magdy Hester Condition at Discharge: Poor Discharge Disposition: Home, Self Care Discharge Facility Name: home - DIAGNOSES Admission Diagnoses: (1) Sepsis (2) Restrictive lung disease (3) Dementia (4) UTI (urinary tract infection) (5) Pneumonia (6) COPD (chronic obstructive pulmonary disease) Discharge Diagnoses with Status of Each Condition: 1) Pneumonia 97% sats on room air, no fever, chill, cough. WBC is normal. continue antibiotics. Called and reported to Dr. Hester for pt's continuing care. (2) Complicated UTI (urinary tract infection) UA reveals Enterobacter cloacae complex and #2, sensitivity study reveals Cipro is sensitive. continue antibiotics cipro for pt. (3) Acute respiratory failure with hypoxia resolved. 97% sats on room air (4) Dysphagia pt report he did not have problem of dysphagia, nurse will educate pt for prevention of aspiration (5) CKD (chronic kidney disease) stage 3, GFR 30-59 ml/min improved, and stable as his baseline (6) Dementia stable (7) Tobacco dependence encourage cessation. (8) Diabetes mellitus type 2, controlled stable, continue home meds. (9)dehydration resolved (10)hypotension resolved - HPI History of Present Illness: refer to Dr. Omalley's HPI on 11/30/18 as the followin-year-old gentleman with history of dementia and indwelling Joshua catheter due to prostatic hypertrophy presents with cloudy urine yesterday and today with productive cough and chills today and looking short of breath today. Most of the history is from the daughter because of his dementia. 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 Ucx pending. IV abx and solumderol given ED. VSS with no fevers, BP 148/75. Patient is a chronic smoker who continues to smoke despite restrictive lung disease. CTA ordered to r/o PE. Family states recent swallowing issues with coughing post-prandial concerning for aspiration. - HOSPITAL COURSE Hospital Course: pt was admitted for UTI and pneumonia. pt was treated with antibiotics. After treatment, pt's WBC became normal, no fever or chill, and 100% sats on room air. UA culture and sensitivity study reveal Cipro is sensitive for pt. pt is prescribed Cipro to d/c home. I called and reported to pt's PCP Dr. Hester for continuing care for pt. - ALLERGIES Allergies/Adverse Reactions: Allergies Allergy/AdvReac Type Severity Reaction Status Date / Time No Known Drug Allergies Allergy Verified 11/30/18 18:28 - MEDICATIONS Home Medications: Ambulatory Orders Medication Instructions Recorded Confirmed Furosemide 20 mg PO DAILY 05/13/15 12/01/18 Sertraline [Zoloft] 50 mg PO DAILY 12/07/16 12/01/18 Albuterol Sulfate [Proair Hfa 1 - 2 puffs INH Q4H PRN 04/10/18 12/01/18 Inhaler] Ascorbic Acid 500 mg PO DAILY 04/10/18 12/01/18 Metformin HCl 500 mg PO QDBREAKFAST 04/21/18 12/01/18 Ciprofloxacin HCl [Cipro] 500 mg PO BID #10 tablet 12/03/18 Saccharomyces Boulardii [Florastor] 250 mg PO DAILY #5 capsule 12/03/18 - PHYSICAL EXAM AT DISCHARGE General Appearance: positive: No acute distress, Alert. negative: Lethargic Eyes Bilateral: positive: Normal inspection, PERRL, No lid inflammation, Conjunctivae nml ENT: positive: ENT inspection nml, Pharynx nml, No signs of dehydration. negative: Purulent nasal drainage, Pharyngeal erythema, Oral lesions Neck: positive: Nml inspection, Thyroid nml, No JVD, Trachea midline. negative: Thyromegaly, Lymphadenopathy (R), Lymphadenopathy (L), Stiff neck, Swelling/bruising, Tracheal deviation Respiratory: positive: Chest non-tender, No respiratory distress, Breath sounds nml. negative: Wheezes, Rales, Rhonchi Cardiovascular: positive: Regular rate & rhythm, No murmur, No gallop. negative: Irregularly irregular, Bradycardia, JVD present, Systolic murmur, Diastolic murmur Peripheral Pulses: positive: 2+ Abdomen: positive: Non-tender, No organomegaly, Nml bowel sounds, No distention. negative: Tenderness, Guarding, Rebound Back: positive: Nml inspection. negative: CVA tenderness (R), CVA tenderness (L) Skin: positive: Color nml, No rash, Warm, Dry. negative: Cyanosis, Diaphoresis, Pallor Extremities: positive: Non-tender, Full ROM, Nml appearance. negative: Joint swelling, Marina's sign/cords Neurologic/Psychiatric: positive: Oriented x3, Motor nml, Sensation nml, Mood/affect nml. negative: Weakness, Sensory loss, Facial droop, Slurred/abnml speech, Depressed mood/affect - LABS Result Diagrams: 12/03/18 04:51 12/03/18 04:51 - SEPSIS Current Stage of Sepsis: Sepsis Possible source of Sepsis: Pulmonary, Genitourinary Sepsis Criteria: Recorded Heart Rate greater than 90 bpm, Respiratory: Increasing oxygen requirements, WBC count greater than 12,000 or less than 4000, TAPPER HAND: altered consciousness (unrelated to primary neuro pathology) - FOLLOW UP Follow Up: You may followup your PCP in one week. You were found to have UTI and pneumonia. You were treated with antibiotics. Cipro is prescribed to you to finish the antibiotics course. Should your symptoms return or worsen, you may present ER or call 911 or your PCP for help. pt is arranged home health PT per our PT's recommendation. - TIME SPENT Time Spent in Discharge (Minutes): 50
[2018-12-03 13:19] VITALS: BP 117/48
== END 2018-12-03 14:10 | disposition home or self-care (01) | DRG 871 ==
LOC: ED 18:24 → MS2 20:57
PROVIDERS: ADMIT Family Medicine; ATTEND Nurse Practitioner
DX: A41.9 Sepsis, unspecified organism (principal); J69.0 Pneumonitis due to inhalation of food and vomit; J96.01 Acute respiratory failure with hypoxia; N39.0 Urinary tract infection, site not specified; T83.511A Infection and inflammatory reaction due to indwelling urethral catheter, initial encounter; J44.0 Chronic obstructive pulmonary disease with (acute) lower respiratory infection; J44.1 Chronic obstructive pulmonary disease with (acute) exacerbation; B96.89 Other specified bacterial agents as the cause of diseases classified elsewhere; R13.10 Dysphagia, unspecified; E11.22 Type 2 diabetes mellitus with diabetic chronic kidney disease; F17.200 Nicotine dependence, unspecified, uncomplicated; N18.3 Chronic kidney disease, stage 3 (moderate); R09.02 Hypoxemia; G30.9 Alzheimer's disease, unspecified; F02.80 Dementia in other diseases classified elsewhere, unspecified severity, without behavioral disturbance, psychotic disturbance, mood disturbance, and anxiety; T83.518A Infection and inflammatory reaction due to other urinary catheter, initial encounter; F17.210 Nicotine dependence, cigarettes, uncomplicated; E86.0 Dehydration; N40.0 Benign prostatic hyperplasia without lower urinary tract symptoms; Z87.09 Personal history of other diseases of the respiratory system; E78.00 Pure hypercholesterolemia, unspecified; I25.10 Atherosclerotic heart disease of native coronary artery without angina pectoris; Z95.5 Presence of coronary angioplasty implant and graft; G47.30 Sleep apnea, unspecified; K44.9 Diaphragmatic hernia without obstruction or gangrene; F32.9 Major depressive disorder, single episode, unspecified; Z66 Do not resuscitate
CPT/HCPCS: 36415; 71045; 71275; 80053; 80069; 81001; 81003; 83036; 83605; 83690; 83735; 83880; 85025; 87040; 87070; 87077; 87086; 87181; 87205; 87430; 94640; 96374; 99283; 99284

== ENCOUNTER 2019-01-08 08:00 | Outpatient (CLI) | payer MEDICARE, MEDICAID | END 2019-01-08 23:59 | disposition home or self-care (01) | LOC: LAB.R 08:00 | PROVIDERS: ATTEND Internal Medicine | DX: N41.9 Inflammatory disease of prostate, unspecified (principal) | CPT/HCPCS: 87077; 87086; 87181 ==

== ENCOUNTER 2019-01-11 09:08 | Outpatient (CLI) | payer MEDICARE, MEDICAID | END 2019-01-11 09:09 | disposition critical access hospital (66) | LOC: EMS 09:08 | PROVIDERS: ATTEND Surgery | DX: R53.1 Weakness (principal); R26.2 Difficulty in walking, not elsewhere classified | CPT/HCPCS: A0425; A0429 ==

== ENCOUNTER 2019-01-11 09:36 | Emergency (ER) | payer MEDICARE, MEDICAID ==
[2019-01-11] MEDS ORDERED: SODIUM CHLORIDE 0.9% 1,000 ML IV ONE (09:51)
--- NOTE | 2019-01-11 09:58 | ED Physician Documentation ---
PD HPI LOWER EXT INJURY - Stated complaint Stated Complaint: FALL - Chief complaint Chief Complaint: Trauma Ext - History obtained from History obtained from: Patient, Family, EMS - History of Present Illness PD HPI LOW EXT INJURY LOCATION: Right, Hip Type of injury: Fall Where injury occurred: Home Timing - onset: Enter time (2199), Last night Timing - duration: Hours Timing - details: Still present, Intermittant Improved by: Rest, Immobilization Worsened by: Moving, Palpating Associated symptoms: Weakness. No: Numbness, Tingling Contributing factors: No: Anticoagulated Similar symptoms before: Has not had sx before Recently seen: Emergency Dept - Additional information Additional information: 88 y/o male with an indwelling stephens has had a fall last night about 10pm. He has some pain in the right hip and pain with weight bearing and he uses a walker. Review of Systems Constitutional: reports: Fatigue. denies: Fever, Chills Eyes: denies: Decreased vision Ears: denies: Ear pain Nose: denies: Rhinorrhea / runny nose, Congestion Throat: denies: Sore throat Cardiac: denies: Chest pain / pressure, Palpitations Respiratory: denies: Dyspnea, Cough GI: denies: Abdominal Pain, Nausea, Vomiting : denies: Dysuria, Frequency Skin: denies: Rash Musculoskeletal: reports: Joint pain, Pain with weight bearing. denies: Neck pain, Back pain Neurologic: reports: Generalized weakness. denies: Focal weakness, Numbness PD PAST MEDICAL HISTORY - Past Medical History Cardiovascular: High cholesterol, Coronary artery disease Respiratory: COPD, Sleep apnea, CPAP use Neuro: Alzhiemer's, Dementia Endocrine/Autoimmune: Type 2 diabetes GI: Hiatal hernia : Benign prostate hypertrophy HEENT: None Psych: Depression Musculoskeletal: None Derm: None - Past Surgical History Past Surgical History: Yes General: Bowel surgery Ortho: Other Cardiovascular: Coronary stent - Present Medications Home Medications: Ambulatory Orders Medication Instructions Recorded Confirmed RX: Furosemide 20 mg PO DAILY 05/13/15 01/11/19 RX: Sertraline [Zoloft] 50 mg PO DAILY 12/07/16 01/11/19 RX: Albuterol Sulfate [Proair Hfa 1 - 2 puffs INH Q4H PRN 04/10/18 01/11/19 Inhaler] RX: Metformin HCl 500 mg PO QDBREAKFAST 04/21/18 01/11/19 Hydrocodone/Acetaminophen 1 - 2 each PO Q6H PRN #14 tablet 01/11/19 [Hydrocodon-Acetaminophen 5-325] - Allergies Allergies/Adverse Reactions: Allergies Allergy/AdvReac Type Severity Reaction Status Date / Time No Known Drug Allergies Allergy Verified 11/30/18 18:28 - Social History Does the pt smoke?: Yes Smoking Status: Heavy tobacco smoker Does the pt drink ETOH?: No Does the pt have substance abuse?: No - Immunizations Immunizations are current?: No Immunizations: TDAP >10years/unknown - POLST Patient has POLST: No POLST Status: DNR PD ED PE NORMAL - Vitals Vital signs reviewed: Yes (hypertensive ) - General General: No acute distress, Well developed/nourished, Other (joking around a lot ) - HEENT HEENT: Atraumatic, PERRL, EOMI - Neck Neck: Supple, no meningeal sign, No bony TTP - Cardiac Cardiac: RRR, No murmur - Respiratory Respiratory: No respiratory distress, Clear bilaterally - Back Back: No CVA TTP, No spinal TTP - Derm Derm: Normal color, Warm and dry, No rash - Extremities Extremities: No deformity, No edema, Other (There is point tenderness to the inferior pubic ramus on the right and there is no tenderness over the trochanter. There is not pain to rotation of the hip joint but there is pain to flexion of the hip and the pain is centered in the right pelvis. 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, No motor deficit, No sensory deficit, Normal speech Eye Opening: Spontaneous Motor: Obeys Commands Verbal: Oriented GCS Score: 15 - Psych Psych: Normal mood, Normal affect Results - Vitals Vitals: Vital Signs - 24 hr 01/11/19 01/11/19 01/11/19 09:38 12:21 14:31 Temperature 36.4 C L 36.6 C Heart Rate 61 61 57 L Respiratory 15 18 Rate Blood Pressure 164/80 H 127/62 O2 Saturation 94 98 01/11/19 16:00 Temperature Heart Rate 60 Respiratory 18 Rate Blood Pressure 129/62 O2 Saturation 98 Oxygen O2 Source [] Room air O2 Source Room air - Labs Labs: Laboratory Tests 01/11/19 01/11/19 01/11/19 10:30 10:30 10:30 WBC 8.2 RBC 4.21 L Hgb 11.8 L Hct 35.2 L MCV 83.7 MCH 28.1 MCHC 33.6 RDW 15.3 H Plt Count 275 MPV 7.5 Neut # (Auto) 5.8 Lymph # (Auto) 1.2 L [place] # (Auto) 0.9 Eos # (Auto) 0.2 Baso # (Auto) 0.1 Absolute Nucleated RBC 0.00 Nucleated RBC % 0.0 Sodium 137 Potassium 3.7 Chloride 100 L Carbon Dioxide 28 Anion Gap 9.0 BUN 33 H Creatinine 1.0 Estimated GFR (MDRD) 71 L Glucose 130 H Calcium 8.7 Total Bilirubin 0.9 AST 19 ALT 12 Alkaline Phosphatase 103 Troponin I < 0.04 Total Protein 7.1 Albumin 3.5 Globulin 3.6 Albumin/Globulin Ratio 1.0 Lipase 27 Urine Color Urine Clarity Urine pH Ur Specific [place] Urine Protein Urine Glucose (UA) Urine Ketones Urine Occult Blood Urine Nitrite Urine Bilirubin Urine Urobilinogen Ur Leukocyte Esterase Urine RBC Urine WBC Ur Squamous Epith Cells Urine Bacteria Urine Casts Ur Microscopic Review Urine Culture Comments 01/11/19 10:58 WBC RBC Hgb Hct MCV MCH MCHC RDW Plt Count MPV Neut # (Auto) Lymph # (Auto) [place] # (Auto) Eos # (Auto) Baso # (Auto) Absolute Nucleated RBC Nucleated RBC % Sodium Potassium Chloride Carbon Dioxide Anion Gap BUN Creatinine Estimated GFR (MDRD) Glucose Calcium Total Bilirubin AST ALT Alkaline Phosphatase Troponin I Total Protein Albumin Globulin Albumin/Globulin Ratio Lipase Urine Color YELLOW Urine Clarity HAZY Urine pH 6.0 Ur Specific [place] 1.015 Urine Protein NEGATIVE Urine Glucose (UA) NEGATIVE Urine Ketones NEGATIVE Urine Occult Blood TRACE-INTA Urine Nitrite POSITIVE H Urine Bilirubin NEGATIVE Urine Urobilinogen 0.2 (NORMAL) Ur Leukocyte Esterase SMALL H Urine RBC 6-10 H Urine WBC 11-25 H Ur Squamous Epith Cells RARE Squamous Urine Bacteria Moderate H Urine Casts 0-2 Hyaline Casts Ur Microscopic Review INDICATED Urine Culture Comments INDICATED - Rads (name of study) right hip Radiology: Prelim report reviewed (Impression: No pelvic fracture is seen on plain radiography. Other imaging is available as clinically indicated.), EMP read indepedently, See rad report Procedures - IVC sono (time) 0261 Bedside IVC sono: IVC measures (cm) (0.79), IVC collapsed c insp (cm) (complete), Dehydration (est 2 liter deficit) PD MEDICAL DECISION MAKING - ED course Complexity details: reviewed old records, reviewed results, re-evaluated patient, considered differential, d/w patient, d/w family ED course: 88-year-old male with a fall in his home last night has pain in his right hip and over the pubic rami and no evidence for fracture on plain film. He does appear dehydrated on interrogation the inferior vena cava and he appears to have a urinary tract infection. He is administered saline and Rocephin. CT scan of the right hip and pelvis shows a fracture through the iliac at the crest level and this is mildly displaced. Dr. Gato Mckinnon is consulted in the case and recommends conservative management consistent with typical treatment of pelvic fracture. The daughter notes that Dr. Hester has been working on concerned about the urinary tract and whether there is an actual infection there. We have provided a single dose of antibiotic and we have obtained another specimen for culture. We will not provide a course of antibiotic and will we will leave that up to Dr. Hester. Departure - Departure Disposition: 01 Home, Self Care Clinical Impression: Dehydration, UTI (urinary tract infection), Pelvic fracture Instructions: ED Dehydration, ED Fx Pelvis Follow-Up: Magdy Hester MD [Primary Care Provider] - Gato Mckinnon MD [Provider Admit Priv/Credential] - Prescriptions: Hydrocodone/Acetaminophen [Hydrocodon-Acetaminophen 5-325] 1 - 2 each PO Q6H PRN #14 tablet PRN Reason: pain Comments: Today it appears this fall he had last night has caused a fracture of the iliac portion of your pelvis. This fracture will heal with conservative treatment. For any ambulation use a walker and reduce your level of activity. Today your urine appears infected underneath the microscope and another urine culture has been obtained. We did treat you with a single dose of intravenous antibiotic and this will not affect the culture results. Follow-up on Sunday with Dr. Hester regarding the results of the urine culture from today. Discharge Date/Time: 01/11/19 16:09
[2019-01-11 10:45] LABS: BASOPHILS # (AUTO) 0.1 10^3/uL (0.0-0.1); EOSINOPHILS # (AUTO) 0.2 10^3/uL (0.0-0.7); EOSINOPHILS % (AUTO) 2.4 %; HGB - HEMOGLOBIN 11.8 g/dL (14.0-18.0); LYMPHOCYTES # (AUTO) 1.2 10^3/uL (1.5-3.5); LYMPHOCYTES % (AUTO) 15.2 %; MEAN CORPUSCULAR HEMOGLOBIN 28.1 pg (27.0-31.0); MEAN CORPUSCULAR HGB CONC 33.6 g/dL (32.0-36.0); MEAN CORPUSCULAR VOLUME 83.7 fL (80.0-94.0); MEAN PLATELET VOLUME 7.5 fL (7.4-11.4); MONOCYTES # (AUTO) 0.9 10^3/uL (0.0-1.0); MONOCYTES % (AUTO) 10.8 %; NEUTROPHILS # (AUTO) 5.8 10^3/uL (1.5-6.6); NEUTROPHILS % (AUTO) 70.6 %; PLT - PLATELET COUNT 275 10^3/uL (130-450); RED BLOOD COUNT 4.21 10^6/uL (4.70-6.10); RED CELL DISTRIBUTION WIDTH 15.3 % (12.0-15.0); WHITE BLOOD COUNT 8.2 x10^3/uL (4.8-10.8)
[2019-01-11 10:58] LABS: ALBUMIN 3.5 g/dL (3.2-5.5); BILIRUBIN,TOTAL 0.9 mg/dL (0.2-1.0); CALCIUM 8.7 mg/dL (8.5-10.3); TOTAL PROTEIN 7.1 g/dL (6.7-8.2)
[2019-01-11 11:05] LABS: BILIRUBIN,URINE NEGATIVE (NEGATIVE); GLUCOSE, URINE (UA) NEGATIVE (NEGATIVE); KETONES,URINE (UA) NEGATIVE (NEGATIVE); LEUKOCYTE ESTERASE, URINE SMALL (NEGATIVE); NITRITE,URINE POSITIVE (NEGATIVE); OCCULT BLOOD,URINE TRACE-INTA (NEGATIVE); PROTEIN,URINE NEGATIVE (NEGATIVE); UROBILINOGEN,URINE 0.2 (NORMAL) E.U./dL (NORMAL)
[2019-01-11 11:06] LABS: CLARITY,URINE HAZY (CLEAR)
[2019-01-11 11:16] LABS: BACTERIA,URINE Moderate /HPF (None Seen); CASTS, URINE 0-2 Hyaline Casts /LPF; SQUAMOUS EPITHELIAL CELL,UR RARE Squamous (<= Few)
--- NOTE | 2019-01-11 13:03 | XRAY Report ---
Reason: fall right pelvic ramus pain Procedure Date: 01/11/2019 Accession Number: [id number] / [id number] Procedure: XR - Hip w/Pelvis 2-3V RT CPT Code: FULL RESULT: EXAM: RIGHT HIP RADIOGRAPHY EXAM DATE: 01/11/2019 12:44 PM. CLINICAL HISTORY: Fall right pelvic ramus pain. COMPARISON: Left hip 05/13/2015. TECHNIQUE: 2 views. FINDINGS: Stable orthopedic hardware of the left proximal femur. Foreshortening of the left femoral neck, also stable finding. No evidence of acute pelvic fracture. Anatomic alignment. Osteopenia is noted. Vascular calcifications are noted. IMPRESSION: No pelvic fracture is seen on plain radiography. Other imaging is available as clinically indicated. [facility]
[2019-01-11] MEDS ORDERED: cefTRIAXone 1 GM in SODIUM CHLORIDE 0.9% MINIBAG 100 ML IV STA (13:09)
[2019-01-11] MEDS ORDERED: IPRATROPIUM/ALBUTEROL 3 ML NEB INH STA (14:22)
[2019-01-11 16:09] VITALS: BP 129/62
--- NOTE | 2019-01-11 16:21 | CT Report ---
Reason: RT HIP AND PELVIS PAIN AFTER FALL Procedure Date: 01/11/2019 Accession Number: [id number] / [id number] Procedure: CT - PELVIS WO CPT Code: FULL RESULT: EXAM: CT BONY PELVIS WITHOUT CONTRAST EXAM DATE: 01/11/2019 01:48 PM. CLINICAL HISTORY: Right HIP AND PELVIS PAIN AFTER FALL. COMPARISON: HIP W/PELVIS 2-3V RT 01/11/2019 12:33 PM ABDOMEN/PELVIS W/O 04/21/2018 1:26 PM. TECHNIQUE: Thin-section axial images were acquired of the pelvis without contrast. Post-processing: Coronal and sagittal reformats. Other: None. In accordance with CT protocol optimization, one or more of the following dose reduction techniques were utilized for this exam: automated exposure control, adjustment of mA and/or KV based on patient size, or use of iterative reconstructive technique. FINDINGS: Bones: There is a displaced fracture at the anterior aspect of the right iliac bone at the level of the anterior superior and anterior inferior iliac spines. The fracture fragment is displaced laterally by approximately 6 mm and anteriorly by approximately 9 mm. The left acetabulum is intact. The visualized proximal right femur is intact. Metallic fixation screws at the proximal left femur which internally fixate a left femoral neck fracture. The left femoral neck fracture appears healed. Sacroiliac Joints: Bridging osteophytes at the anterior superior aspect of the left sacroiliac joint. Symphysis Pubis: Unremarkable. Right Hip: Mild to moderate osteoarthritis. Left Hip: Mild to moderate osteoarthritis. Musculature: Normal. No fatty atrophy. Pelvic Cavity: Joshua catheter is present within the bladder. Multiple surgical clips at the pelvis. Calcified plaques at the femoral and iliac arteries. Infrarenal abdominal aortic aneurysm is partially imaged. The diameter of the visualized portions of the abdominal aortic aneurysm is approximately 5.1 cm. Other: No lymphadenopathy. No free air or free fluid. The other visualized soft tissues are unremarkable. IMPRESSION: 1. Osteopenia. 2. Mildly displaced fracture at the anterior aspect of the right iliac bone at the levels of the anterior superior and anterior inferior iliac spines. 3. Previous ORIF of left femoral neck fracture which appears healed. 4. Mild to moderate bilateral hip osteoarthritis. 5. Infrarenal abdominal aortic aneurysm which is only partially imaged. The diameter of the visualized portions of the abdominal aortic aneurysm is approximately 5.1 cm. No change since 04/21/2018. [facility]
== END 2019-01-11 16:09 | disposition home or self-care (01) ==
LOC: EDUNIT# → ED 09:36
DX: E86.0 Dehydration (principal); N39.0 Urinary tract infection, site not specified; S32.9XXA Fracture of unspecified parts of lumbosacral spine and pelvis, initial encounter for closed fracture; W19.XXXA Unspecified fall, initial encounter; Y92.009 Unspecified place in unspecified non-institutional (private) residence as the place of occurrence of the external cause; E78.00 Pure hypercholesterolemia, unspecified; I25.10 Atherosclerotic heart disease of native coronary artery without angina pectoris; E11.9 Type 2 diabetes mellitus without complications; Z79.84 Long term (current) use of oral hypoglycemic drugs; G30.9 Alzheimer's disease, unspecified; F02.80 Dementia in other diseases classified elsewhere, unspecified severity, without behavioral disturbance, psychotic disturbance, mood disturbance, and anxiety; Z96.0 Presence of urogenital implants; Z95.5 Presence of coronary angioplasty implant and graft; F17.200 Nicotine dependence, unspecified, uncomplicated; J44.9 Chronic obstructive pulmonary disease, unspecified; Z79.51 Long term (current) use of inhaled steroids
CPT/HCPCS: 36415; 72192; 80053; 81001; 81003; 83690; 84484; 85025; 87077; 87086; 87181; 94640; 96361; 96365; 99284

== ENCOUNTER 2019-01-31 09:22 | Emergency (ER) | payer MEDICARE, MEDICAID ==
--- NOTE | 2019-01-31 11:53 | ED Physician Documentation ---
History of Present Illness - Stated complaint Stated Complaint: CATH FALLING OUT, VERY DARK URINE - Chief complaint Chief Complaint: General - History obtained from History obtained from: Patient, Family (daughter) - History of Present Illness Timing: Today - Additonal information Additional information: The patient is an 88-year-old male with history of dementia, COPD, and with chronic indwelling Joshua catheter, who is brought to the emergency room by his daughter because of leaking of urine around the Joshua catheter. His bed was soaked with urine this morning, and she states that it has a very strong odor, making her think he has a urinary tract infection. He has not had fever, and denies abdominal pain. He has chronic cough with congestion, but continues to smoke cigarettes. He has had a Joshua catheter for the past 6 months. This one was placed 5 weeks ago. Review of Systems Constitutional: denies: Fever Throat: denies: Sore throat Cardiac: denies: Chest pain / pressure Respiratory: reports: Cough (chronic) GI: denies: Abdominal Pain, Nausea, Vomiting : reports: Incontinent, Joshua Problem. denies: Dysuria Skin: denies: Rash Musculoskeletal: denies: Extremity pain Neurologic: reports: Confused. denies: Focal weakness, Numbness PD PAST MEDICAL HISTORY - Past Medical History Cardiovascular: High cholesterol, Coronary artery disease Respiratory: COPD, Sleep apnea, CPAP use Neuro: Alzhiemer's, Dementia Endocrine/Autoimmune: Type 2 diabetes GI: Hiatal hernia : Benign prostate hypertrophy HEENT: None Psych: Depression Musculoskeletal: None Derm: None - Past Surgical History Past Surgical History: Yes General: Bowel surgery Ortho: Other Cardiovascular: Coronary stent - Present Medications Home Medications: Ambulatory Orders Medication Instructions Recorded Confirmed Furosemide 20 mg PO DAILY 05/13/15 01/11/19 Sertraline [Zoloft] 50 mg PO DAILY 12/07/16 01/11/19 Albuterol Sulfate [Proair Hfa 1 - 2 puffs INH Q4H PRN 04/10/18 01/11/19 Inhaler] Metformin HCl 500 mg PO QDBREAKFAST 04/21/18 01/11/19 Hydrocodone/Acetaminophen 1 - 2 each PO Q6H PRN #14 tablet 01/11/19 [Hydrocodon-Acetaminophen 5-325] - Allergies Allergies/Adverse Reactions: Allergies Allergy/AdvReac Type Severity Reaction Status Date / Time No Known Drug Allergies Allergy Verified 01/31/19 09:34 - Social History Does the pt smoke?: Yes Smoking Status: Heavy tobacco smoker Does the pt drink ETOH?: No Does the pt have substance abuse?: No - Immunizations Immunizations are current?: No Immunizations: TDAP >10years/unknown - POLST Patient has POLST: No POLST Status: DNR PD ED PE NORMAL - Vitals Vital signs reviewed: Yes (normal) - General General: Other (Alert elderly male who has confusion, consistent with dementia.) - HEENT HEENT: Atraumatic, Moist mucous membranes - Neck Neck: No adenopathy, No JVD - Cardiac Cardiac: RRR - Respiratory Respiratory: Other (Scattered expiratory wheezes bilaterally.) - Abdomen Abdomen: Soft, Non tender - Male Male : Other (Joshua catheter is in place.) - Back Back: No CVA TTP - Derm Derm: Other (There is superficial erythema of the skin in the perineum, particularly along the elastic line of the diaper.) - Extremities Extremities: No edema, No calf tenderness / cord - Neuro Neuro: No motor deficit, Normal speech, Other (Alert, but confused, consistent with dementia.) Results - Vitals Vitals: Oxygen O2 Source [Without Activity] Room air O2 Source Room air - Labs Labs: Microbiology 01/31/19 11:23 Urine Culture - Final Urine,Catheterized NO AEROBIC GROWTH AT 24 HOURS Laboratory Tests 01/31/19 11:23 Urine Color DARK YELLOW Urine Clarity CLOUDY Urine pH 8.5 H Ur Specific [place] <=1.005 Urine Protein 100 H Urine Glucose (UA) NEGATIVE Urine Ketones NEGATIVE Urine Occult Blood NEGATIVE Urine Nitrite NEGATIVE Urine Bilirubin NEGATIVE Urine Urobilinogen 2 H Ur Leukocyte Esterase TRACE H Urine RBC 0-5 Urine WBC 4-5 Ur Squamous Epith Cells RARE Squamous Urine Crystals 3-5 Triple Phosphate Amorphous Sediment Few Urine Bacteria Few Ur Microscopic Review INDICATED Urine Culture Comments INDICATED PD MEDICAL DECISION MAKING - ED course Complexity details: reviewed old records, reviewed results, re-evaluated patient, considered differential, d/w patient, d/w family ED course: The patient's presentation is significant for Joshua catheter problem, with sedimentation plugging the catheter. A urinalysis is negative for urinary tract infection. Treatment in the emergency department included removal of the Joshua catheter, and replacement with a new catheter. The Joshua catheter was functioning well at the time of discharge. I discussed with him and his daughter the results of the urinalysis, outpatient follow-up, as well as potentially worrisome signs or symptoms that should prompt reevaluation in the emergency department. Departure - Departure Disposition: 01 Home, Self Care Clinical Impression: Joshua catheter problem Qualifiers: Encounter type: initial encounter Qualified Code(s): T83.9XXA - Unspecified complication of genitourinary prosthetic device, implant and graft, initial encounter Condition: Stable Instructions: ED Catheter Care Joshua Follow-Up: Dirk Castro MD [Primary Care Provider] - Comments: Drink plenty of fluids. You can use udder cream in the diaper area to help with skin care. Follow-up with your primary physician. Call to schedule appointment. Return to the emergency department if you develop abdominal pain, recurrent Joshua catheter problem, fever, or otherwise worsening symptoms. Discharge Date/Time: 01/31/19 13:26
[2019-01-31 12:18] LABS: BILIRUBIN,URINE NEGATIVE (NEGATIVE); GLUCOSE, URINE (UA) NEGATIVE (NEGATIVE); KETONES,URINE (UA) NEGATIVE (NEGATIVE); LEUKOCYTE ESTERASE, URINE TRACE (NEGATIVE); NITRITE,URINE NEGATIVE (NEGATIVE); OCCULT BLOOD,URINE NEGATIVE (NEGATIVE); PH,URINE 8.5 PH (5.0-7.5); PROTEIN,URINE 100 mg/dL (NEGATIVE); UROBILINOGEN,URINE 2 E.U./dL (NORMAL)
[2019-01-31 12:24] LABS: CLARITY,URINE CLOUDY (CLEAR)
[2019-01-31 12:30] LABS: AMORPHOUS SEDIMENT,UR Few /LPF; BACTERIA,URINE Few /HPF (None Seen); RBC,URINE 0-5 /HPF (0-5); SQUAMOUS EPITHELIAL CELL,UR RARE Squamous (<= Few)
[2019-01-31 12:31] LABS: CRYSTALS,URINE 3-5 Triple Phosphate /LPF
[2019-01-31 13:12] VITALS: BP 130/63
== END 2019-01-31 13:26 | disposition home or self-care (01) ==
LOC: ED 09:22
DX: T83.091A Other mechanical complication of indwelling urethral catheter, initial encounter (principal); E11.9 Type 2 diabetes mellitus without complications; F17.200 Nicotine dependence, unspecified, uncomplicated; Z79.84 Long term (current) use of oral hypoglycemic drugs
CPT/HCPCS: 51702; 81001; 81003; 87086; 99283

== ENCOUNTER 2019-02-14 11:00 | Emergency (ER) | payer MEDICARE, MEDICAID ==
[2019-02-14 12:03] LABS: BASOPHILS # (AUTO) 0.1 10^3/uL (0.0-0.1); BASOPHILS % (AUTO) 0.9 %; EOSINOPHILS # (AUTO) 0.3 10^3/uL (0.0-0.7); EOSINOPHILS % (AUTO) 2.5 %; HGB - HEMOGLOBIN 11.6 g/dL (14.0-18.0); LYMPHOCYTES # (AUTO) 1.7 10^3/uL (1.5-3.5); LYMPHOCYTES % (AUTO) 16.2 %; MEAN CORPUSCULAR HEMOGLOBIN 27.6 pg (27.0-31.0); MEAN CORPUSCULAR HGB CONC 33.5 g/dL (32.0-36.0); MEAN CORPUSCULAR VOLUME 82.5 fL (80.0-94.0); MEAN PLATELET VOLUME 7.4 fL (7.4-11.4); MONOCYTES # (AUTO) 0.9 10^3/uL (0.0-1.0); MONOCYTES % (AUTO) 8.6 %; NEUTROPHILS # (AUTO) 7.5 10^3/uL (1.5-6.6); NEUTROPHILS % (AUTO) 71.8 %; PLT - PLATELET COUNT 308 10^3/uL (130-450); RED BLOOD COUNT 4.21 10^6/uL (4.70-6.10); RED CELL DISTRIBUTION WIDTH 15.1 % (12.0-15.0); WHITE BLOOD COUNT 10.4 x10^3/uL (4.8-10.8)
[2019-02-14 12:10] LABS: ALBUMIN 3.2 g/dL (3.2-5.5); ALBUMIN/GLOBULIN RATIO 0.9 (1.0-2.2); ALKALINE PHOSPHATASE 119 IU/L (42-121); ALT ALANINE AMINOTRANSFERASE < 10 IU/L (10-60); AST ASPARTATE AMINOTRANSFERASE 18 IU/L (10-42); BILIRUBIN,TOTAL 0.5 mg/dL (0.2-1.0); BUN - BLOOD UREA NITROGEN 30 mg/dL (6-20); CALCIUM 8.6 mg/dL (8.5-10.3); CARBON DIOXIDE - CO2 25 mmol/L (21-32); CHLORIDE 102 mmol/L (101-111); CREATININE 1.1 mg/dL (0.6-1.2); GFR - MDRD 63 (>89); GLUCOSE 162 mg/dL (70-100); LIPASE 26 U/L (22-51); SODIUM 135 mmol/L (135-145); TOTAL PROTEIN 6.9 g/dL (6.7-8.2)
--- NOTE | 2019-02-14 12:45 | XRAY Report ---
Reason: cough Procedure Date: 02/14/2019 Accession Number: [id number] / [id number] Procedure: XR - Chest 2 View X-Ray CPT Code: 05991 FULL RESULT: EXAM: CHEST RADIOGRAPHY EXAM DATE: 02/14/2019 12:07 PM. CLINICAL HISTORY: Cough. COMPARISON: CHEST 1 VIEW 11/30/2018 7:30 PM CHEST ANGIO 11/30/2018 10:14 PM. TECHNIQUE: 2 views. FINDINGS: Lungs/Pleura: Linear right midlung opacity again seen. Extensive calcified pleural plaques are again seen. Hyperinflation. No definitive evidence for superimposed consolidation or vascular congestion. No pneumothorax. Right lower lung bullae again seen. Mediastinum: Heart size and mediastinal contour are stable. Other: Degenerative changes of the thoracic spine. IMPRESSION: 1. Hyperinflation. 2. Asbestos-related pleural disease. 3. No definitive evidence for super post consolidation or vascular congestion. [facility]
[2019-02-14] MEDS ORDERED: IPRATROPIUM/ALBUTEROL 3 ML NEB INH STA (13:20)
[2019-02-14] MEDS ORDERED: SODIUM CHLORIDE 0.9% 1,000 ML IV ONE ×2 (13:21→15:16)
--- NOTE | 2019-02-14 15:00 | ED Physician Documentation ---
History of Present Illness - Stated complaint Stated Complaint: ABNORMAL STOOLS/CONGESTION - Chief complaint Chief Complaint: General - History obtained from History obtained from: Patient, Family (daughter) - History of Present Illness Timing: How many days ago (3) - Additonal information Additional information: The patient is an 88-year-old male with history of dementia, COPD, and chronic indwelling Joshua catheter, who has had mucousy stool for the past 3 days. His daughter is concerned about the possibility of C. difficile. He has also had malodorous urine that is darker than usual. History from the patient is not reliable because of his profound dementia, but is obtained from his daughter with whom he resides. On further review of systems he has had productive cough, which is chronic with his COPD. He has had no recent fever or vomiting. He has previously been on antibiotics for urinary tract infection as well as for respiratory infection. Review of Systems Constitutional: denies: Fever Nose: denies: Congestion Throat: denies: Sore throat Cardiac: denies: Chest pain / pressure Respiratory: reports: Cough. denies: Dyspnea GI: reports: Other (Fernandez, mucousy stools.). denies: Abdominal Pain, Vomiting, Diarrhea, Bloody / black stool : reports: Other (Chronic indwelling Joshua catheter.) Skin: denies: Rash Musculoskeletal: denies: Back pain, Extremity pain Neurologic: reports: Confused (at baseline). denies: Focal weakness, Numbness, Headache PD PAST MEDICAL HISTORY - Past Medical History Cardiovascular: High cholesterol, Coronary artery disease Respiratory: COPD, Sleep apnea, CPAP use Neuro: Alzhiemer's, Dementia Endocrine/Autoimmune: Type 2 diabetes GI: Hiatal hernia : Benign prostate hypertrophy HEENT: None Psych: Depression Musculoskeletal: None Derm: None Other Past Medical History: bowel cancer - Past Surgical History Past Surgical History: Yes General: Bowel surgery Ortho: Other Cardiovascular: Coronary stent - Present Medications Home Medications: Ambulatory Orders Medication Instructions Recorded Confirmed Furosemide 20 mg PO DAILY 05/13/15 01/11/19 Sertraline [Zoloft] 50 mg PO DAILY 12/07/16 01/11/19 Albuterol Sulfate [Proair Hfa 1 - 2 puffs INH Q4H PRN 04/10/18 01/11/19 Inhaler] Metformin HCl 500 mg PO QDBREAKFAST 04/21/18 01/11/19 Hydrocodone/Acetaminophen 1 - 2 each PO Q6H PRN #14 tablet 01/11/19 [Hydrocodon-Acetaminophen 5-325] Vancomycin [Vancocin] 125 mg PO QID #40 capsule 02/14/19 - Allergies Allergies/Adverse Reactions: Allergies Allergy/AdvReac Type Severity Reaction Status Date / Time No Known Drug Allergies Allergy Verified 01/31/19 09:34 - Social History Does the pt smoke?: Yes Smoking Status: Current every day smoker Does the pt drink ETOH?: No Does the pt have substance abuse?: No - Immunizations Immunizations are current?: No Immunizations: TDAP >10years/unknown - POLST Patient has POLST: No POLST Status: DNR PD ED PE NORMAL - Vitals Vital signs reviewed: Yes (normal) - General General: Well developed/nourished, Other (Alert elderly male who is confused, consistent with dementia.) - HEENT HEENT: Atraumatic, Moist mucous membranes, Pharynx benign - Neck Neck: Supple, no meningeal sign, No adenopathy, No JVD - Cardiac Cardiac: RRR - Respiratory Respiratory: Other (Expiratory wheezing, more on the right than the left.) - Abdomen Abdomen: Soft, Non tender - Rectal Rectal: Other (Light brown, heme-negative stool.) - Back Back: No CVA TTP - Derm Derm: No rash - Extremities Extremities: No calf tenderness / cord - Neuro Neuro: No motor deficit, Normal speech, Other (Alert, but confused.) Results - Vitals Vitals: Vital Signs - 24 hr 02/14/19 02/14/19 02/14/19 11:22 13:03 14:00 Temperature 36.9 C Heart Rate 61 55 L 64 Respiratory 18 17 18 Rate Blood Pressure 103/57 L 134/70 H O2 Saturation 99 99 02/14/19 02/14/19 02/14/19 14:47 16:50 17:59 Temperature Heart Rate 86 100 Respiratory 16 18 18 Rate Blood Pressure 156/77 H 101/76 125/58 L O2 Saturation 97 98 100 Oxygen O2 Source [] Room air O2 Source Room air - Labs Labs: Laboratory Tests 02/14/19 02/14/19 02/14/19 11:30 11:50 11:50 WBC 10.4 RBC 4.21 L Hgb 11.6 L Hct 34.7 L MCV 82.5 MCH 27.6 MCHC 33.5 RDW 15.1 H Plt Count 308 MPV 7.4 Neut # (Auto) 7.5 H Lymph # (Auto) 1.7 Kimble # (Auto) 0.9 Eos # (Auto) 0.3 Baso # (Auto) 0.1 Absolute Nucleated RBC 0.00 Nucleated RBC % 0.0 Sodium 135 Potassium 3.8 Chloride 102 Carbon Dioxide 25 Anion Gap 8.0 BUN 30 H Creatinine 1.1 Estimated GFR (MDRD) 63 L Glucose 162 H Calcium 8.6 Total Bilirubin 0.5 AST 18 ALT < 10 L Alkaline Phosphatase 119 Total Protein 6.9 Albumin 3.2 Globulin 3.7 Albumin/Globulin Ratio 0.9 L Lipase 26 Urine Color Urine Clarity Urine pH Ur Specific [place] Urine Protein Urine Glucose (UA) Urine Ketones Urine Occult Blood Urine Nitrite Urine Bilirubin Urine Urobilinogen Ur Leukocyte Esterase Urine RBC Urine WBC Ur Squamous Epith Cells Urine Bacteria Ur Microscopic Review Urine Culture Comments C. difficile Tox B Gene Influenza A (Rapid) Negative Influenza B (Rapid) Negative 02/14/19 02/14/19 15:10 15:10 WBC RBC Hgb Hct MCV MCH MCHC RDW Plt Count MPV Neut # (Auto) Lymph # (Auto) Kimble # (Auto) Eos # (Auto) Baso # (Auto) Absolute Nucleated RBC Nucleated RBC % Sodium Potassium Chloride Carbon Dioxide Anion Gap BUN Creatinine Estimated GFR (MDRD) Glucose Calcium Total Bilirubin AST ALT Alkaline Phosphatase Total Protein Albumin Globulin Albumin/Globulin Ratio Lipase Urine Color YELLOW Urine Clarity HAZY Urine pH 7.5 Ur Specific [place] 1.020 Urine Protein 100 H Urine Glucose (UA) NEGATIVE Urine Ketones NEGATIVE Urine Occult Blood LARGE H Urine Nitrite NEGATIVE Urine Bilirubin NEGATIVE Urine Urobilinogen 0.2 (NORMAL) Ur Leukocyte Esterase MODERATE H Urine RBC 11-25 H Urine WBC >25 H Ur Squamous Epith Cells NONE SEEN Urine Bacteria Few Ur Microscopic Review INDICATED Urine Culture Comments INDICATED C. difficile Tox B Gene POSITIVE A* Influenza A (Rapid) Influenza B (Rapid) - Rads (name of study) CXR Radiology: Prelim report reviewed, EMP read contemporaneously, See rad report (Hyperinflation. Asbestos related pleural disease. No definitive evidence for superimposed consolidation or vascular congestion.) PD MEDICAL DECISION MAKING - ED course Complexity details: reviewed old records, reviewed results, re-evaluated patient, considered differential, d/w patient, d/w family ED course: The patient's presentation is significant for recurrent urinary tract infection in an elderly male with chronic indwelling Joshua catheter. In addition stool sample is positive for C. difficile. He does not appear septic, and his white count is normal at 10.4. BUN/creatinine ratio suggests dehydration, with a BUN of 30 and creatinine 1.1, and concentrated urine. Influenza swab is negative, and chest x-ray reveals chronic findings of COPD and asbestos exposure, but no acute findings. Treatment in the emergency department included administration of normal saline 2 L IV, Macrobid 100 mg orally, and vancomycin 125 mg orally. He is being discharged with a prescription for vancomycin. I discussed with him and his daughter the results of his workup, antibiotic treatment and outpatient follow- up, as well as potentially worrisome signs or symptoms that should prompt reevaluation in the emergency department. Departure - Departure Disposition: Home, Self Care Clinical Impression: C. difficile diarrhea, Mild dehydration UTI (urinary tract infection) Qualifiers: Urinary tract infection type: acute cystitis Hematuria presence: without hematuria Qualified Code(s): N30.00 - Acute cystitis without hematuria Condition: Stable Instructions: ED Diarrhea Bacterial, ED UTI Cystitis Male Follow-Up: Dirk Castro MD [Primary Care Provider] - Prescriptions: Vancomycin [Vancocin] 125 mg PO QID #40 capsule Comments: Drink plenty of fluids. Take vancomycin 4 times daily as prescribed. Eat probiotic while on antibiotic therapy. Follow-up with your primary physician within 1 week. Call to schedule an appointment. Return to the emergency department if you develop increasing abdominal pain, dehydration, or otherwise worsening symptoms. Discharge Date/Time: 02/14/19 18:14
[2019-02-14 15:27] LABS: BILIRUBIN,URINE NEGATIVE (NEGATIVE); GLUCOSE, URINE (UA) NEGATIVE (NEGATIVE); KETONES,URINE (UA) NEGATIVE (NEGATIVE); LEUKOCYTE ESTERASE, URINE MODERATE (NEGATIVE); NITRITE,URINE NEGATIVE (NEGATIVE); OCCULT BLOOD,URINE LARGE (NEGATIVE); PH,URINE 7.5 PH (5.0-7.5); PROTEIN,URINE 100 mg/dL (NEGATIVE); UROBILINOGEN,URINE 0.2 (NORMAL) E.U./dL (NORMAL)
[2019-02-14 15:29] LABS: CLARITY,URINE HAZY (CLEAR)
[2019-02-14 15:42] LABS: BACTERIA,URINE Few /HPF (None Seen); SQUAMOUS EPITHELIAL CELL,UR NONE SEEN (<= Few)
[2019-02-14] MEDS ORDERED: NITROFURANTOIN MACRO 100 MG CAPSULE PO STA (16:56)
[2019-02-14] MEDS ORDERED: VANCOMYCIN 125 MG CAPSULE PO STA ×2 (17:20→17:29)
[2019-02-14 18:00] VITALS: BP 125/58
== END 2019-02-14 18:14 | disposition home or self-care (01) ==
LOC: ED 11:00
DX: A04.72 Enterocolitis due to Clostridium difficile, not specified as recurrent (principal); E86.0 Dehydration; N30.00 Acute cystitis without hematuria; J44.9 Chronic obstructive pulmonary disease, unspecified; Z77.090 Contact with and (suspected) exposure to asbestos; G30.9 Alzheimer's disease, unspecified; F02.80 Dementia in other diseases classified elsewhere, unspecified severity, without behavioral disturbance, psychotic disturbance, mood disturbance, and anxiety; E11.9 Type 2 diabetes mellitus without complications; Z79.84 Long term (current) use of oral hypoglycemic drugs; F17.200 Nicotine dependence, unspecified, uncomplicated; Z66 Do not resuscitate
CPT/HCPCS: 36415; 51702; 71046; 80053; 81001; 83690; 85025; 87086; 87275; 87276; 87493; 94640; 96360; 96361; 99283; 99284; A9270; J8499; 81003

== ENCOUNTER 2019-03-05 08:00 | Outpatient (CLI) | payer MEDICARE, MEDICAID | END 2019-03-05 23:59 | disposition home or self-care (01) | LOC: LAB.R 08:00 | PROVIDERS: ATTEND Internal Medicine | DX: R19.7 Diarrhea, unspecified (principal) | CPT/HCPCS: 87493 ==

== ENCOUNTER 2019-04-14 17:33 | Emergency (ER) | payer MEDICARE, MEDICAID ==
[2019-04-14 17:39] VITALS: BP 130/80
--- NOTE | 2019-04-14 17:46 | ED Physician Documentation ---
PD HPI MALE - Stated complaint Stated Complaint: BLOOD IN URINE - Chief complaint Chief Complaint: UTI - History obtained from History obtained from: Patient, Family (daughter, Blanca) - History of Present Illness Timing - onset: Today (Hematuria today with some intermittent suprapubic pain, no clots. Current catheter is about 10 days old, he has a chronic indwelling Joshua.) Review of Systems Constitutional: denies: Fever, Chills Nose: reports: Reviewed and negative Cardiac: reports: Reviewed and negative Respiratory: reports: Reviewed and negative GI: reports: Abdominal Pain. denies: Nausea, Vomiting PD PAST MEDICAL HISTORY - Past Medical History Cardiovascular: High cholesterol, Coronary artery disease Respiratory: COPD, Sleep apnea, CPAP use Neuro: Alzhiemer's, Dementia Endocrine/Autoimmune: Type 2 diabetes GI: Hiatal hernia : Benign prostate hypertrophy HEENT: None Psych: Depression Musculoskeletal: None Derm: None - Past Surgical History Past Surgical History: Yes General: Bowel surgery Ortho: Other Cardiovascular: Coronary stent - Present Medications Home Medications: Ambulatory Orders Medication Instructions Recorded Confirmed Furosemide 20 mg PO DAILY 05/13/15 04/14/19 Sertraline [Zoloft] 20 mg PO DAILY 12/07/16 04/14/19 Albuterol Sulfate [Proair Hfa 1 - 2 puffs INH Q4H PRN 04/10/18 04/14/19 Inhaler] Metformin HCl 500 mg PO QDBREAKFAST 04/21/18 04/14/19 Ciprofloxacin HCl [Cipro] 500 mg PO BID #28 tablet 04/14/19 Phenazopyridine HCl [Pyridium] 200 mg PO TID PRN #6 tablet 04/14/19 - Allergies Allergies/Adverse Reactions: Allergies Allergy/AdvReac Type Severity Reaction Status Date / Time No Known Drug Allergies Allergy Verified 04/14/19 17:39 - Social History Does the pt smoke?: Yes Smoking Status: Current every day smoker Does the pt drink ETOH?: No Does the pt have substance abuse?: No - Immunizations Immunizations are current?: No Immunizations: TDAP >10years/unknown - POLST Patient has POLST: No POLST Status: DNR PD ED PE NORMAL - Vitals Vital signs reviewed: Yes - General General: No acute distress, Well developed/nourished - Abdomen Abdomen: Normal bowel sounds, Soft, Non tender - Male Male : Other (Slightly bloody urine in the bag, rock in color.) - Derm Derm: Normal color, No rash Results - Vitals Vitals: Vital Signs - 24 hr 04/14/19 17:35 Temperature 36.6 C Heart Rate 63 Respiratory 20 Rate Blood Pressure 130/80 O2 Saturation 98 Oxygen O2 Source [Without Activity] Room air O2 Source Room air - Labs Labs: Laboratory Tests 04/14/19 18:15 Urine Color LT RED Urine Clarity HAZY Urine pH >=9.0 H Ur Specific [place] <=1.005 Urine Protein 100 H Urine Glucose (UA) NEGATIVE Urine Ketones NEGATIVE Urine Occult Blood LARGE H Urine Nitrite NEGATIVE Urine Bilirubin NEGATIVE Urine Urobilinogen 0.2 (NORMAL) Ur Leukocyte Esterase MODERATE H Urine RBC 0-5 Urine WBC 0-3 Ur Squamous Epith Cells NONE SEEN Urine Crystals 11-25 Triple Phos Amorphous Sediment Marked Urine Bacteria None Seen Ur Microscopic Review INDICATED Urine Culture Comments INDICATED Departure - Departure Disposition: 01 Home, Self Care Clinical Impression: UTI (urinary tract infection) Qualifiers: Urinary tract infection type: catheter-associated UTI Indwelling urinary cathet er type: indwelling urethral catheter Encounter type: initial encounter Qualified Code(s): T83.511A - Infection and inflammatory reaction due to indwelling urethral catheter, initial encounter; N39.0 - Urinary tract infection, site not specified Condition: Good Record reviewed to determine appropriate education?: Yes Instructions: ED UTI Cystitis Male Prescriptions: Ciprofloxacin HCl [Cipro] 500 mg PO BID #28 tablet Phenazopyridine HCl [Pyridium] 200 mg PO TID PRN #6 tablet PRN Reason: dysuria Comments: We will culture your urine, the results should be done in 48-72 hours. If an antibiotic change is necessary we will call you. Return if worse in the meantime, especially if you develop increasing flank pain, fevers, or cannot keep down the medication.
[2019-04-14 18:22] LABS: BILIRUBIN,URINE NEGATIVE (NEGATIVE); GLUCOSE, URINE (UA) NEGATIVE (NEGATIVE); KETONES,URINE (UA) NEGATIVE (NEGATIVE); LEUKOCYTE ESTERASE, URINE MODERATE (NEGATIVE); NITRITE,URINE NEGATIVE (NEGATIVE); OCCULT BLOOD,URINE LARGE (NEGATIVE); PH,URINE >=9.0 PH (5.0-7.5); PROTEIN,URINE 100 mg/dL (NEGATIVE); UROBILINOGEN,URINE 0.2 (NORMAL) E.U./dL (NORMAL)
[2019-04-14 18:35] LABS: CLARITY,URINE HAZY (CLEAR)
[2019-04-14 18:46] LABS: AMORPHOUS SEDIMENT,UR Marked /LPF; BACTERIA,URINE None Seen /HPF (None Seen); CRYSTALS,URINE 11-25 Triple Phos /LPF; RBC,URINE 0-5 /HPF (0-5); SQUAMOUS EPITHELIAL CELL,UR NONE SEEN (<= Few)
[2019-04-14] MEDS ORDERED: PHENAZOPYRIDINE 100 MG TABLET PO STA (19:02)
[2019-04-14] MEDS ORDERED: CIPROFLOXACIN 250 MG TABLET PO STA (19:02)
== END 2019-04-14 19:25 | disposition home or self-care (01) ==
LOC: ED 17:33
DX: T83.511A Infection and inflammatory reaction due to indwelling urethral catheter, initial encounter (principal); Y84.6 Urinary catheterization as the cause of abnormal reaction of the patient, or of later complication, without mention of misadventure at the time of the procedure; E11.9 Type 2 diabetes mellitus without complications; Z79.84 Long term (current) use of oral hypoglycemic drugs; G30.9 Alzheimer's disease, unspecified; F02.80 Dementia in other diseases classified elsewhere, unspecified severity, without behavioral disturbance, psychotic disturbance, mood disturbance, and anxiety; F17.200 Nicotine dependence, unspecified, uncomplicated
CPT/HCPCS: 81001; 87077; 87086; 87181; 99283; A9270; 81003

== ENCOUNTER 2019-05-02 08:00 | Emergency (ER) | payer MEDICARE, MEDICAID ==
--- NOTE | 2019-05-02 09:10 | ED Physician Documentation ---
PD HPI ABD PAIN - Stated complaint Stated Complaint: CONSTIPATED - Chief complaint Chief Complaint: Abd Pain - History obtained from History obtained from: Patient, Family - History of Present Illness Timing - onset: How many days ago (3) Timing - duration: Days (3) Timing - details: Gradual onset, Still present Quality: Fullness/distended (minimal) Location: All over / everywhere Radiation: Upper back Similar symptoms before: Has not had sx before Recently seen: Not recently seen - Additional information Additional information: Previously well 89-year-old male has developed constipation over the past 3 days and his daughter is given him some MiraLAX daily he has not had any output as yet and at about 4:45 AM this morning he developed some pain between his shoulder blades. It was enough to wake him up and have him scream. He denies any symptoms currently. He has not had any shortness of breath nausea or vomiting otherwise feels fatigued. Review of Systems Constitutional: denies: Fever Eyes: denies: Decreased vision Ears: denies: Ear pain Nose: denies: Congestion Throat: denies: Sore throat Cardiac: denies: Chest pain / pressure, Palpitations Respiratory: denies: Dyspnea, Cough GI: reports: Constipation. denies: Abdominal Pain, Nausea, Vomiting : denies: Dysuria, Frequency, Discharge Musculoskeletal: reports: Back pain. denies: Neck pain PD PAST MEDICAL HISTORY - Past Medical History Cardiovascular: High cholesterol, Coronary artery disease Respiratory: COPD, Sleep apnea, CPAP use Neuro: Alzhiemer's, Dementia Endocrine/Autoimmune: Type 2 diabetes GI: Hiatal hernia : Benign prostate hypertrophy HEENT: None Psych: Depression Musculoskeletal: None Derm: None - Past Surgical History Past Surgical History: Yes General: Bowel surgery Ortho: Other Cardiovascular: Coronary stent - Present Medications Home Medications: Ambulatory Orders Medication Instructions Recorded Confirmed RX: Furosemide 20 mg PO DAILY 05/13/15 04/14/19 RX: Sertraline [Zoloft] 20 mg PO DAILY 12/07/16 04/14/19 RX: Albuterol Sulfate [Proair Hfa 1 - 2 puffs INH Q4H PRN 04/10/18 04/14/19 Inhaler] RX: Metformin HCl 500 mg PO QDBREAKFAST 04/21/18 04/14/19 Ciprofloxacin HCl [Cipro] 500 mg PO BID #28 tablet 04/14/19 Phenazopyridine HCl [Pyridium] 200 mg PO TID PRN #6 tablet 04/14/19 - Allergies Allergies/Adverse Reactions: Allergies Allergy/AdvReac Type Severity Reaction Status Date / Time No Known Drug Allergies Allergy Verified 05/02/19 08:11 - Social History Does the pt smoke?: Yes Smoking Status: Current every day smoker Does the pt drink ETOH?: No Does the pt have substance abuse?: No - Immunizations Immunizations are current?: No Immunizations: TDAP >10years/unknown - POLST Patient has POLST: No POLST Status: DNR PD ED PE NORMAL - Vitals Vital signs reviewed: Yes (normal ) - General General: Alert and oriented X 3, No acute distress, Well developed/nourished - HEENT HEENT: Atraumatic, PERRL, EOMI - Neck Neck: Supple, no meningeal sign, No bony TTP - Cardiac Cardiac: RRR, No murmur - Respiratory Respiratory: No respiratory distress, Other (scattered wheezes ) - Abdomen Abdomen: Normal bowel sounds, Soft, Non tender, Non distended, No organomegaly - Back Back: No CVA TTP, No spinal TTP - Derm Derm: Normal color, Warm and dry, No rash - Extremities Extremities: No deformity, No edema - Neuro Neuro: Alert and oriented X 3, 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, No motor deficit, No sensory deficit, Normal speech Eye Opening: Spontaneous Motor: Obeys Commands Verbal: Oriented GCS Score: 15 - Psych Psych: Normal mood, Normal affect Results - Vitals Vitals: Vital Signs - 24 hr 05/02/19 05/02/19 05/02/19 08:08 10:42 12:00 Temperature 36.8 C Heart Rate 58 L 57 L 57 L Respiratory 18 14 14 Rate Blood Pressure 115/64 114/68 114/68 O2 Saturation 98 97 97 Oxygen O2 Source [] Room air O2 Source Room air - EKG (time done) 0821 Rhythm: NSR Intervals: RBBB Ischemia: Q waves Compare to prior EKG: Changed from prior EKG (SPT rate has decreased ) Computer interpretation: Disagree with computer (AK interval is prolonged not short and similar to prior. ) PD MEDICAL DECISION MAKING - ED course Complexity details: reviewed results, re-evaluated patient, considered differential, d/w patient, d/w family ED course: 89 y/o male with constipation responds to an enema. Departure - Departure Disposition: 01 Home, Self Care Clinical Impression: Constipation Qualifiers: Constipation type: unspecified constipation type Qualified Code(s): K59.00 - Constipation, unspecified Condition: Stable Instructions: ED Constipation Follow-Up: Artem Denis MD [Primary Care Provider] - Discharge Date/Time: 05/02/19 13:34
[2019-05-02 10:44] VITALS: BP 114/68
== END 2019-05-02 13:34 | disposition home or self-care (01) ==
LOC: ED 08:00
DX: K59.00 Constipation, unspecified (principal); M54.6 Pain in thoracic spine; I45.10 Unspecified right bundle-branch block; E11.9 Type 2 diabetes mellitus without complications; Z79.84 Long term (current) use of oral hypoglycemic drugs; J44.9 Chronic obstructive pulmonary disease, unspecified; F17.200 Nicotine dependence, unspecified, uncomplicated; G30.9 Alzheimer's disease, unspecified; F02.80 Dementia in other diseases classified elsewhere, unspecified severity, without behavioral disturbance, psychotic disturbance, mood disturbance, and anxiety
CPT/HCPCS: 51798; 93005; 99283

== ENCOUNTER 2019-05-06 17:00 | Outpatient (CLI) | payer MEDICARE, MEDICAID | END 2019-05-06 17:01 | disposition critical access hospital (66) | LOC: EMS 17:00 | PROVIDERS: ATTEND Surgery | DX: R53.1 Weakness (principal); R82.90 Unspecified abnormal findings in urine; R09.89 Other specified symptoms and signs involving the circulatory and respiratory systems | CPT/HCPCS: A0425; A0427 ==

== ENCOUNTER 2019-05-06 17:09 | Inpatient (IN) | payer MEDICARE, MEDICAID ==
[2019-05-06] MEDS ORDERED: ACETAMINOPHEN 325 MG TABLET PO STA (17:22)
[2019-05-06] MEDS ORDERED: IPRATROPIUM/ALBUTEROL 3 ML NEB INH STA (17:23)
[2019-05-06] MEDS ORDERED: CEFEPIME 1 GM in SODIUM CHLORIDE 0.9% MINIBAG 100 ML IV STA (17:27)
[2019-05-06 17:41] LABS: BASOPHILS # (AUTO) 0.1 10^3/uL (0.0-0.1); BASOPHILS % (AUTO) 0.6 %; EOSINOPHILS # (AUTO) 0.1 10^3/uL (0.0-0.7); EOSINOPHILS % (AUTO) 0.7 %; HGB - HEMOGLOBIN 11.5 g/dL (14.0-18.0); LYMPHOCYTES # (AUTO) 1.3 10^3/uL (1.5-3.5); LYMPHOCYTES % (AUTO) 9.8 %; MEAN CORPUSCULAR HEMOGLOBIN 25.8 pg (27.0-31.0); MEAN CORPUSCULAR HGB CONC 32.4 g/dL (32.0-36.0); MEAN CORPUSCULAR VOLUME 79.8 fL (80.0-94.0); MEAN PLATELET VOLUME 7.5 fL (7.4-11.4); MONOCYTES % (AUTO) 8.1 %; NEUTROPHILS # (AUTO) 10.5 10^3/uL (1.5-6.6); NEUTROPHILS % (AUTO) 80.8 %; PLT - PLATELET COUNT 282 10^3/uL (130-450); RED BLOOD COUNT 4.45 10^6/uL (4.70-6.10)
[2019-05-06 17:46] LABS: VBG BASE EXCESS 0.2 mmol/L (-2 - +2); VBG PCO2 36.7 mmHg (41-51); VBG PH 7.435 (7.31-7.41); VBG PO2 49.5 mmHg (25-47); VBG TOTAL CO2 25.2 mmol/L (24-29)
[2019-05-06 17:48] LABS: CALCIUM 8.4 mg/dL (8.5-10.3)
--- NOTE | 2019-05-06 17:49 | ED Physician Documentation ---
History of Present Illness - Stated complaint Stated Complaint: WEAKNESS - Chief complaint Chief Complaint: Resp - History obtained from History obtained from: Patient, Family, EMS - History of Present Illness Timing: How many days ago (1) Severity Comments: moderate fatigue, weakness Quality: productive cough Radiates to: no pain, no radiation Improved by: nothing Worsened by: moving around Associated symptoms: cough, fever of 101 - Treatment prior to arrival Treatment prior to arrival: duoneb given my EMS en route - Additonal information Additional information: Pt has COPD, he is still a smoker. Does not use home O2. He has been more fatigued the last day or 2 and coughing. 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 He lives at home with his . He is normally ambulatory and independent but has been unable to get out of bed. Review of Systems Ten Systems: 10 systems reviewed and negative Constitutional: reports: Fever Throat: denies: Sore throat Cardiac: denies: Chest pain / pressure Respiratory: reports: Dyspnea, Cough GI: denies: Abdominal Pain, Nausea, Vomiting : reports: Other (reports cloudy urine in the stephens catheter). denies: Dysuria Skin: denies: Rash Musculoskeletal: denies: Neck pain, Back pain Neurologic: reports: Generalized weakness PD PAST MEDICAL HISTORY - Past Medical History Past Medical History: Yes Cardiovascular: High cholesterol, Coronary artery disease Respiratory: COPD, Sleep apnea, CPAP use Neuro: Alzhiemer's, Dementia Endocrine/Autoimmune: Type 2 diabetes GI: Hiatal hernia : Benign prostate hypertrophy HEENT: None Psych: Depression Musculoskeletal: None Derm: None - Past Surgical History Past Surgical History: Yes General: Bowel surgery Ortho: Other Cardiovascular: Coronary stent - Present Medications Home Medications: Ambulatory Orders Medication Instructions Recorded Confirmed RX: Furosemide 20 mg PO DAILY 05/13/15 05/07/19 RX: Sertraline [Zoloft] 50 mg PO DAILY 12/07/16 05/07/19 RX: Albuterol Sulfate [Proair Hfa 1 - 2 puffs INH Q4H PRN 04/10/18 05/07/19 Inhaler] RX: Metformin HCl 500 mg PO QDBREAKFAST 04/21/18 05/07/19 RX: Phenazopyridine HCl [Pyridium] 200 mg PO TID PRN #6 tablet 05/20/19 06/12/19 Budesonide/Formoterol Fumarate 10.2 gm IH BID #1 hfa.aer.ad 05/08/19 [Symbicort 80-4.5 Mcg Inhaler] Doxycycline Hyclate [Vibramycin] 100 mg PO BID 8 Days #16 capsule 05/08/19 RX: Amox/Clav 875/125 [Augmentin 1 tab PO BID 8 Days #16 tablet 05/08/19 875/125] RX: Aspirin 81 mg PO DAILY #30 tab.chew 05/08/19 RX: Ferrous Sulfate 325 mg PO BIDWM #60 tablet 05/08/19 RX: Lactobacillus Rhamnosus GG 1 cap PO DAILY 20 Days #20 capsule 05/08/19 [Culturelle] - Allergies Allergies/Adverse Reactions: Allergies Allergy/AdvReac Type Severity Reaction Status Date / Time No Known Drug Allergies Allergy Verified 05/06/19 17:22 - Social History Does the pt smoke?: Yes Smoking Status: Current every day smoker Does the pt drink ETOH?: No Does the pt have substance abuse?: No - Immunizations Immunizations are current?: No Immunizations: TDAP >10years/unknown - POLST Patient has POLST: No POLST Status: DNR PD ED PE NORMAL - Vitals Vital signs reviewed: Yes - General General: Alert and oriented X 3 - HEENT HEENT: Atraumatic, PERRL, EOMI, Moist mucous membranes, Pharynx benign - Neck Neck: Supple, no meningeal sign, No JVD - Cardiac Cardiac: RRR, No murmur, No gallop, No rub, Strong equal pulses - Respiratory Respiratory: Other (bilateral rhonchi present ) - Abdomen Abdomen: Soft, Non tender, Non distended - Male Male : Deferred - Rectal Rectal: Deferred - Derm Derm: Normal color, Warm and dry, No rash - Extremities Extremities: No deformity, No edema - Neuro Neuro: Alert and oriented X 3 Eye Opening: Spontaneous Motor: Obeys Commands Verbal: Oriented GCS Score: 15 - Psych Psych: Normal mood, Normal affect Results - Vitals Vitals: Oxygen O2 Source [Without Activity] Room air O2 Source Nasal cannula Oxygen Flow Rate 2 - Labs Labs: Microbiology 05/06/19 18:17 Urine Culture - Final Urine,Clean Catch >100,000 COLONIES/ML Polymicrobial growth including potential pathogens. This is suggestive of skin or other contamination. 05/06/19 17:31 Blood Culture - Preliminary Blood - Left Arm NO GROWTH AFTER 1 DAY 05/06/19 17:29 Blood Culture - Preliminary Blood - Right Iv-Start NO GROWTH AFTER 1 DAY Laboratory Tests 05/06/19 05/06/19 05/06/19 17:29 17:29 17:29 WBC 13.0 H RBC 4.45 L Hgb 11.5 L Hct 35.5 L MCV 79.8 L MCH 25.8 L MCHC 32.4 RDW 15.0 Plt Count 282 MPV 7.5 Neut # (Auto) 10.5 H Lymph # (Auto) 1.3 L Troup # (Auto) 1.0 Eos # (Auto) 0.1 Baso # (Auto) 0.1 Absolute Nucleated RBC 0.00 Nucleated RBC % 0.0 D-Dimer VBG pH 7.435 H VBG pCO2 36.7 L VBG pO2 49.5 H VBG HCO3 24.1 VBG Total CO2 25.2 VBG O2 Saturation 87.4 H VBG Base Excess 0.2 Sodium 134 L Potassium 4.0 Chloride 100 L Carbon Dioxide 22 Anion Gap 12.0 BUN 33 H Creatinine 1.0 Estimated GFR (MDRD) 70 L Glucose 180 H Glycated Hemoglobin Estim Average Glucose Lactic Acid Calcium 8.4 L Urine Color Urine Clarity Urine pH Ur Specific Prospect Urine Protein Urine Glucose (UA) Urine Ketones Urine Occult Blood Urine Nitrite Urine Bilirubin Urine Urobilinogen Ur Leukocyte Esterase Urine RBC Urine WBC Ur Squamous Epith Cells Urine Bacteria Ur Microscopic Review Urine Culture Comments 05/06/19 05/06/19 05/06/19 17:29 17:29 17:29 WBC RBC Hgb Hct MCV MCH MCHC RDW Plt Count MPV Neut # (Auto) Lymph # (Auto) Troup # (Auto) Eos # (Auto) Baso # (Auto) Absolute Nucleated RBC Nucleated RBC % D-Dimer 630.8 H VBG pH VBG pCO2 VBG pO2 VBG HCO3 VBG Total CO2 VBG O2 Saturation VBG Base Excess Sodium Potassium Chloride Carbon Dioxide Anion Gap BUN Creatinine Estimated GFR (MDRD) Glucose Glycated Hemoglobin 7.0 H Estim Average Glucose 154 H Lactic Acid 1.2 Calcium Urine Color Urine Clarity Urine pH Ur Specific Prospect Urine Protein Urine Glucose (UA) Urine Ketones Urine Occult Blood Urine Nitrite Urine Bilirubin Urine Urobilinogen Ur Leukocyte Esterase Urine RBC Urine WBC Ur Squamous Epith Cells Urine Bacteria Ur Microscopic Review Urine Culture Comments 05/06/19 18:17 WBC RBC Hgb Hct MCV MCH MCHC RDW Plt Count MPV Neut # (Auto) Lymph # (Auto) Troup # (Auto) Eos # (Auto) Baso # (Auto) Absolute Nucleated RBC Nucleated RBC % D-Dimer VBG pH VBG pCO2 VBG pO2 VBG HCO3 VBG Total CO2 VBG O2 Saturation VBG Base Excess Sodium Potassium Chloride Carbon Dioxide Anion Gap BUN Creatinine Estimated GFR (MDRD) Glucose Glycated Hemoglobin Estim Average Glucose Lactic Acid Calcium Urine Color YELLOW Urine Clarity CLEAR Urine pH 5.5 Ur Specific Prospect 1.010 Urine Protein NEGATIVE Urine Glucose (UA) NEGATIVE Urine Ketones NEGATIVE Urine Occult Blood TRACE-INTA Urine Nitrite POSITIVE H Urine Bilirubin NEGATIVE Urine Urobilinogen 0.2 (NORMAL) Ur Leukocyte Esterase NEGATIVE Urine RBC 0-5 Urine WBC 0-3 Ur Squamous Epith Cells NONE SEEN Urine Bacteria Few Ur Microscopic Review INDICATED Urine Culture Comments INDICATED Nitrite positive urine though no significant bacteria or wbcs, likely not a true uti but culture sent. 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 Today with fever, worsening cough, hypoxia, cough is productive and pt with diffuse rhonchi. Recently discharge from the hospital a few days ago so possible hospital acqu ired pneumonia. Given cefepime to cover for PNeumonia or uTI. Pt however iwth worsening hypoxia, weakness, unable to get up - needs admission for antibiotics and further eval/management. Likely mildly septic here too given fever, wbc, and labs. Hospitalist accepted pt for admission. - Critical Care Time(min): 15 Comments: 15 Time Includes: Direct patient care Data interpretation: Labs, CXR - Sepsis Event Current Stage of Sepsis: Sepsis Possible source of Sepsis: Pulmonary, Genitourinary Mental/Cognitive Status: Confused, Lethargic, Change from baseline Capillary refill: Less than 2 seconds Peripheral Pulse Strength: 3+ Normal Peripheral Pulse Location: Radial Sepsis Comment: Given antibiotics for likely HCAP Departure - Departure Disposition: 66 [facility] DC/Xfer Clinical Impression: Pneumonia Qualifiers: Pneumonia type: due to unspecified organism Laterality: bilateral Lung location: unspecified part of lung Qualified Code(s): J18.9 - Pneumonia, unspecified organism Sepsis Qualifiers: Sepsis type: sepsis due to unspecified organism Qualified Code(s): A41.9 - Sepsis, unspecified organism Condition: Good Discharge Date/Time: 05/06/19 19:13
--- NOTE | 2019-05-06 18:05 | XRAY Report ---
Reason: chest pain Procedure Date: 05/06/2019 Accession Number: [id number] / [id number] Procedure: XR - Chest 1 View X-Ray CPT Code: 44024 FULL RESULT: EXAM: CHEST RADIOGRAPHY EXAM DATE: 05/06/2019 05:53 PM. CLINICAL HISTORY: Chest pain. COMPARISON: CHEST 2 VIEW 02/14/2019 11:48 AM. TECHNIQUE: 1 view. FINDINGS: Lungs/Pleura: There are bilateral pleural calcifications. No definite new areas of airspace disease are seen. No evidence of large effusion. No pneumothorax. Mediastinum: Heart size is within normal limits. There is thoracic aortic calcification. Other: None. IMPRESSION: 1. Heart size is within normal limits. There is thoracic aortic calcification. 2. There are bilateral calcified pleural plaques. 3. No definite evidence of acute intrathoracic abnormality. RAD[facility]
[2019-05-06] MEDS ORDERED: ONDANSETRON ODT 4 MG TABLET TL PRN (18:21)
[2019-05-06] MEDS ORDERED: ACETAMINOPHEN 325 MG TABLET PO PRN (18:21)
[2019-05-06] MEDS ORDERED: TEMAZEPAM 15 MG CAPSULE PO PRN (18:21)
[2019-05-06] MEDS ORDERED: PROCHLORPERAZINE 10 MG/2 ML VIAL IVP PRN (18:21)
[2019-05-06 18:29] LABS: BILIRUBIN,URINE NEGATIVE (NEGATIVE); GLUCOSE, URINE (UA) NEGATIVE (NEGATIVE); KETONES,URINE (UA) NEGATIVE (NEGATIVE); LEUKOCYTE ESTERASE, URINE NEGATIVE (NEGATIVE); NITRITE,URINE POSITIVE (NEGATIVE); OCCULT BLOOD,URINE TRACE-INTA (NEGATIVE); PH,URINE 5.5 PH (5.0-7.5); PROTEIN,URINE NEGATIVE (NEGATIVE); UROBILINOGEN,URINE 0.2 (NORMAL) E.U./dL (NORMAL)
[2019-05-06 18:32] LABS: CLARITY,URINE CLEAR (CLEAR)
[2019-05-06 18:47] LABS: BACTERIA,URINE Few /HPF (None Seen); RBC,URINE 0-5 /HPF (0-5); SQUAMOUS EPITHELIAL CELL,UR NONE SEEN (<= Few)
[2019-05-06 18:58] LABS: HB2 TOTAL 12.2 g/dL; HEMOGLOBIN A1C 0.65 g/dL
[2019-05-06] MEDS ORDERED: LORazepam 2 MG/ML VIAL IVP PRN (19:05)
[2019-05-06] MEDS ORDERED: IOVERSOL 320 100 ML VIAL IVP ONE ×2 (19:15→21:04)
[2019-05-06] MEDS ORDERED: VANCOMYCIN INJ 1.25 GM in SODIUM CHLORIDE 0.9% 500 ML IV SCH (20:00)
[2019-05-06] MEDS ORDERED: VANCOMYCIN PER PHARMACY 100 GM in SODIUM CHLORIDE 0.9% 250 ML IV SCH (20:00)
[2019-05-06] MEDS: FAMOTIDINE 20 MG TABLET PO SCH (21:17)
[2019-05-06] MEDS: LACTOBACILLUS RHAMNOSUS GG CAPSULE PO SCH (21:17)
[2019-05-06] MEDS: INSULIN ASPART 300 UNIT/3 ML PEN SUBQ SCH (21:18)
[2019-05-06] MEDS: CEFEPIME 2 GM in SODIUM CHLORIDE 0.9% MINIBAG 100 ML IV SCH (21:18)
[2019-05-06] MEDS: BUDESONIDE 0.5 MG/2 ML NEB INH SCH (21:20)
--- NOTE | 2019-05-06 21:24 | HISTORY & PHYSICAL EXAMINATION ---
Chief Complaint - Chief Complaint Chief Complaint: weakness, cough, "feels like shit" History of Present Illness - Admitted From Admitted From:: ER/Home - History Obtained From Records Reviewed: [facility] History obtained from: Daughter, ER MD notes Exam Limitations: patient has dementia - History of Present Illness HPI Comment/Other: This is an 89-year-old white gentleman who lives with his daughter because of his dementia and inability to take care of himself. He has a chronic indwelling Stephens catheter due to prostatic hypertrophy and is followed by urology on a monthly basis. That is about the only time he leaves the house. He is once a month visit to the [facility] to have his Stephens changed. He lives with his daughter, and he relies on her to dress him, bathing. She can cook the food and he will feed himself. Little bit of a mass back, but able to do so. At home he walks to the garage to have a cigarette. He will walk to the breakfast table to have his coffee and pastry. He uses a walker to do so. Once up he can really move well. But he really prefers to be sedentary. If she can get them to leave the house to go see his other daughter, they sometimes have a cocktail together, but he is inpatient after a few minutes and wanted to get back home. He is very comfortable in his daughter's house, enjoys her company, enjoys watching his TV. He is failing. Over the last few months he is seems to be getting weaker. Not anything she could put her finger on but she can see him declining. But he still has more good days than bad days. They did think about doing palliative care in the past but he is done so well they have not felt the need to move forward on that. He was seen in the emergency room May [address] Bonilla because of severe constipation. He received an enema in the emergency room and was able to go home. His daughter has also manually disimpacted him as well since that encounter. There have been no new events. No one is sick at the house. Yesterday he started coughing. Is been getting weaker and weaker to the point that he cannot get out of bed. He continues to smoke. Has emphysema. He is not on home O2. In addition to the cough, weakness, he has had a fever of 101. There is been no diarrhea, change in abdominal habits. The phlegm is thick, narayanan to brown- colored. There is been no emesis. He has not wanted to eat very much. There is been no body rashes. No change in his usual dementia status. His daughter brought him to the emergency room where she was evaluated by Dr. Bhardwaj. His temp was 38.4, pulse was 89, respirations 26 with a blood pressure of 157/76. He was 91% saturated on room air. He was an alert elderly gentleman that she reports as oriented. He had bilateral rhonchi but no respiratory distress. His chest x-ray today was compared to his February 14 chest x-ray and he has bilateral calcified pleural plaquing, but no acute evidence of acute intrathoracic abnormality. His white cell count is elevated to 13,000. His l ast check was February 14 and his white cell count was 10.4. In December he was 8.2. In November he was 7000. He is a little hyponatremic today to 134. BUN and creatinine are stable for him. He is now admitted as probable pneumonia. Chest x-ray is not clearly indicating that. But from a lung exam perspective and a historical perspective he is presenting that way. His daughter says that he will mitigate his complaints. He hates coming to the hospital. Yesterday was the first time he is admitted that he has had any discomfort when he said that he "felt like Scheidt". She warns us that he will tell everyone that he is perfectly fine and that he wants to go home. The only other new thing is that of chest pain this morning. She said that first he said that he was hurting right between his shoulder blades. It felt like a very dull pressure sensation. And then he grabbed his central chest few moments later saying his chest hurt as well. She did not share that with the emergency room physician. There is no troponin or EKG done. He has a right bundle branch block on his old EKGs. History - Past Medical History Cardiovascular: reports: High cholesterol, Coronary artery disease Respiratory: reports: COPD, Sleep apnea, CPAP use Neuro: reports: Alzhiemer's, Dementia Endocrine/Autoimmune: reports: Type 2 diabetes GI: reports: Hiatal hernia : reports: Benign prostate hypertrophy HEENT: reports: None Psych: reports: Depression Musculoskeletal: reports: None Derm: reports: None MRSA Hx?: No - Past Surgical History General: reports: Bowel surgery Ortho: reports: Other Cardiovascular: reports: Coronary stent - Family & Social History Family History: Mother: , Father: , Sister: , Brother: Family History Comment/Other: No family history of diabetes, cancer, heart disease. He stated that all his family members are healthy and of natural causes. Social History Notes: The patient is originally from [place] but has been living in the [place] for most of his life. The patient was to his for over 60 years she in 2018. He lives with 1 of his daughters in [place], [place]. He is other daughter lives just 10 minutes away. He uses a walker to get around at home. He has 3 children in total 1 of whom is a physician. He was formerly in the [employer]. The patient has been smoking since his mid to late 20s and smoked half a pack to a pack a day for most of his life. He recently cut back to just 5-6 cigarettes a day. He denies any alcohol use or any illicit drug use. - Substance History Use: Uses substance without health or social issues: Tobacco - POLST Patient has POLST: Yes POLST Status: DNR Meds/Allgy - Home Medications Home Medications: Ambulatory Orders Medication Instructions Recorded Confirmed Furosemide 20 mg PO DAILY 05/13/15 04/14/19 Sertraline [Zoloft] 20 mg PO DAILY 12/07/16 04/14/19 Albuterol Sulfate [Proair Hfa 1 - 2 puffs INH Q4H PRN 04/10/18 04/14/19 Inhaler] Metformin HCl 500 mg PO QDBREAKFAST 04/21/18 04/14/19 Ciprofloxacin HCl [Cipro] 500 mg PO BID #28 tablet 04/14/19 Phenazopyridine HCl [Pyridium] 200 mg PO TID PRN #6 tablet 04/14/19 - Allergies Allergies/Adverse Reactions: Allergies Allergy/AdvReac Type Severity Reaction Status Date / Time No Known Drug Allergies Allergy Verified 05/06/19 17:22 Review of Systems - Constitutional Constitutional: reports: Fatigue, Fever, Chills, Malaise, Weakness, Poor appetite. denies: Diaphoresis, Night sweats - Eyes Eyes: denies: Pain, Irritation, Amaurosis, Blurred vision - Ears, Nose & Throat Ears, Nose & Throat: reports: Hearing loss, Nasal obstruction. denies: Ear pain, Hearing aids, Tinnitus, Vertigo, Nasal congestion, Postnasal drainage, Sore throat, Hoarseness - Cardiovascular Cariovascular: reports: Irregular heart rate, Palpitations, Chest pain, Exertional dyspnea, Decr. exercise tolerance. denies: Edema, Lightheadedness, Syncope - Respiratory Respiratory: reports: Cough, Sputum production, SOB with exertion. denies: Wheezing, Snoring, Hemoptysis, Orthopnea, SOB at rest, Apnea, Stridor - Gastrointestinal Gastrointestinal: reports: Constipation. denies: Abdominal pain, Abdominal distention, Diarrhea, Change in bowel habits, Rectal bleeding, Black stools, Bloody stools, Nausea, Vomiting, Adrine blood emesis, Coffee grounds emesis - Genitourinary Genitourinary: reports: Incontinence, Other (chronic indwelling stephens cath). denies: Dysuria, Frequency, Urgency - Musculoskeletal Musculoskeletal: reports: Back pain (between shoulder blades). denies: Muscle pain, Gout, Joint pain - Integumentary Integumentary: denies: Rash, Pruritis, Lesions - Neurological Neurological: reports: General weakness, Memory problems, Incoordination. d enies: Focal weakness, Headache, Dizziness - Psychiatric Psychiatric: denies: Depression, Anxiety, Suicidal - Endocrine Endocrine: denies: Polyuria, Polydypsia, Polyphagia - Hematologic/Lymphatic Hematologic/Lymphatic: reports: Anemia. denies: Bruising, Petechiae Prior Level of Functionality: As already stated in history of present illness, he uses a walker to walk to the table in the morning, and to the garage for a cigarette. He very reluctantly will take a walk to the mailbox. Relies on his daughter to make food, dressing, bathing. He feeds himself. He is still a cheerful presence in her life. But he keeps her awake at night and she is exhausted. He does send down a bit at home. Exam - Vital Signs Vital Signs: Vital Signs x48h Temp Pulse Pulse Resp BP BP Pulse Ox 05/06/19 19:25 37.3 C 80 24 113/48 L 95 05/06/19 18:19 78 22 124/59 L 95 06/11/19 17:50 84 22 05/06/19 17:23 38.4 C H 05/06/19 17:18 89 26 H 157/76 H 91 L - Physical Exam General Appearance: positive: No acute distress, Alert Eyes Bilateral: positive: PERRL Neck: positive: No JVD. negative: Stiff neck, Carotid bruit Respiratory: positive: Chest non-tender, No respiratory distress, Wheezes, Rhonchi Cardiovascular: positive: Regular rate & rhythm, Systolic murmur. negative: Ga llop/S4, Friction rub Abdomen: positive: Non-tender, No organomegaly, Nml bowel sounds, No distention Skin: positive: Warm, Dry Extremities: positive: Full ROM Neurologic/Psychiatric: positive: CN's nml (2-12) (except slightly deaf), Disoriented to place, Disoriented to time, Weakness Conclusion/Plan - Problem List (1) Pneumonia Conclusion/Plan: Presenting as cough, weakness, fever all in the last 48 hours. No associated GI symptoms but he is slightly hypoxic, more short of breath with exertion. Has an elevated WBC with nml lactic acid. No sepsis. Chest x-ray is currently without change but infiltrate may be obscured by bilateral pleural plaquing. Plan: CT of the chest to evaluate for obscured pneumonia Empiric antibiotic therapy for community-acquired pneumonia in the form of cefepime and vancomycin. Review blood cultures when available. Collect sputum for sputum culture Qualifiers: Pneumonia type: due to unspecified organism Laterality: bilateral Lung location: unspecified part of lung Qualified Code(s): J18.9 - Pneumonia, unspecified organism (2) Chest pain Conclusion/Plan: Unfortunately this gentleman's dementia leads to very vague, circumferential history. He does not even admit to the chest pain that he shared with his daughter this morning. His chest pain may be due to bronchitis/pneumonia. But his dementia precludes us from getting a very good history. Plan: Troponin in a patient has had a history of NC and coronary artery disease CT of the chest will be also with pulmonary angiogram (3) Type 2 diabetes mellitus, controlled Conclusion/Plan: He is diet controlled. He does not usually take medication. A1c is 7%. Plan: Sliding scale with short acting insulin Qualifiers: Diabetes mellitus multiskill operator insulin use: without multiskill operator use Diabetes mellitus complication status: with ophthalmic complications Diabetes mellitus complication detail: with diabetic retinopathy Diabetic retinopathy severity: with unspecified retinopathy severity Diabetes mellitus macular edema: macular edema presence unspecified Laterality: bilateral Qualified Code(s): E11.319 - Type 2 diabetes mellitus with unspecified diabetic retinopathy without macular edema (4) BPH loc w urin obs/LUTS Conclusion/Plan: Has a chronic indwelling Stephens. Urinary constituents are relatively normal for a gentleman who has a chronic indwelling Stephens. He is positive for nitrites, 0- 5 red cells, 0-3 white cells, no epithelial cells and very few bacteria. No UTI at this time. Plan: Continue chronic indwelling Stephens (5) Dementia Conclusion/Plan: Daughter describes his behavioral disturbance as just increased agitation, constantly being awake. She does not use anything at home to restrain him. She says that whatever we need to use here is okay with her. I did run past medications such as Ativan, Zyprexa, Haldol. She says those are fine but just to use them sparingly. Try verbal prompting first. Qualifiers: Dementia type: unspecified type Dementia behavioral disturbance: with behavioral disturbance Qualified Code(s): F03.91 - Unspecified dementia with behavioral disturbance (6) Constipation Conclusion/Plan: Present on admission. This is a long-standing problem for him. In the last few days he has had an enema, but manually disimpacted. Plan: Will give Lakhani milk of magnesia tonight Daily stool softener Qualifiers: Constipation type: chronic idiopathic constipation Qualified Code(s): K59.04 - Chronic idiopathic constipation - Lab Results Lab results reviewed: Yes Fish Bones: 05/06/19 17:29 05/06/19 17:29 - Diagnostic Imaging Results Diagnostic Imaging Results: positive: Final report reviewed Diagnostic Imaging Results Comments: EXAM: XR/[id number] ([id number]) Reason: chest pain Procedure Date: 05/06/2019 Accession Number: [id number] / [id number] Procedure: XR - Chest 1 View X-Ray CPT Code: 37483 FULL RESULT: EXAM: CHEST RADIOGRAPHY EXAM DATE: 05/06/2019 05:53 PM. CLINICAL HISTORY: Chest pain. COMPARISON: CHEST 2 VIEW 02/14/2019 11:48 AM. TECHNIQUE: 1 view. FINDINGS: Lungs/Pleura: There are bilateral pleural calcifications. No definite new areas of airspace disease are seen. No evidence of large effusion. No pneumothorax. Mediastinum: Heart size is within normal limits. There is thoracic aortic calcification. Other: None. IMPRESSION: 1. Heart size is within normal limits. There is thoracic aortic calcification. 2. There are bilateral calcified pleural plaques. 3. No definite evidence of acute intrathoracic abnormality. [facility] Core Measures - Anticipated LOS I expect patient to be DC'd or transferred within 96 hours.: Yes - DVT/VTE - Prophylaxis VTE/DVT Device ordered at admit?: Yes
--- NOTE | 2019-05-06 21:30 | CT Report ---
Reason: Acute hypoxemic respiratory failure Procedure Date: 05/06/2019 Accession Number: [id number] / [id number] Procedure: CT - ANGIO CHEST W/WO CPT Code: FULL RESULT: EXAM: CT ANGIOGRAM CHEST EXAM DATE: 05/06/2019 09:09 PM. CLINICAL HISTORY: Acute hypoxemic respiratory failure. COMPARISON: CHEST ANGIO 11/30/2018 10:14 PM ABDOMEN/PELVIS W/ 12/15/2014 5:43 PM. TECHNIQUE: Routine helical imaging was performed through the chest in the pulmonary arterial phase. IV Contrast: 80 cc Optiray 320. Reconstructions: Coronal 3-D MIP reconstructions.Sagittal and coronal. In accordance with CT protocol optimization, one or more of the following dose reduction techniques were utilized for this exam: automated exposure control, adjustment of mA and/or KV based on patient size, or use of iterative reconstructive technique. FINDINGS: Pulmonary Arteries: Diagnostic quality: Adequate through the proximal to mid segmental arteries. No evidence for acute or chronic pulmonary emboli. No evidence of central embolus. No evidence of acute right heart strain. Lungs/Pleura: There are extensive pleural calcifications. There is relatively stable bibasilar dependent consolidation. There are trace pleural effusions. No evidence of lung edema. No pneumothorax. Mediastinum: There is mild cardiomegaly. There are no enlarged axillary, supraclavicular, mediastinal, or hilar lymph nodes. Thoracic Aorta: There is no evidence of aortic dissection or aneurysm. There is thoracic aortic tortuosity. Upper Abdomen: There is cholelithiasis. There is moderate volume of stool within colon. The visualized portions of the upper abdominal organs demonstrate no acute abnormalities. There is a 1.5 cm hyperdensity likely [employer] of a complex cyst within the left kidney. Other: None. IMPRESSION: 1. No evidence of acute pulmonary embolism through the proximal to mid segmental branch level. 2. There is extensive pleural calcification. 3. There is bibasilar dependent consolidation which is slightly increased on the right as compared to the previous examination. Differential considerations include infiltrates, atelectasis, and/or interstitial lung disease. 4. There is emphysema. 5. No direct evidence of lung edema. 6. No pneumothorax. 7. There is no evidence of aortic dissection or aneurysm. 8. There is cholelithiasis. RADIA
[2019-05-06] MEDS ORDERED: MAGNESIUM HYDROXIDE 2,400 MG/30 ML UDC PO STA (21:52)
[2019-05-07] MEDS: SODIUM CHLORIDE FLUSH 0.9% 10 ML SYRINGE IVP SCH ×3 (00:28→18:09)
[2019-05-07 05:44] LABS: BASOPHILS # (AUTO) 0.1 10^3/uL (0.0-0.1); BASOPHILS % (AUTO) 0.4 %; EOSINOPHILS # (AUTO) 0.2 10^3/uL (0.0-0.7); EOSINOPHILS % (AUTO) 1.2 %; HGB - HEMOGLOBIN 10.3 g/dL (14.0-18.0); LYMPHOCYTES # (AUTO) 1.4 10^3/uL (1.5-3.5); LYMPHOCYTES % (AUTO) 10.9 %; MEAN CORPUSCULAR HGB CONC 32.2 g/dL (32.0-36.0); MEAN CORPUSCULAR VOLUME 80.9 fL (80.0-94.0); MEAN PLATELET VOLUME 7.4 fL (7.4-11.4); MONOCYTES # (AUTO) 1.3 10^3/uL (0.0-1.0); MONOCYTES % (AUTO) 10.7 %; NEUTROPHILS # (AUTO) 9.5 10^3/uL (1.5-6.6); NEUTROPHILS % (AUTO) 76.8 %; PLT - PLATELET COUNT 246 10^3/uL (130-450); RED BLOOD COUNT 3.95 10^6/uL (4.70-6.10); RED CELL DISTRIBUTION WIDTH 15.1 % (12.0-15.0); WHITE BLOOD COUNT 12.4 x10^3/uL (4.8-10.8)
[2019-05-07 05:56] LABS: ALBUMIN 2.9 g/dL (3.2-5.5); CALCIUM 8.2 mg/dL (8.5-10.3); CREATININE 1.1 mg/dL (0.6-1.2); PHOSPHORUS 3.4 mg/dL (2.5-4.6)
[2019-05-07] MEDS: IPRATROPIUM/ALBUTEROL 3 ML NEB INH PRN ×2 (07:35→19:20)
[2019-05-07] MEDS: BUDESONIDE 0.5 MG/2 ML NEB INH SCH ×2 (07:35→19:20)
[2019-05-07] MEDS ORDERED: NITROGLYCERIN SL 0.4 MG TABLET SL PRN (08:24)
[2019-05-07 09:00] LABS: % IRON SATURATION 7 % (20-50); IRON 22 ug/dL (45-182); TOTAL IRON BINDING CAPACITY 312 ug/dL (250-450); TRANSFERRIN 223 mg/dL (180-329)
[2019-05-07] MEDS ORDERED: AZITHROMYCIN INJ 500 MG in SODIUM CHLORIDE 0.9% 250 ML IV SCH (09:00)
[2019-05-07] MEDS ORDERED: ENOXAPARIN 40 MG/0.4 ML SYRINGE SUBQ SCH (09:00)
[2019-05-07] MEDS ORDERED: SERTRALINE 50 MG TABLET PO SCH ×2 (09:00→09:08)
[2019-05-07] MEDS: INSULIN ASPART 300 UNIT/3 ML PEN SUBQ SCH ×4 (09:09→20:21)
[2019-05-07] MEDS: ASPIRIN 325 MG TABLET PO SCH (09:11)
[2019-05-07] MEDS: POLYETHYLENE GLYCOL 3350 17 GM PACKET PO SCH (09:11)
[2019-05-07] MEDS: CEFEPIME 2 GM in SODIUM CHLORIDE 0.9% MINIBAG 100 ML IV SCH ×2 (09:12→20:20)
[2019-05-07] MEDS: DOCUSATE SODIUM 250 MG CAPSULE PO SCH (09:14)
[2019-05-07] MEDS: LACTOBACILLUS RHAMNOSUS GG CAPSULE PO SCH (09:14)
[2019-05-07] MEDS: FAMOTIDINE 20 MG TABLET PO SCH ×2 (09:15→20:20)
[2019-05-07] MEDS ORDERED: VANCOMYCIN INJ 0.75 GM in SODIUM CHLORIDE 0.9% 250 ML IV SCH (10:00)
[2019-05-07] MEDS: SODIUM CHLORIDE FLUSH 0.9% 10 ML SYRINGE IVP PRN (10:06)
[2019-05-07] MEDS: NICOTINE 21 MG PATCH TOP SCH (10:13)
--- NOTE | 2019-05-07 13:14 | MISCELLANEOUS PROVIDER NOTE ---
Miscellaneous Provider Note - - Note: HPI Comment/Other: This is an 89-year-old white gentleman who lives with his daughter because of his dementia and inability to take care of himself. He has a chronic indwelling Joshua catheter due to prostatic hypertrophy and is followed by urology on a monthly basis. That is about the only time he leaves the house. He is once a month visit to the [facility] to have his Joshua changed. He lives with his daughter, and he relies on her to dress him, bathing. She can cook the food and he will feed himself. Little bit of a mass back, but able to do so. At home he walks to the garage to have a cigarette. He will walk to the breakfast table to have his coffee and pastry. He uses a walker to do so. Once up he can really move well. But he really prefers to be sedentary. If she can get them to leave the house to go see his other daughter, they sometimes have a cocktail together, but he is inpatient after a few minutes and wanted to get back home. He is very comfortable in his daughter's house, enjoys her company, enjoys watching his TV. He is failing. Over the last few months he is seems to be getting weaker. Not anything she could put her finger on but she can see him declining. But he still has more good days than bad days. They did think about doing palliative care in the past but he is done so well they have not felt the need to move forward on that. He was seen in the emergency room May [address] Bonilla because of severe constipation. He received an enema in the emergency room and was able to go home. His daughter has also manually disimpacted him as well since that encounter. There have been no new events. No one is sick at the house. Yesterday he started coughing. Is been getting weaker and weaker to the point that he cannot get out of bed. He continues to smoke. Has emphysema. He is not on home O2. In addition to the cough, weakness, he has had a fever of 101. There is been no diarrhea, change in abdominal habits. The phlegm is thick, narayanan to brown- colored. There is been no emesis. He has not wanted to eat very much. There is been no body rashes. No change in his usual dementia status. His daughter brought him to the emergency room where she was evaluated by Dr. Bhardwaj. His temp was 38.4, pulse was 89, respirations 26 with a blood pressure of 157/76. He was 91% saturated on room air. He was an alert elderly gentleman that she reports as oriented. He had bilateral rhonchi but no respiratory dist ress. His chest x-ray today was compared to his February 14 chest x-ray and he has bilateral calcified pleural plaquing, but no acute evidence of acute intrathoracic abnormality. His white cell count is elevated to 13,000. His last check was February 14 and his white cell count was 10.4. In December he was 8.2. In November he was 7000. He is a little hyponatremic today to 134. BUN and creatinine are stable for him. He is now admitted as probable pneumonia. Chest x-ray is not clearly indicating that. But from a lung exam perspective and a historical perspective he is presenting that way. His daughter says that he will mitigate his complaints. He hates coming to the hospital. Yesterday was the first time he is admitted that he has had any discomfort when he said that he "felt like Scheidt". She warns us that he will tell everyone that he is perfectly fine and that he wants to go home. The only other new thing is that of chest pain this morning. She said that first he said that he was hurting right between his shoulder blades. It felt like a very dull pressure sensation. And then he grabbed his central chest few moments later saying his chest hurt as well. She did not share that with the emergency room physician. There is no troponin or EKG done. He has a right bundle branch block on his old EKGs. Subjective: Patient seen at bedside with improvement to respiratory function. Still requires 2 L nasal cannula. Coughing improve. No fevers, had one episode of chest pain with EKG normal. No micropapular rashes, GI/ symptoms. Objective: Patient has vital signs hemodynamically stable, afebrile, heart rate of 68 bpm, RR 18, blood pressure 119/53, 96% O2 saturation on 2 L nasal cannula. General Appearance: positive: Patient has dementia, No acute distress, Alert, Oriented to time and place. Eyes Bilateral: positive: PERRL, NCAT, No buccal lesions. Neck: positive: No JVD. negative: Stiff neck, Carotid bruit Respiratory: positive: Chest non-tender, No respiratory distress, Expiratory Rhonchi, Faint bibasilar rales. No wheezing, no increased work of breath or retractions. Cardiovascular: positive: Regular rate & rhythm, Systolic murmur. negative: Gallop/S4, Friction rub Abdomen: positive: Non-tender, No organomegaly, Nml bowel sounds, No distention Skin: positive: Warm, Dry Extremities: positive: Full ROM Neurologic/Psychiatric: positive: CN's nml (2-12) (except slightly deaf), Weakness Labs: Reviewed Imaging studies: Reviewed Conclusion/Plan - Problem List (1) Aspiration type Pneumonia Conclusion/Plan: Patient CTA showed negative pulmonary embolism however has extensive calcific plaque lesions, evidence of emphysema as well as bilateral consolidation right more than left indicating to aspiration type pneumonia. Presenting as cough, weakness, fever all in the last 48 hours. No associated GI symptoms but he is slightly hypoxic, more short of breath with exertion. Leukocytosis has slightly improved. Lactic acid unremarkable. No sepsis. Continue with empiric IV antibiotics with cefepime and vancomycin. Blood and sputum cultures to follow. (2) Chest pain Conclusion/Plan: Nitroglycerin and aspirin. EKG was unremarkable. Likely pleuritic chest pain as CTA shows bilateral consolidation and extensive calcific plaque related to patient's resistive lung disease/asbestosis. (3) Type 2 diabetes mellitus, controlled Conclusion/Plan: He is diet controlled. He does not usually take medication. A1c is 7%. Plan: Sliding scale with short acting insulin Qualifiers: Diabetes mellitus nursing home insulin use: without nursing home use Diabetes mellitus complication status: with ophthalmic complications Diabetes mellitus complication detail: with diabetic retinopathy Diabetic retinopathy severity: with unspecified retinopathy severity Diabetes mellitus macular edema: macular edema presence unspecified Laterality: bilateral Qualified Code(s): E11.319 - Type 2 diabetes mellitus with unspecified diabetic retinopathy without macular edema (4) BPH loc w urin obs/LUTS Conclusion/Plan: Has a chronic indwelling Joshua. Urinary constituents are relatively normal for a gentleman who has a chronic indwelling Joshua. He is positive for nitrites, 0- 5 red cells, 0-3 white cells, no epithelial cells and very few bacteria. No UTI at this time. However urine culture was sent. Plan: Continue chronic indwelling Joshua (5) Alzheimer's Dementia Conclusion/Plan: Daughter describes his behavioral disturbance as just increased agitation, constantly being awake. She does not use anything at home to restrain him. She says that whatever we need to use here is okay with her. I did run past medications such as Ativan, Zyprexa, Haldol. She says those are fine but just to use them sparingly. Try verbal prompting first. Qualifiers: Dementia type: unspecified type Dementia behavioral disturbance: with behavioral disturbance Qualified Code(s): F03.91 - Unspecified dementia with behavioral disturbance (6) Oral pharyngeal dysphagia Patient may be very well chronically aspirating. Will modify his diet while here. (7) Constipation Conclusion/Plan: Present on admission. This is a long-standing problem for him. In the last few days he has had an enema, but manually disimpacted. Plan: Will give Lakhani milk of magnesia tonight Daily stool softener Qualifiers: Constipation type: chronic idiopathic constipation Qualified Code(s): K59.04 - Chronic idiopathic constipation Continue with DVT/GI prophylaxis CODE STATUS: DNR
[2019-05-07] MEDS ORDERED: VANCOMYCIN INJ 500 MG in SODIUM CHLORIDE 0.9% MINIBAG 100 ML IV SCH (22:00)
[2019-05-08] MEDS: SODIUM CHLORIDE FLUSH 0.9% 10 ML SYRINGE IVP SCH ×2 (00:25→08:10)
[2019-05-08 05:42] LABS: BASOPHILS % (AUTO) 0.5 %; EOSINOPHILS # (AUTO) 0.2 10^3/uL (0.0-0.7); EOSINOPHILS % (AUTO) 2.8 %; HGB - HEMOGLOBIN 9.9 g/dL (14.0-18.0); LYMPHOCYTES # (AUTO) 1.2 10^3/uL (1.5-3.5); LYMPHOCYTES % (AUTO) 15.1 %; MEAN CORPUSCULAR HEMOGLOBIN 26.5 pg (27.0-31.0); MEAN CORPUSCULAR HGB CONC 33.4 g/dL (32.0-36.0); MEAN CORPUSCULAR VOLUME 79.2 fL (80.0-94.0); MEAN PLATELET VOLUME 7.6 fL (7.4-11.4); MONOCYTES % (AUTO) 12.4 %; NEUTROPHILS # (AUTO) 5.3 10^3/uL (1.5-6.6); NEUTROPHILS % (AUTO) 69.2 %; PLT - PLATELET COUNT 238 10^3/uL (130-450); RED BLOOD COUNT 3.74 10^6/uL (4.70-6.10); RED CELL DISTRIBUTION WIDTH 15.1 % (12.0-15.0); WHITE BLOOD COUNT 7.7 x10^3/uL (4.8-10.8)
[2019-05-08 05:51] LABS: ALBUMIN 2.8 g/dL (3.2-5.5); CALCIUM 8.3 mg/dL (8.5-10.3); CREATININE 1.2 mg/dL (0.6-1.2); PHOSPHORUS 3.3 mg/dL (2.5-4.6)
[2019-05-08] MEDS: BUDESONIDE 0.5 MG/2 ML NEB INH SCH (07:08)
[2019-05-08] MEDS: IPRATROPIUM/ALBUTEROL 3 ML NEB INH PRN (07:08)
--- NOTE | 2019-05-08 07:29 | Discharge Plan ---
Discharge Plan Disposition: Home, Self Care Condition: Good Prescriptions: Amox/Clav 875/125 [Augmentin 875/125] 1 tab PO BID 8 Days #16 tablet Aspirin 81 mg PO DAILY #30 tab.chew Budesonide/Formoterol Fumarate [Symbicort 80-4.5 Mcg Inhaler] 10.2 gm IH BID #1 hfa.aer.ad Doxycycline Hyclate [Vibramycin] 100 mg PO BID 8 Days #16 capsule Ferrous Sulfate 325 mg PO BIDWM #60 tablet Lactobacillus Rhamnosus GG [Culturelle] 1 cap PO DAILY 20 Days #20 capsule Diet: Low Sodium (Modified dysphagia diet to resume at home) Activity Restrictions: No Restrictions Shower Restrictions: No Driving Restrictions: No Instruction Topics: Oxygen Home Use, Pneumonia Tx, Anemia Iron Deficiency Ch, Aspiration Dysphagia, Aspiration Tx Ch Additional Instructions or Follow Up instructions: You were admitted for aspiration type pneumonia for which she required supplemental oxygenation to maintain her saturations above 90%. In addition you may or may not of had a recurrent urinary tract infection due to your indwelling Joshua catheter however urine cultures have not yielded an organism. Irrespective of these results you were still treated with intravenous antibiotics with 2 antimicrobial agents for your aspiration type pneumonia as well as possible urinary tract infection. We obtained 2 sets of blood cultures which did not yield any organisms. You will be qualified for home oxygen use at home and must meet criteria prior to your discharge. You were found to have iron deficiency anemia for which he will receive IV iron and then supplemental iron tablets at home. He will continue with your current medications at the dosages previously on prior to your admission to include your medications for diabetes to maintain proper glycemic control especially in the setting of your existing infections. You have a history of chronic kidney disease for which you will need follow-up with your primary care provider to avoid nephrotoxic agents such as NSAIDs or other medications that need to be approved by your PCP prior to usage. You will take Augmentin as well as doxycycline for 8 more days with lactobacillus which is a probiotic that will help you avoid opportunistic infections. You are encouraged to stop smoking however this may be difficult due to your 50-year history of smoking. I encourage you to perhaps do behavioral modification techniques which may be provided by your PCP. Your smoking is directly linked to previous and recurrent pneumonias and may eventually cause you to have COPD with emphysema and be oxygen dependent. In addition to your other medical conditions it is prudent to follow-up with your primary care provider to adjust any medications and increase or decrease dosages accordingly. You have Alzheimer's dementia with oral pharyngeal dysphagia which makes it difficult for you to swallow food effectively therefore making you at high risk for recurrent aspiration events. For this reason you will be on a continued modified dysphagia type diet as previously instructed. No Smoking: If you smoke, Please STOP! Call for help. Follow-up with: Artem Denis MD [Primary Care Provider] - 1 Week (Post hospital discharge follow-up with PCP in 1 or 2 weeks.)
[2019-05-08] MEDS: INSULIN ASPART 300 UNIT/3 ML PEN SUBQ SCH ×2 (07:31→12:02)
--- NOTE | 2019-05-08 07:43 | DISCHARGE SUMMARY ---
Discharge Summary Admit Date: 05/06/19 Discharge Date: 05/08/19 Discharging Provider: Dr. Omalley Primary Care Provider: Ab Denis Code Status: Do Not Attempt Resuscitation Condition at Discharge: Good Discharge Disposition: 01 Home, Self Care - DIAGNOSES Admission Diagnoses: (1)Aspiration Pneumonia (2) Chest pain (3) Type 2 diabetes mellitus, controlled (4) BPH loc w urin obs/LUTS (5) Alzheimer's type Dementia (6) Constipation Discharge Diagnoses with Status of Each Condition: (1) Aspiration type Pneumonia, Improved (2) Chest pain, Resolved (3) Type 2 diabetes mellitus, controlled (4) BPH loc w urin obs/LUTS, Stable (5) Chronic kidney disease stage II/III, stable (6) Alzheimer's Dementia, Progressive stable (7) Oral pharyngeal dysphagia, Progressive-stable (8) Constipation, Stable - HPI History of Present Illness: HPI Comment/Other: This is an 89-year-old white gentleman who lives with his daughter because of his dementia and inability to take care of himself. He has a chronic indwelling Joshua catheter due to prostatic hypertrophy and is followed by urology on a monthly basis. That is about the only time he leaves the house. He is once a month visit to the [facility] to have his Joshua changed. He lives with his daughter, and he relies on her to dress him, bathing. She can cook the food and he will feed himself. Little bit of a mass back, but able to do so. At home he walks to the garage to have a cigarette. He will walk to the breakfast table to have his coffee and pastry. He uses a walker to do so. Once up he can really move well. But he really prefers to be sedentary. If she can get them to leave the house to go see his other daughter, they sometimes have a cocktail together, but he is inpatient after a few minutes and wanted to get back home. He is very comfortable in his daughter's house, enjoys her company, enjoys watching his TV. He is failing. Over the last few months he is seems to be getting weaker. Not anything she could put her finger on but she can see him declining. But he still has more good days than bad days. They did think about doing palliative care in the past but he is done so well they have not felt the need to move forward on that. He was seen in the emergency room May [address] Bonilla because of severe constipation. He received an enema in the emergency room and was able to go home. His daughter has also manually disimpacted him as well since that encounter. There have been no new events. No one is sick at the house. Yesterday he started coughing. Is been getting weaker and weaker to the point that he cannot get out of bed. He continues to smoke. Has emphysema. He is not on home O2. In addition to the cough, weakness, he has had a fever of 101. There is been no diarrhea, change in abdominal habits. The phlegm is thick, narayanan to brown- colored. There is been no emesis. He has not wanted to eat very much. There is been no body rashes. No change in his usual dementia status. His daughter brought him to the emergency room where she was evaluated by Dr. Bhardwaj. His temp was 38.4, pulse was 89, respirations 26 with a blood pressure of 157/76. He was 91% saturated on room air. He was an alert elderly gentleman that she reports as oriented. He had bilateral rhonchi but no respiratory distress. His chest x-ray today was compared to his February 14 chest x-ray and he has bilateral calcified pleural plaquing, but no acute evidence of acute intrathoracic abnormality. His white cell count is elevated to 13,000. His last check was February 14 and his white cell count was 10.4. In December he was 8.2. In November he was 7000. He is a little hyponatremic today to 134. BUN and creatinine are stable for him. He is now admitted as probable pneumonia. Chest x-ray is not clearly indicating that. But from a lung exam perspective and a historical perspective he is presenting that way. His daughter says that he will mitigate his complaints. He hates coming to the hospital. Yesterday was the first time he is admitted that he has had any discomfort when he said that he "felt like Scheidt". She warns us that he will tell everyone that he is perfectly fine and that he wants to go home. The only other new thing is that of chest pain this morning. She said that first he said that he was hurting right between his shoulder blades. It felt like a very dull pressure sensation. And then he grabbed his central chest few moments later saying his chest hurt as well. She did not share that with the emergency room physician. There is no troponin or EKG done. He has a right bundle branch block on his old EKGs. - HOSPITAL COURSE Hospital Course: Mr. Sam was admitted for aspiration pneumonia as a result from his progressive oropharyngeal dysphagia related to his Alzheimer's dementia. 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 In addition patient has chronic kidney disease stage III, hypertension, hyperlipidemia, VALENCIA on CPAP but denies not use at home, BPH, with lower outlet obstruction and A chronic indwelling Joshua catheter, patient has a history of colon/prostate CA with no evidence of recurrence per history. Patient was recently admitted and discharged on 12/03/2018 for sepsis, pneumonia and UTI. Presented similarly with symptomatology of weakness, shortness of breath, malaise, with foul-smelling urine per family. Patient was found to be aspirating with evidence of acute respiratory hypoxemia for which supplemental oxygenation was needed and empiric IV antibiotics with vancomycin and cefepime were instituted. 2 sets of blood cultures failed to yield any organisms, UA was non-impressive and therefore urine culture was sent but is pending. Patient was found to have iron deficiency anemia for which she received IV iron and supplemental iron sulfate. Patient had one episode of chest pain for which EKG showed no ST-T wave abnormalities, bundle branch blocks, AVB. In addition patient was placed on aspirin and nitroglycerin. Glycemic control maintained. Home medications were resumed with holding Lasix and nephrotoxic agents in the setting of exiting CKD stage 2/3. D-dimer was elevatedIn the setting of patient's hypoxemia CTA was ordered with no evidence of pulmonary embolism however evidence of cholelithiasis, COPD emphysema, and bilateral consolidation seen right more than left two-point in the direction of aspiration type pneumoni a. In addition restrictive lung disease as evidenced with extensive calcific pleural plaques were again noted. Patient's hemoglobin on admission was 11.5 and this trended downward to 9.9 upon discharge with a microcytosis likely mixed with hemodilution and iron deficiency anemia as etiology. Patient's baseline creatinine is 1.0-1.5 and was 1.2 upon discharge. Patient was able to be successfully weaned off oxygen to 93% O2 saturation on room air. A home O2 evaluation with a desaturation study with exercise will be initiated to see if patient qualifies for home oxygen use. Patient will be prescribed Augmentin and doxycycline for approximately 8 days. Will prescribe Symbicort or Advair for bronchodilatation as well and for patient's COPD. Will defer off steroids for now due to patient's diabetes. Patient's Joshua catheter had been exchanged approximately more than 2 weeks ago and will be encouraged to follow-up with urology as scheduled. PCP in 1 to 2 weeks. Patient encouraged on smoking cessation however this will be difficult due to long-term use. Patient has been instructed on continued modified dysphagia diet for oropharyngeal dysphagia. - ALLERGIES Allergies/Adverse Reactions: Allergies Allergy/AdvReac Type Severity Reaction Status Date / Time No Known Drug Allergies Allergy Verified 05/06/19 17:22 - MEDICATIONS Home Medications: Ambulatory Orders Medication Instructions Recorded Confirmed Furosemide 20 mg PO DAILY 05/13/15 05/07/19 Sertraline [Zoloft] 50 mg PO DAILY 12/07/16 05/07/19 Albuterol Sulfate [Proair Hfa 1 - 2 puffs INH Q4H PRN 04/10/18 05/07/19 Inhaler] Metformin HCl 500 mg PO QDBREAKFAST 04/21/18 05/07/19 Phenazopyridine HCl [Pyridium] 200 mg PO TID PRN #6 tablet 04/14/19 05/07/19 Amox/Clav 875/125 [Augmentin 1 tab PO BID 8 Days #16 tablet 05/08/19 875/125] Aspirin 81 mg PO DAILY #30 tab.chew 05/08/19 Budesonide/Formoterol Fumarate 10.2 gm IH BID #1 hfa.aer.ad 05/08/19 [Symbicort 80-4.5 Mcg Inhaler] Doxycycline Hyclate [Vibramycin] 100 mg PO BID 8 Days #16 capsule 05/08/19 Ferrous Sulfate 325 mg PO BIDWM #60 tablet 05/08/19 Lactobacillus Rhamnosus GG 1 cap PO DAILY 20 Days #20 capsule 05/08/19 [Culturelle] - PHYSICAL EXAM AT DISCHARGE General Appearance: positive: No acute distress, Alert, Other (Demented but pleasant with no behavioral disturbance) Eyes Bilateral: positive: Normal inspection, PERRL, EOMI ENT: positive: ENT inspection nml, Pharynx nml, No signs of dehydration Neck: positive: Nml inspection, Thyroid nml, No JVD, Trachea midline. negative: Thyromegaly Respiratory: positive: Chest non-tender, No respiratory distress, Rhonchi. neg ative: Wheezes, Rales Cardiovascular: positive: Regular rate & rhythm, No murmur, No gallop. negative: JVD present, Gallop/S4 Peripheral Pulses: positive: 2+ Abdomen: positive: Non-tender, No organomegaly, Nml bowel sounds, No distention. negative: Tenderness Extremities: positive: Non-tender, Full ROM, Nml appearance Neurologic/Psychiatric: positive: CN's nml (2-12), Motor nml, Sensation nml, Mood/affect nml, Disoriented to time. negative: Facial droop, Slurred/abnml speech, Depressed mood/affect - LABS Result Diagrams: 05/08/19 05:20 05/08/19 05:20 - DIAGNOSTIC IMAGING Diagnostic Imaging Results: Final report reviewed - FOLLOW UP Follow Up: Follow-up with PCP in 1 or 2 weeks. Follow-up with urology in 2 to 3 weeks. - TIME SPENT Time Spent in Discharge (Minutes): 35
[2019-05-08 07:50] VITALS: BP 134/72
[2019-05-08] MEDS ORDERED: AMOX/CLAV 875 MG/125 MG TABLET PO SCH (08:00)
[2019-05-08] MEDS ORDERED: FERROUS SULFATE 325 MG TABLET PO SCH (08:00)
[2019-05-08] MEDS: NICOTINE 21 MG PATCH TOP SCH (08:08)
[2019-05-08] MEDS: SODIUM CHLORIDE FLUSH 0.9% 10 ML SYRINGE IVP PRN (08:10)
[2019-05-08] MEDS: POLYETHYLENE GLYCOL 3350 17 GM PACKET PO SCH (08:10)
[2019-05-08] MEDS: LACTOBACILLUS RHAMNOSUS GG CAPSULE PO SCH (08:11)
[2019-05-08] MEDS: FAMOTIDINE 20 MG TABLET PO SCH (08:11)
[2019-05-08] MEDS: ASPIRIN 325 MG TABLET PO SCH (08:11)
[2019-05-08] MEDS: DOCUSATE SODIUM 250 MG CAPSULE PO SCH (08:11)
[2019-05-08] MEDS ORDERED: FERRIC GLUCONATE 125 MG in SODIUM CHLORIDE 0.9% 100ML 100 ML IV ONE (10:00)
[2019-05-08] MEDS ORDERED: DOXYCYCLINE 100 MG TABLET PO SCH (10:00)
== END 2019-05-08 13:24 | disposition home or self-care (01) | DRG 178 ==
LOC: EDUNIT# → ED 17:09 → MS2 19:02
PROVIDERS: ADMIT Family Medicine; ATTEND Family Medicine
DX: A41.9 Sepsis, unspecified organism (principal); J18.9 Pneumonia, unspecified organism; J44.0 Chronic obstructive pulmonary disease with (acute) lower respiratory infection; G47.30 Sleep apnea, unspecified; J61 Pneumoconiosis due to asbestos and other mineral fibers; J69.0 Pneumonitis due to inhalation of food and vomit; F02.80 Dementia in other diseases classified elsewhere, unspecified severity, without behavioral disturbance, psychotic disturbance, mood disturbance, and anxiety; E11.9 Type 2 diabetes mellitus without complications; T83.511A Infection and inflammatory reaction due to indwelling urethral catheter, initial encounter; E87.1 Hypo-osmolality and hyponatremia; E78.00 Pure hypercholesterolemia, unspecified; N13.8 Other obstructive and reflux uropathy; F02.81 Dementia in other diseases classified elsewhere, unspecified severity, with behavioral disturbance; F17.200 Nicotine dependence, unspecified, uncomplicated; N39.0 Urinary tract infection, site not specified; G30.9 Alzheimer's disease, unspecified; R07.9 Chest pain, unspecified; E11.22 Type 2 diabetes mellitus with diabetic chronic kidney disease; N18.3 Chronic kidney disease, stage 3 (moderate); I12.9 Hypertensive chronic kidney disease with stage 1 through stage 4 chronic kidney disease, or unspecified chronic kidney disease; K59.04 Chronic idiopathic constipation; N40.1 Benign prostatic hyperplasia with lower urinary tract symptoms; R33.9 Retention of urine, unspecified; R32 Unspecified urinary incontinence; G47.33 Obstructive sleep apnea (adult) (pediatric); J43.9 Emphysema, unspecified; R13.12 Dysphagia, oropharyngeal phase; F17.210 Nicotine dependence, cigarettes, uncomplicated; E11.319 Type 2 diabetes mellitus with unspecified diabetic retinopathy without macular edema; I25.10 Atherosclerotic heart disease of native coronary artery without angina pectoris; E78.5 Hyperlipidemia, unspecified; D50.9 Iron deficiency anemia, unspecified; K80.20 Calculus of gallbladder without cholecystitis without obstruction; K44.9 Diaphragmatic hernia without obstruction or gangrene; F32.9 Major depressive disorder, single episode, unspecified; H91.90 Unspecified hearing loss, unspecified ear; Z66 Do not resuscitate; Z51.5 Encounter for palliative care; Z79.51 Long term (current) use of inhaled steroids; Z79.84 Long term (current) use of oral hypoglycemic drugs; Z79.82 Long term (current) use of aspirin; Z95.5 Presence of coronary angioplasty implant and graft; Z87.440 Personal history of urinary (tract) infections; Z87.01 Personal history of pneumonia (recurrent); Z85.038 Personal history of other malignant neoplasm of large intestine; Z85.46 Personal history of malignant neoplasm of prostate
CPT/HCPCS: 36415; 71045; 71275; 80048; 80069; 81001; 82803; 83036; 83540; 83605; 84466; 85025; 85379; 87040; 87086; 93005; 94640; 94761; 96365; 99284; 99285; A9270; J1650; J2060; J2916; J3370; J7626; Q9967; 81003

== ENCOUNTER 2019-05-28 08:17 | Emergency (ER) | payer MEDICARE, MEDICAID ==
[2019-05-28] MEDS ORDERED: ACETAMINOPHEN 325 MG TABLET PO STA (08:59)
--- NOTE | 2019-05-28 10:01 | XRAY Report ---
Reason: dyspnea/ cough Procedure Date: 05/28/2019 Accession Number: [id number] / [id number] Procedure: XR - Chest 2 View X-Ray CPT Code: 58213 FULL RESULT: EXAM: CHEST RADIOGRAPHY EXAM DATE: 05/28/2019 09:27 AM. CLINICAL HISTORY: Dyspnea and cough. COMPARISON: CHEST 1 VIEW 05/06/2019 5:38 PM. TECHNIQUE: 2 views. FINDINGS: Lungs/Pleura: Stable distribution of bilateral pleural calcifications. Stable linear parenchymal scar in the right mid lung. No pleural effusion or pneumothorax. No pulmonary vascular congestion or interstitial edema. Mediastinum: The cardiac silhouette size is normal. Tortuous thoracic aorta with arteriosclerosis. Other: Decreased mineralization of the bones. IMPRESSION: 1. No acute findings. 2. Stable bilateral pleural calcifications and right midlung linear parenchymal scar. RADIA
[2019-05-28 10:19] LABS: BASOPHILS # (AUTO) 0.1 10^3/uL (0.0-0.1); BASOPHILS % (AUTO) 0.8 %; EOSINOPHILS # (AUTO) 0.2 10^3/uL (0.0-0.7); EOSINOPHILS % (AUTO) 2.8 %; HGB - HEMOGLOBIN 11.6 g/dL (14.0-18.0); LYMPHOCYTES # (AUTO) 1.7 10^3/uL (1.5-3.5); LYMPHOCYTES % (AUTO) 22.6 %; MEAN CORPUSCULAR VOLUME 84.4 fL (80.0-94.0); MEAN PLATELET VOLUME 9.6 fL (7.4-11.4); MONOCYTES # (AUTO) 0.8 10^3/uL (0.0-1.0); MONOCYTES % (AUTO) 10.9 %; NEUTROPHILS # (AUTO) 4.8 10^3/uL (1.5-6.6); NEUTROPHILS % (AUTO) 62.4 %; PLT - PLATELET COUNT 277 10^3/uL (130-450); RED BLOOD COUNT 4.29 10^6/uL (4.70-6.10); RED CELL DISTRIBUTION WIDTH 16.5 % (12.0-15.0); WHITE BLOOD COUNT 7.6 x10^3/uL (4.8-10.8)
[2019-05-28 10:22] LABS: ALBUMIN 3.2 g/dL (3.2-5.5); BILIRUBIN,TOTAL 0.5 mg/dL (0.2-1.0); CALCIUM 8.6 mg/dL (8.5-10.3); TOTAL PROTEIN 6.5 g/dL (6.7-8.2)
[2019-05-28] MEDS ORDERED: SODIUM CHLORIDE 0.9% 1,000 ML IV ONE (10:22)
[2019-05-28] MEDS ORDERED: IOVERSOL 320 100 ML VIAL IVP ONE ×2 (10:38→10:56)
--- NOTE | 2019-05-28 11:36 | CT Report ---
Reason: mid thoracic back pain Procedure Date: 05/28/2019 Accession Number: [id number] / [id number] Procedure: CT - CHEST W CPT Code: FULL RESULT: EXAM: CT CHEST EXAM DATE: 05/28/2019 10:54 AM. CLINICAL HISTORY: Mid thoracic back pain. COMPARISONS: CHEST ANGIO 05/06/2019 8:52 PM CHEST ANGIO 11/30/2018 10:14 PM ABDOMEN/PELVIS W/ 12/15/2014 5:43 PM CHEST W/O 04/09/2018 5:38 PM LOWER EXTREMITY RIGHT W/O 01/11/2019 1:34 PM ABDOMEN/PELVIS W/O 04/21/2018 1:26 PM RETROPERITONEAL 04/11/2018 1:57 PM. TECHNIQUE: Routine helical CT imaging was performed through the chest. IV contrast: None. Reconstructions: Coronal and sagittal. In accordance with CT protocol optimization, one or more of the following dose reduction techniques were utilized for this exam: automated exposure control, adjustment of mA and/or KV based on patient size, or use of iterative reconstructive technique. FINDINGS: Lungs/Pleura: Extensive calcified bilateral pleural plaques suggesting prior remote asbestos exposure. 1.4 x 0.9 cm posterior right lower lobe subpleural nodule on series 5 image 40 is stable compared to CT 04/09/2018, however, was probably not present on abdominal CT 12/15/2014. 1.2 cm posteromedial right lower lobe noncalcified subpleural nodule versus pleural plaque on series 5 image 49 developed since 05/06/2019. Mild bilateral lower lobe bronchial wall thickening. Emphysematous changes with prominent bulla involving the right lower and middle lobes. Trace right pleural effusion. Mediastinum: 1.8 cm right thyroid nodule. No bulky mediastinal adenopathy. Extensive LAD coronary arterial calcifications. Moderate right coronary arterial calcification. Bones: Mild thoracic spine degenerative changes. Old lateral left 9th and 10th rib fractures with sclerotic density. Visualized Abdomen: Dependent gallstones. Partial fatty replacement of the pancreas. 1.5 cm exophytic lateral left upper renal lesion with attenuation 71 HU today, previously 54 HU on noncontrast abdominal CT 04/21/2018; change in attenuation can be seen with pseudo-enhancement phenomena and is indeterminate. This lesion previously measured 1 cm on 12/15/2014. Small anterior medial left upper renal cyst also seen. Other: None. IMPRESSION: 1. Emphysema. 2. Extensive bilateral prominent calcified pleural plaques compatible with remote asbestos exposure. 3. A 1.9 cm posterior right lower lobe subpleural lung nodule is stable compared to 04/09/2018, however, was probably not present on 12/15/2014. 4. A 1.2 cm posteromedial right lower lobe noncalcified subpleural nodule versus pleural plaque has developed since 05/06/2019. 5. Gallstones. 6. A 1.5 cm exophytic lateral left upper renal lesion is indeterminate for complex cyst or solid mass. This probably correlates to a simple cyst on ultrasound 04/11/2018, however a smaller 0.9 cm medial left upper renal cyst is also seen today. Suggest nonemergent renal ultrasound to further assess. 7. No acute bony abnormality demonstrated. RADIA
[2019-05-28] MEDS ORDERED: KETOROLAC 15 MG/ML VIAL IVP STA (11:51)
[2019-05-28 11:53] LABS: BILIRUBIN,URINE NEGATIVE (NEGATIVE); GLUCOSE, URINE (UA) NEGATIVE (NEGATIVE); KETONES,URINE (UA) NEGATIVE (NEGATIVE); LEUKOCYTE ESTERASE, URINE NEGATIVE (NEGATIVE); NITRITE,URINE NEGATIVE (NEGATIVE); OCCULT BLOOD,URINE NEGATIVE (NEGATIVE); PH,URINE 5.5 PH (5.0-7.5); PROTEIN,URINE NEGATIVE (NEGATIVE); UROBILINOGEN,URINE 0.2 (NORMAL) E.U./dL (NORMAL)
[2019-05-28 12:02] LABS: CLARITY,URINE CLEAR (CLEAR)
--- NOTE | 2019-05-28 12:11 | ED Physician Documentation ---
PD HPI BACK PAIN - Stated complaint Stated Complaint: BACK PX - Chief complaint Chief Complaint: Back Pain - History obtained from History obtained from: Patient - History of Present Illness Timing - onset: How many days ago (3-4) Timing - duration: Days Timing - details: Gradual onset, Still present, Waxing and waning Location: Mid (he says between shoulder blades, pain with movement but also still present with lying still. Comes and goes. Not pleuritic. Had had recent pneumonia but is improved with just mild cough. Has some numbness to right arm at times, not constant.), Right Quality: Pain, Aching. No: Sharp, Tearing Associated symptoms: Weakness (general weakness), Numbness (at times down inside part of right arm). No: Fever Improves with: No: Rest Worsened by: Movement. No: Twisting, Palpation Contributing factors: No: Lifting, Twisting, Trauma Recently seen: Emergency Dept (for pneumonia and dyspnea. Had negative CT-A.) Review of Systems Constitutional: reports: Myalgias, Fatigue. denies: Fever Nose: denies: Rhinorrhea / runny nose, Congestion Throat: denies: Sore throat Cardiac: denies: Chest pain / pressure, Palpitations Respiratory: reports: Cough. denies: Dyspnea GI: denies: Abdominal Pain, Nausea, Vomiting, Diarrhea : denies: Dysuria, Frequency Skin: denies: Rash, Lesions PD PAST MEDICAL HISTORY - Past Medical History Past Medical History: Yes Cardiovascular: High cholesterol, Coronary artery disease Respiratory: COPD, Sleep apnea, CPAP use Neuro: Alzhiemer's, Dementia Endocrine/Autoimmune: Type 2 diabetes GI: Hiatal hernia : Benign prostate hypertrophy HEENT: None Psych: Depression Musculoskeletal: None Derm: None - Past Surgical History Past Surgical History: Yes General: Bowel surgery Ortho: Other Cardiovascular: Coronary stent - Present Medications Home Medications: Ambulatory Orders Medication Instructions Recorded Confirmed Furosemide 20 mg PO DAILY 05/13/15 05/07/19 Sertraline [Zoloft] 50 mg PO DAILY 12/07/16 05/07/19 Albuterol Sulfate [Proair Hfa 1 - 2 puffs INH Q4H PRN 04/10/18 05/07/19 Inhaler] Metformin HCl 500 mg PO QDBREAKFAST 04/21/18 05/07/19 Phenazopyridine HCl [Pyridium] 200 mg PO TID PRN #6 tablet 04/14/19 05/07/19 Amox/Clav 875/125 [Augmentin 1 tab PO BID 8 Days #16 tablet 05/08/19 875/125] Aspirin 81 mg PO DAILY #30 tab.chew 05/08/19 Budesonide/Formoterol Fumarate 10.2 gm IH BID #1 hfa.aer.ad 05/08/19 [Symbicort 80-4.5 Mcg Inhaler] Doxycycline Hyclate [Vibramycin] 100 mg PO BID 8 Days #16 capsule 05/08/19 Ferrous Sulfate 325 mg PO BIDWM #60 tablet 05/08/19 Lactobacillus Rhamnosus GG 1 cap PO DAILY 20 Days #20 capsule 05/08/19 [Culturelle] Naproxen 375 mg PO BID #20 tablet 05/28/19 - Allergies Allergies/Adverse Reactions: Allergies Allergy/AdvReac Type Severity Reaction Status Date / Time No Known Drug Allergies Allergy Verified 05/28/19 08:32 - Social History Does the pt smoke?: Yes Smoking Status: Current every day smoker Does the pt drink ETOH?: No Does the pt have substance abuse?: No - Immunizations Immunizations are current?: No Immunizations: TDAP >10years/unknown - POLST Patient has POLST: No POLST Status: DNR PD ED PE NORMAL - Vitals Vital signs reviewed: Yes - General General: Alert and oriented X 3, No acute distress, Well developed/nourished - HEENT HEENT: Pharynx benign - Neck Neck: Supple, no meningeal sign, No adenopathy - Cardiac Cardiac: RRR, No murmur - Respiratory Respiratory: Clear bilaterally, Other (no chestwall tenderness. ) - Abdomen Abdomen: Soft, Non tender, Non distended, No organomegaly - Back Back: No CVA TTP - Derm Derm: Normal color, Warm and dry, No rash - Neuro Neuro: No motor deficit, Normal speech. No: Alert and oriented X 3 (alert and conversant; poor short term memory c/w dementia. ) Results - Vitals Vitals: Vital Signs - 24 hr 05/28/19 05/28/19 08:29 12:25 Temperature 35.7 C L 36.6 C Heart Rate 67 50 L Respiratory 16 12 Rate Blood Pressure 146/63 H 153/71 H O2 Saturation 95 97 Oxygen O2 Source [Without Activity] Room air O2 Source Room air - Labs Labs: Laboratory Tests 05/28/19 05/28/19 05/28/19 09:56 09:56 09:56 WBC 7.6 RBC 4.29 L Hgb 11.6 L Hct 36.2 L MCV 84.4 MCH 27.0 MCHC 32.0 RDW 16.5 H Plt Count 277 MPV 9.6 Neut # (Auto) 4.8 Lymph # (Auto) 1.7 Young # (Auto) 0.8 Eos # (Auto) 0.2 Baso # (Auto) 0.1 Absolute Nucleated RBC 0.00 Nucleated RBC % 0.0 Sodium 138 Potassium 4.1 Chloride 102 Carbon Dioxide 24 Anion Gap 12.0 BUN 29 H Creatinine 1.0 Estimated GFR (MDRD) 70 L Glucose 223 H Calcium 8.6 Magnesium 2.0 Total Bilirubin 0.5 AST 17 ALT 11 Alkaline Phosphatase 89 Troponin I < 0.04 B-Natriuretic Peptide Total Protein 6.5 L Albumin 3.2 Globulin 3.3 Albumin/Globulin Ratio 1.0 Lipase 28 Urine Color Urine Clarity Urine pH Ur Specific [place] Urine Protein Urine Glucose (UA) Urine Ketones Urine Occult Blood Urine Nitrite Urine Bilirubin Urine Urobilinogen Ur Leukocyte Esterase Ur Microscopic Review Urine Culture Comments 05/28/19 05/28/19 09:56 11:47 WBC RBC Hgb Hct MCV MCH MCHC RDW Plt Count MPV Neut # (Auto) Lymph # (Auto) Young # (Auto) Eos # (Auto) Baso # (Auto) Absolute Nucleated RBC Nucleated RBC % Sodium Potassium Chloride Carbon Dioxide Anion Gap BUN Creatinine Estimated GFR (MDRD) Glucose Calcium Magnesium Total Bilirubin AST ALT Alkaline Phosphatase Troponin I B-Natriuretic Peptide 187 H Total Protein Albumin Globulin Albumin/Globulin Ratio Lipase Urine Color YELLOW Urine Clarity CLEAR Urine pH 5.5 Ur Specific [place] <=1.005 Urine Protein NEGATIVE Urine Glucose (UA) NEGATIVE Urine Ketones NEGATIVE Urine Occult Blood NEGATIVE Urine Nitrite NEGATIVE Urine Bilirubin NEGATIVE Urine Urobilinogen 0.2 (NORMAL) Ur Leukocyte Esterase NEGATIVE Ur Microscopic Review NOT INDICATED Urine Culture Comments NOT INDICATED - Rads (name of study) chest xray Radiology: Prelim report reviewed (chronic calcific changes in lung. ), See rad report chest CT with contrast Radiology: Prelim report reviewed (some progression of plaque formation in lungs. No acute process per se. renal cyst. ), See rad report PD MEDICAL DECISION MAKING - ED course Complexity details: reviewed results, considered differential, d/w patient, d/w family (daughter) Departure - Departure Disposition: 01 Home, Self Care Clinical Impression: Acute thoracic back pain Qualifiers: Back pain laterality: unspecified Qualified Code(s): M54.6 - Pain in thoracic spine Condition: Stable Record reviewed to determine appropriate education?: Yes Instructions: ED Neck Back Pain General Follow-Up: Artem Denis MD [Primary Care Provider] - Prescriptions: Naproxen 375 mg PO BID #20 tablet Comments: No obvious cause for the pain. It may be musculoskeletal. I would suggest perhaps some anti-inflammatories such as naproxen twice daily. To that add Tylenol as needed for pain 4 times a day. Recheck if not improved over the next several days to week. Discharge Date/Time: 05/28/19 12:30
[2019-05-28 12:27] VITALS: BP 153/71
== END 2019-05-28 12:30 | disposition home or self-care (01) ==
LOC: ED 08:17
DX: M54.6 Pain in thoracic spine (principal); J43.9 Emphysema, unspecified; R91.8 Other nonspecific abnormal finding of lung field; I45.10 Unspecified right bundle-branch block; I25.10 Atherosclerotic heart disease of native coronary artery without angina pectoris; Z95.5 Presence of coronary angioplasty implant and graft; E11.9 Type 2 diabetes mellitus without complications; Z79.84 Long term (current) use of oral hypoglycemic drugs; K80.20 Calculus of gallbladder without cholecystitis without obstruction; G30.9 Alzheimer's disease, unspecified; F02.80 Dementia in other diseases classified elsewhere, unspecified severity, without behavioral disturbance, psychotic disturbance, mood disturbance, and anxiety; F17.200 Nicotine dependence, unspecified, uncomplicated; Z79.82 Long term (current) use of aspirin; Z66 Do not resuscitate
CPT/HCPCS: 36415; 71046; 71260; 80053; 81003; 83690; 83735; 83880; 84484; 85025; 93005; 96361; 96374; 99283; A9270; Q9967; 81001; 87086

== ENCOUNTER 2019-11-04 15:20 | Emergency (ER) | payer MEDICARE, MEDICAID ==
[2019-11-04 15:34] VITALS: BP 128/62
--- NOTE | 2019-11-04 17:14 | ED Physician Documentation ---
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 per leather colorer) PD HPI MALE CONTRIB FACTORS: Indwelling catheter Similar symptoms before: Diagnosis (hx of UTIs with similar symptoms, feeling a little confused or off his normal) Recently seen: Not recently seen - Treatment prior to arrival Treatment prior to arrival: none Review of Systems Ten Systems: 10 systems reviewed and negative Constitutional: denies: Fever, Chills Throat: reports: Reviewed and negative Cardiac: reports: Reviewed and negative Respiratory: reports: Reviewed and negative GI: reports: Reviewed and negative : reports: Other (cloudy urine) Skin: reports: Reviewed and negative Musculoskeletal: reports: Reviewed and negative Neurologic: reports: Other (listless per leather colorer) Endocrine: reports: Reviewed and negative Immunocompromised: reports: Reviewed and negative PD PAST MEDICAL HISTORY - Past Medical History Past Medical History: Yes Cardiovascular: High cholesterol, Coronary artery disease Respiratory: COPD, Sleep apnea, CPAP use Neuro: Alzhiemer's, Dementia Endocrine/Autoimmune: Type 2 diabetes GI: Hiatal hernia : Benign prostate hypertrophy HEENT: None Psych: Depression Musculoskeletal: None Derm: None - Past Surgical History Past Surgical History: Yes General: Bowel surgery Ortho: Other Cardiovascular: Coronary stent - Present Medications Home Medications: Ambulatory Orders Medication Instructions Recorded Confirmed Furosemide 20 mg PO DAILY 05/13/15 05/07/19 Sertraline [Zoloft] 50 mg PO DAILY 12/07/16 05/07/19 Albuterol Sulfate [Proair Hfa 1 - 2 puffs INH Q4H PRN 04/10/18 05/07/19 Inhaler] Metformin HCl 500 mg PO QDBREAKFAST 04/21/18 05/07/19 Phenazopyridine HCl [Pyridium] 200 mg PO TID PRN #6 tablet 04/14/19 05/07/19 Amox/Clav 875/125 [Augmentin 1 tab PO BID 8 Days #16 tablet 05/08/19 875/125] Aspirin 81 mg PO DAILY #30 tab.chew 05/08/19 Budesonide/Formoterol Fumarate 10.2 gm IH BID #1 hfa.aer.ad 05/08/19 [Symbicort 80-4.5 Mcg Inhaler] Doxycycline Hyclate [Vibramycin] 100 mg PO BID 8 Days #16 capsule 05/08/19 Ferrous Sulfate 325 mg PO BIDWM #60 tablet 05/08/19 Lactobacillus Rhamnosus GG 1 cap PO DAILY 20 Days #20 capsule 05/08/19 [Culturelle] Naproxen 375 mg PO BID #20 tablet 05/28/19 Ciprofloxacin HCl [Cipro] 500 mg PO BID #20 tablet 11/04/19 - Allergies Allergies/Adverse Reactions: Allergies Allergy/AdvReac Type Severity Reaction Status Date / Time No Known Drug Allergies Allergy Verified 05/28/19 08:32 - Social History Does the pt smoke?: Yes Smoking Status: Current every day smoker Does the pt drink ETOH?: No Does the pt have substance abuse?: No - Immunizations Immunizations are current?: No Immunizations: TDAP >10years/unknown - POLST Patient has POLST: No POLST Status: DNR PD ED PE NORMAL - Vitals Vital signs reviewed: Yes - General General: Alert and oriented X 3, No acute distress, Well developed/nourished - HEENT HEENT: Atraumatic, Moist mucous membranes, Pharynx benign - Neck Neck: Supple, no meningeal sign, No JVD - Cardiac Cardiac: RRR - Respiratory Respiratory: No respiratory distress, Clear bilaterally - Abdomen Abdomen: Soft, Non tender, Non distended - Male Male : Other (stephens catheter in place with sediment in the leg bag) - Rectal Rectal: Deferred - Derm Derm: Normal color, Warm and dry, No rash - Extremities Extremities: No deformity - Neuro Neuro: Alert and oriented X 3, Normal speech Eye Opening: Spontaneous Motor: Obeys Commands Verbal: Oriented GCS Score: 15 - Psych Psych: Normal mood, Normal affect Results - Vitals Vitals: Vital Signs - 24 hr 11/04/19 15:32 Temperature 37 C Heart Rate 58 L Respiratory 18 Rate Blood Pressure 128/62 O2 Saturation 96 Oxygen O2 Source [Without Activity] Room air O2 Source Room air - Labs Labs: Laboratory Tests 11/04/19 17:22 Urine Color YELLOW Urine Clarity CLOUDY Urine pH 6.0 Ur Specific [place] 1.015 Urine Protein NEGATIVE Urine Glucose (UA) NEGATIVE Urine Ketones NEGATIVE Urine Occult Blood SMALL H Urine Nitrite POSITIVE H Urine Bilirubin NEGATIVE Urine Urobilinogen 0.2 (NORMAL) Ur Leukocyte Esterase LARGE H Urine RBC 6-10 H Urine WBC >25 H Ur Squamous Epith Cells RARE Squamous Amorphous Sediment Moderate Urine Bacteria Few Urine Culture Comments INDICATED PD MEDICAL DECISION MAKING - ED course Complexity details: reviewed results, re-evaluated patient, considered differential, d/w patient, other (d/w caregiver) ED course: ddx- uti, electrolyte abnormality, medication adverse effect, urinary retention, dehydration 89 y/o M with hx and exam as documented, reportedly has some mild confusion which is typical of when he gets a UTI. He does have an indwelling catheter for 2 years, last changed about 3.5 weeks ago and due for a change soon. He has a lot of sediment in the stephens tubing and cloudy appearing urine. He is actually awake alert and oriented x 3 and has an otherwise normal exam with no abdominal tenderness. His UA here is consistent with a UTI will initiate antibiotics here - given a dose of rocephin and will send home with cipro. Pt stable for discharge with outpt f/u and return precautions if worsening. Departure - Departure Disposition: 01 Home, Self Care Clinical Impression: UTI (urinary tract infection) due to urinary indwelling Stephens catheter Qualifiers: Indwelling urinary catheter type: indwelling urethral catheter Encounter type: initial encounter Qualified Code(s): T83.511A - Infection and inflammatory reaction due to indwelling urethral catheter, initial encounter Condition: Stable Record reviewed to determine appropriate education?: Yes Instructions: ED UTI Cystitis Male Follow-Up: Artem Denis MD [Primary Care Provider] - As Needed Prescriptions: Ciprofloxacin HCl [Cipro] 500 mg PO BID #20 tablet Discharge Date/Time: 11/04/19 18:09
[2019-11-04 17:32] LABS: BILIRUBIN,URINE NEGATIVE (NEGATIVE); GLUCOSE, URINE (UA) NEGATIVE (NEGATIVE); KETONES,URINE (UA) NEGATIVE (NEGATIVE); LEUKOCYTE ESTERASE, URINE LARGE (NEGATIVE); NITRITE,URINE POSITIVE (NEGATIVE); OCCULT BLOOD,URINE SMALL (NEGATIVE); PROTEIN,URINE NEGATIVE (NEGATIVE); UROBILINOGEN,URINE 0.2 (NORMAL) E.U./dL (NORMAL)
[2019-11-04 17:36] LABS: CLARITY,URINE CLOUDY (CLEAR)
[2019-11-04] MEDS ORDERED: cefTRIAXone 1 GM VIAL IM STA (17:42)
[2019-11-04] MEDS ORDERED: LIDOCAINE 1% 2 ML VIAL MC ONE (17:42)
[2019-11-04 17:53] LABS: AMORPHOUS SEDIMENT,UR Moderate /LPF; BACTERIA,URINE Few /HPF (None Seen); SQUAMOUS EPITHELIAL CELL,UR RARE Squamous (<= Few)
== END 2019-11-04 18:09 | disposition home or self-care (01) ==
LOC: ED 15:20
DX: T83.511A Infection and inflammatory reaction due to indwelling urethral catheter, initial encounter (principal); N39.0 Urinary tract infection, site not specified; Y84.6 Urinary catheterization as the cause of abnormal reaction of the patient, or of later complication, without mention of misadventure at the time of the procedure; G30.9 Alzheimer's disease, unspecified; F02.80 Dementia in other diseases classified elsewhere, unspecified severity, without behavioral disturbance, psychotic disturbance, mood disturbance, and anxiety; E11.9 Type 2 diabetes mellitus without complications; Z79.84 Long term (current) use of oral hypoglycemic drugs; F17.200 Nicotine dependence, unspecified, uncomplicated; Z79.82 Long term (current) use of aspirin
CPT/HCPCS: 81001; 87077; 87086; 87181; 99283; 99284

== ENCOUNTER 2019-11-25 18:31 | Outpatient (CLI) | payer MEDICARE, MEDICAID | END 2019-11-25 18:32 | disposition critical access hospital (66) | LOC: EMS 18:31 | PROVIDERS: ATTEND Surgery | DX: R06.00 Dyspnea, unspecified (principal); R05 Cough | CPT/HCPCS: A0425; A0427 ==

== ENCOUNTER 2019-11-25 18:38 | Emergency (ER) | payer MEDICARE, MEDICAID ==
--- NOTE | 2019-11-25 19:02 | ED Physician Documentation ---
PD HPI DYSPNEA - Stated complaint Stated Complaint: SOA - Chief complaint Chief Complaint: Resp - History obtained from History obtained from: Patient, Family, EMS - History of Present Illness Timing - onset: Other (89-year-old gentleman with dementia, longstanding smoker presents with congestion and a couple of days worth of cough, and a potential aspiration episode today. All of the history is from EMS and the daughter as the patient seems pretty demented.) Review of Systems Unable to obtain: Dementia PD PAST MEDICAL HISTORY - Past Medical History Cardiovascular: High cholesterol, Coronary artery disease Respiratory: COPD, Sleep apnea, CPAP use Neuro: Alzhiemer's, Dementia Endocrine/Autoimmune: Type 2 diabetes GI: Hiatal hernia : Benign prostate hypertrophy HEENT: None Psych: Depression Musculoskeletal: None Derm: None - Past Surgical History Past Surgical History: Yes General: Bowel surgery Ortho: Other Cardiovascular: Coronary stent - Present Medications Home Medications: Ambulatory Orders Medication Instructions Recorded Confirmed Furosemide 20 mg PO DAILY 05/13/15 05/07/19 Sertraline [Zoloft] 50 mg PO DAILY 12/07/16 05/07/19 Albuterol Sulfate [Proair Hfa 1 - 2 puffs INH Q4H PRN 04/10/18 05/07/19 Inhaler] Metformin HCl 500 mg PO QDBREAKFAST 04/21/18 05/07/19 Phenazopyridine HCl [Pyridium] 200 mg PO TID PRN #6 tablet 04/14/19 05/07/19 Amox/Clav 875/125 [Augmentin 1 tab PO BID 8 Days #16 tablet 05/08/19 875/125] Aspirin 81 mg PO DAILY #30 tab.chew 05/08/19 Budesonide/Formoterol Fumarate 10.2 gm IH BID #1 hfa.aer.ad 05/08/19 [Symbicort 80-4.5 Mcg Inhaler] Doxycycline Hyclate [Vibramycin] 100 mg PO BID 8 Days #16 capsule 05/08/19 Ferrous Sulfate 325 mg PO BIDWM #60 tablet 05/08/19 Lactobacillus Rhamnosus GG 1 cap PO DAILY 20 Days #20 capsule 05/08/19 [Culturelle] Naproxen 375 mg PO BID #20 tablet 05/28/19 Ciprofloxacin HCl [Cipro] 500 mg PO BID #20 tablet 11/04/19 Amox/Clav 875/125 [Augmentin] 1 each PO Q12H #20 tablet 11/25/19 - Allergies Allergies/Adverse Reactions: Allergies Allergy/AdvReac Type Severity Reaction Status Date / Time No Known Drug Allergies Allergy Verified 11/25/19 18:43 - Social History Does the pt smoke?: Yes Smoking Status: Current every day smoker Does the pt drink ETOH?: No Does the pt have substance abuse?: No - Immunizations Immunizations are current?: No Immunizations: TDAP >10years/unknown - POLST Patient has POLST: No POLST Status: DNR PD ED PE NORMAL - Vitals Vital signs reviewed: Yes - General General: Other (He is alert and oriented to person only, loud rhonchorous breathing) - HEENT HEENT: PERRL, EOMI - Neck Neck: Supple, no meningeal sign, No bony TTP - Cardiac Cardiac: RRR, No murmur - Respiratory Respiratory: Other (Rhonchorous throughout and diminished at the bases; Slightly tachypneic) - Abdomen Abdomen: Non tender - Back Back: No CVA TTP, No spinal TTP - Derm Derm: Normal color, Warm and dry - Extremities Extremities: No edema, No calf tenderness / cord - Neuro Neuro: No motor deficit, No sensory deficit, Normal speech - Psych Psych: Normal mood, Normal affect Results - Vitals Vitals: Vital Signs - 24 hr 11/25/19 11/25/19 11/25/19 18:43 18:50 21:01 Temperature 38.3 C H Heart Rate 74 82 43 L Respiratory 24 20 20 Rate Blood Pressure 169/58 H 159/75 H 125/55 L O2 Saturation 92 91 L 93 Oxygen O2 Source [] Room air O2 Source Room air - EKG (time done) 1846 Rate: Rate (enter#) (73) Rhythm: NSR [place]: Normal Intervals: Prolonged CA, RBBB Ischemia: Non specific changes. No: ST elevation c/w ischemia, ST depression Computer interpretation: Agree with computer 2106 Rate: Rate (enter#) (41) Rhythm: Other (I think a 2-1 block with a hidden P wave in the T waves.) Intervals: RBBB Compare to prior EKG: Changed from prior EKG - Labs Labs: Laboratory Tests 11/25/19 11/25/19 11/25/19 19:17 19:17 19:17 WBC 15.3 H RBC 4.45 L Hgb 13.0 L Hct 41.4 L MCV 93.0 MCH 29.2 MCHC 31.4 L RDW 14.0 Plt Count 287 MPV 9.8 Neut # (Auto) 13.0 H Lymph # (Auto) 0.8 L [place] # (Auto) 1.1 H Eos # (Auto) 0.2 Baso # (Auto) 0.1 Absolute Nucleated RBC 0.00 Nucleated RBC % 0.0 Sodium 139 Potassium 4.4 Chloride 103 Carbon Dioxide 25 Anion Gap 11.0 BUN 47 H Creatinine 1.3 H Estimated GFR (MDRD) 52 L Glucose 116 H Lactic Acid 1.2 Calcium 9.2 Total Bilirubin 0.4 AST 18 ALT 14 Alkaline Phosphatase 81 Total Protein 7.5 Albumin 3.9 Globulin 3.6 Albumin/Globulin Ratio 1.1 Lipase 35 Influenza A (Rapid) Influenza B (Rapid) 11/25/19 20:42 WBC RBC Hgb Hct MCV MCH MCHC RDW Plt Count MPV Neut # (Auto) Lymph # (Auto) [place] # (Auto) Eos # (Auto) Baso # (Auto) Absolute Nucleated RBC Nucleated RBC % Sodium Potassium Chloride Carbon Dioxide Anion Gap BUN Creatinine Estimated GFR (MDRD) Glucose Lactic Acid Calcium Total Bilirubin AST ALT Alkaline Phosphatase Total Protein Albumin Globulin Albumin/Globulin Ratio Lipase Influenza A (Rapid) Negative Influenza B (Rapid) Negative PD MEDICAL DECISION MAKING - ED course ED course: He has a POLST at the bedside, comfort measures only with no antibiotics. This is in contrast to the daughter's wishes which include thorough work-up and at least antibiotics, I discussed the disconnect with her on my initial evaluation, we decided to least pursue a work-up with an x-ray and labs while we consider the next course of action. His x-ray was clear, however his blood work showed leukocytosis and evidence of dehydration, in the setting of clinical pneumonia I told the daughter that this was still the most likely diagnosis given the imperfect sensitivity of x-ray for pneumonia. She conferred with her sister and they would both like us to give him antibiotics and reverse the POLST for now. He was administered IV Unasyn given the likely aspiration component. They did want to take him home and felt they could care for him at home and were given strict return precautions. At approximately 9 PM I was notified by the nurse that he had become quite bradycardic. He was having a heart rate of about 40 on the monitor. Blood pressure and mentation remained good. Med list reviewed, he is on no medications that should slow his heart rate. An EKG was done, it looks like he is in a 2-1 block. This was discussed with the family, now the son at the bedside who felt like he would want a pacemaker. Discussed again the POLST form which would suggest that when the patient was compos mentis he would not. We are waiting for the rest of the family to decide before making a final decision on that. His daughter was on the fence, I am not even sure if her food and drug research scientist would put in a pacemaker under the circumstances given that he was febrile and has a significant white count. I reviewed the med list with the daughter and confirmed that he is not on any beta-blockers or calcium channel blockers. I spoke with Dr. Redmond, on-call food and drug research scientist at the [facility] who given the fever, the white count, and lack of symptomatology did not think a pacemaker was carter; He felt that the bradycardia would likely resolve with resolution of the illness. Departure - Departure Disposition: 01 Home, Self Care Clinical Impression: Bradycardia Pneumonia Qualifiers: Pneumonia type: due to unspecified organism Laterality: unspecified laterality Lung location: unspecified part of lung Qualified Code(s): J18.9 - Pneumonia, unspecified organism Condition: Good Record reviewed to determine appropriate education?: Yes Instructions: Pneumonia Dc Prescriptions: Amox/Clav 875/125 [Augmentin] 1 each PO Q12H #20 tablet Comments: Push fluids, Tylenol as needed for fevers. Return if worse or if new symptoms develop. He should follow-up with his physician in about 3 days for recheck.
[2019-11-25 19:23] LABS: BASOPHILS # (AUTO) 0.1 10^3/uL (0.0-0.1); BASOPHILS % (AUTO) 0.5 %; EOSINOPHILS # (AUTO) 0.2 10^3/uL (0.0-0.7); EOSINOPHILS % (AUTO) 1.4 %; LYMPHOCYTES # (AUTO) 0.8 10^3/uL (1.5-3.5); MEAN CORPUSCULAR HEMOGLOBIN 29.2 pg (27.0-31.0); MEAN CORPUSCULAR HGB CONC 31.4 g/dL (32.0-36.0); MEAN PLATELET VOLUME 9.8 fL (7.4-11.4); MONOCYTES # (AUTO) 1.1 10^3/uL (0.0-1.0); MONOCYTES % (AUTO) 7.5 %; NEUTROPHILS % (AUTO) 84.9 %; PLT - PLATELET COUNT 287 10^3/uL (130-450); RED BLOOD COUNT 4.45 10^6/uL (4.70-6.10); WHITE BLOOD COUNT 15.3 x10^3/uL (4.8-10.8)
[2019-11-25 19:35] LABS: ALBUMIN 3.9 g/dL (3.2-5.5); ALBUMIN/GLOBULIN RATIO 1.1 (1.0-2.2); BILIRUBIN,TOTAL 0.4 mg/dL (0.2-1.0); CALCIUM 9.2 mg/dL (8.5-10.3); CREATININE 1.3 mg/dL (0.6-1.2); TOTAL PROTEIN 7.5 g/dL (6.7-8.2)
[2019-11-25] MEDS ORDERED: SODIUM CHLORIDE 0.9% 1,000 ML IV ONE (19:53)
--- NOTE | 2019-11-25 20:16 | XRAY Report ---
Reason: cough Procedure Date: 11/25/2019 Accession Number: [id number] / [id number] Procedure: XR - Chest 2 View X-Ray CPT Code: 00000 Final Report FULL RESULT: EXAM: CHEST RADIOGRAPHY EXAM DATE: 11/25/2019 07:29 PM. CLINICAL HISTORY: Cough. COMPARISON: CHEST 2 VIEW 05/28/2019 9:15 AM CHEST ANGIO 05/06/2019 8:52 PM. TECHNIQUE: 3 views. FINDINGS: LUNGS: Limited evaluation of the lungs given overlying calcified pleural plaques. The lungs are hyperexpanded consistent with COPD. PLEURA: Again calcified pleural plaques. Trace bilateral pleural effusions persist. No clinically significant pneumothorax within the limits of the study, however, the right lung apex is obscured by the patient's chin. MEDIASTINUM: Heart and mediastinal contours are notable for aortic calcification. The cardiac silhouette is normal in size. BONES: No suspicious osseous lesions. IMPRESSION: 1. Limited evaluation of the underlying lung given calcified pleural plaques. No obvious consolidation. If high clinical concern for infection, consider CT for further evaluation. RADIA
[2019-11-25] MEDS ORDERED: AMPICILLIN/SULBACTAM 3 GM in SODIUM CHLORIDE 0.9% MINIBAG 100 ML IV STA (20:24)
[2019-11-25] MEDS ORDERED: ACETAMINOPHEN 325 MG TABLET PO STA (20:27)
[2019-11-25] MEDS ORDERED: guaiFENesin 600 MG TABLET PO STA (22:54)
[2019-11-25 23:10] VITALS: BP 114/53
== END 2019-11-25 23:19 | disposition home or self-care (01) ==
LOC: EDUNIT# → ED 18:38
DX: J18.9 Pneumonia, unspecified organism (principal); R00.1 Bradycardia, unspecified; E86.0 Dehydration; G30.9 Alzheimer's disease, unspecified; F02.80 Dementia in other diseases classified elsewhere, unspecified severity, without behavioral disturbance, psychotic disturbance, mood disturbance, and anxiety; E11.9 Type 2 diabetes mellitus without complications; F17.200 Nicotine dependence, unspecified, uncomplicated; Z79.84 Long term (current) use of oral hypoglycemic drugs; Z66 Do not resuscitate
CPT/HCPCS: 36415; 71046; 80053; 83605; 83690; 85025; 87040; 87275; 87276; 93005; 96361; 96365; 99281; 99284; A9270

== ENCOUNTER 2020-02-21 12:53 | Emergency (ER) | payer MEDICARE, MEDICAID ==
--- NOTE | 2020-02-21 13:13 | ED Physician Documentation ---
PD HPI MALE - Stated complaint Stated Complaint: MALE - Chief complaint Chief Complaint: Abd Pain - History obtained from History obtained from: Patient - History of Present Illness Timing - onset: Today (Onset of hematuria and the low urine output in the Joshua starting this morning. His daughter is concerned the Joshua catheter may be clogged or he may be having kidney failure because he is not making much urine. She states he had been eating and drinking appropriately recently. He has been feeling ill otherwise though with the cough and some mild purulent production and wheezing more than baseline. He does have a history of some COPD but also asbestosis.) Timing - details: Abrupt onset Associated symptoms: Hematuria (and less urine output). No: Dysuria PD HPI MALE CONTRIB FACTORS: Indwelling catheter Similar symptoms before: Diagnosis (He has had hematuria in the past. 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 Also irritation from the Joshua. He had not had the problem is recently as much.) Recently seen: Not recently seen Review of Systems Constitutional: reports: Myalgias. denies: Fever, Chills Nose: denies: Rhinorrhea / runny nose, Congestion Throat: denies: Sore throat Respiratory: reports: Dyspnea, Cough, Wheezing GI: reports: Nausea. denies: Abdominal Pain, Vomiting, Diarrhea : reports: Hematuria. denies: Dysuria, Discharge Skin: denies: Rash Neurologic: reports: Generalized weakness. denies: Focal weakness, Numbness, Altered mental status PD PAST MEDICAL HISTORY - Past Medical History Cardiovascular: High cholesterol, Coronary artery disease Respiratory: COPD, Sleep apnea, CPAP use Neuro: Alzhiemer's, Dementia Endocrine/Autoimmune: Type 2 diabetes GI: Hiatal hernia : Benign prostate hypertrophy HEENT: None Psych: Depression Musculoskeletal: None Derm: None - Past Surgical History Past Surgical History: Yes General: Bowel surgery Ortho: Other Cardiovascular: Coronary stent - Present Medications Home Medications: Ambulatory Orders Medication Instructions Recorded Confirmed Furosemide 20 mg PO DAILY 05/13/15 05/07/19 Sertraline [Zoloft] 50 mg PO DAILY 12/07/16 05/07/19 Albuterol Sulfate [Proair Hfa 1 - 2 puffs INH Q4H PRN 04/10/18 05/07/19 Inhaler] Metformin HCl 500 mg PO QDBREAKFAST 04/21/18 05/07/19 Phenazopyridine HCl [Pyridium] 200 mg PO TID PRN #6 tablet 04/14/19 05/07/19 Amox/Clav 875/125 [Augmentin 1 tab PO BID 8 Days #16 tablet 05/08/19 875/125] Aspirin 81 mg PO DAILY #30 tab.chew 05/08/19 Budesonide/Formoterol Fumarate 10.2 gm IH BID #1 hfa.aer.ad 05/08/19 [Symbicort 80-4.5 Mcg Inhaler] Doxycycline Hyclate [Vibramycin] 100 mg PO BID 8 Days #16 capsule 05/08/19 Ferrous Sulfate 325 mg PO BIDWM #60 tablet 05/08/19 Lactobacillus Rhamnosus GG 1 cap PO DAILY 20 Days #20 capsule 05/08/19 [Culturelle] Naproxen 375 mg PO BID #20 tablet 05/28/19 Ciprofloxacin HCl [Cipro] 500 mg PO BID #20 tablet 11/04/19 Amox/Clav 875/125 [Augmentin] 1 each PO Q12H #20 tablet 11/25/19 Albuterol 2.5 mg INH Q4H PRN #30 neb 02/21/20 Doxycycline Monohydrate 100 mg PO BID #14 tablet 02/21/20 Ipratropium [Atrovent] 0.5 mg INH Q6H #30 neb 02/21/20 Nebulizer [Truneb Nebulizer] 1 each MC QID #1 each 02/21/20 predniSONE [Deltasone] 10 mg PO DAILY #20 tab 02/21/20 - Allergies Allergies/Adverse Reactions: Allergies Allergy/AdvReac Type Severity Reaction Status Date / Time No Known Drug Allergies Allergy Verified 02/21/20 12:57 - Social History Does the pt smoke?: Yes Smoking Status: Current every day smoker Does the pt drink ETOH?: No Does the pt have substance abuse?: No - Immunizations Immunizations are current?: No Immunizations: TDAP >10years/unknown - POLST Patient has POLST: No POLST Status: DNR PD ED PE NORMAL - Vitals Vital signs reviewed: Yes - General General: Alert and oriented X 3, Well developed/nourished - HEENT HEENT: Moist mucous membranes, Pharynx benign - Neck Neck: Supple, no meningeal sign, No adenopathy - Cardiac Cardiac: RRR, No murmur - Respiratory Respiratory: No respiratory distress. No: Clear bilaterally (He has diffuse fine crackles sounds consistent with the likely asbestosis. He does have diffuse moderate expiratory wheezing. No coarse sounds per se. He does have a congested cough.) - Abdomen Abdomen: Soft, Non tender (No fullness in the suprapubic area. Bladder scanner showed a minimal amount in the bladder) - Male Male : Other (Joshua catheter in place. No signs of redness or irritation at the meatus. There is gross hematuria in the Joshua output which is minimal general volume.) - Back Back: No CVA TTP - Derm Derm: Normal color, Warm and dry - Extremities Extremities: No tenderness to palpate, No edema, No calf tenderness / cord - Neuro Neuro: Alert and oriented X 3, No motor deficit, Normal speech Results - Vitals Vitals: Vital Signs - 24 hr 02/21/20 02/21/20 02/21/20 12:57 13:13 14:30 Temperature 37.1 C 37.1 C Heart Rate 43 L 56 L 58 L Respiratory 16 20 20 Rate Blood Pressure 120/51 L 109/52 L O2 Saturation 95 95 02/21/20 02/21/20 15:24 16:28 Temperature 36.8 C 37 C Heart Rate 61 63 Respiratory 18 18 Rate Blood Pressure 152/64 H 171/71 H O2 Saturation 95 95 Oxygen O2 Source [Without Activity] Room air O2 Source Room air - Labs Labs: Laboratory Tests 02/21/20 02/21/20 02/21/20 14:30 14:30 15:40 WBC 14.6 H RBC 3.73 L Hgb 10.7 L Hct 32.9 L MCV 88.2 MCH 28.7 MCHC 32.5 RDW 13.6 Plt Count 384 MPV 9.7 Neut # (Auto) Not Reportable Lymph # (Auto) Not Reportable [place] # (Auto) Not Reportable Eos # (Auto) Not Reportable Baso # (Auto) Not Reportable Absolute Nucleated RBC Not Reportable Total Counted 100 Band Neuts % (Manual) 0 Abnorm Lymph % (Manual) 0 Nucleated RBC % Not Reportable Neutrophils # (Manual) 12.0 H Lymphocytes # (Manual) 1.2 L Monocytes # (Manual) 1.0 Eosinophils # (Manual) 0.3 Basophils # (Manual) 0.1 Differential Comment MANUAL DIFFERENTIAL Platelet Estimate NORMAL (130-450,000) Platelet Morphology NORMAL APPEARANCE RBC Morph Micro Appear NORMAL APPEARANCE Sodium 134 L Potassium 4.3 Chloride 102 Carbon Dioxide 21 Anion Gap 11.0 BUN 44 H Creatinine 1.2 Estimated GFR (MDRD) 57 L Glucose 238 H Calcium 8.4 L Magnesium 2.2 Total Bilirubin 0.6 AST 16 ALT 11 Alkaline Phosphatase 66 Total Protein 6.8 Albumin 2.9 L Globulin 3.9 Albumin/Globulin Ratio 0.7 L Lipase 21 L Urine Color DK. ORANGE Urine Clarity CLOUDY Urine pH 5.5 Ur Specific [place] 1.015 Urine Protein 100 H Urine Glucose (UA) NEGATIVE Urine Ketones NEGATIVE Urine Occult Blood LARGE H Urine Nitrite POSITIVE H Urine Bilirubin NEGATIVE Urine Urobilinogen 0.2 (NORMAL) Ur Leukocyte Esterase TRACE H Urine RBC TNTC H Urine WBC 11-25 H Ur Squamous Epith Cells NONE SEEN Urine Bacteria Moderate H Urine Mucus Few Strands Ur Microscopic Review INDICATED Urine Culture Comments INDICATED - Rads (name of study) KUB CT Radiology: Prelim report reviewed (No noted ureteral stones or hydronephrosis.), See rad report PD MEDICAL DECISION MAKING - ED course Complexity details: reviewed results, considered differential (He has an indwelling Joshua with hematuria today. There was minimal urine in the bladder by bladder scanner. He had the Joshua irrigated and the output was a similar volume so does not suggest blockage per se. Some clots did come out with irrigation however. He is encouraged to drink fluids and is given 800 cc (given a liter but he drank that much was (. He did start having more urine output which is not is grossly hematuric. Concern for renal blockage or ureteral brought blockage so we did do a CT scan. This did not show any signs of obstruction. His creatinine is normal as well so does not seem like kidney failure. I think he was just prerenal under hydrated and so not making as much urine output. The urine was tested in I realize he does have a indwelling catheter so likely colonization. It did show some signs of infection. He has also had an exacerbation of his COPD with cough and some purulent material for the last week so can treat with an antibiotic for presumed bronchitis with the COPD flareup as well as using potential nebulizer and steroids.), d/w patient Departure - Departure Disposition: 01 Home, Self Care Clinical Impression: COPD exacerbation, Dehydration Hematuria Qualifiers: Hematuria type: gross Qualified Code(s): R31.0 - Gross hematuria Dyspnea Qualifiers: Dyspnea type: dyspnea on exertion Qualified Code(s): R06.00 - Dyspnea, unspecified Condition: Stable Record reviewed to determine appropriate education?: Yes Instructions: ED Upper Resp Infec Abx Tx, ED Hematuria Follow-Up: Dirk Castro MD [Primary Care Provider] - Prescriptions: Albuterol 2.5 mg INH Q4H PRN #30 neb PRN Reason: Wheezing Doxycycline Monohydrate 100 mg PO BID #14 tablet Ipratropium [Atrovent] 0.5 mg INH Q6H #30 neb Nebulizer [Truneb Nebulizer] 1 each MC QID #1 each predniSONE [Deltasone] 10 mg PO DAILY #20 tab Comments: Take prednisone 20 mg daily for 5 days and then 10 mg daily. Use the inhaler or nebulizer or times a day to help with your breathing. You may need to contact your primary care about obtaining a nebulizer for home as this seems to work well for you. No signs of kidney stones on CT scan. Date your creatinine/kidney function test is in the normal range. I think you are under hydrated not producing as much urine. There is probably some irritation in the bladder or kidney causing the bleeding and you have had that in the past. I would anticipate clearing over the next couple of days. Flush the catheter if it seems like the catheter is clogged from blood clots or such. Doxycycline antibiotic for your apparent bronchitis but based on your symptoms. This could help with potential bladder infection 2. Follow-up with your primary care in the next several days.
[2020-02-21] MEDS ORDERED: IPRATROPIUM/ALBUTEROL 3 ML NEB INH STA (14:00)
[2020-02-21] MEDS ORDERED: DEXAMETHASONE 10 MG/ML VIAL PO STA (14:02)
[2020-02-21] MEDS ORDERED: CHERRY SYRUP 10 ML UDC PO ONE (14:02)
[2020-02-21 14:40] LABS: BASOPHILS % (AUTO) 0.5 %; EOSINOPHILS % (AUTO) 3.4 %; HGB - HEMOGLOBIN 10.7 g/dL (14.0-18.0); LYMPHOCYTES % (AUTO) 9.2 %; MEAN CORPUSCULAR HEMOGLOBIN 28.7 pg (27.0-31.0); MEAN CORPUSCULAR HGB CONC 32.5 g/dL (32.0-36.0); MEAN CORPUSCULAR VOLUME 88.2 fL (80.0-94.0); MEAN PLATELET VOLUME 9.7 fL (7.4-11.4); MONOCYTES % (AUTO) 11.1 %; NEUTROPHILS % (AUTO) 74.8 %; PLT - PLATELET COUNT 384 10^3/uL (130-450); RED BLOOD COUNT 3.73 10^6/uL (4.70-6.10); RED CELL DISTRIBUTION WIDTH 13.6 % (12.0-15.0); WHITE BLOOD COUNT 14.6 x10^3/uL (4.8-10.8)
[2020-02-21 14:44] LABS: ABNORMAL LYMPHS % (MANUAL) 0 %; BAND NEUTROPHILS % (MANUAL) 0 %
[2020-02-21 14:52] LABS: ALBUMIN 2.9 g/dL (3.2-5.5); ALBUMIN/GLOBULIN RATIO 0.7 (1.0-2.2); BILIRUBIN,TOTAL 0.6 mg/dL (0.2-1.0); CALCIUM 8.4 mg/dL (8.5-10.3); CREATININE 1.2 mg/dL (0.6-1.2); MAGNESIUM 2.2 mg/dL (1.7-2.8); TOTAL PROTEIN 6.8 g/dL (6.7-8.2)
[2020-02-21 15:13] LABS: BASOPHILS # (MANUAL) 0.1 10^3/uL (0-0.1); BASOPHILS % (MANUAL) 1 %; EOSINOPHILS # (MANUAL) 0.3 10^3/uL (0-0.7); LYMPHOCYTES # (MANUAL) 1.2 10^3/uL (1.5-3.5); LYMPHOCYTES % (MANUAL) 8 %; PLATELET ESTIMATE, MANUAL NORMAL (130-450,000) (NORMAL); PLATELET MORPHOLOGY NORMAL APPEARANCE (NORMAL); RBC MORPHOLOGY (MULTIPLE) NORMAL APPEARANCE (NORMAL)
[2020-02-21 15:14] LABS: DIFFERENTIAL COMMENT MANUAL DIFFERENTIAL
--- NOTE | 2020-02-21 15:21 | XRAY Report ---
Reason: chest pain Procedure Date: 02/21/2020 Accession Number: [id number] / [id number] Procedure: XR - Chest 1 View X-Ray CPT Code: 65259 Final Report FULL RESULT: EXAM: CHEST RADIOGRAPHY EXAM DATE: 02/21/2020 02:23 PM. CLINICAL HISTORY: Chest pain. COMPARISON: CHEST 2 VIEW 11/25/2019 7:21 PM. TECHNIQUE: 1 view. FINDINGS: Lungs/Pleura: Bilateral calcified pleural plaques. Small right effusion is increased and appears partially loculated . No pneumothorax. Mediastinum: Heart size normal. Calcified ectatic aorta. Other: None. IMPRESSION: 1. Chronic bilateral calcified pleural plaques. 2. Small right effusion is increased and appears partially loculated RADIA
[2020-02-21 15:51] LABS: BILIRUBIN,URINE NEGATIVE (NEGATIVE); GLUCOSE, URINE (UA) NEGATIVE (NEGATIVE); KETONES,URINE (UA) NEGATIVE (NEGATIVE); LEUKOCYTE ESTERASE, URINE TRACE (NEGATIVE); NITRITE,URINE POSITIVE (NEGATIVE); OCCULT BLOOD,URINE LARGE (NEGATIVE); PH,URINE 5.5 PH (5.0-7.5); PROTEIN,URINE 100 mg/dL (NEGATIVE); UROBILINOGEN,URINE 0.2 (NORMAL) E.U./dL (NORMAL)
[2020-02-21 15:58] LABS: CLARITY,URINE CLOUDY (CLEAR)
[2020-02-21] MEDS ORDERED: DOXYCYCLINE 100 MG TABLET PO STA (16:04)
[2020-02-21 16:05] LABS: BACTERIA,URINE Moderate /HPF (None Seen); RBC,URINE TNTC /HPF (0-5); SQUAMOUS EPITHELIAL CELL,UR NONE SEEN (<= Few)
[2020-02-21 16:06] LABS: MUCUS,URINE Few Strands
[2020-02-21 16:29] VITALS: BP 171/71
--- NOTE | 2020-02-21 17:14 | CT Report ---
Reason: hematuria Procedure Date: 02/21/2020 Accession Number: [id number] / [id number] Procedure: CT - Abdomen/Pelvis WO CPT Code: Final Report FULL RESULT: EXAM: CT ABDOMEN AND PELVIS (CT KUB) EXAM DATE: 02/21/2020 04:06 PM. CLINICAL HISTORY: Hematuria. COMPARISONS: ABDOMEN/PELVIS W/O 04/21/2018 1:26 PM. TECHNIQUE: Routine axial helical CT imaging was performed through the abdomen and pelvis without IV contrast. Reconstructions: Coronal and sagittal. In accordance with CT protocol optimization, one or more of the following dose reduction techniques were utilized for this exam: automated exposure control, adjustment of mA and/or KV based on patient size, or use of iterative reconstructive technique. FINDINGS: Lung Bases: There is a new small right pleural effusion. There is bilateral marked pleural calcification which appears unchanged. Right Kidney/Ureter: Right kidney is small in size. No renal or ureteral stone. No hydronephrosis. Left Kidney/Ureter: There is an exophytic hyperdense cortical lesion arising from the lateral superior pole of the left kidney measuring 15 mm in diameter. Unchanged since 2018. No renal calculus or ureteral calculus. Negative for hydronephrosis. Other Solid Organs: Noncontrast images of the solid organs are grossly unremarkable. Gallbladder/Bile Ducts: There are calcified gallstones. Gallbladder appears unchanged. Peritoneal Cavity: Stomach and duodenum appear unremarkable. There is increased small bowel gas without a transition zone. No free air or abscess. There is increased colonic stool. Pelvic Organs: The urinary bladder is in T and decompressed with a Joshua catheter. There are metallic clips in the prostate. Vasculature: There is an abdominal aortic aneurysm of the distal abdominal aorta. The aneurysm measures 53 x 53 mm on image 65 previously 50 x 50 mm. The iliac arteries are moderately tortuous and dilated. The right common iliac artery measures 29 mm in diameter distally which is unchanged. Other: None. IMPRESSION: 1. No urolithiasis or hydronephrosis. 2. 53 mm distal abdominal aortic aneurysm which previously measured 50 mm in diameter on 04/21/2018. No leak or rupture. 3. New small right pleural effusion. 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 4. Features of constipation and possible mild ileus. 5. Hyperdense cortical lesion, probable hyperdense cyst in the left kidney unchanged since 2018. RADIA
== END 2020-02-21 16:41 | disposition home or self-care (01) ==
LOC: ED 12:53
DX: R31.0 Gross hematuria (principal); J44.1 Chronic obstructive pulmonary disease with (acute) exacerbation; E86.0 Dehydration; G30.9 Alzheimer's disease, unspecified; F02.80 Dementia in other diseases classified elsewhere, unspecified severity, without behavioral disturbance, psychotic disturbance, mood disturbance, and anxiety; E11.9 Type 2 diabetes mellitus without complications; F17.200 Nicotine dependence, unspecified, uncomplicated; I25.10 Atherosclerotic heart disease of native coronary artery without angina pectoris; G47.30 Sleep apnea, unspecified; Z95.5 Presence of coronary angioplasty implant and graft; Z79.51 Long term (current) use of inhaled steroids; Z79.84 Long term (current) use of oral hypoglycemic drugs; Z79.82 Long term (current) use of aspirin; Z79.52 Long term (current) use of systemic steroids
CPT/HCPCS: 36415; 71045; 74176; 80053; 81001; 83690; 83735; 85025; 87086; 87181; 94640; 99284; A9270; 81003

== ENCOUNTER 2020-03-13 15:08 | Emergency (ER) | payer MEDICARE, MEDICAID ==
[2020-03-13 15:57] LABS: BASOPHILS # (AUTO) 0.1 10^3/uL (0.0-0.1); BASOPHILS % (AUTO) 0.8 %; EOSINOPHILS # (AUTO) 0.5 10^3/uL (0.0-0.7); EOSINOPHILS % (AUTO) 5.1 %; HGB - HEMOGLOBIN 9.5 g/dL (14.0-18.0); LYMPHOCYTES # (AUTO) 1.5 10^3/uL (1.5-3.5); LYMPHOCYTES % (AUTO) 15.4 %; MEAN CORPUSCULAR HGB CONC 30.7 g/dL (32.0-36.0); MEAN CORPUSCULAR VOLUME 91.2 fL (80.0-94.0); MEAN PLATELET VOLUME 9.1 fL (7.4-11.4); MONOCYTES % (AUTO) 10.4 %; NEUTROPHILS # (AUTO) 6.6 10^3/uL (1.5-6.6); NEUTROPHILS % (AUTO) 67.7 %; PLT - PLATELET COUNT 329 10^3/uL (130-450); RED BLOOD COUNT 3.39 10^6/uL (4.70-6.10); RED CELL DISTRIBUTION WIDTH 13.8 % (12.0-15.0); WHITE BLOOD COUNT 9.8 x10^3/uL (4.8-10.8)
--- NOTE | 2020-03-13 15:58 | ED Physician Documentation ---
History of Present Illness - Stated complaint Stated Complaint: M - Chief complaint Chief Complaint: General - History obtained from History obtained from: Patient, Family - History of Present Illness Timing: Today Pain level max: 0 Pain level now: 0 - Additonal information Additional information: 89-year-old male presents to the emergency department with hematuria today. This is been an ongoing issue for him. Seen here a few weeks ago and treated with Levaquin. He has not had any fevers. He has a chronic indwelling Joshua catheter. He also has a known left renal mass. Nothing makes this better or worse. No altered mental status. Review of Systems Constitutional: denies: Fever GI: denies: Vomiting Skin: denies: Rash PD PAST MEDICAL HISTORY - Past Medical History Cardiovascular: High cholesterol, Coronary artery disease Respiratory: COPD, Sleep apnea, CPAP use Neuro: Alzhiemer's, Dementia Endocrine/Autoimmune: Type 2 diabetes GI: Hiatal hernia : Benign prostate hypertrophy HEENT: None Psych: Depression Musculoskeletal: None Derm: None - Past Surgical History Past Surgical History: Yes General: Bowel surgery Ortho: Other Cardiovascular: Coronary stent - Present Medications Home Medications: Ambulatory Orders Medication Instructions Recorded Confirmed Furosemide 20 mg PO DAILY 05/13/15 05/07/19 Sertraline [Zoloft] 50 mg PO DAILY 12/07/16 05/07/19 Albuterol Sulfate [Proair Hfa 1 - 2 puffs INH Q4H PRN 04/10/18 05/07/19 Inhaler] Metformin HCl 500 mg PO QDBREAKFAST 04/21/18 05/07/19 Phenazopyridine HCl [Pyridium] 200 mg PO TID PRN #6 tablet 04/14/19 05/07/19 Amox/Clav 875/125 [Augmentin 1 tab PO BID 8 Days #16 tablet 05/08/19 875/125] Aspirin 81 mg PO DAILY #30 tab.chew 05/08/19 Budesonide/Formoterol Fumarate 10.2 gm IH BID #1 hfa.aer.ad 05/08/19 [Symbicort 80-4.5 Mcg Inhaler] Doxycycline Hyclate [Vibramycin] 100 mg PO BID 8 Days #16 capsule 05/08/19 Ferrous Sulfate 325 mg PO BIDWM #60 tablet 05/08/19 Lactobacillus Rhamnosus GG 1 cap PO DAILY 20 Days #20 capsule 05/08/19 [Culturelle] Naproxen 375 mg PO BID #20 tablet 05/28/19 Ciprofloxacin HCl [Cipro] 500 mg PO BID #20 tablet 11/04/19 Amox/Clav 875/125 [Augmentin] 1 each PO Q12H #20 tablet 11/25/19 Albuterol 2.5 mg INH Q4H PRN #30 neb 02/21/20 Doxycycline Monohydrate 100 mg PO BID #14 tablet 02/21/20 Ipratropium [Atrovent] 0.5 mg INH Q6H #30 neb 02/21/20 Nebulizer [Truneb Nebulizer] 1 each MC QID #1 each 02/21/20 predniSONE [Deltasone] 10 mg PO DAILY #20 tab 02/21/20 - Allergies Allergies/Adverse Reactions: Allergies Allergy/AdvReac Type Severity Reaction Status Date / Time ciprofloxacin [From Cipro] Allergy Unknown Verified 03/13/20 15:18 - Social History Does the pt smoke?: Yes Smoking Status: Current every day smoker Does the pt drink ETOH?: No Does the pt have substance abuse?: No - Immunizations Immunizations are current?: No Immunizations: TDAP >10years/unknown - POLST Patient has POLST: No POLST Status: DNR PD ED PE NORMAL - Vitals Vital signs reviewed: Yes - General General: Alert and oriented X 3 - HEENT HEENT: PERRL, Moist mucous membranes - Neck Neck: Supple, no meningeal sign - Cardiac Cardiac: RRR - Respiratory Respiratory: No respiratory distress, Clear bilaterally - Abdomen Abdomen: Soft, Non tender, Non distended - Derm Derm: Warm and dry - Extremities Extremities: No edema - Neuro Neuro: Alert and oriented X 3 Results - Vitals Vitals: Vital Signs - 24 hr 03/13/20 03/13/20 03/13/20 15:12 15:18 16:26 Temperature 36.8 C Heart Rate 68 62 66 Respiratory 18 16 18 Rate Blood Pressure 111/73 142/74 H 156/77 H O2 Saturation 99 96 94 03/13/20 16:33 Temperature 36.6 C Heart Rate 65 Respiratory 16 Rate Blood Pressure 145/74 H O2 Saturation 96 Oxygen O2 Source [Without Activity] Room air O2 Source Room air - Labs Labs: Laboratory Tests 03/13/20 03/13/20 15:45 15:50 WBC 9.8 RBC 3.39 L Hgb 9.5 L Hct 30.9 L MCV 91.2 MCH 28.0 MCHC 30.7 L RDW 13.8 Plt Count 329 MPV 9.1 Neut # (Auto) 6.6 Lymph # (Auto) 1.5 Quay # (Auto) 1.0 Eos # (Auto) 0.5 Baso # (Auto) 0.1 Absolute Nucleated RBC 0.00 Nucleated RBC % 0.0 Sodium 131 L Potassium 4.6 Chloride 99 L Carbon Dioxide 23 Anion Gap 9.0 BUN 43 H Creatinine 1.1 Estimated GFR (MDRD) 63 L Glucose 146 H Calcium 8.1 L PD MEDICAL DECISION MAKING - ED course Complexity details: reviewed results, re-evaluated patient, considered differential, d/w patient, d/w family ED course: Patient with asymptomatic hematuria. No fever. No leukocytosis. Joshua catheter was changed and the urine is now draining clear. Possible that this is bleeding from his Left renal tumor, possible irritation to the bladder itself. We will not place him on antibiotics at this time. Patient and family counseled regarding signs and symptoms for which I believe and urgent re-evaluation would be necessary. Patient with good understanding of and agreement to plan and is comfortable going home at this time This document was made in part using voice recognition software. While efforts are made to proofread this document, sound alike and grammatical errors may occur. Departure - Departure Disposition: 01 Home, Self Care Clinical Impression: Hematuria Qualifiers: Hematuria type: gross Qualified Code(s): R31.0 - Gross hematuria Condition: Good Instructions: ED Hematuria Follow-Up: Dirk Castro MD [Primary Care Provider] - Within 1 week Comments: Return if he worsens. We will monitor this and see if this clears in a few days. His Joshua catheter was changed today. This could be bleeding from his renal mass. He should follow-up with urology for further evaluation. Discharge Date/Time: 03/13/20 16:34
[2020-03-13 16:04] LABS: CALCIUM 8.1 mg/dL (8.5-10.3); CREATININE 1.1 mg/dL (0.6-1.2)
[2020-03-13 16:34] VITALS: BP 145/74
== END 2020-03-13 16:34 | disposition home or self-care (01) ==
LOC: ED 15:08
DX: R31.0 Gross hematuria (principal); N28.89 Other specified disorders of kidney and ureter; G30.9 Alzheimer's disease, unspecified; F02.80 Dementia in other diseases classified elsewhere, unspecified severity, without behavioral disturbance, psychotic disturbance, mood disturbance, and anxiety; E11.9 Type 2 diabetes mellitus without complications; F17.200 Nicotine dependence, unspecified, uncomplicated; Z96.0 Presence of urogenital implants; Z79.84 Long term (current) use of oral hypoglycemic drugs
CPT/HCPCS: 36415; 51702; 80048; 85025; 99283; 99284